=== PATIENT | male | born 1965 | race Caucasian/White ===

== ENCOUNTER 2017-08-25 20:40 | Inpatient (IN) ==
[2017-08-25] MEDS ORDERED: ONDANSETRON ODT 4 MG TABLET SL ONE (20:54)
--- NOTE | 2017-08-25 21:21 | Emergency Department Note ---
Nausea/Vomiting/Diarrhea HPI - General Chief complaint: Nausea/Vomiting/Diarrhea Stated complaint: n/v for approx 16 hrs Time Seen by Provider: 08/25/17 21:18 Source: patient Mode of arrival: ambulatory Limitations: no limitations - History of Present Illness HPI Narrative: This 52-year-old gentleman comes to the emergency room accompanied by Macarena with nausea and vomiting over the last 15 hours. He has dialysis scheduled in the morning for which she treats his chronic renal failure due to his diabetes type 1. He sees Dr. Hernandez. He admits to taking 4 of his hydromorphone 4 mg yesterday, one at a time, for his chronic pains. He sometimes takes none and his average intake is about 4 per week in the past. He did take some nausea medicine with the last dose being last evening at 10 PM under the tongue sublingual type. His normal dialysis is Mondays and Fridays at 10 AM. He has had some sweats but mostly with the vomiting he believes. Some chills because of this. No fevers. REVIEW OF SYSTEMS: Denies chest pain, palpitations. Some low-grade chronic cough. No shortness of breath or wheeziness. No abdominal pain, diarrhea, constipation, hematochezia. No dysuria, no foul-smelling urine. He produces small amounts of urine. Chronic back pain. He has metal holding his vertebra part with 2 plates and 4 bolts he says. He also has severe neck pain for which he is getting a workup including an MRI and ultrasound done yesterday. No rashes No headaches. He is felt weak today. He has felt a little dizzy today. Denies anxiety and worry. Denies sadness and depression. Has felt fatigued and sleepy all day. - Related Data Home Medications Medication Instructions Recorded Confirmed ascorbic acid (vitamin C) 1,000 mg 1,000 mg PO BID tab 08/23/14 08/26/17 tablet brimonidine-timolol 0.2 %-0.5 % 1 drp RIGHT EYE Q6H ml 08/23/14 08/26/17 eye drops cholecalciferol (vitamin D3) 1,000 See Dose Instructions PO QDAY cap 09/25/14 08/26/17 unit capsule Dorzolamide HCl [Trusopt] 1 drp OU TID 10/10/14 08/26/17 Latanoprost Ophth Drops [Xalatan 1 gtt OD HS 10/10/14 08/26/17 Ophth Drops] aspirin 81 mg tablet,delayed 81 mg PO QDAY 10/13/16 08/26/17 release Previous Rx's Medication Instructions Recorded esomeprazole magnesium 40 mg 40 mg PO .qd 90 Days #90 cap 10/31/14 capsule,delayed release sevelamer carbonate 800 mg tablet 1,600 mg PO TIDCC #540 tab 07/30/15 sumatriptan 50 mg tablet 50 mg PO Q2H PRN #10 tab MDD 100mg 03/18/16 hydroxyzine HCl 50 mg tablet 50 mg PO .nightly #30 tab 04/19/16 albuterol sulfate HFA 90 1 puff INHALATION Q6H PRN #18 g 06/14/16 mcg/actuation aerosol inhaler zolpidem 10 mg tablet 10 mg PO HS PRN #30 tab 06/15/16 metolazone 5 mg tablet 5 mg PO QDAY #5 tab 06/22/16 bupropion HCl XL 150 mg 24 hr 150 mg PO QAM #84 tab 10/05/16 tablet, extended release calcium acetate 667 mg tablet 1,334 mg PO TID #120 tab 02/28/17 ondansetron 4 mg disintegrating 4 mg PO Q6H PRN #90 tab 02/28/17 tablet omeprazole 40 mg capsule,delayed 40 mg PO QDAY 90 Days #90 cap 03/28/17 release furosemide 40 mg tablet 40 mg PO BID #180 tab 05/09/17 metoprolol tartrate 50 mg tablet 50 mg PO BID 90 Days #180 tab 06/13/17 hydralazine 25 mg tablet 50 mg PO BID #120 tab 06/20/17 insulin glargine (U-100) 100 30 unit SUB-Q QDAY #15 ml 06/30/17 unit/mL (3 mL) subcutaneous pen amlodipine 10 mg tablet 10 mg PO DAILY #90 tab 07/04/17 atorvastatin 40 mg tablet 40 mg PO QDAY #90 tab 07/12/17 insulin aspart U-100 100 unit/mL See Label Instructions SUB-Q QAM 07/14/17 subcutaneous pen #45 ml pen needle, diabetic 32 gauge x See Dose Instructions .ROUTE 07/14/17" .MEDSUPPLY #200 each vitamin B complex-vitamin C-folic 1 tab-cap PO QDAY #90 tab 07/18/17 acid 0.8 mg tablet hydromorphone 4 mg tablet 4 mg PO Q6H PRN #112 tab 08/10/17 Allergies Allergy/AdvReac Type Severity Reaction Status Date / Time levofloxacin Allergy Intermediate Rash Verified 08/10/17 08:47 hydrocodone [HYDROCODONE] AdvReac Mild VOMIT Verified 08/26/17 06:36 codine AdvReac Mild Vomiting Uncoded 08/26/17 06:36 Past Medical History - Past Medical History Medical history: Reports: CHF, DM (Type I since age 15, insulin using.), GERD, hyperlipidemia, hypertension, renal disease (On dialysis), other (DENIES: DKA.) . Denies: cancer, COPD, coronary artery disease, CVA, myocardial infarction, TIA Psychiatric history: Denies: anxiety, depression Surgical history ED: Reports: appendectomy, orthopedic, other (Carpal tunnel bilateral. Right shoulder repair. Left ankle repair.), other (Fistula left arm. Right eye surgery for diabetic retinopathy.) - Social History smoking status: Current every day smoker (3 force pack per day) Alcohol use: Reports: Rarely (Maybe twice per year.) Drug use: Reports: none. Denies: marijuana Physical Exam Limitations: no limitations General appearance: alert (But mostly with eyes closed but interactive), malaise (Moderate.) Head: atraumatic, normocephalic ENT: mucous membranes dry Neck: Present: trachea midline. Absent: lymphadenopathy, thyromegaly Respiratory: Present: normal lung sounds bilaterally. Absent: respiratory distress, wheezes, stridor, accessory muscle use, prolonged expiratory phase Cardiovascular: Present: regular rate, normal rhythm. Absent: systolic murmur, diastolic murmur Abdominal: Present: soft. Absent: distention, tenderness, guarding, rebound, rigidity, organomegaly, mass Extremities: Absent: pedal edema, pretibial edema, calf tenderness Back: Absent: CVA tenderness (R), CVA tenderness (L), vertebral tenderness Neurological: Present: alert, oriented X3 Psychiatric: Present: normal affect, normal mood Skin: Present: warm, dry Course Course Narrative: 9:03 PM Significant nausea and vomiting in a dialysis patient with type 1 diabetes. Will give nausea medicine and do labs. 9:25 PM Potassium at 6.0 with creatinine at 15. Will compare with other previous labs. I added a lipase, CRP and beta hydroxybutyrate. Vital Signs Temperature 97.0 F 08/25/17 20:40 Pulse Rate 85 08/25/17 20:40 Respiratory Rate 16 08/25/17 20:40 Blood Pressure 116/61 08/25/17 20:40 Pulse Oximetry (%) 99 08/25/17 20:40 Temperature 99.5 F H 08/26/17 05:03 Pulse Rate 86 08/26/17 05:11 Respiratory Rate 15 08/26/17 06:01 Blood Pressure 154/68 08/26/17 06:01 Pulse Oximetry (%) 95 08/26/17 06:01 Nausea/Vomiting/Diarrhea - MDM Narrative Medical decision making narrative: Patient continued to have some nausea and vomiting. His beta hydroxybutyrate came back elevated. His glucose remains some elevated. He was given calcium chloride 5 mg and this was repeated a couple hours later, insulin and glucose, for his potassium. Case was discussed with Dr. Hernandez and then with Dr. Acosta. His creatinine was 15.5. His troponin was 0.18. Repeat EKG was similar to even improved from the previous one. Case was also discussed with Dr. Acosta who kindly accepted patient's care and patient was transferred to ICU because of his DKA and electrolyte imbalances. - Lab Data Lab results reviewed: Yes I reviewed the patient's lab results. Result diagrams: 08/26/17 04:00 08/26/17 08:17 Lab Results 08/25/17 08/25/17 08/25/17 Range/Units 21:05 21:05 21:05 WBC 17.1 H (4.5-11.0) K/mcL RBC 4.51 (4.50-5.90) M/mcL Hgb 14.6 (13.5-16.5) g/dL Hct 43.2 (41.0-55.0) % POC Hct 45.0 (41.0-55.0) % MCV 95.9 (80.0-100.0) fL MCH 32.4 (26.0-34.0) pg MCHC 33.8 (31.0-36.0) g/dL RDW 12.6 (11.5-14.5) % Plt Count 322 (140-440) K/mcL MPV 8.4 (7.4-10.4) fL Gran % 86.4 H (38.0-78.0) % Lymph % (Auto) 7.8 L (15.5-49.0) % Hubbard % (Auto) 5.4 (1.0-12.0) % Eos % (Auto) 0.2 (0.0-7.0) % Baso % (Auto) 0.2 (0.0-2.0) % Gran # 14.8 H (1.8-8.0) K/mcL Lymph # (Auto) 1.3 L (1.5-4.8) K/mcL Hubbard # (Auto) 0.9 (0.1-0.9) K/mcL Eos # (Auto) 0 (0.0-0.7) K/mcL Baso # (Auto) 0 (0.0-0.3) K/mcL POC Sodium 127 L (133-145) mmol/L Sodium 130 L (133-145) mmol/L POC Potassium 6.0 H* (3.3-5.1) mmol/L Potassium 6.2 H* (3.3-5.1) mmol/L POC Chloride 91 L (96-108) mmol/L Chloride 80 L (96-108) mmol/L Carbon Dioxide 19 L (22-30) mmol/L POC Total CO2 22 (22-30) mmol/L Anion Gap 31.0 H (8-16) POC BUN 87 H (6-20) mg/dl BUN 85 H (6-20) mg/dl Creatinine 12.3 H* (0.7-1.2) mg/dl POC Creatinine 15.4 H* (0.7-1.2) mg/dl GFR Calculation 4 Glucose 380 H (70-105) mg/dL POC Glucose 380 H (70-105) mg/dL Calcium 9.9 (8.6-10.4) mg/dl POC WB Ioniz Calcium 1.05 L (1.16-1.32) mmol/L Total Bilirubin 0.5 (0.0-1.0) mg/dL AST 20 (0-37) U/l ALT 17 (0-40) U/l Alkaline Phosphatase 79 (39-117) U/L Troponin T (0-0.03) ng/ml C-Reactive Protein 2.1 H (0.0-0.8) mg/dl Total Protein 8.2 (5.9-8.4) gm/dL Albumin 4.5 (3.2-5.2) gm/dL Globulin 3.7 (2.2-3.7) gm/dL Albumin/Globulin Ratio 1.2 (1.0-2.3) Lipase 26 (7-60) U/L Beta-Hydroxybutyrate 3.50 H (< 0.27) mmol/L 08/25/17 08/25/17 Range/Units 21:05 23:05 WBC (4.5-11.0) K/mcL RBC (4.50-5.90) M/mcL Hgb (13.5-16.5) g/dL Hct (41.0-55.0) % POC Hct 40.0 L (41.0-55.0) % MCV (80.0-100.0) fL MCH (26.0-34.0) pg MCHC (31.0-36.0) g/dL RDW (11.5-14.5) % Plt Count (140-440) K/mcL MPV (7.4-10.4) fL Gran % (38.0-78.0) % Lymph % (Auto) (15.5-49.0) % Hubbard % (Auto) (1.0-12.0) % Eos % (Auto) (0.0-7.0) % Baso % (Auto) (0.0-2.0) % Gran # (1.8-8.0) K/mcL Lymph # (Auto) (1.5-4.8) K/mcL Hubbard # (Auto) (0.1-0.9) K/mcL Eos # (Auto) (0.0-0.7) K/mcL Baso # (Auto) (0.0-0.3) K/mcL POC Sodium 127 L (133-145) mmol/L Sodium (133-145) mmol/L POC Potassium 5.9 H* (3.3-5.1) mmol/L Potassium (3.3-5.1) mmol/L POC Chloride 91 L (96-108) mmol/L Chloride (96-108) mmol/L Carbon Dioxide (22-30) mmol/L POC Total CO2 20 L (22-30) mmol/L Anion Gap (8-16) POC BUN 95 H (6-20) mg/dl BUN (6-20) mg/dl Creatinine (0.7-1.2) mg/dl POC Creatinine 15.5 H* (0.7-1.2) mg/dl GFR Calculation Glucose (70-105) mg/dL POC Glucose 443 H (70-105) mg/dL Calcium (8.6-10.4) mg/dl POC WB Ioniz Calcium 1.12 L (1.16-1.32) mmol/L Total Bilirubin (0.0-1.0) mg/dL AST (0-37) U/l ALT (0-40) U/l Alkaline Phosphatase (39-117) U/L Troponin T 0.18 H* (0-0.03) ng/ml C-Reactive Protein (0.0-0.8) mg/dl Total Protein (5.9-8.4) gm/dL Albumin (3.2-5.2) gm/dL Globulin (2.2-3.7) gm/dL Albumin/Globulin Ratio (1.0-2.3) Lipase (7-60) U/L Beta-Hydroxybutyrate (< 0.27) mmol/L - EKG Data EKG results narrative: elevated ST segment in V2 initially. Similar otherwise to old ECG. Will be read by concessionist. Disposition Pt seen by [employer] SCRE[employer] HELPER/PA only: No Clinical Impression: Diabetes mellitus type 1 with complications, Hyperkalemia, diminished renal excretion Nausea & vomiting Qualifiers: Vomiting type: unspecified Vomiting Intractability: intractable Qualified Code( s): R11.2 - Nausea with vomiting, unspecified CRF (chronic renal failure) Qualifiers: Chronic kidney disease stage: stage 5 Qualified Code(s): N18.5 - Chronic kidney disease, stage 5 DKA (diabetic ketoacidosis) Qualifiers: Diabetes mellitus type: type 1 Diabetes mellitus complication detail: without coma Qualified Code(s): E10.10 - Type 1 diabetes mellitus with ketoacidosis without coma Disposition: Xfer As Inpt ([facility])
[2017-08-25 21:52] LABS: Basophils # (Auto) 0 K/mcL (0.0-0.3); Basophils % (Auto) 0.2 % (0.0-2.0); Eosinophils # (Auto) 0 K/mcL (0.0-0.7); Eosinophils % (Auto) 0.2 % (0.0-7.0); Granulocytes % (Auto) 86.4 % (38.0-78.0); Lymphocytes # (Auto) 1.3 K/mcL (1.5-4.8); Lymphocytes % (Auto) 7.8 % (15.5-49.0); Mean Cell Volume 95.9 fL (80.0-100.0); Mean Corpuscular HGB Conc 33.8 g/dL (31.0-36.0); Mean Corpuscular Hemoglobin 32.4 pg (26.0-34.0); Monocytes # (Auto) 0.9 K/mcL (0.1-0.9); Monocytes % (Auto) 5.4 % (1.0-12.0); Platelet Count 322 K/mcL (140-440); RBC 4.51 M/mcL (4.50-5.90); Red Cell Distribution Width 12.6 % (11.5-14.5)
[2017-08-25] MEDS ORDERED: DEXTROSE 50% 50 ML SYRINGE IV ONE (21:53)
[2017-08-25] MEDS ORDERED: CALCIUM CHLORIDE 1,000 MG/10 ML SYRINGE IV ONE ×2 (21:53→23:31)
[2017-08-25] MEDS ORDERED: INSULIN REGULAR, HUMAN 1 UNIT/0.01 ML UNIT IV ONE ×2 (21:53→23:31)
[2017-08-25] MEDS ORDERED: PROMETHAZINE 25 MG/ML VIAL IV ONE (21:53)
[2017-08-25 22:14] LABS: C-Reactive Protein 2.1 mg/dl (0.0-0.8)
[2017-08-25 22:15] LABS: ALT/SGPT 17 U/l (0-40); Albumin 4.5 gm/dL (3.2-5.2); Albumin/Globulin Ratio 1.2 (1.0-2.3); Alkaline Phosphatase 79 U/L (39-117); Blood Urea Nitrogen 85 mg/dl (6-20)
[2017-08-25] MEDS ORDERED: 0.9 % SODIUM CHLORIDE 1,000 ML IV ONE (22:38)
[2017-08-25 23:26] LABS: Beta Hydroxybutyrate 3.5 mmol/L (< 0.27)
--- NOTE | 2017-08-26 00:24 | Internal Med History&Physical ---
Medical - H&P: HPI Patient information: Note initiated : 08/26/17 at 12:19 am Service Date, if different from initiated Date: [] Patient: Daljit Ash 52 y/o M admitted on for n/v for approx 16 hrs. Chief Complaint: [] History of present illness: Mr. Ash is a 52 year old Male with h/o type 1 DM, presents to the ER for not feeling well for over last 2 days, patient did not sleep well last night and was a bit sleepy He notes he has been having neck pain for a while, had recent exacerbation for same and was prescribed some hydromorphone medications. He took the meds, Since yesterday he has not been feeling well, he has has significant nausea and vomiting and has not been able to keep any food down. The patient has missed his insulin dose. Given that his nausea and vomiting was not improving, he decided to come to the ER for further evaluation. The patient has a history of intolerance to narcotic pain meds The patient denies any fever, cough no headache no chills no urinary complaints. He has no abdominal pain. He does admit some abdominal discomfort and chest pain because of extensive vomiting. However no chest pressure or chest tightness reported. He denies any shortness of breath palpitations dizziness. He denies any joint pains skin rashes. Has neck pain that has been bothering him for a while. He has chronic back pain as has the surgery done for same. He was accompanied by a neighbor. In the emergency room, patient was hemodynamically stable, he had elevated white blood cell count at 17,000, hemoglobin 14,000, platelets 322. Sodium 130 , potassium 6.2, bicarbonate 19, anion gap 31, creatinine 12.3, BUN 85 glucose 380, CRP 2.1 ESR 33 lipase 26 troponin 0 0.1 8 repeat troponin 0 0.18, hydroxybutyrate at 3.5. Patient was admitted to the ICU for management of diabetic ketoacidosis. The patient recently had an MRI done by his PCP, the MRI showed chronic discitis osteomyelitis. He also has degenerative disease in the spine. Patient's EKG showed peaked T waves, this was medically managed overnight, dialysis was not urgently initiated as it was anticipated that potassium should improve with treatment of acute DKA. Patient is having dialysis today. Nephrology evaluate the patient. I reviewed the case with Dr. Long, line was for getting a bone biopsy before we administer antibiotics to identify the pathogen if possible. Radiology was uncomfortable to do cervical spine biopsy. Anesthesia will be performing the procedure later today. Plan to initiate broad-spectrum antibiotics once the biopsies done. Blood cultures have been sent, echo has been ordered. All systems: reviewed and no additional remarkable complaints except as stated ( as per hpi rest neg) Medical - H&P: PMH Medical history: Medical History (Last Reviewed 08/10/17 @ 10:19 by Andrey Strickland DO) Back pain at L4-L5 level (Chronic) Secondary hyperparathyroidism of renal origin (Chronic) Proteinuria (Chronic 12/06/12) Pes planus (Chronic) group home current use of insulin (Chronic) group home 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 (Chronic) Hypertensive renal disease (Chronic) Hyperlipidemia (Chronic) Gastroesophageal reflux (Chronic 07/01/14) Essential hypertension (Chronic 12/06/12) End stage renal disease (Chronic) Diabetes mellitus type 1, uncontrolled (Chronic) Chronic kidney disease, stage V (Chronic 04/29/13) Anemia in chronic kidney disease (Chronic) Acidosis, metabolic (Chronic 12/06/12) Acute appendicitis (Inactive) Appendicitis (Inactive) Foot pain (Inactive 07/01/14) History of tobacco abuse (Inactive) Nosocomial pneumonia (Inactive) Pneumonia (Inactive) Rash (Inactive) Surgical history: Past Surgical History (Last Reviewed 08/10/17 @ 10:19 by Andrey Strickland DO) Arteriovenous fistula for hemodialysis in place, primary (Chronic) History of angioplasty (Chronic 11/03/16) History of colonoscopy (Chronic 06/18/15) History of bone marrow biopsy (Inactive) History of laser photocoagulation of retina (Inactive) History of shoulder surgery (Inactive) Pertinent family history: Family History (Last Reviewed 08/10/17 @ 10:19 by Andrey Strickland DO) Father Coronary artery disease Diabetes mellitus Essential hypertension Mother Diabetes mellitus Medical - H&P: Meds Home Medications Medication Instructions Recorded Confirmed Type ascorbic acid (vitamin C) 1,000 mg 1,000 mg PO BID tab 08/23/14 08/26/17 History tablet brimonidine-timolol 0.2 %-0.5 % 1 drp RIGHT EYE Q6H ml 08/23/14 08/26/17 History eye drops cholecalciferol (vitamin D3) 1,000 See Dose Instructions PO QDAY cap 09/25/14 08/26/17 History unit capsule Dorzolamide HCl [Trusopt] 1 drp OU TID 10/10/14 08/26/17 History Latanoprost Ophth Drops [Xalatan 1 gtt OD HS 10/10/14 08/26/17 History Ophth Drops] esomeprazole magnesium 40 mg 40 mg PO .qd 90 Days #90 cap 10/31/14 08/26/17 Rx capsule,delayed release sevelamer carbonate 800 mg tablet 1,600 mg PO TIDCC #540 tab 07/30/15 08/26/17 Rx sumatriptan 50 mg tablet 50 mg PO Q2H PRN #10 tab MDD 100mg 03/18/16 08/26/17 Rx hydroxyzine HCl 50 mg tablet 50 mg PO .nightly #30 tab 04/19/16 08/26/17 Rx albuterol sulfate HFA 90 1 puff INHALATION Q6H PRN #18 g 06/14/16 08/26/17 Rx mcg/actuation aerosol inhaler zolpidem 10 mg tablet 10 mg PO HS PRN #30 tab 06/15/16 08/26/17 Rx metolazone 5 mg tablet 5 mg PO QDAY #5 tab 06/22/16 08/26/17 Rx bupropion HCl XL 150 mg 24 hr 150 mg PO QAM #84 tab 10/05/16 08/26/17 Rx tablet, extended release aspirin 81 mg tablet,delayed 81 mg PO QDAY 10/13/16 08/26/17 History release calcium acetate 667 mg tablet 1,334 mg PO TID #120 tab 02/28/17 08/26/17 Rx ondansetron 4 mg disintegrating 4 mg PO Q6H PRN #90 tab 02/28/17 08/26/17 Rx tablet omeprazole 40 mg capsule,delayed 40 mg PO QDAY 90 Days #90 cap 03/28/17 Rx release furosemide 40 mg tablet 40 mg PO BID #180 tab 05/09/17 08/26/17 Rx metoprolol tartrate 50 mg tablet 50 mg PO BID 90 Days #180 tab 06/13/17 Rx hydralazine 25 mg tablet 50 mg PO BID #120 tab 06/20/17 08/26/17 Rx insulin glargine (U-100) 100 30 unit SUB-Q QDAY #15 ml 06/30/17 08/26/17 Rx unit/mL (3 mL) subcutaneous pen amlodipine 10 mg tablet 10 mg PO DAILY #90 tab 07/04/17 08/26/17 Rx atorvastatin 40 mg tablet 40 mg PO QDAY #90 tab 07/12/17 08/26/17 Rx insulin aspart U-100 100 unit/mL See Label Instructions SUB-Q QAM 07/14/17 Rx subcutaneous pen #45 ml pen needle, diabetic 32 gauge x See Dose Instructions .ROUTE 07/14/17 08/10/17 Rx /32" .MEDSUPPLY #200 each vitamin B complex-vitamin C-folic 1 tab-cap PO QDAY #90 tab 07/18/17 08/26/17 Rx acid 0.8 mg tablet hydromorphone 4 mg tablet 4 mg PO Q6H PRN #112 tab 08/10/17 08/26/17 Rx Allergies Allergy/AdvReac Type Severity Reaction Status Date / Time levofloxacin Allergy Intermediate Rash Verified 08/10/17 08:47 hydrocodone [HYDROCODONE] AdvReac Mild VOMIT Verified 08/26/17 06:36 codine AdvReac Mild Vomiting Uncoded 08/26/17 06:36 Medical - H&P: Exam - Constitutional Vitals: Temp Pulse Resp BP Pulse Ox 97.0 F 94 H 15 145/65 95 08/25/17 20:40 08/25/17 23:46 08/25/17 23:46 08/25/17 23:46 08/25/17 23:46 Exam: GENERAL: The patient is a well-developed, well-nourished in no apparent distress. Is alert this am, drowsy yesterday night, and oriented x3. VITAL SIGNS: Reviewed and as noted elsewhere. HEENT: Head is normocephalic and atraumatic. Extraocular muscles are intact. Pupils are equal, round, and reactive to light. Nares appeared normal. Mouth appears any without lesions. Mucous membranes are moist. NECK: Normal to inspection, Supple, No lymphadenopathy or thyromegaly. LUNGS: Air entry equal on both sides, no wheezing, crackles or rhonchi noted. No accessory muscles of respiration HEART: Regular rate and rhythm normal, S1 and S2 heard, no Gallop, S3 or Rub Noted, systolic murmur present ABDOMEN: Soft, nontender, and nondistended. Positive bowel sounds. No hepatosplenomegaly was noted. EXTREMITIES: No cyanosis, clubbing, rash, lesions or edema. NEUROLOGIC: Cranial nerves II through XII are grossly intact. Motor and Sensory System Grossly Intact PSYCHIATRIC: Normal affect, Normal Mood. Appropriate Behavior. SKIN: No ulceration or wounds noted, No jaundice, No rash noted. Medical - H&P: Reslt - Labs CBC & Chem 7: 08/26/17 04:00 08/26/17 08:17 Labs: Short CBC 08/25/17 Range/Units 21:05 WBC 17.1 H (4.5-11.0) K/mcL Hgb 14.6 (13.5-16.5) g/dL Hct 43.2 (41.0-55.0) % Plt Count 322 (140-440) K/mcL BMP 08/25/17 21:05 Sodium 130 L Potassium 6.2 H* Chloride 80 L Carbon Dioxide 19 L BUN 85 H Creatinine 12.3 H* Glucose 380 H Calcium 9.9 Cardiac Enzymes 08/25/17 Range/Units 21:05 Troponin T 0.18 H* (0-0.03) ng/ml Liver Function 08/25/17 Range/Units 21:05 Total Bilirubin 0.5 (0.0-1.0) mg/dL AST 20 (0-37) U/l ALT 17 (0-40) U/l Alkaline Phosphatase 79 (39-117) U/L Albumin 4.5 (3.2-5.2) gm/dL Medical - H&P: A/P - Narrative A/P Narrative: A/P DKA- Treat per protocol, the need for HD is complicating his glucose/ DKA management, his anion gap is closing, hydroxybutyrate is 0.35, this AM. Pt is npo, his glucose levels dropped precipitously after HD initiation, on d10, at present, if the patient keeps dropping his glucose, will hold off on insulin, and monitor his glucose status. plan to repeat labs after HD to make a final determination. Etiology of dka? no pna, noted, CT Abdomen is neg, he is intolerant to narcotics , may have trigged the nausea and vomiting, alternatively the infection in the spine is the trigger. nausea and vomiting- due to dka, improved, on reglan, phenargan prn. zofran prn , iv ppi Cervical Osteomyelitis: Dr Long consulted, plan for biopsy today, will start on vancomycin and cefepime after biopsy, will awat micro and tailor the abx per microbiology, will need 4-6 weeks depending on response, no neurological deficit at present to warrant urgent surgical intervention. DM- type 1- resume sq insulin once DKA is resolved ESRD on HD secondary to dm, HD today, usually has tuesday shemar, follows with Dr nolen, HD per them, will resume chr meds once tolerating po HTN/HLD- all meds on hold for now, resume once dka resolves, off HD. Hyperkalemia with Ecg changes- noted on admission to ER, treated medically Elevated troponin- secondary to demand ischemia and other metabolic issues, no chest pain, no ekg changes at this time. DVT hep sq, on hold today in light of cervical procedure, Full code spent > 70 mins rendering critical care, DKA, insulin drip management, brayden review, care coordination. Social History - Tobacco smoking status: Current every day smoker (3 force pack per day) - Quit Details quit date: 09/11/14 pack-years: 33 - Alcohol alcohol intake frequency: does not drink - Substance use substance use type: does not use
--- NOTE | 2017-08-26 00:33 | Event Note ---
pt admitted to the hospital for DKA, IV fluids, IV insulin, per protocol Has elevated K , with peaked t waves on initial ekg, treated medically in the ER with resolution of same in the subsequent EKG, K dropped from peak of 6.2 to 5.9 Initially HD was planned tonight, but given that the patient is in DKA, and will be receiving fluids/ insulin drip, which should help resolve his acid and help manage his K, we will hold off on the emergent HD tonight, in anticipation of further improvement of K with insulin drip. Patient is being closely monitored in the ICU. see h/p for details.
[2017-08-26] MEDS ORDERED: NALOXONE HCL 0.4 MG/ML VIAL IV PRN (01:49)
[2017-08-26] MEDS ORDERED: 0.9 % SODIUM CHLORIDE 1,000 ML IV SCH (01:49)
[2017-08-26] MEDS ORDERED: PANTOPRAZOLE 40 MG VIAL IV ONE ×2 (01:49→02:18)
[2017-08-26] MEDS ORDERED: PROMETHAZINE 25 MG/ML VIAL IV PRN ×2 (01:49→16:57)
[2017-08-26] MEDS ORDERED: 0.9 % SODIUM CHLORIDE 1,000 ML IV ONE ×3 (01:49)
[2017-08-26] MEDS: DEXTROSE 10 % IN WATER 1,000 ML IV SCH ×2 (01:50→11:20)
[2017-08-26] MEDS ORDERED: INSULIN REGULAR, HUMAN 1 UNIT/0.01 ML UNIT ONE ×2 (01:56→02:12)
[2017-08-26] MEDS ORDERED: METOCLOPRAMIDE 10 MG/2 ML VIAL ONE (02:18)
[2017-08-26] MEDS: METOCLOPRAMIDE 10 MG/2 ML VIAL IV SCH ×4 (02:18→17:44)
[2017-08-26] MEDS: 0.9 % SODIUM CHLORIDE 250 ML IV SCH ×2 (03:00→19:52)
[2017-08-26] MEDS ORDERED: DEXTROSE 5%-1/2NS 1,000 ML IV SCH ×2 (04:30→07:16)
[2017-08-26 05:26] LABS: Basophils # (Auto) 0 K/mcL (0.0-0.3); Basophils % (Auto) 0 % (0.0-2.0); Eosinophils # (Auto) 0 K/mcL (0.0-0.7); Eosinophils % (Auto) 0 % (0.0-7.0); Granulocytes % (Auto) 89.2 % (38.0-78.0); Lymphocytes # (Auto) 1.3 K/mcL (1.5-4.8); Lymphocytes % (Auto) 6.5 % (15.5-49.0); Mean Cell Volume 95.8 fL (80.0-100.0); Mean Corpuscular HGB Conc 33.2 g/dL (31.0-36.0); Mean Corpuscular Hemoglobin 31.8 pg (26.0-34.0); Monocytes # (Auto) 0.9 K/mcL (0.1-0.9); Monocytes % (Auto) 4.3 % (1.0-12.0); Platelet Count 299 K/mcL (140-440); RBC 3.74 M/mcL (4.50-5.90); Red Cell Distribution Width 12.5 % (11.5-14.5)
[2017-08-26 06:11] LABS: ALT/SGPT 13 U/l (0-40); Albumin 3.7 gm/dL (3.2-5.2); Albumin/Globulin Ratio 1.3 (1.0-2.3); Alkaline Phosphatase 65 U/L (39-117); Bilirubin,Direct < 0.2 mg/dL (0.0-0.3); Blood Urea Nitrogen 88 mg/dl (6-20); Gamma Glutamyl Transpeptidase 12 U/L (8-61); Uric Acid 10.6 mg/dL (2.5-8.0)
--- NOTE | 2017-08-26 06:26 | Nephrology Consult Note ---
History of Present Illness - Reason for Consult Patient information: Note initiated : 08/26/17 at 6:21 am Service Date, if different from initiated Date: [] Patient: Daljit Ash 52 y/o M admitted on 08/26/17 for n/v for approx 16 hrs. Chief Complaint: [] Consult date: 08/26/17 end stage renal disease, hyperkalemia Requesting physician: Ren Tucker - Chief Complaint nausea, vomiting - History of Present Illness Patient is a 52 y/o pleasant white male with PMH of ESRD on HD for which he follows with me who presented to the ER last night with c/o refractory nausea, vomiting that started at 4 am yesterday. He denies any fever, chills he has no h/o abdominal pain no diarrhea/constipation no sick contacts he does have issues with cervical neck pain for which he had MRI done which shows chronic discitis and he has been taking dilaudid for this he denies chest pain, SOB no other issues patient in the ER was found to have s.creat of 15, mild agap acidosis, elevated blood glucose and hyperkalemia he was treated for hyperkalemia medically and his K came down to from 6.2-5.9 but still with elevated blood glucose he was treated with insulin gtt and IVF for keto acidosis and his K level has improved this am to 5.1 Review of Systems All systems PM: reviewed and no additional remarkable complaints except as stated (as in HPI) Past History Past medical history: ESRD on HD HTN 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 anemia of CKD SECONDARY HYPERPARAthyroidism dyslipidemia chronic OA and low back pain h/o pericardial effusion Past surgical history: s/p multiple AVF surgery h/o spine surgery Past family history: mother had CVA no renal issues in family Past social history: lives in [place] currently on disability, used to work at [employer] chews nicotine gum Medications and Allergies Home Medications Medication Instructions Recorded Confirmed Type ascorbic acid (vitamin C) 1,000 mg 1,000 mg PO BID tab 08/23/14 08/26/17 History tablet brimonidine-timolol 0.2 %-0.5 % 1 drp RIGHT EYE Q6H ml 08/23/14 08/26/17 History eye drops cholecalciferol (vitamin D3) 1,000 See Dose Instructions PO QDAY cap 09/25/14 08/26/17 History unit capsule Dorzolamide HCl [Trusopt] 1 drp OU TID 10/10/14 08/26/17 History Latanoprost Ophth Drops [Xalatan 1 gtt OD HS 10/10/14 08/26/17 History Ophth Drops] esomeprazole magnesium 40 mg 40 mg PO .qd 90 Days #90 cap 10/31/14 08/26/17 Rx capsule,delayed release sevelamer carbonate 800 mg tablet 1,600 mg PO TIDCC #540 tab 07/30/15 08/26/17 Rx sumatriptan 50 mg tablet 50 mg PO Q2H PRN #10 tab MDD 100mg 03/18/16 08/26/17 Rx hydroxyzine HCl 50 mg tablet 50 mg PO .nightly #30 tab 04/19/16 08/26/17 Rx albuterol sulfate HFA 90 1 puff INHALATION Q6H PRN #18 g 06/14/16 08/26/17 Rx mcg/actuation aerosol inhaler zolpidem 10 mg tablet 10 mg PO HS PRN #30 tab 06/15/16 08/26/17 Rx metolazone 5 mg tablet 5 mg PO QDAY #5 tab 06/22/16 08/26/17 Rx bupropion HCl XL 150 mg 24 hr 150 mg PO QAM #84 tab 10/05/16 08/26/17 Rx tablet, extended release aspirin 81 mg tablet,delayed 81 mg PO QDAY 10/13/16 08/26/17 History release calcium acetate 667 mg tablet 1,334 mg PO TID #120 tab 02/28/17 08/26/17 Rx ondansetron 4 mg disintegrating 4 mg PO Q6H PRN #90 tab 02/28/17 08/26/17 Rx tablet omeprazole 40 mg capsule,delayed 40 mg PO QDAY 90 Days #90 cap 03/28/17 Rx release furosemide 40 mg tablet 40 mg PO BID #180 tab 05/09/17 08/26/17 Rx metoprolol tartrate 50 mg tablet 50 mg PO BID 90 Days #180 tab 06/13/17 Rx hydralazine 25 mg tablet 50 mg PO BID #120 tab 06/20/17 08/26/17 Rx insulin glargine (U-100) 100 30 unit SUB-Q QDAY #15 ml 06/30/17 08/26/17 Rx unit/mL (3 mL) subcutaneous pen amlodipine 10 mg tablet 10 mg PO DAILY #90 tab 07/04/17 08/26/17 Rx atorvastatin 40 mg tablet 40 mg PO QDAY #90 tab 07/12/17 08/26/17 Rx insulin aspart U-100 100 unit/mL See Label Instructions SUB-Q QAM 07/14/17 Rx subcutaneous pen #45 ml pen needle, diabetic 32 gauge x See Dose Instructions .ROUTE 07/14/17 08/10/17 Rx 32" .MEDSUPPLY #200 each vitamin B complex-vitamin C-folic 1 tab-cap PO QDAY #90 tab 07/18/17 08/26/17 Rx acid 0.8 mg tablet hydromorphone 4 mg tablet 4 mg PO Q6H PRN #112 tab 08/10/17 08/26/17 Rx Allergies Allergy/AdvReac Type Severity Reaction Status Date / Time levofloxacin Allergy Intermediate Rash Verified 08/10/17 08:47 hydrocodone [HYDROCODONE] AdvReac Unknown VOMIT Verified 08/10/17 08:47 codine AdvReac Severe Vomiting Uncoded 08/10/17 08:47 Exam - Vital Signs Vital signs: Temp Pulse Resp BP Pulse Ox 99.5 F H 86 15 154/68 95 08/26/17 05:03 08/26/17 05:11 08/26/17 06:01 08/26/17 06:01 08/26/17 06:01 - General Appearance General appearance: appears started age EENT: mucous membranes dry Neck: no JVD Respiratory: clear Cardiology: no rub, no edema, normal S1, normal S2 Gastrointestinal: no tenderness, no guarding Integumentary: no rash Neurologic: no focal deficit, alert and oriented x3 Musculoskeletal: no erythema, no cyanosis Psychiatric: mood/affect appropriate Results - Lab Results 08/26/17 04:00 08/26/17 04:00 Most recent lab results Calcium 9.3 mg/dl (8.6-10.4) 08/26/17 04:00 Phosphorus 3.9 mg/dL (2.7-4.5) 08/26/17 04:00 Magnesium 3.0 mg/dL (1.6-2.5) H 08/26/17 04:00 Assessment and Plan (1) End stage renal disease hyperkalemia resolved patient gets dialysis tuesday and tuesday will go ahead and dialyse the patient today for 4 hrs using scarlett clear dialyser , 2K/2.5CA dialysate, sodium 135, UF to a little above DW diabetic ketoacidosis: unclear precipitating event on insulin gtt and IVF managed per hospitalist nausea, vomiting: much improved cervical discitis: Dr Long will be consulted anemia of CKD: Hb above goal for tish secondary hyperparathyroidism: ct phos binders once diet is resumed Will request Dr Williamson to follow the patient Appreciate hospitalist help in managing this patient Status: Chronic
[2017-08-26] MEDS: 0.9 % SODIUM CHLORIDE 10 ML SYRINGE IV SCH ×4 (06:58→23:00)
[2017-08-26] MEDS: INSULIN REGULAR, HUMAN 50 UNIT in 0.9 % SODIUM CHLORIDE 100 ML IV SCH ×2 (07:19→19:52)
[2017-08-26] MEDS ORDERED: DEXTROSE 50% 50 ML VIAL IV ONE ×3 (08:09→13:26)
--- NOTE | 2017-08-26 08:21 | XRay Report ---
HISTORY: Reason for Exam:leucocytosis FINDINGS: Prominent increased interstitial lung markings are present bilaterally. This is most apparent around the right hilum and involves both upper and lower lobes. There is a band of discoid atelectasis laterally at the left lung base. Adjacent to this there is a very small left-sided pleural effusion. Heart is borderline enlarged but magnified by portable technique. The mediastinum and gianna are normal. IMPRESSION: Increased interstitial lung markings bilaterally. This could be due to congestive heart failure, fluid overload, pneumonia or noninfectious inflammatory reaction. Interpreted and Authenticated by: Nathan Fong 08/26/17
[2017-08-26] MEDS: PANTOPRAZOLE 40 MG VIAL IV SCH ×2 (08:37→17:48)
[2017-08-26] MEDS ORDERED: IOPAMIDOL 100 ML BOTTLE IV ONE (09:09)
[2017-08-26 09:15] LABS: Blood Urea Nitrogen 88 mg/dl (6-20)
[2017-08-26 09:19] LABS: Beta Hydroxybutyrate 0.35 mmol/L (< 0.27)
--- NOTE | 2017-08-26 09:24 | Cat Scan Report ---
CLINICAL INFORMATION: Reason for Exam:abdominal pain, nausea, vomiting COMPARISON: None. TECHNIQUE: Following oral contrast and the injection of intravenous contrast the patient was scanned during the portal venous phase from the diaphragm through the symphysis pubis. Sagittal and coronal reformats were created.. Radiation exposure was limited using dose reduction technology. Patient has chronic renal failure and is on hemodialysis. Patient is scheduled for hemodialysis later today. FINDINGS: Bands of discoid atelectasis are present in both lung bases. There is no pleural effusion. The liver and spleen are normal in size and homogeneous. The gallbladder and bile ducts are normal. There is no mass or inflammation the pancreas. The adrenals are normal and symmetric. The kidneys are heterogeneous there are multiple ill-defined low-attenuation structure scattered throughout both kidneys. These are probably small cysts with partial volume averaging. No solid mass is identified. There is no kidney stone or hydronephrosis. There is a densely calcified plaque in a hilar branch of the left renal artery. There is mild plaque formation at the origins of both renal arteries. The oral contrast passed through stomach and small intestine to the distal transverse colon without obstruction. A moderate amount stool is present throughout the colon. There is no evidence of bowel obstruction or inflammation. No diverticula are seen. The appendix is surgically absent. The urinary bladder is normally distended but unopacified. Moderate amount of plaque is seen along the wall normal caliber abdominal aorta and iliac arteries. There may be stenoses at the origins of the celiac artery and right common iliac artery. The superior mesenteric artery is normal in caliber. There is no evidence of mass, adenopathy, ascites or abscess within the abdomen or pelvis. Patient does have nodular subcutaneous densities with coarse macrocalcifications in the mid abdomen bilaterally. This may be granulation tissue following prior injury or repetitive subcutaneous injections. There are postoperative changes following prior spinal fusion at L5-S1. IMPRESSION: Fecal impaction but without evidence of bowel obstruction Possible hemodynamically significant stenosis at the origin of the celiac artery. Discoid atelectasis in both lower lobes Interpreted and Authenticated by: Nathan Fong 08/26/17
[2017-08-26 09:30] LABS: Appearance,Urine CLEAR; Bacteria,Urine 0 /hpf (0); Bilirubin,Urine NEG (NEG); Color,Urine YELLOW; Glucose,Urine (UA) >=500 mg/dL (NEG); Leukocyte Esterase,Urine NEG /uL (NEG); Mucus,Urine FEW /hpf (0); Protein,Urine 100 mg/dL (NEG); Specific Gravity,Urine 1.009 (1.000-1.035); Urine Blood NEG mg/dL (<0.03); Urine RBC 1 /hpf (0-1); Urine Squamous Epithelial Cell < 1 /hpf (0-4); Urine WBC 1 /hpf (0-4); Urobilinogen,Urine NEG (NEG)
[2017-08-26] MEDS: HEPARIN 5,000 UNIT/ML VIAL SQ SCH ×2 (10:31→20:52)
[2017-08-26] MEDS ORDERED: KETAMINE 100 MG/ML ML IV ONE (16:00)
[2017-08-26] MEDS ORDERED: fentaNYL 100 MCG/2 ML VIAL IV ONE (16:00)
[2017-08-26] MEDS ORDERED: MIDAZOLAM 2 MG/2 ML VIAL IV ONE (16:00)
[2017-08-26] MEDS ORDERED: GLYCOPYRROLATE 0.2 MG/ML VIAL IV ONE (16:00)
[2017-08-26] MEDS ORDERED: LIDOCAINE HCL/PF 100 MG/5 ML SYRINGE IV ONE (16:00)
[2017-08-26] MEDS ORDERED: PROPOFOL 200 MG/20 ML VIAL IV ONE (16:00)
[2017-08-26] MEDS ORDERED: PHENYLEPHRINE 10 MG/ML VIAL IV ONE (16:00)
[2017-08-26] MEDS ORDERED: VANCOMYCIN PER PHARMACY IV SCH (16:36)
--- NOTE | 2017-08-26 16:43 | Brief Operative Note ---
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 Complications: none Surgeon: Yolette Crum Estimated blood loss (cc): 0 Specimens Removed/Pathology: other (C5-6 aspirate) Condition: stable Disposition: ICU
[2017-08-26] MEDS ORDERED: fentaNYL 100 MCG/2 ML VIAL IV PRN (16:57)
[2017-08-26] MEDS ORDERED: IPRATROPIUM/ALBUTEROL 3 ML AMPUL.NEB NEB PRN (16:57)
[2017-08-26] MEDS ORDERED: CEFEPIME 1 GM VIAL IV SCH (17:00)
[2017-08-26] MEDS ORDERED: LACTATED RINGERS 1,000 ML IV SCH (17:00)
[2017-08-26] MEDS ORDERED: LIDOCAINE W/EPI 1% 20 ML VIAL IJ ONE (17:26)
--- NOTE | 2017-08-26 18:48 | Ultrasound Report ---
History: Infection at a dialysis fistula in left arm FINDINGS: There is an arteriovenous fistula in the proximal forearm, connecting the radial artery with the cephalic vein. The fistula is patent and there is no thrombosis or dissection. Above the level of the fistula, the artery has a flow velocity of 46 cm/s. At the anastomosis it is 505 cm/s. Below the anastomosis there is retrograde flow with a velocity of 144 cm/s. There is no evidence of an abscess or cellulitis around the fistula. IMPRESSION: Normal arterial venous fistula in the left upper forearm. There is no evidence of infection, thrombosis or stenosis Interpreted and Authenticated by: Nathan Fong 08/26/17
[2017-08-26 18:59] LABS: Blood Urea Nitrogen 28 mg/dl (6-20)
[2017-08-26] MEDS ORDERED: VANCOMYCIN 1,500 MG in 0.9 % SODIUM CHLORIDE 500 ML IV ONE (19:00)
[2017-08-26] MEDS ORDERED: DEXTROSE 31 GM ORAL.SUSP PO PRN (19:03)
[2017-08-26] MEDS ORDERED: DEXTROSE 50% 50 ML VIAL IV PRN (19:03)
[2017-08-26] MEDS ORDERED: INSULIN GLARGINE, HUMAN 1 UNIT/0.01 ML SQ SCH (19:15)
[2017-08-26] MEDS ORDERED: INSULIN GLARGINE, HUMAN 1 UNIT/0.01 ML SQ ONE (19:48)
[2017-08-26] MEDS: INSULIN LISPRO 1 UNIT/0.01 ML UNIT SQ SCH (20:52)
[2017-08-27] MEDS: METOCLOPRAMIDE 10 MG/2 ML VIAL IV SCH ×2 (01:04→05:36)
[2017-08-27] MEDS: INSULIN REGULAR, HUMAN 50 UNIT in 0.9 % SODIUM CHLORIDE 100 ML IV SCH (02:23)
[2017-08-27] MEDS ORDERED: hydrALAZINE 20 MG/ML VIAL IV ONE (03:25)
[2017-08-27] MEDS ORDERED: ACETAMINOPHEN 325 MG TABLET PO PRN ×2 (03:26→12:17)
[2017-08-27] MEDS ORDERED: hydrALAZINE 20 MG/ML VIAL ONE (03:31)
[2017-08-27] MEDS ORDERED: ACETAMINOPHEN 325 MG TABLET PO ONE (03:31)
[2017-08-27 05:15] LABS: Basophils # (Auto) 0.1 K/mcL (0.0-0.3); Basophils % (Auto) 0.5 % (0.0-2.0); Eosinophils # (Auto) 0.3 K/mcL (0.0-0.7); Eosinophils % (Auto) 1.9 % (0.0-7.0); Lymphocytes # (Auto) 2.3 K/mcL (1.5-4.8); Mean Cell Volume 95.8 fL (80.0-100.0); Mean Corpuscular HGB Conc 33.5 g/dL (31.0-36.0); Mean Corpuscular Hemoglobin 32.1 pg (26.0-34.0); Monocytes # (Auto) 1.2 K/mcL (0.1-0.9); Monocytes % (Auto) 7.6 % (1.0-12.0); Platelet Count 260 K/mcL (140-440); Red Cell Distribution Width 12.9 % (11.5-14.5)
[2017-08-27] MEDS: 0.9 % SODIUM CHLORIDE 10 ML SYRINGE IV SCH ×4 (05:36→20:54)
--- NOTE | 2017-08-27 06:25 | Nephrology Progress Note ---
Subjective Patient information: Note initiated : 08/27/17 at 6:22 am Daljit Ash is a 52-year-old male with end stage renal disease due to diabetic nephropathy on chronic hemodialysis (through left arm AV fistula, at [facility], on MWF, followed by Dr. Hernandez), chronic anemia due to kidney disease and iron deficiency, secondary hyperparathyroidism, diabetes mellitus type 1 admitted on 08/26/17 for DKA. Chief Complaint: Nausea and vomiting. Principal diagnosis: End stage renal disease on chronic hemodialysis Interval history: Hemodialysis and cervical bone biopsy on 08/26/17 Pertinent ROS: Weakness Objective - Vital Signs Vital signs: Vital Signs Temp Pulse Pulse Pulse Resp BP BP 08/27/17 05:58 81 13 08/27/17 05:01 82 14 140/70 08/27/17 04:09 79 11 L 08/27/17 04:01 98.4 F 83 13 134/71 08/27/17 03:47 84 14 08/27/17 03:25 83 14 187/94 08/27/17 03:23 86 16 197/95 08/27/17 03:01 81 14 190/81 08/27/17 02:29 81 11 L 08/27/17 02:04 83 14 188/99 08/27/17 02:01 87 14 206/93 08/27/17 01:51 84 15 08/27/17 01:08 77 13 162/93 08/27/17 01:07 80 14 160/85 08/27/17 00:01 98.3 F 79 14 145/74 08/27/17 00:00 78 08/26/17 23:35 79 24 H 08/26/17 23:01 77 13 150/72 08/26/17 22:20 79 13 161/72 08/26/17 22:19 81 14 159/71 08/26/17 21:03 80 13 167/82 08/26/17 20:59 98.7 F 25 H 167/82 08/26/17 20:19 84 15 130/81 08/26/17 20:18 87 17 127/77 08/26/17 20:17 83 15 134/84 08/26/17 20:09 86 15 185/81 08/26/17 19:43 98.7 F 12 147/90 08/26/17 19:38 08/26/17 19:01 81 16 147/90 18 18:46 85 15 162/85 18 18:31 82 12 133/91 18 18:16 81 12 145/91 18 18:08 81 15 152/96 18 18:00 85 18 17:46 98.4 F 77 12 143/110 18 17:43 79 13 153/97 08/26/17 17:40 97.3 F 82 16 167/83 18 17:10 97.9 F 81 14 181/71 18 16:55 97.9 F 80 12 170/92 18 16:50 97.9 F 76 13 150/65 18 16:45 97.9 F 78 13 122/67 18 16:40 97.9 F 73 11 L 114/69 08/26/17 15:01 77 13 151/87 08/26/17 15:00 98.0 F 78 151/87 08/26/17 14:45 73 161/93 08/26/17 14:30 74 163/80 08/26/17 14:15 74 182/94 08/26/17 14:01 73 14 152/86 08/26/17 14:00 74 152/86 08/26/17 13:45 74 148/95 08/26/17 13:31 78 15 149/88 08/26/17 13:30 77 149/88 08/26/17 13:15 78 131/94 08/26/17 13:01 76 13 167/85 08/26/17 13:00 75 167/85 08/26/17 12:45 76 147/99 08/26/17 12:31 76 12 169/80 18 12:30 77 169/80 08/26/17 12:15 81 158/94 08/26/17 12:00 98.6 F 81 13 173/89 18 11:45 79 177/94 08/26/17 11:30 81 180/103 18 11:15 85 179/100 08/26/17 11:00 98.6 F 80 171/80 18 10:01 83 14 170/77 08/26/17 09:17 83 12 166/80 08/26/17 09:14 84 12 170/90 08/26/17 08:04 83 15 170/90 08/26/17 07:01 100.1 F H 87 13 160/74 08/26/17 07:00 Pulse Ox 08/27/17 05:58 98 08/27/17 05:01 99 08/27/17 04:09 97 08/27/17 04:01 95 08/27/17 03:47 95 08/27/17 03:25 94 08/27/17 03:23 91 08/27/17 03:01 91 08/27/17 02:29 97 08/27/17 02:04 98 08/27/17 02:01 98 08/27/17 01:51 95 08/27/17 01:08 97 08/27/17 01:07 97 08/27/17 00:01 98 08/27/17 00:00 97 08/26/17 23:35 94 08/26/17 23:01 100 08/26/17 22:20 96 08/26/17 22:19 97 08/26/17 21:03 95 08/26/17 20:59 94 08/26/17 20:19 93 08/26/17 20:18 93 08/26/17 20:17 93 08/26/17 20:09 95 08/26/17 19:43 96 08/26/17 19:38 97 08/26/17 19:01 97 08/26/17 18:46 99 08/26/17 18:31 94 08/26/17 18:16 99 08/26/17 18:08 98 08/26/17 18:00 97 08/26/17 17:46 97 08/26/17 17:43 98 08/26/17 17:40 96 08/26/17 17:10 95 08/26/17 16:55 99 08/26/17 16:50 99 08/26/17 16:45 99 08/26/17 16:40 97 08/26/17 15:01 99 08/26/17 15:00 08/26/17 14:45 08/26/17 14:30 08/26/17 14:15 08/26/17 14:01 98 08/26/17 14:00 08/26/17 13:45 08/26/17 13:31 97 08/26/17 13:30 08/26/17 13:15 08/26/17 13:01 100 08/26/17 13:00 08/26/17 12:45 08/26/17 12:31 100 08/26/17 12:30 08/26/17 12:15 08/26/17 12:00 100 08/26/17 11:45 08/26/17 11:30 98 08/26/17 11:15 08/26/17 11:00 08/26/17 10:01 96 08/26/17 09:17 96 08/26/17 09:14 95 08/26/17 08:04 94 08/26/17 07:01 96 08/26/17 07:00 96 Intake and Output 08/26/17 08/27/17 08/27/17 21:59 05:59 13:59 Intake Total 2555 / 2555 Output Total 7400 / 7400 Balance -4845 / -4845 Intake: IV 2155 / 2155 Sodium Chloride 0.9% 250 ml @ 750 / 750 20 mls/hr IV .[id number] [facility] Rx#: [id number] Dextrose 10%-Water IV Solution 900 / 900 1,000 ml @ 100 mls/hr IV .Q10H [facility] Rx#:[id number] HumuLIN R 50 UNIT In Sodium 5 / 5 Chloride 0.9% 100 ml @ 3 UNIT/ HR 6.03 mls/hr IV Q8H [facility] Rx#: [id number] Oral 0 / 0 IV - Manual Only 400 / 400 Output: Void Amount 0 / 0 Hemodialysis UF 7400 / 7400 Other: Stool Size Smear Stool Color Black Stool Consistency Loose # Bowel Movements 1 # of times incontinent of 1 Bowels Weight 150 lb 1.6 oz Intake & Output: Intake & Output 08/26/17 08/27/17 08/27/17 21:59 05:59 13:59 Intake Total 2555 / 2555 Output Total 7400 / 7400 Balance -4845 / -4845 Weight 150 lb 1.6 oz Intake: IV 2155 / 2155 Sodium Chloride 0.9% 250 ml @ 750 / 750 20 mls/hr IV .[id number] [facility] Rx#: [id number] Dextrose 10%-Water IV Solution 900 / 900 1,000 ml @ 100 mls/hr IV .Q10H [facility] Rx#:[id number] HumuLIN R 50 UNIT In Sodium 5 / 5 Chloride 0.9% 100 ml @ 3 UNIT/ HR 6.03 mls/hr IV Q8H [facility] Rx#: [id number] Oral 0 / 0 IV - Manual Only 400 / 400 Output: Void Amount 0 / 0 Hemodialysis UF 7400 / 7400 Other: Stool Size Smear Stool Color Black Stool Consistency Loose # Bowel Movements 1 # of times incontinent of 1 Bowels - General Appearance General appearance: appears started age, frail EENT: mucous membranes moist Neck: no JVD Respiratory: clear Cardiology: edema, regular rate Gastrointestinal: no tenderness Integumentary: warm and dry Neurologic: no focal deficit, alert and oriented x3 Musculoskeletal: no deformities Psychiatric: mood/affect appropriate, cooperative - Lab 08/27/17 04:00 08/26/17 18:00 Most recent lab results Calcium 8.7 mg/dl (8.6-10.4) 08/26/17 18:00 Phosphorus 3.9 mg/dL (2.7-4.5) 08/26/17 04:00 Magnesium 3.0 mg/dL (1.6-2.5) H 08/26/17 04:00 Assessment and Plan (1) End stage renal disease End stage renal disease due to diabetic nephropathy on chronic hemodialysis ( through left arm AV fistula, at [facility], on MWF, followed by Dr. Hernandez). Last hemodialysis on 08/26/17 as inpatient. US of left arm AVF on 08/26/17: Normal arterial venous fistula in the left upper forearm. There is no evidence of infection, thrombosis or stenosis. Plan: Next hemodialysis on Tuesday. Status: Chronic Priority: Medium
[2017-08-27] MEDS: PANTOPRAZOLE 40 MG VIAL IV SCH (07:57)
[2017-08-27] MEDS: INSULIN LISPRO 1 UNIT/0.01 ML UNIT SQ SCH ×4 (08:01→20:54)
[2017-08-27 08:13] LABS: ALT/SGPT 14 U/l (0-40); Albumin 3.8 gm/dL (3.2-5.2); Albumin/Globulin Ratio 1.2 (1.0-2.3); Alkaline Phosphatase 60 U/L (39-117); Bilirubin,Direct < 0.2 mg/dL (0.0-0.3); Blood Urea Nitrogen 32 mg/dl (6-20); Gamma Glutamyl Transpeptidase 18 U/L (8-61); Uric Acid 4.1 mg/dL (2.5-8.0)
[2017-08-27] MEDS ORDERED: amLODIPine 10 MG TABLET PO SCH (09:00)
[2017-08-27] MEDS: HEPARIN 5,000 UNIT/ML VIAL SQ SCH ×2 (10:16→20:47)
[2017-08-27] MEDS ORDERED: hydrALAZINE 25 MG TABLET PO SCH (10:24)
[2017-08-27] MEDS ORDERED: INSULIN GLARGINE, HUMAN 1 UNIT/0.01 ML SQ SCH ×4 (10:26→21:00)
--- NOTE | 2017-08-27 10:30 | Internal Med Progress Note ---
Medical - PN: Subj Patient information: Note initiated : 08/27/17 at 10:27 am Service Date, if different from initiated Date: [] Patient: Daljit Ash a 52 y/o M admitted on 08/26/17 for Bone Biopsy of C5-6. Chief Complaint: [] Interval history: Mr. Ash is a 52 year old Male with h/o type 1 DM, presents to the ER for not feeling well for over last 2 days, patient did not sleep well last night and was a bit sleepy He notes he has been having neck pain for a while, had recent exacerbation for same and was prescribed some hydromorphone medications. He took the meds, Since yesterday he has not been feeling well, he has has significant nausea and vomiting and has not been able to keep any food down. The patient has missed his insulin dose. Given that his nausea and vomiting was not improving, he decided to come to the ER for further evaluation. The patient has a history of intolerance to narcotic pain meds The patient denies any fever, cough no headache no chills no urinary complaints. He has no abdominal pain. He does admit some abdominal discomfort and chest pain because of extensive vomiting. However no chest pressure or chest tightness reported. He denies any shortness of breath palpitations dizziness. He denies any joint pains skin rashes. Has neck pain that has been bothering him for a while. He has chronic back pain as has the surgery done for same. He was accompanied by a neighbor. In the emergency room, patient was hemodynamically stable, he had elevated white blood cell count at 17,000, hemoglobin 14,000, platelets 322. Sodium 130 , potassium 6.2, bicarbonate 19, anion gap 31, creatinine 12.3, BUN 85 glucose 380, CRP 2.1 ESR 33 lipase 26 troponin 0 0.1 8 repeat troponin 0 0.18, hydroxybutyrate at 3.5. Patient was admitted to the ICU for management of diabetic ketoacidosis. The patient recently had an MRI done by his PCP, the MRI showed chronic discitis osteomyelitis. He also has degenerative disease in the spine. Patient's EKG showed peaked T waves, this was medically managed overnight, dialysis was not urgently initiated as it was anticipated that potassium should improve with treatment of acute DKA. Patient is having dialysis today. Nephrology evaluate the patient. I reviewed the case with Dr. Long, line was for getting a bone biopsy before we administer antibiotics to identify the pathogen if possible. Radiology was uncomfortable to do cervical spine biopsy. Anesthesia will be performing the procedure later today. Plan to initiate broad-spectrum antibiotics once the biopsies done. Blood cultures have been sent, echo has been ordered. 08/27 Pt seen examined, doing well this AM DKA has resolved on sq insulin and oral diet xfer to med surg status biposy done by Dr baxter yesterday, no worseming pain reported, no new focal deficits reported on vanco and cefepime echo results pending, microbiology neg, pt access is clear, no e/o infection. Pertinent ROS: Denies headache, dizziness Denies chest pain, palpitations Denies cough or shortness of breath Denies abdominal pain, nausea or vomiting. - Constitutional Vitals: Vital Signs Temp Pulse Resp BP Pulse Ox 98.6 F 84 12 169/80 95 08/27/17 08:01 08/27/17 08:01 08/27/17 08:01 08/27/17 08:01 08/27/17 08:01 Period Temp Pulse Resp BP Sys/Cerda Pulse Ox Last 24 Hr 97.3 F-98.7 F 73-87 11-25 114-206/65-110 91-100 Intake and Output 08/26/17 08/27/17 08/27/17 21:59 05:59 13:59 Intake Total 2555 / 2555 170 / 170 180 / 180 Output Total 7400 / 7400 225 / 225 100 / 100 Balance -4845 / -4845 -55 / -55 80 / 80 Weight 150 lb 1.6 oz Intake & Output: Intake & Output 08/26/17 08/27/17 08/27/17 21:59 05:59 13:59 Intake Total 2555 / 2555 170 / 170 180 / 180 Output Total 7400 / 7400 225 / 225 100 / 100 Balance -4845 / -4845 -55 / -55 80 / 80 Weight 150 lb 1.6 oz Intake: IV 2155 / 2155 Sodium Chloride 0.9% 250 ml @ 750 / 750 20 mls/hr IV .[id number] [facility] Rx#: [id number] Dextrose 10%-Water IV Solution 900 / 900 1,000 ml @ 100 mls/hr IV .Q10H [facility] Rx#:[id number] HumuLIN R 50 UNIT In Sodium 5 / 5 Chloride 0.9% 100 ml @ 3 UNIT/ HR 6.03 mls/hr IV Q8H [facility] Rx#: [id number] Oral 0 / 0 170 / 170 180 / 180 IV - Manual Only 400 / 400 Output: Void Amount 0 / 0 225 / 225 100 / 100 Hemodialysis UF 7400 / 7400 Other: Meal snack Breakfast Percent of Meal Consumed 25% 75% Feeding Ability Assist with Tray Set Up Independent Stool Size Smear Moderate Stool Color Black Black Stool Consistency Loose Soft # Bowel Movements 1 1 # of times incontinent of 1 Bowels Exam: Constitutional; Afebrile, cooperative, alert, not in distress. Eyes- No icterus, , No periorbital swelling Ears- Ext ear normal, hearing normal to conversation. Neck- Midline trachea, supple Respiratory system: Air Entry equal on both sides, No crackles or wheezing, no rhonchi. CVS- Rate rhythm regular, S1,S2 heard, no gallop, no rub. 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 Medical - PN: Obj Da - Labs CBC & Chem 7: 08/27/17 04:00 08/27/17 04:00 Labs: Abnormal Lab Results 08/27/17 08/27/17 08/26/17 04:00 04:00 18:00 WBC 16.2 H RBC 4.00 L Hgb 12.9 L Hct 38.4 L POC Hct Gran % Lymph % (Auto) 14.0 L Gran # 12.3 H Lymph # (Auto) Addison # (Auto) 1.2 H ESR PT INR POC Sodium Sodium 131 L 131 L POC Potassium Potassium POC Chloride Chloride 90 L 87 L Carbon Dioxide POC Total CO2 Anion Gap POC BUN BUN 32 H 28 H Creatinine 7.1 H* 6.2 H* POC Creatinine Glucose 110 H POC Glucose Uric Acid POC WB Ioniz Calcium Phosphorus 4.6 H Magnesium Troponin T C-Reactive Protein Beta-Hydroxybutyrate Urine Protein Urine Glucose (UA) Urine Ketones 08/26/17 08/26/17 08/26/17 08:17 08:17 07:35 WBC RBC Hgb Hct POC Hct Gran % Lymph % (Auto) Gran # Lymph # (Auto) Addison # (Auto) ESR PT INR POC Sodium Sodium POC Potassium Potassium 5.2 H POC Chloride Chloride 92 L Carbon Dioxide POC Total CO2 Anion Gap 17.0 H POC BUN BUN 88 H Creatinine 13.2 H* POC Creatinine Glucose 109 H POC Glucose Uric Acid POC WB Ioniz Calcium Phosphorus Magnesium Troponin T C-Reactive Protein Beta-Hydroxybutyrate 0.35 H Urine Protein 100 A Urine Glucose (UA) >=500 A Urine Ketones 5/tr A 08/26/17 08/26/17 08/26/17 04:00 04:00 04:00 WBC 20.8 H RBC 3.74 L Hgb 11.9 L Hct 35.9 L POC Hct Gran % 89.2 H Lymph % (Auto) 6.5 L Gran # 18.6 H Lymph # (Auto) 1.3 L Addison # (Auto) ESR PT INR POC Sodium Sodium 131 L POC Potassium Potassium POC Chloride Chloride 90 L Carbon Dioxide POC Total CO2 Anion Gap 19.0 H POC BUN BUN 88 H Creatinine 13.6 H* POC Creatinine Glucose 196 H POC Glucose Uric Acid 10.6 H POC WB Ioniz Calcium Phosphorus Magnesium 3.0 H Troponin T 0.18 H* C-Reactive Protein Beta-Hydroxybutyrate Urine Protein Urine Glucose (UA) Urine Ketones 08/26/17 08/26/17 08/25/17 04:00 04:00 23:05 WBC RBC Hgb Hct POC Hct 40.0 L Gran % Lymph % (Auto) Gran # Lymph # (Auto) Addison # (Auto) ESR 31 H PT 15.4 H INR 1.2 H POC Sodium 127 L Sodium POC Potassium 5.9 H* Potassium POC Chloride 91 L Chloride Carbon Dioxide POC Total CO2 20 L Anion Gap POC BUN 95 H BUN Creatinine POC Creatinine 15.5 H* Glucose POC Glucose 443 H Uric Acid POC WB Ioniz Calcium 1.12 L Phosphorus Magnesium Troponin T C-Reactive Protein Beta-Hydroxybutyrate Urine Protein Urine Glucose (UA) Urine Ketones 08/25/17 08/25/17 08/25/17 21:05 21:05 21:05 WBC RBC Hgb Hct POC Hct Gran % Lymph % (Auto) Gran # Lymph # (Auto) Addison # (Auto) ESR PT INR POC Sodium 127 L Sodium 130 L POC Potassium 6.0 H* Potassium 6.2 H* POC Chloride 91 L Chloride 80 L Carbon Dioxide 19 L POC Total CO2 Anion Gap 31.0 H POC BUN 87 H BUN 85 H Creatinine 12.3 H* POC Creatinine 15.4 H* Glucose 380 H POC Glucose 380 H Uric Acid POC WB Ioniz Calcium 1.05 L Phosphorus Magnesium Troponin T 0.18 H* C-Reactive Protein 2.1 H Beta-Hydroxybutyrate 3.50 H Urine Protein Urine Glucose (UA) Urine Ketones 08/25/17 21:05 WBC 17.1 H RBC Hgb Hct POC Hct Gran % 86.4 H Lymph % (Auto) 7.8 L Gran # 14.8 H Lymph # (Auto) 1.3 L [place]ison # (Auto) ESR PT INR POC Sodium Sodium POC Potassium Potassium POC Chloride Chloride Carbon Dioxide POC Total CO2 Anion Gap POC BUN BUN Creatinine POC Creatinine Glucose POC Glucose Uric Acid POC WB Ioniz Calcium Phosphorus Magnesium Troponin T C-Reactive Protein Beta-Hydroxybutyrate Urine Protein Urine Glucose (UA) Urine Ketones Meds: Medications Acetaminophen (Tylenol) 650 mg PO Q4-6HP PRN PRN Reason: PAIN/FEVER > 101 Amlodipine Besylate (Norvasc) 10 mg PO DAILY [facility] Atorvastatin Calcium (Lipitor) 40 mg PO QDAY [facility] Bupropion HCl (Wellbutrin Xl) 150 mg PO QAM [facility] Cefepime HCl (Maxipime) 1 gm IV Q24H [facility] Last Admin: 08/26/17 17:49 Dose: 1 gm Dextrose (Dextrose 50%) 0 ml IV UD PRN PRN Reason: Hypoglycemia Diagnostic Test (Pha) (Accu-Chek) 1 each FS ACHS [facility] Last Admin: 08/27/17 07:58 Dose: 1 each Dorzolamide HCl (Trusopt 2% Ophth Drops) gtt OU TID [facility] Furosemide (Lasix) 40 mg PO BID [facility] Glucose (Insta-Glucose) 15 gm PO PRN PRN PRN Reason: Hypoglycemia Heparin Sodium (Porcine) (Heparin) 5,000 unit SQ Q12 [facility] Last Admin: 08/27/17 10:16 Dose: 5,000 unit Hydralazine HCl (Apresoline) 50 mg PO BID [facility] Insulin Glargine (Lantus) 20 unit SQ DAILY [facility] Insulin Human Lispro (Humalog) 0 unit SQ ACHS [facility] PRN Reason: Protocol Last Admin: 08/27/17 08:01 Dose: 3 unit Latanoprost (Xalatan Ophth Drops) 1 gtt OD HS [facility] Metoprolol Tartrate (Lopressor) 50 mg PO BID [facility] Naloxone HCl (Narcan) 0.1 mg IV Q2MIN PRN PRN Reason: Opiate Reversal Non-Formulary Medication (Aspirin [Lo-Dose Aspirin Ec]) 81 mg PO QDAY [facility] Non-Formulary Medication (Brimonidine Tartrate/Timolol [Combigan 0.2%-0.5% Eye Drops]) 1 drp RIGHT EYE Q6H [facility] Non-Formulary Medication (Calcium Acetate [Calphron]) 1,334 mg PO TID [facility] Non-Formulary Medication (Metolazone) 5 mg PO QDAY [facility] Non-Formulary Medication (Omeprazole) 40 mg PO QDAY [facility] Promethazine HCl (Phenergan) 12.5 mg IV Q4-6HP PRN PRN Reason: Nausea And Vomiting Sevelamer Carbonate (Renvela) 1,600 mg PO TIDCC [facility] Sodium Chloride (Saline Flush) 10 ml IV Q8 [facility] Last Admin: 08/27/17 07:58 Dose: 10 ml Vancomycin HCl (Vancomycin Per Pharmacy) 1 order IV UD [facility] Medical - PN: A/P - Time Spent With Patient Total time spent is greater than 50% in coordination of care (as documented) at patient's floor/unit and/or counseling patient: - Narrative A/P Narrative: A/P DKA- resolved, back on sq insulin, titrate back up to home dose. nausea and vomiting- resolved, prn anti nausesa meds, stop reglan and IV PPI Cervical Osteomyelitis: Dr Long consulted, bx done, await microbiology, wbc trending down, IV vanco and cefepime for now, plan for 4-6 weeks of abx PICC to be placed tomorrow if blood cx is neg DM- type 1-ssi insulin, ESRD on HD secondary to dm, HD today, usually has tuesday [facility], follows with Dr nolen, HD per them, home meds resumed. HTN/HLD- resume home meds, bp high, anticipate improvement with resumption of oral meds. Hyperkalemia -resolved. Elevated troponin- secondary to demand ischemia and other metabolic issues, no chest pain, no ekg changes at this time. DVT hep sq, Full code Medical - PN: Qual - VTE Deep Vein Thrombosis/Pulmonary Embolism Present on Admission: No
[2017-08-27] MEDS ORDERED: Brimonidine Tartrate/Timolol [Combigan 0.2%-0.5%] Eye Drops RIGHT EYE SCH (12:00)
[2017-08-27] MEDS ORDERED: SEVELAMER 800 MG TABLET PO SCH (12:00)
[2017-08-27] MEDS ORDERED: CALCIUM ACETATE 667 MG CAPSULE PO SCH (12:00)
[2017-08-27] MEDS ORDERED: VANCOMYCIN PER PHARMACY IV SCH (12:17)
[2017-08-27] MEDS ORDERED: NALOXONE HCL 0.4 MG/ML VIAL IV PRN (12:17)
[2017-08-27] MEDS ORDERED: DEXTROSE 50% 50 ML VIAL IV PRN (12:17)
[2017-08-27] MEDS ORDERED: PANTOPRAZOLE 40 MG VIAL IV ONE (12:17)
[2017-08-27] MEDS ORDERED: DEXTROSE 31 GM ORAL.SUSP PO PRN (12:17)
[2017-08-27] MEDS ORDERED: PROMETHAZINE 25 MG/ML VIAL IV PRN (12:17)
[2017-08-27] MEDS: CEFEPIME 1 GM VIAL IV SCH (14:50)
[2017-08-27] MEDS ORDERED: DORZOLAMIDE 2% OPHTH DROPS 10ML BOTTLE OU SCH (15:00)
[2017-08-27] MEDS ORDERED: FUROSEMIDE 40 MG TABLET PO SCH (16:00)
[2017-08-27] MEDS: FUROSEMIDE 40 MG TABLET PO SCH (16:24)
[2017-08-27] MEDS: DORZOLAMIDE 2% OPHTH DROPS 10ML BOTTLE OU SCH ×2 (16:26→20:48)
[2017-08-27] MEDS: CALCIUM ACETATE 667 MG CAPSULE PO SCH (17:09)
[2017-08-27] MEDS: SEVELAMER 800 MG TABLET PO SCH (17:09)
[2017-08-27] MEDS: Brimonidine Tartrate/Timolol [Combigan 0.2%-0.5%] Eye Drops RIGHT EYE SCH ×2 (17:56→23:42)
[2017-08-27] MEDS: METOPROLOL TARTRATE 50 MG TABLET PO SCH (20:48)
[2017-08-27] MEDS: hydrALAZINE 25 MG TABLET PO SCH (20:48)
[2017-08-27] MEDS ORDERED: LATANOPROST OPHTH DROPS 2.5ML BOTTLE OD SCH ×2 (21:00)
[2017-08-27] MEDS ORDERED: METOPROLOL TARTRATE 50 MG TABLET PO SCH (21:00)
[2017-08-28] MEDS: 0.9 % SODIUM CHLORIDE 10 ML SYRINGE IV SCH (04:30)
[2017-08-28] MEDS: Brimonidine Tartrate/Timolol [Combigan 0.2%-0.5%] Eye Drops RIGHT EYE SCH (04:52)
[2017-08-28 05:19] LABS: Basophils # (Auto) 0.1 K/mcL (0.0-0.3); Basophils % (Auto) 0.5 % (0.0-2.0); Eosinophils # (Auto) 0.5 K/mcL (0.0-0.7); Eosinophils % (Auto) 4.5 % (0.0-7.0); Granulocytes % (Auto) 66.2 % (38.0-78.0); Lymphocytes # (Auto) 1.8 K/mcL (1.5-4.8); Lymphocytes % (Auto) 17.4 % (15.5-49.0); Mean Cell Volume 96.1 fL (80.0-100.0); Mean Corpuscular HGB Conc 33.7 g/dL (31.0-36.0); Mean Corpuscular Hemoglobin 32.4 pg (26.0-34.0); Monocytes # (Auto) 1.2 K/mcL (0.1-0.9); Monocytes % (Auto) 11.4 % (1.0-12.0); Platelet Count 245 K/mcL (140-440); RBC 3.81 M/mcL (4.50-5.90); Red Cell Distribution Width 12.5 % (11.5-14.5)
--- NOTE | 2017-08-28 06:26 | Nephrology Progress Note ---
Subjective Patient information: Note initiated : 08/28/17 at 6:25 am Daljit Ash is a 52-year-old male with end stage renal disease due to diabetic nephropathy on chronic hemodialysis (through left arm AV fistula, at [facility], on MWF, followed by Dr. Hernandez), chronic anemia due to kidney disease and iron deficiency, secondary hyperparathyroidism, diabetes mellitus type 1 admitted on 08/26/17 for DKA. Chief Complaint: Nausea and vomiting Principal diagnosis: End stage renal disease on chronic hemodialysis Interval history: Hemodialysis and cervical bone biopsy on 08/26/17 Pertinent ROS: Walking in the hallway, feels better Objective - Vital Signs Vital signs: Vital Signs Temp Pulse Pulse Resp BP BP Pulse Ox 08/28/17 04:00 98.2 F 73 18 146/64 93 08/27/17 23:42 98.5 F 88 16 165/81 92 08/27/17 20:05 98 F 89 17 165/80 98 08/27/17 15:32 98.2 F 20 136/66 100 08/27/17 12:00 98.7 F 22 158/82 93 08/27/17 11:54 24 H 203/92 08/27/17 08:01 98.6 F 84 12 169/80 95 08/27/17 07:45 97 08/27/17 07:01 83 16 169/78 98 08/27/17 06:43 87 18 97 Intake and Output 08/27/17 08/28/17 08/28/17 21:59 05:59 13:59 Output Total 350 / 350 0 / 0 Balance -350 / -350 0 / 0 Output: Void Amount 350 / 350 0 / 0 Other: Meal vanilla ice cream Percent of Meal Consumed 100% Stool Size Moderate Stool Color Black Stool Consistency Formed # Voids 1 # Bowel Movements 1 Weight 151 lb Intake & Output: Intake & Output 08/27/17 08/28/17 08/28/17 21:59 05:59 13:59 Output Total 350 / 350 0 / 0 Balance -350 / -350 0 / 0 Weight 151 lb Output: Void Amount 350 / 350 0 / 0 Other: Meal vanilla ice cream Percent of Meal Consumed 100% Stool Size Moderate Stool Color Black Stool Consistency Formed # Voids 1 # Bowel Movements 1 - General Appearance General appearance: appears started age EENT: mucous membranes moist Neck: no JVD, supple Respiratory: clear Cardiology: no murmurs, no edema Gastrointestinal: no tenderness Integumentary: warm and dry Neurologic: no focal deficit, alert and oriented x3 - Lab 08/28/17 04:00 08/27/17 04:00 Most recent lab results Calcium 8.7 mg/dl (8.6-10.4) 08/27/17 04:00 Phosphorus 4.6 mg/dL (2.7-4.5) H 08/27/17 04:00 Magnesium 2.2 mg/dL (1.6-2.5) 08/27/17 04:00 Assessment and Plan (1) End stage renal disease End stage renal disease due to diabetic nephropathy on chronic hemodialysis ( through left arm AV fistula, at [facility], on MWF, followed by Dr. Hernandez). Last hemodialysis on 08/26/17 as inpatient. US of left arm AVF on 08/26/17: Normal arterial venous fistula in the left upper forearm. There is no evidence of infection, thrombosis or stenosis. Progress: Mild hyponatremia. Plan: Next hemodialysis on Tuesday as inpatient or outpatient. Status: Chronic Priority: Medium
[2017-08-28] MEDS ORDERED: METOLAZONE 2.5 MG TABLET PO SCH ×2 (07:30)
[2017-08-28] MEDS ORDERED: OMEPRAZOLE 20 MG CAPSULE PO SCH ×2 (07:30)
[2017-08-28] MEDS ORDERED: 0.9 % SODIUM CHLORIDE 10 ML SYRINGE IV PRN (08:03)
[2017-08-28] MEDS: CEFEPIME 1 GM VIAL IV SCH (08:21)
[2017-08-28] MEDS: HEPARIN 5,000 UNIT/ML VIAL SQ SCH (08:21)
[2017-08-28] MEDS: METOPROLOL TARTRATE 50 MG TABLET PO SCH (08:28)
[2017-08-28] MEDS: hydrALAZINE 25 MG TABLET PO SCH (08:29)
[2017-08-28] MEDS: CALCIUM ACETATE 667 MG CAPSULE PO SCH (08:30)
[2017-08-28] MEDS: FUROSEMIDE 40 MG TABLET PO SCH (08:30)
[2017-08-28] MEDS: SEVELAMER 800 MG TABLET PO SCH (08:30)
[2017-08-28] MEDS: INSULIN LISPRO 1 UNIT/0.01 ML UNIT SQ SCH (08:31)
[2017-08-28] MEDS ORDERED: amLODIPine 10 MG TABLET PO SCH (09:00)
[2017-08-28] MEDS ORDERED: ASPIRIN 81 MG TAB.CHEW PO SCH ×3 (09:00→21:00)
[2017-08-28] MEDS ORDERED: 0.9 % SODIUM CHLORIDE 10 ML SYRINGE IV SCH (09:00)
[2017-08-28] MEDS ORDERED: INSULIN GLARGINE, HUMAN 1 UNIT/0.01 ML SQ SCH (09:00)
[2017-08-28] MEDS ORDERED: ATORVASTATIN 20 MG TABLET PO SCH ×3 (09:00→21:00)
[2017-08-28] MEDS ORDERED: buPROPion 150 MG TAB.XL.24H PO SCH ×2 (09:00)
[2017-08-28] MEDS ORDERED: INSULIN NPH, HUMAN 1 UNIT/0.01 ML UNIT SQ ONE (10:21)
[2017-08-28] MEDS: DORZOLAMIDE 2% OPHTH DROPS 10ML BOTTLE OU SCH (11:26)
--- NOTE | 2017-08-28 13:08 | Discharge Summary ---
Medical - DS: Prov Patient information: Note initiated : 08/28/17 at 1:04 pm Service Date, if different from initiated Date: [] Patient: Daljit Ash 52 y/o M admitted on 08/26/17 for Bone Biopsy of C5-6. Chief Complaint: [] Date of admission: 08/26/17 01:25 Discharge date: 08/28/17 Primary care physician: Andrey Strickland Discharging clinician: Soham Acosta Medical - DS: Meds - Discharge Medications Prescriptions: Cefepime [Maxipime] 1 gm IV Q24H #42 vial Vancomycin Per Pharmacy 1 order IV ONCE #42 miscell Active and Home Medications: Home Medications ascorbic acid (vitamin C) 1,000 mg tablet 1,000 mg PO BID tab 08/23/14 [ History Confirmed 08/26/17 Last Taken Unknown] brimonidine-timolol 0.2 %-0.5 % eye drops 1 drp RIGHT EYE Q6H ml 08/23/14 [ History Confirmed 08/26/17 Last Taken Unknown] cholecalciferol (vitamin D3) 1,000 unit capsule See Dose Instructions PO QDAY cap 09/25/14 [History Confirmed 08/26/17 Last Taken Unknown] Dorzolamide HCl [Trusopt] 1 drp OU TID 10/10/14 [History Confirmed 08/26/17 Last Taken Unknown] Latanoprost Ophth Drops [Xalatan Ophth Drops] 1 gtt OD HS 10/10/14 [History Confirmed 08/26/17 Last Taken Unknown] esomeprazole magnesium 40 mg capsule,delayed release 40 mg PO .qd 90 Days #90 cap 10/31/14 [Rx Confirmed 08/26/17 Last Taken Unknown] sevelamer carbonate 800 mg tablet 1,600 mg PO TIDCC #540 tab 07/30/15 [Rx Confirmed 08/26/17 Last Taken Unknown] sumatriptan 50 mg tablet 50 mg PO Q2H PRN #10 tab MDD 100mg 03/18/16 [Rx Confirmed 08/26/17 Last Taken Unknown] hydroxyzine HCl 50 mg tablet 50 mg PO .nightly #30 tab 04/19/16 [Rx Confirmed Last Taken Unknown] albuterol sulfate HFA 90 mcg/actuation aerosol inhaler 1 puff INHALATION Q6H PRN #18 g 06/14/16 [Rx Confirmed 08/26/17 Last Taken Unknown] zolpidem 10 mg tablet 10 mg PO HS PRN #30 tab 06/15/16 [Rx Confirmed 08/26/17 Last Taken Unknown] metolazone 5 mg tablet 5 mg PO QDAY #5 tab 06/22/16 [Rx Confirmed 08/26/17 Last Taken Unknown] bupropion HCl XL 150 mg 24 hr tablet, extended release 150 mg PO QAM #84 tab [Rx Confirmed 08/26/17 Last Taken Unknown] aspirin 81 mg tablet,delayed release 81 mg PO QDAY 10/13/16 [History Confirmed 08/26/17 Last Taken Unknown] calcium acetate 667 mg tablet 1,334 mg PO TID #120 tab 02/28/17 [Rx Confirmed Last Taken Unknown] ondansetron 4 mg disintegrating tablet 4 mg PO Q6H PRN #90 tab 02/28/17 [Rx Confirmed 08/26/17 Last Taken Unknown] omeprazole 40 mg capsule,delayed release 40 mg PO QDAY 90 Days #90 cap 03/28/17 [Rx Confirmed 08/26/17 Last Taken Unknown] furosemide 40 mg tablet 40 mg PO BID #180 tab 05/09/17 [Rx Confirmed 08/26/17 Last Taken Unknown] metoprolol tartrate 50 mg tablet 50 mg PO BID 90 Days #180 tab 06/13/17 [Rx Confirmed 08/26/17 Last Taken Unknown] hydralazine 25 mg tablet 50 mg PO BID #120 tab 06/20/17 [Rx Confirmed 08/26/17 Last Taken Unknown] insulin glargine (U-100) 100 unit/mL (3 mL) subcutaneous pen 30 unit SUB-Q QDAY #15 ml 06/30/17 [Rx Confirmed 08/26/17 Last Taken Unknown] amlodipine 10 mg tablet 10 mg PO DAILY #90 tab 07/04/17 [Rx Confirmed 08/26/17 Last Taken Unknown] atorvastatin 40 mg tablet 40 mg PO QDAY #90 tab 07/12/17 [Rx Confirmed 08/26/17 Last Taken Unknown] insulin aspart U-100 100 unit/mL subcutaneous pen See Label Instructions SUB-Q QAM #45 ml 07/14/17 [Rx Confirmed 08/26/17 Last Taken Unknown] pen needle, diabetic 32 gauge x 5/32" See Dose Instructions .ROUTE .MEDSUPPLY # 200 each 07/14/17 [Rx Confirmed 08/10/17 Last Taken Unknown] vitamin B complex-vitamin C-folic acid 0.8 mg tablet 1 tab-cap PO QDAY #90 tab 07/18/17 [Rx Confirmed 08/26/17 Last Taken Unknown] hydromorphone 4 mg tablet 4 mg PO Q6H PRN #112 tab 08/10/17 [Rx Confirmed Last Taken Unknown] Medical - DS: Hosp Hospital course: Mr. Ash is a 52 year old Male with h/o type 1 DM, presents to the ER for not feeling well for over last 2 days, patient did not sleep well last night and was a bit sleepy. He notes he has been having neck pain for a while, had recent exacerbation for same and was prescribed some hydromorphone medications. He took the meds, Since yesterday he has not been feeling well, he has has significant nausea and vomiting and has not been able to keep any food down. The patient has missed his insulin dose. Given that his nausea and vomiting was not improving, he decided to come to the ER for further evaluation. The patient has a history of intolerance to narcotic pain meds The patient denies any fever, cough no headache no chills no urinary complaints. He has no abdominal pain. He does admit some abdominal discomfort and chest pain because of extensive vomiting. However no chest pressure or chest tightness reported. He denies any shortness of breath palpitations dizziness. He denies any joint pains skin rashes. Has neck pain that has been bothering him for a while. He has chronic back pain as has the surgery done for same. In the emergency room, patient was hemodynamically stable, he had elevated white blood cell count at 17,000, hemoglobin 14,000, platelets 322. Sodium 130 , potassium 6.2, bicarbonate 19, anion gap 31, creatinine 12.3, BUN 85 glucose 380, CRP 2.1 ESR 33 lipase 26 troponin 0 0.1 8 repeat troponin 0 0.18, hydroxybutyrate at 3.5. Patient was admitted to the ICU for management of diabetic ketoacidosis DKA- managed with fluids and iv insulin drip, pt responded to treatment well, back to sq insulin, pt gap closed. will be back on his previous regime. DKA precipitated due to pain med related nausea vomiting? missing insulin dose as well as ? infection of C spine. Osteomyelitis of C spine- Case reviewed with Dr Long, Spine biopsy done by Dr Crum, cultures neg growth at 2 days, blood cx neg, wbc count which was elevated during admission is back to normal. Patient has a picc in place, will need IV antibiotics for total of 4-6 weeks. I am prescribing 6 weeks at this time, it can be cut back to 4 weeks depending upon clinical response. Patient to be followed by Dr. Long as outpatient. Echo neg for vegetations, Blood cx neg, vascular access site is clean, duplex did not show any e/o infection. CT abdomen and pelvis neg for infection ESRD on HD, Hyperkalemia on presentation-patient had elevated K on presentation , treated medically responded to treatment, had EKG changes was resolved. To be followed by Dr. Hernandez as an outpatient. Does hemodialysis on Mondays and Fridays. Rest of the stay in the hospital was unremarkable, I have made no changes in the chronic home medication list, I have added to antibiotics for total of 6 weeks Discharge diagnosis: DKA< Hyperkalemia, Cervical ostemyelitis - Time Spent with Patient Total time spent providing and/or coordinating discharge services: Greater than 30 minutes Medical - DS: Exam - Constitutional Vitals: Vital Signs Temp Pulse Resp BP BP Pulse Ox 08/28/17 08:00 98.9 F 77 16 160/81 95 08/28/17 04:00 98.2 F 73 18 146/64 93 08/27/17 23:42 98.5 F 88 16 165/81 92 08/27/17 20:05 98 F 89 17 165/80 98 08/27/17 15:32 98.2 F 20 136/66 100 Intake and Output 08/27/17 08/28/17 08/28/17 21:59 05:59 13:59 Output Total 350 / 350 0 / 0 Balance -350 / -350 0 / 0 Output: Void Amount 350 / 350 0 / 0 Other: Meal vanilla ice cream Percent of Meal Consumed 100% Stool Size Moderate Stool Color Black Stool Consistency Formed # Voids 1 # Bowel Movements 1 Weight 151 lb Additional comments: Constitutional; Afebrile, cooperative, alert, not in distress. Eyes- No icterus, , No periorbital swelling Ears- Ext ear normal, hearing normal to conversation. Neck- Midline trachea, supple Respiratory system: Air Entry equal on both sides, No crackles or wheezing, no rhonchi. CVS- Rate rhythm regular, S1,S2 heard, no gallop, no rub. 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 Medical - DS: Data Labs on day of discharge: Labs from last 24 hours 08/28/17 04:00 WBC 10.6 RBC 3.81 L Hgb 12.3 L Hct 36.6 L MCV 96.1 MCH 32.4 MCHC 33.7 RDW 12.5 Plt Count 245 MPV 8.0 Gran % 66.2 Lymph % (Auto) 17.4 [place] % (Auto) 11.4 Eos % (Auto) 4.5 Baso % (Auto) 0.5 Gran # 7.0 Lymph # (Auto) 1.8 [place] # (Auto) 1.2 H Eos # (Auto) 0.5 Baso # (Auto) 0.1 Preliminary micro results at discharge 08/26/17 17:17 Anaerobic Culture - Preliminary Bone 08/26/17 08:25 Blood Culture - Preliminary Blood 08/26/17 08:17 Blood Culture - Preliminary Blood Medical - DS: A/P - Patient/Caregiver Discharge Instructions Activity: increase activity as tolerated Diet: Renal/Consistent Carbs Additional Instructions: IV vancomycin per pharmacy for 6 weeks, Pharmacy to dose IV cefepime 1gm once daily for 6 weeks PICC line care per protocol D/C picc after last dose of antibiotics. I recommend PCP to check CBC, CMP, ESR and CRP checked weekly, as he is on medical support assistant antibiotics. No local ID physician to follow. Go to the ER if worsening condition, chest pain, shortness of breath or any other acute concerns. - Follow up Plan Follow up with: Jared Long MD [Physician] - (Call on Tuesday to set up an appointment for neck infection) Andrey Strickland DO [Primary Care Provider] - (Call on Tuesday for an appointment in 1 week with PCP) Disposition: Home, Self-Care Prognosis: Fair Rehab Potential: Fair I certify that the patient requires SNF services: No Overall status at discharge: patient is progressing back to baseline Medical - DS: Qual - VTE Deep Vein Thrombosis/Pulmonary Embolism Present on Admission: No
--- NOTE | 2017-08-28 15:06 | XRay Report ---
HISTORY: Reason for Exam:PICC PLACEMENT FINDINGS: A PICC line has been inserted through the right arm. The tip is in the superior vena cava. There is no pneumothorax or widening of the mediastinum. The lungs are clear. There is smooth pleural thickening laterally in left lower thorax. This may represent some of the consolidated lung parenchyma seen on the abdomen CT two days ago. The heart size and pulmonary vasculature are normal. There is improved aeration in both lower lobes since the prior abdomen CT IMPRESSION: Well-positioned PICC line and improving aeration in both lower lobes Interpreted and Authenticated by: Nathan Fong 08/28/17
--- NOTE | 2017-08-29 08:20 | Operative Note ---
DATE OF OPERATION: 08/26/2017 PREOPERATIVE DIAGNOSIS: C5-C6 diskitis and osteomyelitis. POSTOPERATIVE DIAGNOSIS: C5-C6 diskitis and osteomyelitis. PROCEDURE: Needle aspiration biopsy C5-C6 intervertebral space. SURGEON: Yolette Crum MD ANESTHESIA: General with LMA. HISTORY: The patient is a 52-year-old man with neck pain who was found to have findings consistent with C5-C6 diskitis. He is in the ICU and recently underwent dialysis treatment for DKA and after hearing the risks of biopsy including increased neck pain, bleeding, spinal cord injury, paralysis, and , he elected to proceed with a biopsy. SPECIMEN SENT: Needle aspirate for a stat Gram stain, aerobic and anaerobic cultures. DESCRIPTION OF PROCEDURE: After consent was obtained, the patient was placed supine, and general anesthesia was induced and LMA was placed. DuraPrep prep was done and complete sterile field was developed. The patient's neck was extended over a pillow. C-arm fluoroscopy was used in the AP and lateral planes to identify the C5-C6 intervertebral joint which was very degenerated in those planes. A 20 gauge aspiration Jamshidi needle was used and placed into the right neck. The carotid artery was retracted laterally and the needle was placed down onto the anterolateral aspect of the C5-C6 disk using biplanar fluoroscopy. The needle was forced into the intervertebral space and there was effective bony resistance. This was done using AP and lateral fluoroscopy. Aspiration was initially negative. A 0.25 mL of preservative-free normal saline was injected into the joint space and then aspirated which produced bloody fluid as well as a small piece white material that appeard to be possibly of bone. The needle was removed. The patient tolerated well. DISPOSITION: He was sent to the recovery room and back to the ICU. Specimens will be cultured. LES:amanda Job ID: [id number] Doc ID: [id number] Yolette Crum MD [facility]
== END 2017-08-28 14:05 | disposition home or self-care (01) | DRG 637 ==
LOC: ED 20:40 → ICU 08-26 01:25 → MEDSUR 08-27 17:37
PROVIDERS: ADMIT Internal Medicine; ATTEND Internal Medicine

== ENCOUNTER 2017-09-09 07:36 | Inpatient (IN) ==
--- NOTE | 2017-09-09 08:13 | Emergency Department Note ---
General Adult HPI - General Chief complaint: Weakness Stated complaint: weakness Time Seen by Provider: 09/09/17 08:10 Source: patient Mode of arrival: ambulatory Limitations: no limitations - History of Present Illness HPI Narrative: This pleasant 52-year-old male comes in with muscle twitching and trouble speaking when he woke up this morning. Patient is scheduled for dialysis at 10 AM this morning. He was seen last evening for generalized nausea and weakness, etc. and found to have a creatinine of 12.6. I had spoken with Dr. ayo buckner and we felt that it was safe for patient to wait until his scheduled dialysis this morning. The muscle twitching and some troubles forming his words is new for him according to his and to himself. The muscle twitching was so severe it kept him from checking his blood sugar. She was able to help him and his blood sugar was 263 at home. He took 4 units of NovoLog. He is not in any pain. Last evening's visit most pressing concern for the patient was his cough had become sudden and severe in 1 day. Workup was negative. Patient is on Vanco and cefepime for cervical discitis. He was given 500 cc of normal saline last evening and he seemed to sleep well and cough was much better controlled. This morning he also had some accompanying nausea and unsteadiness on his feet and felt like he could easily fall. He has had no recent falls or head injuries. REVIEW OF SYSTEMS: Last evening this temperature was 99 where his normal is 96.8. He denies chills and sweats, chest pain, palpitations, change in his shortness of breath, no new cough and improved from last evening, no diarrhea. - Related Data Home Medications Medication Instructions Recorded Confirmed ascorbic acid (vitamin C) 1,000 mg 1,000 mg PO BID tab 08/23/14 09/09/17 tablet brimonidine-timolol 0.2 %-0.5 % 1 drp RIGHT EYE Q6H ml 08/23/14 09/09/17 eye drops cholecalciferol (vitamin D3) 1,000 See Dose Instructions PO QDAY cap 09/25/14 09/09/17 unit capsule Dorzolamide HCl [Trusopt] 1 drp OU TID 10/10/14 09/09/17 Latanoprost Ophth Drops [Xalatan 1 gtt OD HS 10/10/14 09/09/17 Ophth Drops] Previous Rx's Medication Instructions Recorded esomeprazole magnesium 40 mg 40 mg PO .qd 90 Days #90 cap 10/31/14 capsule,delayed release sevelamer carbonate 800 mg tablet 1,600 mg PO TIDCC #540 tab 07/30/15 sumatriptan 50 mg tablet 50 mg PO Q2H PRN #10 tab MDD 100mg 03/18/16 hydroxyzine HCl 50 mg tablet 50 mg PO .nightly #30 tab 04/19/16 albuterol sulfate HFA 90 1 puff INHALATION Q6H PRN #18 g 06/14/16 mcg/actuation aerosol inhaler metolazone 5 mg tablet 5 mg PO QDAY #5 tab 06/22/16 calcium acetate 667 mg tablet 1,334 mg PO TID #120 tab 02/28/17 ondansetron 4 mg disintegrating 4 mg PO Q6H PRN #90 tab 02/28/17 tablet omeprazole 40 mg capsule,delayed 40 mg PO QDAY 90 Days #90 cap 03/28/17 release metoprolol tartrate 50 mg tablet 50 mg PO BID 90 Days #180 tab 06/13/17 hydralazine 25 mg tablet 50 mg PO BID #120 tab 06/20/17 insulin glargine (U-100) 100 30 unit SUB-Q QDAY #15 ml 06/30/17 unit/mL (3 mL) subcutaneous pen amlodipine 10 mg tablet 10 mg PO DAILY #90 tab 07/04/17 atorvastatin 40 mg tablet 40 mg PO QDAY #90 tab 07/12/17 insulin aspart U-100 100 unit/mL See Label Instructions SUB-Q QAM 07/14/17 subcutaneous pen #45 ml pen needle, diabetic 32 gauge x See Dose Instructions .ROUTE 07/14/1732" .MEDSUPPLY #200 each vitamin B complex-vitamin C-folic 1 tab-cap PO QDAY #90 tab 07/18/17 acid 0.8 mg tablet Cefepime [Maxipime] 1 gm IV Q24H #42 vial 08/28/17 Vancomycin Per Pharmacy 1 order IV ONCE #42 miscell 08/28/17 furosemide 40 mg tablet 40 mg PO BID #180 tab 08/31/17 Ondansetron HCl [Zofran ODT] 4 mg SL Q4-6HP PRN #20 tab 09/01/17 hydromorphone 4 mg tablet 4 mg PO Q6H PRN #112 tab 09/07/17 zolpidem 10 mg tablet 10 mg PO HS PRN #30 tab 09/07/17 Allergies Allergy/AdvReac Type Severity Reaction Status Date / Time levofloxacin Allergy Intermediate Rash Verified 09/09/17 07:39 hydrocodone [HYDROCODONE] AdvReac Mild VOMIT Verified 09/09/17 07:39 codine AdvReac Mild Vomiting Uncoded 09/07/17 11:29 Past Medical History - Past Medical History Medical history: Reports: CHF, DM (Type I since age 15, insulin using.), GERD, hyperlipidemia, hypertension, renal disease (On dialysis), other (DENIES: DKA.) . Denies: cancer, COPD, coronary artery disease, CVA, myocardial infarction, TIA Surgical history ED: Reports: appendectomy, orthopedic, other (Carpal tunnel bilateral. Right shoulder repair. Left ankle repair.), other (Fistula left arm. Right eye surgery for diabetic retinopathy.) - Social History smoking status: Current every day smoker Alcohol use: Reports: Rarely (Maybe twice per year.) Drug use: Reports: none. Denies: marijuana Physical Exam Limitations: no limitations General appearance: alert, in no apparent distress Head: atraumatic, normocephalic Eye: Present: EOMI ENT: mucous membranes dry Neck: Present: trachea midline. Absent: lymphadenopathy, thyromegaly Respiratory: Present: normal lung sounds bilaterally. Absent: respiratory distress, wheezes, stridor, accessory muscle use, prolonged expiratory phase Cardiovascular: Present: regular rate, normal rhythm. Absent: systolic murmur, diastolic murmur Abdominal: Present: soft. Absent: distention, tenderness, guarding, rebound, rigidity, organomegaly, mass Extremities: Absent: pedal edema, pretibial edema, calf tenderness Neurological: Present: alert, oriented X3 Patient oriented to: Present: person, place, time Cranial nerves: EOM function (II, III, IV, ): Normal, facial sensation (V): Normal Cerebellar function: finger to nose: Normal, heel to hoffman: Normal Motor strength - LUE: 4/5 Motor strength - RUE: 4/5 Motor strength - LLE: 4/5 Motor strength - RLE: 4/5 Sensory exam upper extremity: Normal: light touch Sensory exam lower extremity: Normal: light touch Coma Scale Eye Opening: Spontaneous Coma Scale Motor Response: Obeys Commands Coma Scale Verbal Response: Oriented Coma Scale Total: 15 Psychiatric: Present: flat affect Skin: Present: warm, dry Course Course Narrative: 7:58 AM Muscle twitching and some difficulties forming words. His creatinine was called back and was 15.0. 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 Dialysis will most likely be the needed intervention. Other general labs pending. He has no focal findings. His mild difficulties in word finding and expression can be explained by the metabolic toxicity. Vital Signs Temperature 98.2 F 09/09/17 07:36 Pulse Rate 87 09/09/17 07:36 Respiratory Rate 20 09/09/17 07:36 Blood Pressure 155/87 09/09/17 07:36 Pulse Oximetry (%) 93 09/09/17 07:36 Temperature 98.2 F 09/09/17 07:36 Pulse Rate 77 09/09/17 08:58 Respiratory Rate 22 09/09/17 08:58 Blood Pressure 177/80 09/09/17 08:46 Pulse Oximetry (%) 89 L 09/09/17 08:58 Medical Decision Making - [facility] Narrative Medical decision making narrative: Renny's clinical scenario was discussed with Dr. Hernandez, with likely consideration being neurotoxicity from cefepime, and probable need for observation in hospital until he improves. Will get dialysis this morning. Dr. Acosta aware and willing to accept care of this patient who will go to Observation after dialysis. - Lab Data Lab results reviewed: Yes I reviewed the patient's lab results. Result diagrams: 09/09/17 07:39 09/09/17 07:39 Lab Results 09/09/17 09/09/17 09/09/17 Range/Units 07:39 07:39 07:39 WBC 12.9 H (4.5-11.0) K/mcL RBC 4.04 L (4.50-5.90) M/mcL Hgb 12.9 L (13.5-16.5) g/dL Hct 38.8 L (41.0-55.0) % POC Hct 40.0 L (41.0-55.0) % MCV 96.1 (80.0-100.0) fL MCH 32.1 (26.0-34.0) pg MCHC 33.4 (31.0-36.0) g/dL RDW 13.3 (11.5-14.5) % Plt Count 308 (140-440) K/mcL MPV 8.2 (7.4-10.4) fL Gran % 74.2 (38.0-78.0) % Lymph % (Auto) 11.5 L (15.5-49.0) % Bent % (Auto) 12.1 H (1.0-12.0) % Eos % (Auto) 1.3 (0.0-7.0) % Baso % (Auto) 0.9 (0.0-2.0) % Gran # 9.6 H (1.8-8.0) K/mcL Lymph # (Auto) 1.5 (1.5-4.8) K/mcL Bent # (Auto) 1.6 H (0.1-0.9) K/mcL Eos # (Auto) 0.2 (0.0-0.7) K/mcL Baso # (Auto) 0.1 (0.0-0.3) K/mcL POC Sodium 135 (133-145) mmol/L Sodium 137 (133-145) mmol/L POC Potassium 4.6 (3.3-5.1) mmol/L Potassium 4.7 (3.3-5.1) mmol/L POC Chloride 100 (96-108) mmol/L Chloride 90 L (96-108) mmol/L Carbon Dioxide 14 L (22-30) mmol/L POC Total CO2 16 L (22-30) mmol/L Anion Gap 33.0 H (8-16) POC BUN 67 H (6-20) mg/dl BUN 68 H (6-20) mg/dl Creatinine 13.9 H* (0.7-1.2) mg/dl POC Creatinine 15.0 H* (0.7-1.2) mg/dl GFR Calculation 4 Glucose 249 H (70-105) mg/dL POC Glucose 246 H (70-105) mg/dL Calcium 9.1 (8.6-10.4) mg/dl POC WB Ioniz Calcium 1.00 L (1.16-1.32) mmol/L Total Bilirubin 0.3 (0.0-1.0) mg/dL AST 22 (0-37) U/l ALT 18 (0-40) U/l Alkaline Phosphatase 75 (39-117) U/L Total Protein 7.7 (5.9-8.4) gm/dL Albumin 4.1 (3.2-5.2) gm/dL Globulin 3.6 (2.2-3.7) gm/dL Albumin/Globulin Ratio 1.1 (1.0-2.3) Beta-Hydroxybutyrate 5.10 H (< 0.27) mmol/L Disposition 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
[2017-09-09 08:28] LABS: Basophils # (Auto) 0.1 K/mcL (0.0-0.3); Basophils % (Auto) 0.9 % (0.0-2.0); Eosinophils # (Auto) 0.2 K/mcL (0.0-0.7); Eosinophils % (Auto) 1.3 % (0.0-7.0); Granulocytes % (Auto) 74.2 % (38.0-78.0); Lymphocytes # (Auto) 1.5 K/mcL (1.5-4.8); Lymphocytes % (Auto) 11.5 % (15.5-49.0); Mean Cell Volume 96.1 fL (80.0-100.0); Mean Corpuscular HGB Conc 33.4 g/dL (31.0-36.0); Mean Corpuscular Hemoglobin 32.1 pg (26.0-34.0); Monocytes # (Auto) 1.6 K/mcL (0.1-0.9); Monocytes % (Auto) 12.1 % (1.0-12.0); Platelet Count 308 K/mcL (140-440); RBC 4.04 M/mcL (4.50-5.90); Red Cell Distribution Width 13.3 % (11.5-14.5)
[2017-09-09 08:56] LABS: ALT/SGPT 18 U/l (0-40); Albumin 4.1 gm/dL (3.2-5.2); Albumin/Globulin Ratio 1.1 (1.0-2.3); Alkaline Phosphatase 75 U/L (39-117); Blood Urea Nitrogen 68 mg/dl (6-20)
[2017-09-09] MEDS ORDERED: ONDANSETRON ODT 4 MG TABLET SL PRN ×2 (09:39→19:05)
[2017-09-09] MEDS ORDERED: ACETAMINOPHEN 325 MG TABLET PO PRN ×2 (09:39→19:05)
[2017-09-09] MEDS ORDERED: DEXTROSE 31 GM ORAL.SUSP PO PRN ×2 (09:39→19:05)
[2017-09-09] MEDS ORDERED: ONDANSETRON 4 MG/2 ML VIAL IV PRN ×2 (09:39→19:05)
[2017-09-09] MEDS ORDERED: INSULIN GLARGINE, HUMAN 1 UNIT/0.01 ML SQ ONE (09:39)
[2017-09-09] MEDS ORDERED: DEXTROSE 50% 50 ML VIAL IV PRN ×2 (09:39→19:05)
[2017-09-09] MEDS ORDERED: HYDROmorphone 2 MG TABLET PO PRN ×2 (09:48→19:05)
[2017-09-09] MEDS ORDERED: ZOLPIDEM 5 MG TABLET PO PRN (09:48)
[2017-09-09] MEDS ORDERED: VANCOMYCIN PER PHARMACY IV SCH ×2 (10:00→19:05)
--- NOTE | 2017-09-09 10:02 | XRay Report ---
CLINICAL INFORMATION: Hypoxia COMPARISON: 09/08/2017 FINDINGS: The heart is borderline enlarged and unchanged. PICC line in stable satisfactory position. Mediastinum and pulmonary vessels are normal. Lungs are clear. No effusions. IMPRESSION: Borderline cardiomegaly - stable. With history of hypoxia and a chest x-ray negative for acute disease, please consider possibility of pulmonary embolus Interpreted and Authenticated by: Andrey Truong 09/09/17
[2017-09-09] MEDS ORDERED: 0.9 % SODIUM CHLORIDE 10 ML SYRINGE IV SCH ×2 (14:00→22:00)
--- NOTE | 2017-09-09 14:15 | Nephrology Consult Note ---
History of Present Illness - Reason for Consult Patient information: Note initiated : 09/09/17 at 2:11 pm Service Date, if different from initiated Date: [] Patient: Daljit Ash 52 y/o M admitted on 09/09/17 for Weakness. Chief Complaint: [] Consult date: 09/09/17 end stage renal disease Requesting physician: Ren Tucker - Chief Complaint confusion - History of Present Illness Patient is a 52 y/o pleasant white male with PMH of esrd on HD, he has h/o recent hospitalisation for cervical spine osteomyelitis and he is on iov cefepime and vacn for this He came to the ER last night with weakness and poor appetite, he was discharged as no other issues determined. He was brought back this am given concerns of some confusion, difficulty finding words and myoclonic tremors He denies headaches, focal weakness he has not been eating well He also c/o dry cough for 3 days and some SOB today no edema NO other issues he has been compliant with his meds he has ID follow up on 09/19 he should be on dialysis three times a week and he has refused this Review of Systems All systems PM: reviewed and no additional remarkable complaints except as stated (as in HPI) Past History Past medical history: htn DM type 1 ESRD on HD secondary hyperparathyroidism anemia of CKD plasmacytoma h/o pericardial effusion chronic low back pain Past surgical history: s/p multiple AVF surgery h/o surgery for low back pain Past family history: not pertinent Past social history: retired, on disability chews nicotine gums, occ pot, no other addictions Medications and Allergies Home Medications Medication Instructions Recorded Confirmed Type ascorbic acid (vitamin C) 1,000 mg 1,000 mg PO BID tab 08/23/14 09/09/17 History tablet brimonidine-timolol 0.2 %-0.5 % 1 drp RIGHT EYE Q6H ml 08/23/14 09/09/17 History eye drops cholecalciferol (vitamin D3) 1,000 See Dose Instructions PO QDAY cap 09/25/14 09/09/17 History unit capsule Dorzolamide HCl [Trusopt] 1 drp OU TID 10/10/14 09/09/17 History Latanoprost Ophth Drops [Xalatan 1 gtt OD HS 10/10/14 09/09/17 History Ophth Drops] esomeprazole magnesium 40 mg 40 mg PO .qd 90 Days #90 cap 10/31/14 09/09/17 Rx capsule,delayed release sevelamer carbonate 800 mg tablet 1,600 mg PO TIDCC #540 tab 07/30/15 09/09/17 Rx sumatriptan 50 mg tablet 50 mg PO Q2H PRN #10 tab MDD 100mg 03/18/16 09/09/17 Rx hydroxyzine HCl 50 mg tablet 50 mg PO .nightly #30 tab 04/19/16 09/09/17 Rx albuterol sulfate HFA 90 1 puff INHALATION Q6H PRN #18 g 06/14/16 09/09/17 Rx mcg/actuation aerosol inhaler metolazone 5 mg tablet 5 mg PO QDAY #5 tab 06/22/16 09/09/17 Rx calcium acetate 667 mg tablet 1,334 mg PO TID #120 tab 02/28/17 09/09/17 Rx ondansetron 4 mg disintegrating 4 mg PO Q6H PRN #90 tab 02/28/17 09/09/17 Rx tablet omeprazole 40 mg capsule,delayed 40 mg PO QDAY 90 Days #90 cap 03/28/17 Rx release metoprolol tartrate 50 mg tablet 50 mg PO BID 90 Days #180 tab 06/13/17 Rx hydralazine 25 mg tablet 50 mg PO BID #120 tab 06/20/17 09/09/17 Rx insulin glargine (U-100) 100 30 unit SUB-Q QDAY #15 ml 06/30/17 09/09/17 Rx unit/mL (3 mL) subcutaneous pen amlodipine 10 mg tablet 10 mg PO DAILY #90 tab 07/04/17 09/09/17 Rx atorvastatin 40 mg tablet 40 mg PO QDAY #90 tab 07/12/17 09/09/17 Rx insulin aspart U-100 100 unit/mL See Label Instructions SUB-Q QAM 07/14/17 Rx subcutaneous pen #45 ml pen needle, diabetic 32 gauge x See Dose Instructions .ROUTE 07/14/17 09/07/17 Rx 5/32" .MEDSUPPLY #200 each vitamin B complex-vitamin C-folic 1 tab-cap PO QDAY #90 tab 07/18/17 09/09/17 Rx acid 0.8 mg tablet Cefepime [Maxipime] 1 gm IV Q24H #42 vial 08/28/17 09/09/17 Rx Vancomycin Per Pharmacy 1 order IV ONCE #42 miscell 08/28/17 09/09/17 Rx furosemide 40 mg tablet 40 mg PO BID #180 tab 08/31/17 09/09/17 Rx Ondansetron HCl [Zofran ODT] 4 mg SL Q4-6HP PRN #20 tab 09/01/17 09/09/17 Rx hydromorphone 4 mg tablet 4 mg PO Q6H PRN #112 tab 09/07/17 09/09/17 Rx zolpidem 10 mg tablet 10 mg PO HS PRN #30 tab 09/07/17 09/09/17 Rx Allergies Allergy/AdvReac Type Severity Reaction Status Date / Time levofloxacin Allergy Mild Rash Verified 09/09/17 09:47 codeine AdvReac Mild Vomiting Verified 09/09/17 09:47 hydrocodone [HYDROCODONE] AdvReac Mild Vomiting Verified 09/09/17 09:47 Exam - Vital Signs Vital signs: Temp Pulse Resp BP Pulse Ox 98.2 F 77 22 177/80 90 09/09/17 09:47 09/09/17 09:47 09/09/17 09:47 09/09/17 09:47 09/09/17 09:47 - General Appearance General appearance: appears started age EENT: mucous membranes dry Neck: no JVD Respiratory: clear Cardiology: regular rate, regular rhythm Gastrointestinal: no tenderness, no guarding Integumentary: warm and dry Neurologic: alert and oriented x3 (but has difficulty finding words) Musculoskeletal: no cyanosis, no clubbing Psychiatric: mood/affect appropriate Results - Lab Results 09/09/17 07:39 09/09/17 07:39 Most recent lab results Calcium 9.1 mg/dl (8.6-10.4) 09/09/17 07:39 Assessment and Plan (1) ESRD (end stage renal disease) patient will be dialysed today with his usual dialysis prescription and no fluid removal he is again requested to run three times a week, I think he has lost his residual renal function and this may be causing some uremic symptoms will re evaluate for dialysis need tomorrow confusion: ? cefepime toxicity consider changing antibiotic hold for now re evaluate if no improvement in mental status will need further eval ACIDOSIS with elevated beta hydroxybutyrate ? starvation will get dialysis, IVF will recheck labs post HD appreciate hospitalist help in managing this patient Status: Acute (2) Confusion Status: Acute (3) Acidosis, metabolic Status: Chronic Comment: of CKD
[2017-09-09] MEDS: INSULIN LISPRO 1 UNIT/0.01 ML UNIT SQ SCH ×2 (14:19→16:39)
[2017-09-09] MEDS: EYE RIGHT EYE SCH ×2 (14:20→16:40)
[2017-09-09] MEDS: BRIMONIDINE TARTRATE RIGHT EYE SCH ×3 (14:20→21:43)
[2017-09-09] MEDS: CALCIUM ACETATE 667 MG CAPSULE PO SCH ×2 (14:20→16:40)
[2017-09-09] MEDS: TIMOLOL RIGHT EYE SCH ×3 (14:20→21:43)
[2017-09-09] MEDS: SEVELAMER 800 MG TABLET PO SCH ×2 (14:20→16:40)
[2017-09-09] MEDS ORDERED: MEROPENEM 0.5 GM in 0.9 % SODIUM CHLORIDE 50 ML IV SCH (15:00)
[2017-09-09] MEDS ORDERED: DORZOLAMIDE 2% OPHTH DROPS 10ML BOTTLE OU SCH (15:00)
[2017-09-09] MEDS: 0.9 % SODIUM CHLORIDE 1,000 ML IV SCH ×2 (15:00→17:08)
[2017-09-09] MEDS ORDERED: FAMOTIDINE/PF 20 MG/2 ML VIAL IV ONE (15:01)
[2017-09-09] MEDS ORDERED: 0.9 % SODIUM CHLORIDE 500 ML IV ONE (15:38)
--- NOTE | 2017-09-09 15:56 | Internal Med History&Physical ---
Medical - H&P: HPI Patient information: Note initiated : 09/09/17 at 3:48 pm Service Date, if different from initiated Date: [] Patient: Daljit Ash a 52 y/o M admitted on 09/09/17 for Weakness. Chief Complaint: [] History of present illness: Mr. Ash is a 52 year old Male with h/o esrd, type 1 dm, on dialysis, recent diagnosis of osteomyelitis , chr of cervical spine, on IV vanco and cefepime. he was discharged just over 2 weeks ago from [facility] facility for DKA and osteomyelitis, his c spine culture have been negative. Outpatient he was seen by Dr Long and his pcp, he had some insomnia issues and worsening neck pain, repeat MRI was unchanged, but he was prescribed some ambien by his pcp, he also takes hydrozyzine for his sleep The patient presented to the ER with his sister, who also provided input in pts history. The patient notes for the last few days he has not been feeling well, decreased appetitie, fatigue and genralized weakness and some nausea, he had had some cough. The patient had cxr done yesterday, and lab work, he was sent home with IVF and advised to have HD again today The patient presented this AM as his weakness progressed, and he was having difficulty in finding workds, unable to speak clearly, he was also having twiching, and weakness in his legs, he presented again in the ER, with worsening renal function. He was seen by the Swing Tender and advised admission The patient admits to have missed a couple of dose of insulin and has not eaten much, he did have high gap on presentation, with eleated hydroxybutyrate, but his glucose level was not very high. It was thought that his findings represent starvation ketosis more than DKA, Also there is concern that given his twice weekly schedule of dialysis he was having neurotoxicity secondary to cefepime use, I am not sure of hydrozyxine / ambien also are playing a role He was initially admitted as obs, he underwent HD, and did not report significant improvement in his symptoms, he had Head CT done which is negative His lab showed persistence of gap acidosis and elevated hydroxybutyrate with normal glucose. AT this time given that patient is still not feeling better, and has gap acidosis, he was moved to the ICU for management of possible dka. Some patients have been reported in litrature with euglycemic DKA, aylin in pt who have poor oral intake. Patient and family updated on plan of care - Constitutional Constitutional: Present: fatigue, lethargy, malaise. Absent: chills, fever(s) - EENT Eyes: Absent: blurry vision, change in vision, seeing flashes Nose, mouth and throat: Present: dizziness - Cardiovascular Cardiovascular: Absent: chest pain, chest pain at rest, palpatations, paroxysmal nocturnal dyspnea, pedal edema - Respiratory Respiratory: Present: cough. Absent: dyspnea on exertion, chest congestion - Gastrointestinal Gastrointestinal: Absent: heartburn, hematemesis, hematochezia - Genitourinary Genitourinary: Absent: hematuria, urinary frequency, urinary urgency - Musculoskeletal Musculoskeletal: Present: back pain, muscle weakness, neck pain. Absent: joint swelling - Integumentary Integumentary: Absent: bleeding lesions, wounds, jaundice - Neurological Neurological: Present: abnormal speech, confusion, weakness. 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) [facility] 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 (Chronic) Hypertensive renal disease (Chronic) Hyperlipidemia (Chronic) Gastroesophageal reflux (Chronic 07/01/14) Essential hypertension (Chronic 12/06/12) End stage renal disease (Chronic) Diabetes mellitus type 1, uncontrolled (Chronic) Chronic kidney disease, stage V (Chronic 04/29/13) Anemia in chronic kidney disease (Chronic) Acidosis, metabolic (Chronic 12/06/12) Acute appendicitis (Inactive) Appendicitis (Inactive) Foot pain (Inactive 07/01/14) History of tobacco abuse (Inactive) Nosocomial pneumonia (Inactive) Pneumonia (Inactive) Rash (Inactive) Surgical history: Past Surgical History (Last Reviewed 09/07/17 @ 16:56 by Andrey Strickland DO) Arteriovenous fistula for hemodialysis in place, primary (Chronic) History of angioplasty (Chronic 11/03/16) History of colonoscopy (Chronic 06/18/15) History of bone marrow biopsy (Inactive) History of laser photocoagulation of retina (Inactive) History of shoulder surgery (Inactive) Pertinent family history: Family History (Last Reviewed 09/07/17 @ 16:56 by Andrey Strickland DO) Father Coronary artery disease Diabetes mellitus Essential hypertension Mother Diabetes mellitus Medical - H&P: Meds Home Medications Medication Instructions Recorded Confirmed Type ascorbic acid (vitamin C) 1,000 mg 1,000 mg PO BID tab 08/23/14 09/09/17 History tablet brimonidine-timolol 0.2 %-0.5 % 1 drp RIGHT EYE Q6H ml 08/23/14 09/09/17 History eye drops cholecalciferol (vitamin D3) 1,000 See Dose Instructions PO QDAY cap 09/25/14 09/09/17 History unit capsule Dorzolamide HCl [Trusopt] 1 drp OU TID 10/10/14 09/09/17 History Latanoprost Ophth Drops [Xalatan 1 gtt OD HS 10/10/14 09/09/17 History Ophth Drops] esomeprazole magnesium 40 mg 40 mg PO .qd 90 Days #90 cap 10/31/14 09/09/17 Rx capsule,delayed release sevelamer carbonate 800 mg tablet 1,600 mg PO TIDCC #540 tab 07/30/15 09/09/17 Rx sumatriptan 50 mg tablet 50 mg PO Q2H PRN #10 tab MDD 100mg 03/18/16 09/09/17 Rx hydroxyzine HCl 50 mg tablet 50 mg PO .nightly #30 tab 04/19/16 09/09/17 Rx albuterol sulfate HFA 90 1 puff INHALATION Q6H PRN #18 g 06/14/16 09/09/17 Rx mcg/actuation aerosol inhaler metolazone 5 mg tablet 5 mg PO QDAY #5 tab 06/22/16 09/09/17 Rx calcium acetate 667 mg tablet 1,334 mg PO TID #120 tab 02/28/17 09/09/17 Rx ondansetron 4 mg disintegrating 4 mg PO Q6H PRN #90 tab 02/28/17 09/09/17 Rx tablet omeprazole 40 mg capsule,delayed 40 mg PO QDAY 90 Days #90 cap 03/28/17 Rx release metoprolol tartrate 50 mg tablet 50 mg PO BID 90 Days #180 tab 06/13/17 Rx hydralazine 25 mg tablet 50 mg PO BID #120 tab 06/20/17 09/09/17 Rx insulin glargine (U-100) 100 30 unit SUB-Q QDAY #15 ml 06/30/17 09/09/17 Rx unit/mL (3 mL) subcutaneous pen amlodipine 10 mg tablet 10 mg PO DAILY #90 tab 07/04/17 09/09/17 Rx atorvastatin 40 mg tablet 40 mg PO QDAY #90 tab 07/12/17 09/09/17 Rx insulin aspart U-100 100 unit/mL See Label Instructions SUB-Q QAM 07/14/17 Rx subcutaneous pen #45 ml pen needle, diabetic 32 gauge x See Dose Instructions .ROUTE 07/14/17 09/07/17 Rx 5/32" .MEDSUPPLY #200 each vitamin B complex-vitamin C-folic 1 tab-cap PO QDAY #90 tab 07/18/17 09/09/17 Rx acid 0.8 mg tablet Cefepime [Maxipime] 1 gm IV Q24H #42 vial 08/28/17 09/09/17 Rx Vancomycin Per Pharmacy 1 order IV ONCE #42 miscell 08/28/17 09/09/17 Rx furosemide 40 mg tablet 40 mg PO BID #180 tab 08/31/17 09/09/17 Rx Ondansetron HCl [Zofran ODT] 4 mg SL Q4-6HP PRN #20 tab 09/01/17 09/09/17 Rx hydromorphone 4 mg tablet 4 mg PO Q6H PRN #112 tab 09/07/17 09/09/17 Rx zolpidem 10 mg tablet 10 mg PO HS PRN #30 tab 09/07/17 09/09/17 Rx Allergies Allergy/AdvReac Type Severity Reaction Status Date / Time levofloxacin Allergy Mild Rash Verified 09/09/17 09:47 codeine AdvReac Mild Vomiting Verified 09/09/17 09:47 hydrocodone [HYDROCODONE] AdvReac Mild Vomiting Verified 09/09/17 09:47 Medical - H&P: Exam - Constitutional Vitals: Temp Pulse Resp BP Pulse Ox 98.8 F 77 18 183/78 93 09/09/17 15:03 09/09/17 09:47 09/09/17 15:03 09/09/17 15:03 09/09/17 15:03 Exam: GENERAL: The patient is a well-developed, well-nourished in no apparent distress. Is drowsy but oriented x3. VITAL SIGNS: Reviewed and as noted elsewhere. HEENT: Head is normocephalic and atraumatic. Extraocular muscles are intact. Pupils are equal, round, and reactive to light. Nares appeared normal. Mouth appears any without lesions. Mucous membranes are dry. NECK: Normal to inspection, Supple, No lymphadenopathy or thyromegaly. LUNGS: Air entry equal on both sides, no wheezing, crackles or rhonchi noted. No accessory muscles of respiration HEART: Regular rate and rhythm normal, S1 and S2 heard, no Gallop, S3 or Rub Noted, No Gross murmur heard. ABDOMEN: Soft, nontender, and nondistended. Positive bowel sounds. No hepatosplenomegaly was noted. EXTREMITIES: No cyanosis, clubbing, rash, lesions or edema. picc in rue, left arm fistula, NEUROLOGIC: Cranial nerves II through XII are grossly intact. Motor and Sensory System Grossly Intact PSYCHIATRIC: Normal affect, Normal Mood. Appropriate Behavior. SKIN: No ulceration or wounds noted, No jaundice, No rash noted. Medical - H&P: Reslt - Labs CBC & Chem 7: 09/09/17 07:39 09/09/17 15:10 Labs: Short CBC 09/09/17 Range/Units 07:39 WBC 12.9 H (4.5-11.0) K/mcL Hgb 12.9 L (13.5-16.5) g/dL Hct 38.8 L (41.0-55.0) % Plt Count 308 (140-440) K/mcL BMP 09/09/17 07:39 Sodium 137 Potassium 4.7 Chloride 90 L Carbon Dioxide 14 L BUN 68 H Creatinine 13.9 H* Glucose 249 H Calcium 9.1 Liver Function 09/09/17 Range/Units 07:39 Total Bilirubin 0.3 (0.0-1.0) mg/dL AST 22 (0-37) U/l ALT 18 (0-40) U/l Alkaline Phosphatase 75 (39-117) U/L Albumin 4.1 (3.2-5.2) gm/dL Medical - H&P: A/P - Narrative A/P Narrative: A/P High gap acidosis, elevated hydroxybutyrate- likely starvation ketosis, but cannot r/o DKA, glucose is not very high, but given pt is not feeling so good and appears dry, will start on glucose and insulin drip to see if we can correct the gap. confusion/ Spsams/ Mycolic jerks- Etilogy likely cefepime induced neurotoxicity , pt has HD sessions 2 times a week, which may have lead to increased accumulation of the drug, plan to hold off on cefepime, HD done today, switch to meropenum. CT head is neg. symptoms did not resolve after HD, hydroxyzine and ambien may also have a role C spine ostemyelitis- STable as per recent MRI, no acute worsening of neck pain , on IV vancomycin and IV meropenum (started this visit) meropenum to be dosed 500mg daily, on days of HD to be given after HD session. Patient has been seen by Dr Long in the clinic and advised a referral to Infectious disease specialist in [place] which he has early september. ESRD- On HD on 2 times a week schedule, I advised the patient to consider 3 times a week schedule, the patients sister and pt did not seem to want to consider this. 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 Hypokalemia- replace HTN/HLD- resume home meds as tolerated DVT hep sq Diet NPO Full code. Medical - H&P: Qual - VTE Deep Vein Thrombosis/Pulmonary Embolism Present on Admission: No Social History - Tobacco smoking status: Current every day smoker - Quit Details quit date: 09/11/14 pack-years: 33 - Alcohol alcohol intake frequency: does not drink - Substance use substance use type: does not use
[2017-09-09 16:09] LABS: Vancomycin,Random 5.4 ug/mL
[2017-09-09 16:13] LABS: Beta Hydroxybutyrate 3.57 mmol/L (< 0.27); Blood Urea Nitrogen 16 mg/dl (6-20)
[2017-09-09] MEDS ORDERED: VANCOMYCIN 1,500 MG in 0.9 % SODIUM CHLORIDE 500 ML IV ONE (17:00)
--- NOTE | 2017-09-09 17:03 | Cat Scan Report ---
CLINICAL INFORMATION: Altered mental status COMPARISON: None. TECHNIQUE: 2.5 mm helical slices were obtained in the skull base to vertex. Following reconstruction, axial reformatted images were reviewed at bone and parenchymal windows. The exam was performed using radiation dose optimization techniques including, but not limited to, automated exposure control, adjustment of the mA and/or kV according to patient size and use of iterative reconstruction technique. FINDINGS: The ventricles, sulci, fissures, and cisterns are normal in size and configuration. No extra-axial fluid collections are identified. The cerebrum, brainstem and cerebellum are unremarkable. There is no evidence of hemorrhage, mass effect, or edema. Bone windows show no osseous abnormality. IMPRESSION: Normal head CT without contrast. Interpreted and Authenticated by: Andrey Truong 09/09/17
[2017-09-09] MEDS ORDERED: DEXTROSE 5%-1/2NS 1,000 ML IV SCH (19:05)
[2017-09-09] MEDS ORDERED: INSULIN REGULAR, HUMAN 1 UNIT/0.01 ML UNIT ONE (19:26)
[2017-09-09] MEDS: INSULIN REGULAR, HUMAN 50 UNIT in 0.9 % SODIUM CHLORIDE 100 ML IV SCH ×3 (19:30→23:21)
[2017-09-09] MEDS ORDERED: POTASSIUM CHLORIDE 40 MEQ in DEXTROSE 5% IN WATER 500 ML IV ONE (19:56)
[2017-09-09] MEDS ORDERED: DEXTROSE 50% 50 ML VIAL IV ONE (20:23)
[2017-09-09] MEDS ORDERED: METOPROLOL TARTRATE 50 MG TABLET PO SCH (21:00)
[2017-09-09] MEDS ORDERED: ATORVASTATIN 20 MG TABLET PO SCH (21:00)
[2017-09-09] MEDS ORDERED: FUROSEMIDE 40 MG TABLET PO SCH (21:00)
[2017-09-09] MEDS ORDERED: hydrOXYzine 25 MG TABLET PO SCH (21:00)
[2017-09-09] MEDS ORDERED: HEPARIN 5,000 UNIT/ML VIAL SQ SCH (21:00)
[2017-09-09] MEDS ORDERED: INSULIN LISPRO 1 UNIT/0.01 ML UNIT SQ SCH (21:00)
[2017-09-09] MEDS ORDERED: LATANOPROST OPHTH DROPS 2.5ML BOTTLE OD SCH (21:00)
[2017-09-09] MEDS ORDERED: hydrALAZINE 25 MG TABLET PO SCH (21:00)
[2017-09-09] MEDS: DEXTROSE 10 % IN WATER 1,000 ML IV SCH (21:18)
[2017-09-09] MEDS: METOPROLOL TARTRATE 50 MG TABLET PO SCH (21:41)
[2017-09-09] MEDS: HEPARIN 5,000 UNIT/ML VIAL SQ SCH (21:41)
[2017-09-09] MEDS: ATORVASTATIN 20 MG TABLET PO SCH (21:42)
[2017-09-09] MEDS: hydrALAZINE 25 MG TABLET PO SCH (21:42)
[2017-09-09] MEDS: LATANOPROST OPHTH DROPS 2.5ML BOTTLE OD SCH (21:44)
[2017-09-09] MEDS: DORZOLAMIDE 2% OPHTH DROPS 10ML BOTTLE OU SCH (21:44)
[2017-09-09] MEDS ORDERED: IPRATROPIUM/ALBUTEROL 3 ML AMPUL.NEB NEB ONE (23:52)
[2017-09-10] MEDS: INSULIN REGULAR, HUMAN 50 UNIT in 0.9 % SODIUM CHLORIDE 100 ML IV SCH ×2 (00:22→01:27)
[2017-09-10] MEDS ORDERED: 0.9 % SODIUM CHLORIDE 10 ML SYRINGE IV PRN ×2 (03:28→20:26)
[2017-09-10 04:37] LABS: Basophils # (Auto) 0.1 K/mcL (0.0-0.3); Basophils % (Auto) 0.9 % (0.0-2.0); Eosinophils # (Auto) 0.2 K/mcL (0.0-0.7); Eosinophils % (Auto) 2.5 % (0.0-7.0); Granulocytes % (Auto) 64.1 % (38.0-78.0); Lymphocytes # (Auto) 1.4 K/mcL (1.5-4.8); Mean Corpuscular HGB Conc 33.7 g/dL (31.0-36.0); Mean Corpuscular Hemoglobin 32.1 pg (26.0-34.0); Monocytes # (Auto) 1.5 K/mcL (0.1-0.9); Monocytes % (Auto) 16.5 % (1.0-12.0); Platelet Count 249 K/mcL (140-440); RBC 3.62 M/mcL (4.50-5.90)
[2017-09-10 05:10] LABS: ALT/SGPT 16 U/l (0-40); Albumin 3.5 gm/dL (3.2-5.2); Albumin/Globulin Ratio 1.2 (1.0-2.3); Alkaline Phosphatase 59 U/L (39-117); Bilirubin,Direct < 0.2 mg/dL (0.0-0.3); Blood Urea Nitrogen 19 mg/dl (6-20); Gamma Glutamyl Transpeptidase 14 U/L (8-61); Uric Acid 3.1 mg/dL (2.5-8.0)
[2017-09-10] MEDS ORDERED: AZITHROMYCIN 250 MG TABLET PO ONE (06:09)
[2017-09-10] MEDS: DEXTROSE 10 % IN WATER 1,000 ML IV SCH (07:14)
[2017-09-10] MEDS ORDERED: OMEPRAZOLE 20 MG CAPSULE PO SCH ×2 (07:30)
[2017-09-10] MEDS ORDERED: IPRATROPIUM/ALBUTEROL 3 ML AMPUL.NEB NEB ONE (07:43)
[2017-09-10] MEDS: CALCIUM ACETATE 667 MG CAPSULE PO SCH ×3 (08:26→18:10)
[2017-09-10] MEDS: SEVELAMER 800 MG TABLET PO SCH ×3 (08:26→18:10)
[2017-09-10] MEDS ORDERED: METOLAZONE 2.5 MG TABLET PO SCH (08:30)
[2017-09-10] MEDS ORDERED: MEROPENEM 0.5 GM in 0.9 % SODIUM CHLORIDE 50 ML IV SCH (09:00)
[2017-09-10] MEDS ORDERED: FOLIC ACID/VITAMIN B COMP W-C 1 TAB TABLET PO SCH ×2 (09:00)
[2017-09-10] MEDS ORDERED: amLODIPine 10 MG TABLET PO SCH ×2 (09:00)
[2017-09-10] MEDS ORDERED: NON FORMULARY MEDICATION 1 DOSE MISCELL IV SCH (09:00)
[2017-09-10] MEDS ORDERED: BUDESONIDE 0.5 MG/2 ML AMPUL.NEB NEB SCH (09:00)
[2017-09-10] MEDS ORDERED: INSULIN GLARGINE, HUMAN 1 UNIT/0.01 ML SQ ONE (09:25)
[2017-09-10] MEDS ORDERED: DEXTROSE 31 GM ORAL.SUSP PO PRN ×3 (09:26→20:26)
[2017-09-10] MEDS ORDERED: DEXTROSE 50% 50 ML VIAL IV PRN ×3 (09:26→20:26)
[2017-09-10] MEDS: hydrALAZINE 25 MG TABLET PO SCH ×3 (09:31→20:32)
[2017-09-10] MEDS: METOPROLOL TARTRATE 50 MG TABLET PO SCH ×3 (09:31→20:34)
[2017-09-10] MEDS: HEPARIN 5,000 UNIT/ML VIAL SQ SCH ×3 (09:32→20:32)
[2017-09-10] MEDS: BRIMONIDINE TARTRATE RIGHT EYE SCH ×5 (09:32→20:34)
[2017-09-10] MEDS: TIMOLOL RIGHT EYE SCH ×5 (09:32→20:34)
[2017-09-10] MEDS: 0.9 % SODIUM CHLORIDE 10 ML SYRINGE IV SCH ×3 (09:33→20:34)
[2017-09-10] MEDS: DORZOLAMIDE 2% OPHTH DROPS 10ML BOTTLE OU SCH ×4 (09:33→20:35)
[2017-09-10] MEDS: INSULIN LISPRO 1 UNIT/0.01 ML UNIT SQ SCH ×4 (11:26→20:33)
--- NOTE | 2017-09-10 11:56 | Nephrology Progress Note ---
Subjective Patient information: Note initiated : 09/10/17 at 11:54 am Service Date, if different from initiated Date: [] Patient: Daljit Ash 52 y/o M admitted on 09/09/17 for Weakness. Chief Complaint: [] Principal diagnosis: confusion, DKA Interval history: Patient is feeling much better today he is more alert, no speech problems or abnormal movements he is SOB and mildly hypoxic and has pul congestion no edema denies GI issues, tolerating po food no pain no CP he will need dialysis for fluid removal today Pertinent ROS: ABOVE Objective - Vital Signs Vital signs: Vital Signs Temp Pulse Pulse Resp BP BP Pulse Ox 09/10/17 11:01 70 149/73 96 09/10/17 10:01 178/82 09/10/17 09:01 165/86 09/10/17 08:01 76 23 H 161/64 100 09/10/17 07:43 71 16 09/10/17 07:14 75 19 97 09/10/17 07:01 71 20 161/73 98 09/10/17 06:28 69 17 96 09/10/17 06:01 70 20 152/74 97 09/10/17 05:11 70 21 98 09/10/17 05:01 71 21 162/77 97 09/10/17 04:01 98.5 F 70 19 169/77 97 09/10/17 03:01 68 20 176/77 98 09/10/17 02:59 176/77 09/10/17 02:21 71 21 98 09/10/17 02:01 77 18 172/83 96 09/10/17 01:50 78 15 96 09/10/17 01:01 77 19 165/72 97 09/10/17 00:51 79 96 09/10/17 00:01 99.0 F H 79 16 166/84 96 09/10/17 00:00 99.0 F H 76 14 166/84 95 09/09/17 23:45 76 17 09/09/17 23:24 76 23 H 96 09/09/17 23:01 78 16 161/69 96 09/09/17 22:51 79 20 95 09/09/17 22:01 80 24 H 179/77 94 09/09/17 22:00 18 179/77 95 09/09/17 21:05 80 21 186/85 186/85 97 06/29/18 21:02 82 17 181/75 98 09/09/17 20:05 99.1 F H 21 171/76 95 09/09/17 20:01 86 21 103/87 97 09/09/17 19:54 99.1 F H 21 171/76 95 09/09/17 19:50 85 19 171/76 95 09/09/17 19:49 85 25 H 179/75 97 09/09/17 19:38 87 26 H 168/79 94 09/09/17 19:31 85 97 09/09/17 19:20 88 L 09/09/17 19:05 98.9 F 22 159/72 94 09/09/17 15:03 98.8 F 18 183/78 93 Intake and Output 09/09/17 09/10/17 09/10/17 21:59 05:59 13:59 Intake Total 2258 / 2258 1127 / 1127 Output Total 275 / 275 250 / 250 Balance 1982 / 1982 -230 / -230 1127 / 1127 Intake: IV 2017 1007 / 1007 Sodium Chloride 0.9% 500 ml @ 500 / 500 Wide Open IV BOLUS ONE Rx#: [id number] Dextrose 10%-Water IV Solution 993 / 993 1,000 ml @ 100 mls/hr IV .Q10H [facility] Rx#:[id number] Dextrose 5%-1/2Ns IV Solution 1 280 / 280 ,000 ml @ 150 mls/hr IV .Q6H40M [facility] Rx#:[id number] HumuLIN R 50 UNIT In Sodium 3 / 3 14 / 14 Chloride 0.9% 100 ml @ 0.1 UNIT /KG/HR 13.12 mls/hr IV DUR [facility]ICE Rx#:[id number] Merrem 0.5 gm In Sodium 50 / 50 Chloride 0.9% 50 ml @ 100 mls/ hr IV DAILY [facility]ICE Rx#:[id number] Oral 240 / 240 120 / 120 Output: Void Amount 275 / 275 250 / 250 # of times incontinent of urine 0 / 0 Other: Meal Lunch Percent of Meal Consumed 50% Feeding Ability Assist with Tray Set Up # Voids 1 # Bowel Movements 1 Weight 146 lb 9.6 oz 146 lb 9.6 oz Patient Weight 09/11/17 05:59 Weight 146 lb 9.6 oz Intake & Output: Intake & Output 09/09/17 09/10/17 09/10/17 21:59 05:59 13:59 Intake Total 2258 / 2258 1127 / 1127 Output Total 275 / 275 250 / 250 Balance 1982 -230 / -230 1127 / 1127 Weight 146 lb 9.6 oz 146 lb 9.6 oz Intake: IV 2017 1007 / 1007 Sodium Chloride 0.9% 500 ml @ 500 / 500 Wide Open IV BOLUS ONE Rx#: [id number] Dextrose 10%-Water IV Solution 993 / 993 1,000 ml @ 100 mls/hr IV .Q10H [facility] Rx#:[id number] Dextrose 5%-1/2Ns IV Solution 1 280 / 280 ,000 ml @ 150 mls/hr IV .Q6H40M [facility] Rx#:[id number] HumuLIN R 50 UNIT In Sodium 3 / 3 14 / 14 Chloride 0.9% 100 ml @ 0.1 UNIT /KG/HR 13.12 mls/hr IV DUR [facility] Rx#:[id number] Merrem 0.5 gm In Sodium 50 / 50 Chloride 0.9% 50 ml @ 100 mls/ hr IV DAILY [facility] Rx#:[id number] Oral 240 / 240 120 / 120 Output: Void Amount 275 / 275 250 / 250 # of times incontinent of urine 0 / 0 Other: Meal Lunch Percent of Meal Consumed 50% Feeding Ability Assist with Tray Set Up # Voids 1 # Bowel Movements 1 - General Appearance General appearance: appears started age EENT: mucous membranes moist Neck: no JVD Respiratory: rales Cardiology: no rub, no edema, normal S1, normal S2 Gastrointestinal: no tenderness, no guarding Integumentary: no rash, warm and dry Neurologic: alert and oriented x3 Musculoskeletal: no erythema, no cyanosis Psychiatric: mood/affect appropriate - Lab 09/10/17 03:30 09/10/17 03:30 Most recent lab results Calcium 8.5 mg/dl (8.6-10.4) L 09/10/17 03:30 Phosphorus 3.2 mg/dL (2.7-4.5) 09/10/17 03:30 Magnesium 1.9 mg/dL (1.6-2.5) 09/10/17 03:30 Assessment and Plan (1) ESRD (end stage renal disease) Patient will be dialysed for 4 hrs using revalcear dialyser, 3K/2.5Ca dialysate and UF goal of 2-3L Next HD tuesday confusion resolved likely from cefepime DKA resolved fluid excess: UF removal today, if remains hypoxic will need further work up Will follow along Status: Acute (2) Confusion Status: Acute (3) Acidosis, metabolic Status: Chronic Comment: of CKD
--- NOTE | 2017-09-10 14:38 | Internal Med Progress Note ---
Medical - PN: Subj Patient information: Note initiated : 09/10/17 at 2:36 pm Service Date, if different from initiated Date: [] Patient: Daljit Ash a 52 y/o M admitted on 09/09/17 for Weakness. Chief Complaint: [] Interval history: Mr. Ash is a 52 year old Male with h/o esrd, type 1 dm, on dialysis, recent diagnosis of osteomyelitis , chr of cervical spine, on IV vanco and cefepime. he was discharged just over 2 weeks ago from [facility] for DKA and osteomyelitis, his c spine culture have been negative. Outpatient he was seen by Dr Long and his pcp, he had some insomnia issues and worsening neck pain, repeat MRI was unchanged, but he was prescribed some ambien by his pcp, he also takes hydrozyzine for his sleep The patient presented to the ER with his sister, who also provided input in pts history. The patient notes for the last few days he has not been feeling well, decreased appetitie, fatigue and genralized weakness and some nausea, he had had some cough. The patient had cxr done yesterday, and lab work, he was sent home with IVF and advised to have HD again today The patient presented this AM as his weakness progressed, and he was having difficulty in finding workds, unable to speak clearly, he was also having twiching, and weakness in his legs, he presented again in the ER, with worsening renal function. He was seen by the Fermenter Champagne and advised admission The patient admits to have missed a couple of dose of insulin and has not eaten much, he did have high gap on presentation, with eleated hydroxybutyrate, but his glucose level was not very high. It was thought that his findings represent starvation ketosis more than DKA, Also there is concern that given his twice weekly schedule of dialysis he was having neurotoxicity secondary to cefepime use, I am not sure of hydrozyxine / ambien also are playing a role He was initially admitted as obs, he underwent HD, and did not report significant improvement in his symptoms, he had Head CT done which is negative His lab showed persistence of gap acidosis and elevated hydroxybutyrate with normal glucose. AT this time given that patient is still not feeling better, and has gap acidosis, he was moved to the ICU for management of possible dka. Some patients have been reported in literature with euglycemic DKA, aylin in pt who have poor oral intake. Patient and family updated on plan of care 09/10 Pt seen examined overnight insulin ggt and d10 w given this am feeling much better most of his symptoms rosolved, gap respoved hydroxybutyrate neg d/c ggt and start oral diet and sq insulin he has crackes on both lung bases, scheduled for HD today. hypoxia noted d dimer mildly elevated low suspicion for pe at this time, I would avoid getting a CTA aylin given that he had some wheeze, has h/o smoking and has cough, and has gotten fluid. Should pt persist to be hypoxic can consider a VQ scan vs CTA Pertinent ROS: Denies headache, dizziness Denies chest pain, palpitations present cough no shortness of breath Denies abdominal pain, nausea or vomiting. - Constitutional Vitals: Vital Signs Temp Pulse Resp BP Pulse Ox 98.6 F 81 20 165/70 99 09/10/17 14:00 09/10/17 14:35 09/10/17 13:00 09/10/17 14:31 09/10/17 14:35 Period Temp Pulse Resp BP Sys/Cerda Pulse Ox Last 24 Hr 98.4 F-99.1 F 68-87 14-26 103-186/64-87 88-100 Intake and Output 09/10/17 09/10/17 09/10/17 05:59 13:59 21:59 Intake Total 1127 / 1127 Output Total 250 / 250 Balance -230 / -230 1127 / 1127 Weight 146 lb 9.6 oz 146 lb 9.6 oz Patient Weight 09/11/17 05:59 Weight 146 lb 9.6 oz Intake & Output: Intake & Output 09/10/17 09/10/17 09/10/17 05:59 13:59 21:59 Intake Total 1127 / 1127 Output Total 250 / 250 Balance -230 / -230 1127 / 1127 Weight 146 lb 9.6 oz 146 lb 9.6 oz Intake: IV 20 / 20 1007 / 1007 Dextrose 10%-Water IV Solution 993 / 993 1,000 ml @ 100 mls/hr IV .Q10H [facility] Rx#:[id number] HumuLIN R 50 UNIT In Sodium 20 / 20 14 / 14 Chloride 0.9% 100 ml @ 0.1 UNIT /KG/HR 13.12 mls/hr IV DUR [facility] Rx#:[id number] Oral 120 / 120 Output: Void Amount 250 / 250 Other: Meal Lunch Percent of Meal Consumed 50% Feeding Ability Assist with Tray Set Up # Bowel Movements 1 Exam: Constitutional; Afebrile, cooperative, alert, not in distress. Eyes- No icterus, , No periorbital swelling Ears- Ext ear normal, hearing normal to conversation. Neck- Midline trachea, supple Respiratory system: Air Entry equal on both sides, prolonged exp phase, walter basilar crackles CVS- Rate rhythm regular, S1,S2 heard, no gallop, no rub. Abdomen- Soft nontender abdomen, no organomegaly, no tenderness, no guarding or rigidity, SAP PPM CONSULTANT- AOOx3, moving all extremities, no gross focal deficit noted. Medical - PN: Obj Da - Labs CBC & Chem 7: 09/10/17 03:30 09/10/17 03:30 Labs: Abnormal Lab Results 09/10/17 09/10/17 09/09/17 03:30 03:30 20:13 WBC RBC 3.62 L Hgb 11.6 L Hct 34.4 L POC Hct Lymph % (Auto) [place] % (Auto) 16.5 H Gran # Lymph # (Auto) 1.4 L [place] # (Auto) 1.5 H D-Dimer 0.72 H Sodium 129 L Potassium Chloride 91 L Carbon Dioxide POC Total CO2 Anion Gap POC BUN BUN Creatinine 6.5 H* POC Creatinine Glucose 213 H POC Glucose Calcium 8.5 L POC WB Ioniz Calcium Beta-Hydroxybutyrate 09/09/17 09/09/17 09/09/17 15:10 07:39 07:39 WBC RBC Hgb Hct POC Hct 40.0 L Lymph % (Auto) [place] % (Auto) Gran # Lymph # (Auto) [place] # (Auto) D-Dimer Sodium 132 L Potassium 3.2 L Chloride 86 L 90 L Carbon Dioxide 14 L POC Total CO2 16 L Anion Gap 20.0 H 33.0 H POC BUN 67 H BUN 68 H Creatinine 5.1 H* 13.9 H* POC Creatinine 15.0 H* Glucose 249 H POC Glucose 246 H Calcium POC WB Ioniz Calcium 1.00 L Beta-Hydroxybutyrate 3.57 H 5.10 H 09/09/17 07:39 WBC 12.9 H RBC 4.04 L Hgb 12.9 L Hct 38.8 L POC Hct Lymph % (Auto) 11.5 L [place] % (Auto) 12.1 H Gran # 9.6 H Lymph # (Auto) [place] # (Auto) 1.6 H D-Dimer Sodium Potassium Chloride Carbon Dioxide POC Total CO2 Anion Gap POC BUN BUN Creatinine POC Creatinine Glucose POC Glucose Calcium POC WB Ioniz Calcium Beta-Hydroxybutyrate Meds: Medications Acetaminophen (Tylenol) 650 mg PO Q6HP PRN PRN Reason: PAIN/FEVER > 101 Albuterol/Ipratropium (Duoneb) 3 ml NEB Q4HRT [facility] Last Admin: 09/10/17 07:40 Dose: 3 ml Amlodipine Besylate (Norvasc) 10 mg PO DAILY [facility] Last Admin: 09/10/17 09:31 Dose: 10 mg Atorvastatin Calcium (Lipitor) 40 mg PO HS [facility] Last Admin: 09/09/17 21:42 Dose: 40 mg Azithromycin (Zithromax) 250 mg PO DAILY [facility] Stop: 09/14/17 09:01 Budesonide (Pulmicort) 0.5 mg NEB Q12 [facility] Last Admin: 09/10/17 07:40 Dose: 0.5 mg Calcium Acetate (Phoslo) 1,334 mg PO TIDCC [facility] Last Admin: 09/10/17 11:25 Dose: 1,334 mg Dextrose (Dextrose 50%) 0 ml IV UD PRN PRN Reason: Hypoglycemia Dextrose (Dextrose 50%) 0 ml IV UD PRN PRN Reason: Hypoglycemia Diagnostic Test (Pha) (Accu-Chek) 1 each FS ACHS [facility] Last Admin: 09/10/17 11:22 Dose: 1 each Dorzolamide HCl (Trusopt 2% Ophth Drops) 1 gtt OU TID [facility] Last Admin: 09/10/17 09:33 Dose: Not Given Glucose (Insta-Glucose) 15 gm PO PRN PRN PRN Reason: Hypoglycemia Glucose (Insta-Glucose) 15 gm PO PRN PRN PRN Reason: Hypoglycemia Heparin Sodium (Porcine) (Heparin) 5,000 unit SQ Q12 [facility] Last Admin: 09/10/17 09:32 Dose: 5,000 unit Heparin Sodium (Porcine) (Heparin Flush) 2 ml IV Q12 [facility] Last Admin: 09/10/17 09:32 Dose: 2 ml Hydralazine HCl (Apresoline) 50 mg PO BID [facility] Last Admin: 09/10/17 09:31 Dose: 50 mg Hydromorphone HCl (Dilaudid) 4 mg PO Q6HP PRN PRN Reason: Pain Meropenem 0.5 gm/ Sodium (Chloride) 50 mls @ 100 mls/hr IV DAILY [facility] Last Admin: 09/10/17 09:26 Dose: 100 mls/hr Insulin Human Lispro (Humalog) 0 unit SQ ACHS [facility] PRN Reason: Protocol Last Admin: 09/10/17 11:26 Dose: 1 unit Latanoprost (Xalatan Ophth Drops) 1 gtt OD HS [facility] Last Admin: 09/09/17 21:44 Dose: Not Given Metoprolol Tartrate (Lopressor) 50 mg PO BID [facility] Last Admin: 09/10/17 09:31 Dose: 50 mg Multivit/Ca Carb/B Cmplx/FA/Prenat (Diatx) 1 tab PO DAILY [facility] Last Admin: 09/10/17 09:31 Dose: 1 tab Omeprazole (Prilosec) 40 mg PO ACB [facility] Last Admin: 09/10/17 07:59 Dose: 40 mg Ondansetron HCl (Zofran) 4 mg IV Q6HP PRN PRN Reason: Nausea And Vomiting Ondansetron HCl (Zofran Odt) 4 mg SL Q4-6HP PRN PRN Reason: Nausea Brimonidine Tartrate (/Timolol (Combigan)) 1 dose RIGHT EYE QID [facility] Last Admin: 09/10/17 13:07 Dose: Not Given Sevelamer Carbonate (Renvela) 1,600 mg PO TIDCC [facility] Last Admin: 09/10/17 11:26 Dose: 1,600 mg Sodium Chloride (Saline Flush) 10 ml IV Q12 [facility] Last Admin: 09/10/17 09:33 Dose: 10 ml Sodium Chloride (Saline Flush) 10 ml IV UD PRN PRN Reason: FLUSH Vancomycin HCl (Vancomycin Per Pharmacy) 1 order IV UD [facility] Medical - PN: A/P - Time Spent With Patient Total time spent is greater than 50% in coordination of care (as documented) at patient's floor/unit and/or counseling patient: - Narrative A/P Narrative: A/P High gap acidosis, elevated hydroxybutyrate- starvatino ketosis vs DKA resolved now, pt tolerating po diet, gap closed, sq insulin started monitor for now. DM- iddm, sq insulin and ssi, monitor for now. 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 C spine ostemyelitis- STable as per recent MRI, no acute worsening of neck pain , continue IV meropenum and IV vancomycin for now, outpatient ID follow up ESRD- On HD on 2 times a week schedule, repeat hD session today planned. HTN/HLD- resume home meds as tolerated DVT hep sq Diet renal carb consistent diet. Full code. xfer to med surg after HD Medical - PN: Qual - VTE Deep Vein Thrombosis/Pulmonary Embolism Present on Admission: No
[2017-09-10] MEDS: ATORVASTATIN 20 MG TABLET PO SCH (19:13)
[2017-09-10] MEDS: LATANOPROST OPHTH DROPS 2.5ML BOTTLE OD SCH (19:28)
[2017-09-10] MEDS ORDERED: VANCOMYCIN PER PHARMACY IV SCH (20:26)
[2017-09-10] MEDS ORDERED: ONDANSETRON ODT 4 MG TABLET SL PRN (20:26)
[2017-09-10] MEDS ORDERED: ONDANSETRON 4 MG/2 ML VIAL IV PRN (20:26)
[2017-09-10] MEDS ORDERED: HYDROmorphone 2 MG TABLET PO PRN (20:26)
[2017-09-10] MEDS ORDERED: ACETAMINOPHEN 325 MG TABLET PO PRN (20:26)
[2017-09-10] MEDS: IPRATROPIUM/ALBUTEROL 3 ML AMPUL.NEB NEB SCH (20:58)
[2017-09-10] MEDS: BUDESONIDE 0.5 MG/2 ML AMPUL.NEB NEB SCH (20:58)
[2017-09-10] MEDS ORDERED: ATORVASTATIN 20 MG TABLET PO SCH (21:00)
[2017-09-10] MEDS ORDERED: LATANOPROST OPHTH DROPS 2.5ML BOTTLE OD SCH (21:00)
[2017-09-10] MEDS ORDERED: IPRATROPIUM/ALBUTEROL 3 ML AMPUL.NEB NEB SCH (23:39)
[2017-09-11] MEDS: IPRATROPIUM/ALBUTEROL 3 ML AMPUL.NEB NEB SCH ×2 (03:24→07:34)
[2017-09-11 05:20] LABS: Basophils # (Auto) 0.1 K/mcL (0.0-0.3); Eosinophils # (Auto) 0.1 K/mcL (0.0-0.7); Eosinophils % (Auto) 1.1 % (0.0-7.0); Granulocytes % (Auto) 71.2 % (38.0-78.0); Lymphocytes # (Auto) 1.3 K/mcL (1.5-4.8); Lymphocytes % (Auto) 13.9 % (15.5-49.0); Mean Cell Volume 95.9 fL (80.0-100.0); Mean Corpuscular HGB Conc 33.6 g/dL (31.0-36.0); Mean Corpuscular Hemoglobin 32.2 pg (26.0-34.0); Monocytes # (Auto) 1.2 K/mcL (0.1-0.9); Monocytes % (Auto) 12.8 % (1.0-12.0); Platelet Count 247 K/mcL (140-440); RBC 3.83 M/mcL (4.50-5.90); Red Cell Distribution Width 12.8 % (11.5-14.5)
[2017-09-11 06:08] LABS: ALT/SGPT 16 U/l (0-40); Albumin 3.8 gm/dL (3.2-5.2); Albumin/Globulin Ratio 1.2 (1.0-2.3); Alkaline Phosphatase 68 U/L (39-117); Bilirubin,Direct < 0.2 mg/dL (0.0-0.3); Blood Urea Nitrogen 10 mg/dl (6-20); Gamma Glutamyl Transpeptidase 14 U/L (8-61); Uric Acid 2.1 mg/dL (2.5-8.0)
[2017-09-11] MEDS ORDERED: OMEPRAZOLE 20 MG CAPSULE PO SCH (07:30)
[2017-09-11] MEDS: BUDESONIDE 0.5 MG/2 ML AMPUL.NEB NEB SCH (07:34)
[2017-09-11] MEDS ORDERED: SEVELAMER 800 MG TABLET PO SCH (08:00)
[2017-09-11] MEDS ORDERED: CALCIUM ACETATE 667 MG CAPSULE PO SCH (08:00)
[2017-09-11] MEDS: INSULIN LISPRO 1 UNIT/0.01 ML UNIT SQ SCH (08:52)
[2017-09-11] MEDS: HEPARIN 5,000 UNIT/ML VIAL SQ SCH (08:53)
[2017-09-11] MEDS: METOPROLOL TARTRATE 50 MG TABLET PO SCH (08:53)
[2017-09-11] MEDS: 0.9 % SODIUM CHLORIDE 10 ML SYRINGE IV SCH (08:54)
[2017-09-11] MEDS ORDERED: MEROPENEM 0.5 GM in 0.9 % SODIUM CHLORIDE 50 ML IV SCH (09:00)
[2017-09-11] MEDS ORDERED: AZITHROMYCIN 250 MG TABLET PO SCH ×2 (09:00)
[2017-09-11] MEDS ORDERED: FOLIC ACID/VITAMIN B COMP W-C 1 TAB TABLET PO SCH (09:00)
[2017-09-11] MEDS ORDERED: amLODIPine 10 MG TABLET PO SCH (09:00)
[2017-09-11] MEDS: hydrALAZINE 25 MG TABLET PO SCH (09:01)
[2017-09-11] MEDS: DORZOLAMIDE 2% OPHTH DROPS 10ML BOTTLE OU SCH (11:24)
[2017-09-11] MEDS: TIMOLOL RIGHT EYE SCH (11:24)
[2017-09-11] MEDS: BRIMONIDINE TARTRATE RIGHT EYE SCH (11:24)
--- NOTE | 2017-09-11 11:45 | Discharge Summary ---
Medical - DS: Prov Patient information: Note initiated : 09/11/17 at 11:39 am Service Date, if different from initiated Date: [] Patient: Daljit Ash 52 y/o M admitted on 09/10/17 for Weakness. Chief Complaint: [] Date of admission: 09/10/17 17:27 Discharge date: 09/11/17 Primary care physician: Andrey Strickland Admitting clinician: Soham Acosta Consults: 09/09/17 09:01 Consult to Physician [CONS] Stat Comment: Consulting Provider: Subha Hernandez Reason For Exam: Physician to Consult Consult to Physician [CONS] Stat Comment: Consulting Provider: Soham Acosta Reason For Exam: Physician to Consult Discharging clinician: Soham Acosta Medical - DS: Meds - Discharge Medications Prescriptions: Albuterol Sulfate [Proventil Hfa] 6.7 gm IH Q4HP PRN #1 hfa.[id number].[id number] PRN Reason: Shortness Of Breath Azithromycin [Zithromax] 250 mg PO DAILY #4 tab Meropenem [Merrem] 500 mg IV DAILY #28 vial Active and Home Medications: Home Medications ascorbic acid (vitamin C) 1,000 mg tablet 1,000 mg PO BID tab 08/23/14 [ History Confirmed 09/09/17 Last Taken Unknown] cholecalciferol (vitamin D3) 1,000 unit capsule See Dose Instructions PO QDAY cap 09/25/14 [History Confirmed 09/09/17 Last Taken Unknown] Dorzolamide HCl [Trusopt] 1 drp OU TID 10/10/14 [History Confirmed 09/09/17 Last Taken Unknown] esomeprazole magnesium 40 mg capsule,delayed release 40 mg PO .qd 90 Days #90 cap 10/31/14 [Rx Confirmed 09/09/17 Last Taken Unknown] sevelamer carbonate 800 mg tablet 1,600 mg PO TIDCC #540 tab 07/30/15 [Rx Confirmed 09/09/17 Last Taken Unknown] sumatriptan 50 mg tablet 50 mg PO Q2H PRN #10 tab MDD 100mg 03/18/16 [Rx Confirmed 09/09/17 Last Taken Unknown] hydroxyzine HCl 50 mg tablet 50 mg PO .nightly #30 tab 04/19/16 [Rx Confirmed Last Taken Unknown] albuterol sulfate HFA 90 mcg/actuation aerosol inhaler 1 puff INHALATION Q6H PRN #18 g 06/14/16 [Rx Confirmed 09/09/17 Last Taken Unknown] metolazone 5 mg tablet 5 mg PO QDAY #5 tab 06/22/16 [Rx Confirmed 09/09/17 Last Taken Unknown] calcium acetate 667 mg tablet 1,334 mg PO TID #120 tab 02/28/17 [Rx Confirmed Last Taken Unknown] ondansetron 4 mg disintegrating tablet 4 mg PO Q6H PRN #90 tab 02/28/17 [Rx Confirmed 09/09/17 Last Taken Unknown] omeprazole 40 mg capsule,delayed release 40 mg PO QDAY 90 Days #90 cap 03/28/17 [Rx Confirmed 09/09/17 Last Taken Unknown] metoprolol tartrate 50 mg tablet 50 mg PO BID 90 Days #180 tab 06/13/17 [Rx Confirmed 09/09/17 Last Taken Unknown] hydralazine 25 mg tablet 50 mg PO BID #120 tab 06/20/17 [Rx Confirmed 09/09/17 Last Taken Unknown] insulin glargine (U-100) 100 unit/mL (3 mL) subcutaneous pen 30 unit SUB-Q QDAY #15 ml 06/30/17 [Rx Confirmed 09/09/17 Last Taken Unknown] amlodipine 10 mg tablet 10 mg PO DAILY #90 tab 07/04/17 [Rx Confirmed 09/09/17 Last Taken Unknown] atorvastatin 40 mg tablet 40 mg PO QDAY #90 tab 07/12/17 [Rx Confirmed 09/09/17 Last Taken Unknown] insulin aspart U-100 100 unit/mL subcutaneous pen See Label Instructions SUB-Q QAM #45 ml 07/14/17 [Rx Confirmed 09/09/17 Last Taken Unknown] pen needle, diabetic 32 gauge x 5/32" See Dose Instructions .ROUTE .MEDSUPPLY # 200 each 07/14/17 [Rx Confirmed 09/07/17 Last Taken Unknown] vitamin B complex-vitamin C-folic acid 0.8 mg tablet 1 tab-cap PO QDAY #90 tab 07/18/17 [Rx Confirmed 09/09/17 Last Taken Unknown] Cefepime [Maxipime] 1 gm IV Q24H #42 vial 08/28/17 [Rx Confirmed 09/09/17 Last Taken Unknown] Vancomycin Per Pharmacy 1 order IV ONCE #42 [facility] 08/28/17 [Rx Confirmed 09/09 Last Taken Unknown] furosemide 40 mg tablet 40 mg PO BID #180 tab 08/31/17 [Rx Confirmed 09/09/17 Last Taken Unknown] Ondansetron HCl [Zofran ODT] 4 mg SL Q4-6HP PRN #20 tab 09/01/17 [Rx Confirmed 09/09/17 Last Taken Unknown] hydromorphone 4 mg tablet 4 mg PO Q6H PRN #112 tab 09/07/17 [Rx Confirmed Last Taken Unknown] zolpidem 10 mg tablet 10 mg PO HS PRN #30 tab 09/07/17 [Rx Confirmed 09/09/17 Last Taken Unknown] Medical - DS: Hosp Hospital course: Mr. Ash is a 52 year old Male with h/o esrd, type 1 dm, on dialysis, recent diagnosis of osteomyelitis , chr of cervical spine, on IV vanco and cefepime. he was discharged just over 2 weeks ago from this facility for DKA and osteomyelitis, his c spine culture have been negative. Outpatient he was seen by Dr Long and his pcp, he had some insomnia issues and worsening neck pain, repeat MRI was unchanged, but he was prescribed some ambien by his pcp, he also takes hydroxyzine for his sleep The patient presented to the ER with his sister, who also provided input in pts history. The patient notes for the last few days he has not been feeling well, decreased appetitie, fatigue and genralized weakness and some nausea, he had had some cough. The patient had cxr done yesterday, and lab work, he was sent home with IVF and advised to have HD again today The patient presented this AM as his weakness progressed, and he was having difficulty in finding workds, unable to speak clearly, he was also having twiching, and weakness in his legs, he presented again in the ER, with worsening renal function. He was seen by the [facility] [employer] and advised admission The patient admits to have missed a couple of dose of insulin and has not eaten much, he did have high gap on presentation, with eleated hydroxybutyrate, but his glucose level was not very high. It was thought that his findings represent starvation ketosis more than DKA, Also there is concern that given his twice weekly schedule of dialysis he was having neurotoxicity secondary to cefepime use, I am not sure of hydrozyxine / ambien also are playing a role He was initially admitted as obs, he underwent HD, and did not report significant improvement in his symptoms, he had Head CT done which is negative His lab showed persistence of gap acidosis and elevated hydroxybutyrate with normal glucose. AT this time given that patient is still not feeling better, and has gap acidosis, he was moved to the ICU for management of possible dka. Some patients have been reported in literature with euglycemic DKA, aylin in pt who have poor oral intake. Cefepime toxicity- Patients neurological symptoms could be explained by cefepime toxicity, this medication is discontinued, his symptoms have resolved, will change cefepime to meropenu. C spine osteomyelitis- Patient seen by Spine surgeon, advised ID eval at [place] , set for later this month. Patient will be on IV vancomycin and IV meropenum, I believe 4 more weeks are pending, but final date of antibiotics to be determined by the ID physician. Acidosis/ DKA vs STarvation ketosis- Resolved with IVF and insulin, its difficult to say if cefepime toxicity triggeredp oor appeitite/ decreased oral intake and thereby lack of compliance with insulin. I have educated pt to keep self well hydrated. He must avoid using narcotic pain meds as much as possible. Hypoxia Cough- Patient had intermittent wheezing cxr x 2 neg, d ddimer not impressive to warrant CTA, pt responded to duonebs, budesondie and azithromycin , likely bronchitis, at the time of discharge his oxygen saturation is back above 90 witout any oxygen, will continue oral azithromycin for another 4 days, albuterol inhaler prn for shortness of breath. Patient will benefit from outpatient PFT Discharge diagnosis: Ketosis/ starvation vs diabetic, Cefepime toxicity. Bronchitis - Time Spent with Patient Total time spent providing and/or coordinating discharge services: Greater than 30 minutes Medical - DS: Exam - Constitutional Vitals: Vital Signs Temp Pulse Pulse Pulse Resp BP BP 09/11/17 07:43 98.6 F 80 80 14 170/71 09/11/17 07:36 84 18 09/11/17 04:00 98.9 F 16 179/68 09/11/17 00:00 98.9 F 16 168/69 09/10/17 20:59 86 16 09/10/17 19:59 99.2 F H 16 100/70 100/70 09/10/17 19:00 20 136/81 09/10/17 18:36 94 H 09/10/17 18:16 83 163/61 18 18:09 84 09/10/17 18:01 81 165/72 09/10/17 18:00 99.0 F H 82 165/72 09/10/17 17:46 79 167/72 09/10/17 17:45 80 167/72 09/10/17 17:31 80 160/72 09/10/17 17:30 79 160/72 09/10/17 17:16 90 148/76 09/10/17 17:15 92 H 148/76 09/10/17 17:01 79 167/83 09/10/17 17:00 79 167/83 09/10/17 16:46 74 165/88 09/10/17 16:45 75 165/88 09/10/17 16:31 75 169/83 09/10/17 16:30 75 169/83 09/10/17 16:16 77 176/74 09/10/17 16:15 78 176/74 09/10/17 16:03 78 09/10/17 16:01 84 147/66 09/10/17 16:00 98.2 F 84 20 147/66 09/10/17 15:46 73 171/70 09/10/17 15:45 75 171/70 09/10/17 15:31 81 154/75 09/10/17 15:30 84 154/75 09/10/17 15:16 75 161/74 09/10/17 15:15 74 161/74 09/10/17 15:01 85 142/86 09/10/17 15:00 76 142/86 09/10/17 14:46 85 162/66 09/10/17 14:45 79 162/66 09/10/17 14:35 81 09/10/17 14:31 81 165/70 09/10/17 14:30 80 165/70 09/10/17 14:16 157/68 09/10/17 14:15 78 157/68 09/10/17 14:01 80 145/66 09/10/17 14:00 98.6 F 80 145/66 09/10/17 13:01 75 163/80 09/10/17 13:00 20 163/80 09/10/17 12:01 77 152/71 09/10/17 12:00 98.4 F 16 152/71 152/71 Pulse Ox 09/11/17 07:43 94 09/11/17 07:36 99 09/11/17 04:00 98 09/11/17 00:00 96 09/10/17 20:59 92 09/10/17 19:59 95 09/10/17 19:00 96 09/10/17 18:36 94 09/10/17 18:16 96 09/10/17 18:09 96 09/10/17 18:01 98 09/10/17 18:00 09/10/17 17:46 98 09/10/17 17:45 09/10/17 17:31 99 09/10/17 17:30 09/10/17 17:16 100 09/10/17 17:15 09/10/17 17:01 100 09/10/17 17:00 09/10/17 16:46 100 09/10/17 16:45 09/10/17 16:31 99 09/10/17 16:30 09/10/17 16:16 99 09/10/17 16:15 09/10/17 16:03 100 09/10/17 16:01 99 09/10/17 16:00 100 09/10/17 15:46 100 09/10/17 15:45 09/10/17 15:31 98 09/10/17 15:30 09/10/17 15:16 100 09/10/17 15:15 09/10/17 15:01 98 09/10/17 15:00 09/10/17 14:46 98 09/10/17 14:45 09/10/17 14:35 99 09/10/17 14:31 99 09/10/17 14:30 09/10/17 14:16 09/10/17 14:15 09/10/17 14:01 95 09/10/17 14:00 09/10/17 13:01 97 09/10/17 13:00 94 09/10/17 12:01 100 09/10/17 12:00 98 Intake and Output 09/10/17 09/11/17 09/11/17 21:59 05:59 13:59 Intake Total 300 / 300 47 / 47 Output Total 2700 / 2700 Balance -2700 / -2700 300 / 300 47 / 47 Intake: IV 47 / 47 Merrem 0.5 gm In Sodium 47 / 47 Chloride 0.9% 50 ml @ 100 mls/ hr IV DAILY [facility] Rx#:[id number] Oral 300 / 300 Output: Hemodialysis UF 2700 / 2700 Other: Meal Dinner Percent of Meal Consumed 100% Feeding Ability Independent # Voids 1 1 Weight 147 lb 4.8 oz Additional comments: Constitutional; Afebrile, cooperative, alert, not in distress. Eyes- No icterus, , No periorbital swelling Ears- Ext ear normal, hearing normal to conversation. Neck- Midline trachea, supple Respiratory system: Air Entry equal on both sides, No crackles or wheezing, no rhonchi. CVS- Rate rhythm regular, S1,S2 heard, no gallop, no rub. Abdomen- Soft nontender abdomen, no organomegaly, no tenderness, no guarding or rigidity, REUSE TECHNICIAN- AOOx3, moving all extremities, no gross focal deficit noted. Medical - DS: Data Labs on day of discharge: Labs from last 24 hours 09/11/17 09/11/17 09/10/17 04:00 04:00 11:56 WBC 9.2 RBC 3.83 L Hgb 12.3 L Hct 36.7 L MCV 95.9 MCH 32.2 MCHC 33.6 RDW 12.8 Plt Count 247 MPV 8.3 Gran % 71.2 Lymph % (Auto) 13.9 L [place] % (Auto) 12.8 H Eos % (Auto) 1.1 Baso % (Auto) 1.0 Gran # 6.5 Lymph # (Auto) 1.3 L [place] # (Auto) 1.2 H Eos # (Auto) 0.1 Baso # (Auto) 0.1 Sodium 132 L Potassium 4.1 Chloride 89 L Carbon Dioxide 30 Anion Gap 13.0 BUN 10 Creatinine 5.1 H* GFR Calculation 12 Glucose 302 H Uric Acid 2.1 L Calcium 9.2 Phosphorus 3.7 Magnesium 2.0 Total Bilirubin 0.3 Direct Bilirubin < 0.2 GGT 14 AST 22 ALT 16 Alkaline Phosphatase 68 Lactate Dehydrogenase 191 Total Protein 7.0 Albumin 3.8 Globulin 3.2 Albumin/Globulin Ratio 1.2 Triglycerides 150 Random Vancomycin 26.0 Vancomycin Dose Not Reportable Vanco Last Dose Time Not Reportable Medical - DS: A/P - Patient/Caregiver Discharge Instructions Activity: increase activity as tolerated Diet: Renal/Consistent Carbs Additional Instructions: IV vancomycin per pharmacy for additional 4 weeks, IV meropenum 500mg daily, for 4 weeks, On Days of dialysis, dose to be given after dailysis, Cefepime is being discontinued IV meds to be given via picc line. PICC line care per facility protocol Infectious disease physician to decide on antibiotic management after you are seen by him, please make sure you keep your appointment. Please avoid the use of hydromorphine as much as possible and use it only if the pain is too severe. This medication is likely causing some stomach symptoms. Keep your self well hydrated, do not miss insulin doses. Go to the ER if worsening symptom, chest pain, fever or any other acute symptoms. I have also prescribed azithromycin and albuterol for your cough. Please pick the medication from the pharmacy. - Follow up Plan Follow up with: Andrey Strickland DO [Primary Care Provider] - Disposition: Home, Self-Care Prognosis: Fair Rehab Potential: Fair I certify that the patient requires SNF services: No Overall status at discharge: patient is progressing back to baseline Medical - DS: Qual - VTE Deep Vein Thrombosis/Pulmonary Embolism Present on Admission: No
== END 2017-09-11 12:20 | disposition home or self-care (01) | DRG 642 ==
LOC: ED 07:36 → MEDSUR 07:36 → ICU 19:00
PROVIDERS: ADMIT Internal Medicine; ATTEND Internal Medicine

== ENCOUNTER 2019-07-29 12:33 | Inpatient (IN) ==
[2019-07-29] MEDS ORDERED: IOPAMIDOL 100 ML BOTTLE IV ONE (12:34)
--- NOTE | 2019-07-29 13:03 | Emergency Department Note ---
SOB HPI - General Chief Complaint: Shortness of Breath/Dyspnea Stated Complaint: shortness of breath Time Seen by Provider: 07/29/19 12:39 Mode of arrival: ambulatory - History of Present Illness Patient is a 54-year-old male who comes into the emergency Department today with complaint of shortness of breath that began last night. Patient denies any cough, fever, chills, or chest pain. He does have a history of renal failure and is currently on hemodialysis. His last hemodialysis was 2 days ago. He is scheduled for dialysis tomorrow. - Related Data Home Medications Medication Instructions Recorded Confirmed ascorbic acid (vitamin C) 1,000 mg 1,000 mg PO BID tab 08/23/14 03/27/19 tablet metoprolol tartrate 50 mg tablet 25 mg PO BID tab 08/28/18 03/27/19 Previous Rx's Medication Instructions Recorded pen needle, diabetic 32 gauge x See Dose Instructions .ROUTE 07/14/17 532" .MEDSUPPLY #200 each Albuterol Sulfate [Proventil Hfa] 6.7 gm IH Q4HP PRN #1 hfa.aer.ad 09/11/17 zolpidem 10 mg tablet 10 mg PO HS PRN #30 tab 12/29/17 insulin aspart U-100 100 unit/mL See Rx Instructions SUB-Q QAM #45 06/23/18 (3 mL) subcutaneous pen ml insulin glargine 100 unit/mL (3 30 unit SUB-Q QDAY #15 ml 06/23/18 mL) subcutaneous pen calcium acetate(phosphat bind) 667 667 mg PO TID #180 tab 07/19/18 mg tablet atorvastatin 40 mg tablet 40 mg PO QDAY #90 tab 07/26/18 B complex-vitamin C-folic acid 0.8 1 tab PO QDAY #90 tab 08/02/18 mg tablet clopidogrel 75 mg tablet 75 mg PO QDAY #90 tab 08/21/18 aspirin 81 mg tablet,delayed 81 mg PO QDAY #90 tab 08/28/18 release furosemide 40 mg tablet 40 mg PO BID #180 tab 11/16/18 omeprazole 40 mg capsule,delayed 40 mg PO QDAY #90 cap 12/07/18 release doxycycline hyclate 100 mg capsule 100 mg PO BID #14 cap 01/12/19 hydralazine 25 mg tablet 25 mg PO BID #60 tab 02/01/19 amlodipine 10 mg tablet 10 mg PO QDAY #90 tab 02/05/19 sevelamer carbonate 800 mg tablet 1,600 mg PO TID #180 tab 03/30/19 blood-glucose meter See Rx Instructions .ROUTE 06/22/19 .MEDSUPPLY #1 each hydromorphone 4 mg tablet 4 mg PO Q6H PRN #112 tab 07/19/19 ondansetron 4 mg disintegrating 4 mg TRANSLINGU Q4-6HP PRN #20 tab 07/24/19 tablet Allergies Allergy/AdvReac Type Severity Reaction Status Date / Time codeine AdvReac Mild Vomiting Verified 03/27/19 08:01 hydrocodone [HYDROCODONE] AdvReac Mild Vomiting Verified 03/27/19 08:01 Review of Systems Constitutional: Denies: fever, chills Eyes: Denies: vision change ENT ED: Denies: ear pain, throat pain Cardiovascular: Denies: chest pain, palpitations, edema, syncope Respiratory: Reports: shortness of breath. Denies: cough, wheezes, phlegm, hemoptysis Gastrointestinal: Denies: abdominal pain, nausea, vomiting Genitourinary: Denies: dysuria, frequency Musculoskeletal: Denies: back pain, joint swelling Integumentary: Denies: rash, lesions Neurological: Denies: headache, weakness, numbness, confusion, dizziness Psychiatric: Denies: anxiety, depression Endocrine: Denies: fatigue, heat or cold intolerance Hematological/Lymphatic: Denies: easy bleeding, easy bruising Past Medical History - Past Medical History Medical history: Reports: CHF, DM (Type I since age 15, insulin using.), GERD, hyperlipidemia, hypertension, renal disease (On dialysis), other (Heart murmur. Diabetic retinopathy/visual impairment. DENIES: DKA.). Denies: asthma, cancer, COPD, CAD (coronary artery disease), CVA, myocardial infarction, thyroid disease, TIA Psychiatric history: Denies: anxiety, depression Surgical history ED: Reports: appendectomy, orthopedic, other (Carpal tunnel bilateral. Right shoulder repair. Left ankle repair. Low back fusion with hardware. Fistula placement left arm. Carpal tunnel release bilateral.), other (Fistula left arm. Right eye surgery for diabetic retinopathy.) - Social History smoking status: Current every day smoker Alcohol use: Reports: Rarely (Maybe twice per year.) Drug use: Reports: none. Denies: marijuana Physical Exam Limitations: no limitations General appearance: alert, in no apparent distress Head: atraumatic, normocephalic Eye: Present: normal appearance, PERRL, EOMI. Absent: scleral icterus, conjunctival injection ENT: Present: normal oropharynx, mucous membranes moist Neck: Present: trachea midline. Absent: lymphadenopathy, thyromegaly Chest: Present: normal inspection, symmetric chest wall rise. Absent: tenderness Respiratory: Present: rales/crackles (right left lower lobes). Absent: respiratory distress, wheezes, stridor, accessory muscle use, prolonged expiratory phase Cardiovascular: Present: regular rate, normal rhythm, +S1, +S2. Absent: systolic murmur, diastolic murmur Abdominal: Present: soft. Absent: distention, tenderness, guarding, rebound, rigidity, organomegaly, mass Extremities: Present: normal inspection, full ROM, normal capillary refill. Absent: pedal edema, pretibial edema, calf tenderness Back: Absent: CVA tenderness (R), CVA tenderness (L), spinous process tenderness Neurological: Present: alert, oriented X3 Psychiatric: Present: normal affect, normal mood Skin: Present: warm, dry, intact, normal color Course Course Narrative: 1255 - Spoke with the patient's outside dealer sales representative, Dr. Gordon who will look at the chest x-ray. Dr. Gordon did say that she would be OK to proceed with the CTA to assess for possible pulmonary embolism, and the patient will be dialyzed tomorrow, unless he needs this done today. 2519 - woke with Dr. Cheney who will admit patient to the hospital. Patient has also been seen by a outside dealer sales representative, Dr. Damon today who will plan on dialysis here in the hospital. CT scan shows bilateral pleural effusion and will have the patient start on Levaquin. First dose given in the emergency department. Vital Signs Temperature 98.6 F 07/29/19 12:34 Pulse Rate 69 07/29/19 12:34 Respiratory Rate 16 07/29/19 12:34 Blood Pressure 134/69 07/29/19 12:34 Pulse Oximetry (%) 93 07/29/19 12:34 Temperature 98.6 F 07/29/19 12:34 Pulse Rate 81 07/29/19 17:09 Respiratory Rate 19 07/29/19 17:09 Blood Pressure 145/72 07/29/19 17:09 Pulse Oximetry (%) 90 07/29/19 17:09 Shortness of Breath/Dyspnea - [facility] Narrative Medical decision making narrative: Patient is hypoxic and requiring O2 at 2 L. He does have bilateral pleural effusions and spoke with Dr. Cheney who will admit the patient to the hospital today. Patient will be given a dose of Levaquin. Dr. Damon will see the patient and plan on dialysis in the hospital. Patient's CT scan did not show any evidence of a PE. Troponin levels were elevated but not trending upward. Patient has had elevated troponin levels since August 25, 2017 where level was 0.18, and on August 26, 2017 troponin level was 0.18. Today troponin 0.14 and repeat troponin is 0.14. Patient does have some arthrosclerosis seen on the CT scan which patient would benefit from a cardiology consult. Patient currently being admitted to [facility]. He did receive a dose of Levaquin here in the emergency department. - Lab Data Result diagrams: 07/29/19 13:14 07/29/19 13:14 Lab Results 07/29/19 07/29/19 07/29/19 Range/Units 13:14 13:14 13:14 WBC 10.8 (4.50-11.00) K/mcL RBC 3.08 L (4.63-6.08) M/mcL Hgb 9.9 L (13.7-17.5) g/dL Hct 28.4 L (40.1-51.0) % MCV 92.2 (80.0-100.0) fL MCH 32.1 (26.0-34.0) pg MCHC 34.9 (31.0-36.0) g/dL RDW 13.0 (11.5-14.5) % Plt Count 313 (140-440) K/mcL MPV 9.4 (7.4-10.4) fL Gran % 68.6 (38.0-78.0) % Lymph % (Auto) 16.5 (15.5-49.0) % [place] % (Auto) 9.2 (1.0-12.0) % Eos % (Auto) 5.0 (0.0-7.0) % Baso % (Auto) 0.7 (0.0-2.0) % Gran # 7.38 (1.80-8.00) K/mcL Lymph # (Auto) 1.78 (1.50-4.80) K/mcL [place] # (Auto) 0.99 H (0.10-0.90) K/mcL Eos # (Auto) 0.54 (0.00-0.70) K/mcL Baso # (Auto) 0.07 (0.00-0.30) K/mcL D-Dimer 1.65 H (0.00-0.40) ug/ml Sodium 133 (133-145) mmol/L Potassium 3.6 (3.3-5.1) mmol/L Chloride 90 L (96-108) mmol/L Carbon Dioxide 25 (22-30) mmol/L Anion Gap 18.0 H (8-16) BUN 30 H (6-20) mg/dl Creatinine 7.6 H* (0.7-1.2) mg/dl GFR Calculation 7 Glucose 92 (70-105) mg/dL Calcium 7.9 L (8.6-10.4) mg/dl Total Bilirubin 0.4 (0.0-1.0) mg/dL AST 23 (0-37) U/l ALT 16 (0-40) U/l Alkaline Phosphatase 64 (39-117) U/L Troponin T (0-0.03) ng/ml NT-Pro-B Natriuret Pep 3741.0 H (0-125) pg/ml Total Protein 7.3 (5.9-8.4) gm/dL Albumin 3.8 (3.2-5.2) gm/dL Globulin 3.5 (2.2-3.7) gm/dL Albumin/Globulin Ratio 1.1 (1.0-2.3) 07/29/19 07/29/19 Range/Units 13:14 15:57 WBC (4.50-11.00) K/mcL RBC (4.63-6.08) M/mcL Hgb (13.7-17.5) g/dL Hct (40.1-51.0) % MCV (80.0-100.0) fL MCH (26.0-34.0) pg MCHC (31.0-36.0) g/dL RDW (11.5-14.5) % Plt Count (140-440) K/mcL MPV (7.4-10.4) fL Gran % (38.0-78.0) % Lymph % (Auto) (15.5-49.0) % [place] % (Auto) (1.0-12.0) % Eos % (Auto) (0.0-7.0) % Baso % (Auto) (0.0-2.0) % Gran # (1.80-8.00) K/mcL Lymph # (Auto) (1.50-4.80) K/mcL [place] # (Auto) (0.10-0.90) K/mcL Eos # (Auto) (0.00-0.70) K/mcL Baso # (Auto) (0.00-0.30) K/mcL D-Dimer (0.00-0.40) ug/ml Sodium (133-145) mmol/L Potassium (3.3-5.1) mmol/L Chloride (96-108) mmol/L Carbon Dioxide (22-30) mmol/L Anion Gap (8-16) BUN (6-20) mg/dl Creatinine (0.7-1.2) mg/dl GFR Calculation Glucose (70-105) mg/dL Calcium (8.6-10.4) mg/dl Total Bilirubin (0.0-1.0) mg/dL AST (0-37) U/l ALT (0-40) U/l Alkaline Phosphatase (39-117) U/L Troponin T 0.14 H* 0.14 H* (0-0.03) ng/ml NT-Pro-B Natriuret Pep (0-125) pg/ml Total Protein (5.9-8.4) gm/dL Albumin (3.2-5.2) gm/dL Globulin (2.2-3.7) gm/dL Albumin/Globulin Ratio (1.0-2.3) - Radiology Data Ordering Physician: Duane Rao Date of Service: 07/29/19 Procedure(s): CT angio chest Accession Number(s): [id number] CLINICAL INFORMATION: Shortness of breath COMPARISON: None. TECHNIQUE: 80ml of Isovue-370 were injected intravenously. Using SmartPrep to maximize pulmonary artery opacification, .625mm helical slices were obtained from the lung apices through the lung bases. Following reconstruction, 2.5 mm sagittal, coronal, and axial reformations were processed. The exam was reviewed at mediastinal, lung, and bone windows. The exam was performed using radiation dose optimization techniques including, but not limited to, automated exposure control, adjustment of the mA and/or kV according to patient size and use of iterative reconstruction technique. FINDINGS: Mediastinal windows show the pulmonary arteries are well-opacified without evidence of embolus. Pulmonary arteries are congested and there is moderate edema in the alveolar and interstitial spaces particularly the interlobular septa. Small/moderate bilateral pleural effusions result in mild subsegmental compressive atelectasis of both posterior lower lobes. There are no nodules or mae infiltrates. Mosaic perfusion pattern is noted. The heart is mildly enlarged with extraordinarily heavy premature atherosclerotic calcification throughout all the coronary arteries - particularly the left main LAD and proximal circumflex. There is also calcification within the mitral annulus. The thoracic aorta is normal in diameter scattered sclerotic plaque. There is no adenopathy in the mediastinal hilar or axillary regions. The esophagus is unremarkable. Thyroid is normal. Bones and soft tissues the chest wall show no abnormality. Images through the superior abdomen are unremarkable. IMPRESSION: 1. Moderate congestive heart failure - no evidence of pulmonary embolus. 2. Extremely heavy premature calcific atherosclerotic plaque throughout all the coronary arteries. Patient will likely require catheterization. Mitral annular calcification also noted 3. Small/moderate bilateral pleural effusions result in compressive subsegmental atelectasis both posterior lower lobes Interpreted and Authenticated by: Andrey Truong 07/29/19 - EKG Data EKG attestation: Yes There are no EKG findings of acute coronary syndrome, Yes This EKG will be read by [employer] printer EKG shows normal: Reports: sinus rhythm Rate: Reports: normal Disposition Pt seen by STONE ENGRAVER/PA only: Yes Clinical Impression: Community acquired pneumonia, Chronic kidney disease, stage V, Hypoxia Disposition: Xfer As Inpt ([facility]) Condition: Fair Referrals: Andrey Strickland DO [Primary Care Provider] -
[2019-07-29 14:08] LABS: Basophils # (Auto) 0.07 K/mcL (0.00-0.30); Basophils % (Auto) 0.7 % (0.0-2.0); Eosinophils # (Auto) 0.54 K/mcL (0.00-0.70); Granulocytes % (Auto) 68.6 % (38.0-78.0); Hematocrit 28.4 % (40.1-51.0); Hemoglobin 9.9 g/dL (13.7-17.5); Lymphocytes # (Auto) 1.78 K/mcL (1.50-4.80); Lymphocytes % (Auto) 16.5 % (15.5-49.0); Mean Cell Volume 92.2 fL (80.0-100.0); Mean Corpuscular HGB Conc 34.9 g/dL (31.0-36.0); Mean Platelet Volume 9.4 fL (7.4-10.4); Monocytes # (Auto) 0.99 K/mcL (0.10-0.90); Monocytes % (Auto) 9.2 % (1.0-12.0); Platelet Count 313 K/mcL (140-440); RBC 3.08 M/mcL (4.63-6.08); WBC 10.8 K/mcL (4.50-11.00)
[2019-07-29 14:30] LABS: ALT/SGPT 16 U/l (0-40); AST/SGOT 23 U/l (0-37); Albumin 3.8 gm/dL (3.2-5.2); Albumin/Globulin Ratio 1.1 (1.0-2.3); Alkaline Phosphatase 64 U/L (39-117); Bilirubin,Total 0.4 mg/dL (0.0-1.0); Blood Urea Nitrogen 30 mg/dl (6-20); Calcium 7.9 mg/dl (8.6-10.4); Carbon Dioxide 25 mmol/L (22-30); Globulin 3.5 gm/dL (2.2-3.7); Glucose 92 mg/dL (70-105)
[2019-07-29 14:39] LABS: Chloride 90 mmol/L (96-108); Glomerular Filtration Rate 7
--- NOTE | 2019-07-29 15:28 | XRay Report ---
CLINICAL INFORMATION: SOB COMPARISON: 09/09/2017 portable chest FINDINGS: The heart is borderline enlarged. Mediastinum is unremarkable. The pulmonary vessels are mildly distended and there is moderate interstitial edema throughout both lungs. Small bilateral pleural effusions have developed. IMPRESSION: Moderate CHF or volume overload Interpreted and Authenticated by: Andrey Truong 07/29/19
--- NOTE | 2019-07-29 16:02 | Internal Med History&Physical ---
Medical - H&P: HPI Patient information: Note initiated : 07/29/19 at 3:57 pm Service Date, if different from initiated Date: [] Patient: Daljit Ash 54 y/o M admitted on for shortness of breath. Chief Complaint: [] Chief complaint: SOB History of present illness: Mr. Ash is a 54 year old Male with a complex past medical history including ESRD on HD, history of C-spine osteomyelitis , HTN/HLD/insulin-dependent. He follows up outpatient with nephrology Dr. Rachna Strickland. He now presents to the ER with 5-day onset of worsening exertional dyspnea and effort intolerance. He denies associated fever, shaking chills, productive phlegm, diarrhea weight loss. He denies sick contacts recent travel outside [place]. Her symptoms are more profound on exertion. He denies any alleviating factors including dialysis if fails to improve his symptoms. He gets dialyzed Tuesday. Incidentally checked his oxygen saturation using a pulse ox at home that showed numbers in 70s. He thereafter presented to the ER for evaluation. Initial work-up was consistent with basilar infiltrates/CHF on chest imaging. CT angiogram was performed and results are pending. Hospital service was consulted for admission in light of hypoxic respiratory failure At the time evaluation patient is alert and oriented. He was able to answer most of the questions and provide history as above. He lives with his cousins and denies any recent medication changes or missed dialysis. He denies recent hospitalization or healthcare exposure. Review of systems A 10 point review system was performed and is negative except for discussed above Medical - H&P: PMH Medical history: Back pain at L4-L5 level (Chronic) Secondary hyperparathyroidism of renal origin (Chronic) Proteinuria (Chronic 12/06/12) Pes planus (Chronic) long term current use of insulin (Chronic) long term 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 (Chronic) Hypertensive renal disease (Chronic) Hyperlipidemia (Chronic) on fenofibrate and atorvastatin, tg and ldl at goal Gastroesophageal reflux (Chronic 07/01/14) Pantoprazole not covered by insurance, switch to nexium based on the formulary of the EMR Essential hypertension (Chronic 12/06/12) End stage renal disease (Chronic) Diabetes mellitus type 1, uncontrolled (Chronic) unable to afford brand insulin Chronic kidney disease, stage V (Chronic 04/29/13) Anemia in chronic kidney disease (Chronic) Acidosis, metabolic (Chronic 12/06/12) of CKD Acute appendicitis (Inactive) Appendicitis (Inactive) Foot pain (Inactive 07/01/14) History of tobacco abuse (Inactive) Nosocomial pneumonia (Inactive) 1.nosocomial versus aspiration pneumonia-managed on Zosyn/Levaquin. Remarkable improvement in 24 hours. Continue Levaquin/Augmentin for additional 6 days to cover for nosocomial organism including Pseudomonas nd aspiration coverage 2. other prior medical issues were managed on home meds including ESRD on HD CAD on aspirin Hypertension on amlodipine/Metoprolol glaucoma on latanoprost/timolol Hyperlipidemia on statin DM type II on home dose insulin NPH Pneumonia (Inactive) Rash (Inactive) due to levofloxacin, trial of 3 days prednisone. Surgical History Arteriovenous fistula for hemodialysis in place, primary (Chronic) 10/29/2013 Creation of a right radiocephalic AV fistula History of angioplasty (Chronic 11/03/16) and fistulogram 01/16/19 History of colonoscopy (Chronic 06/18/15) History of bone marrow biopsy (Inactive) 03/30/2013 History of laser photocoagulation of retina (Inactive) History of shoulder surgery (Inactive) 2013 bicep reattachment-right shoulder-Dr. 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[employer] other: smoked 32 years smoking status: Current every day smoker tobacco type: cigarettes per day: 1 pack-years: 25 smoking status stop date: 09/11/14 alcohol intake frequency: does not drink substance use type: does not use Medical - H&P: Meds Home Medications Medication Instructions Recorded Confirmed Type ascorbic acid (vitamin C) 1,000 mg 1,000 mg PO BID tab 08/23/14 07/29/19 History tablet pen needle, diabetic 32 gauge x See Dose Instructions .ROUTE 07/14/17 03/27/19 Rx " .MEDSUPPLY #200 each Albuterol Sulfate [Proventil Hfa] 6.7 gm IH Q4HP PRN #1 hfa.aer.ad 09/11/17 07/29/19 Rx zolpidem 10 mg tablet 10 mg PO HS PRN #30 tab 12/29/17 03/27/19 Rx insulin aspart U-100 100 unit/mL See Rx Instructions SUB-Q QAM #45 06/23/18 07/29/19 Rx (3 mL) subcutaneous pen ml calcium acetate(phosphat bind) 667 667 mg PO TID #180 tab 07/19/18 07/29/19 Rx mg tablet atorvastatin 40 mg tablet 40 mg PO QDAY #90 tab 07/26/18 07/29/19 Rx B complex-vitamin C-folic acid 0.8 1 tab PO QDAY #90 tab 08/02/18 07/29/19 Rx mg tablet clopidogrel 75 mg tablet 75 mg PO QDAY #90 tab 08/21/18 07/29/19 Rx aspirin 81 mg tablet,delayed 81 mg PO QDAY #90 tab 08/28/18 07/29/19 Rx release metoprolol tartrate 50 mg tablet 25 mg PO BID tab 08/28/18 07/29/19 History furosemide 40 mg tablet 40 mg PO BID #180 tab 11/16/18 07/29/19 Rx hydralazine 25 mg tablet 25 mg PO BID #60 tab 02/01/19 07/29/19 Rx amlodipine 10 mg tablet 10 mg PO QDAY #90 tab 02/05/19 07/29/19 Rx sevelamer carbonate 800 mg tablet 1,600 mg PO TID #180 tab 03/30/19 07/29/19 Rx blood-glucose meter See Rx Instructions .ROUTE 06/22/19 07/29/19 Rx .MEDSUPPLY #1 each hydromorphone 4 mg tablet 4 mg PO Q6H PRN #112 tab 07/19/19 07/29/19 Rx ondansetron 4 mg disintegrating 4 mg TRANSLINGU Q4-6HP PRN #20 tab 07/24/19 07/29/19 Rx tablet Insulin Glargine,Hum.rec.anlog 25 unit SUBCUT QDAY 07/29/19 History [Basaglar KwikPen U-100 Insulin] Allergies Allergy/AdvReac Type Severity Reaction Status Date / Time codeine AdvReac Mild Vomiting Verified 03/27/19 08:01 hydrocodone [HYDROCODONE] AdvReac Mild Vomiting Verified 03/27/19 08:01 Medical - H&P: Exam - Constitutional Vitals: Temp Pulse Resp BP Pulse Ox 98.6 F 75 21 131/63 91 07/29/19 12:34 07/29/19 15:54 07/29/19 15:54 07/29/19 15:54 07/29/19 15:54 General appearance: no acute distress Exam: Alert oriented Head normocephalic Oral cavity dry No ear nose discharge Neck no lymphadenopathy S1-S2 occasionally irregular Diminished breath sounds bases late inspiratory crackles Soft nontender Lower extremity no cyanosis clubbing Skin no suspicious lesion Psych alert but anxious Neuro nonfocal Medical - H&P: Reslt - Labs CBC & Chem 7: 07/30/19 05:30 07/30/19 05:30 Labs: Short CBC 07/29/19 Range/Units 13:14 WBC 10.8 (4.50-11.00) K/mcL Hgb 9.9 L (13.7-17.5) g/dL Hct 28.4 L (40.1-51.0) % Plt Count 313 (140-440) K/mcL BMP 07/29/19 13:14 Sodium 133 Potassium 3.6 Chloride 90 L Carbon Dioxide 25 BUN 30 H Creatinine 7.6 H* Glucose 92 Calcium 7.9 L Cardiac Enzymes 07/29/19 Range/Units 13:14 Troponin T 0.14 H* (0-0.03) ng/ml Liver Function 07/29/19 Range/Units 13:14 Total Bilirubin 0.4 (0.0-1.0) mg/dL AST 23 (0-37) U/l ALT 16 (0-40) U/l Alkaline Phosphatase 64 (39-117) U/L Albumin 3.8 (3.2-5.2) gm/dL Medical - H&P: A/P (1) Acute respiratory failure with hypoxia Problem details: No need for acute HD tonight Suspect he will improve with agressive U/F and switch from CCB to RASSI (captopril has the advantage of short T1/2 so it can be held before dialysis to maximize fluid removal while minimizing dialysis related hypotension. Current visit: Yes Status: Acute * Acute respiratory failure with hypoxia-likely etiology CHF versus in combination of bibasilar infiltrates. Await CT angiogram chest. Continue supplemental oxygen. Check COVID 19 * Basilar infiltrates-start empiric treatment for community-acquired pneumonia. Check COVID-19. Start bronchodilators * CHF/Volume overload- HD per nephrology * ESRD on hemodialysis. Managed by nephrology * History of HTN/HLD continue home medication including statin/beta-kelly * History of CAD continue aspirin statin * DM type II continue basal prandial insulin * DVT prophylaxis start subcu heparin * Full code Plan * obs admission * Broad antibiotic coverage * Pre-existing medical mission management home meds * Await CT angiogram chest * ESRD management per nephrology * PT OT nutrition support * COVID-19 precautions
--- NOTE | 2019-07-29 16:07 | Cat Scan Report ---
CLINICAL INFORMATION: Shortness of breath COMPARISON: None. TECHNIQUE: 80ml of Isovue-370 were injected intravenously. Using SmartPrep to maximize pulmonary artery opacification, .625mm helical slices were obtained from the lung apices through the lung bases. Following reconstruction, 2.5 mm sagittal, coronal, and axial reformations were processed. The exam was reviewed at mediastinal, lung, and bone windows. The exam was performed using radiation dose optimization techniques including, but not limited to, automated exposure control, adjustment of the mA and/or kV according to patient size and use of iterative reconstruction technique. FINDINGS: Mediastinal windows show the pulmonary arteries are well-opacified without evidence of embolus. Pulmonary arteries are congested and there is moderate edema in the alveolar and interstitial spaces particularly the interlobular septa. Small/moderate bilateral pleural effusions result in mild subsegmental compressive atelectasis of both posterior lower lobes. There are no nodules or mae infiltrates. Mosaic perfusion pattern is noted. The heart is mildly enlarged with extraordinarily heavy premature atherosclerotic calcification throughout all the coronary arteries - particularly the left main LAD and proximal circumflex. There is also calcification within the mitral annulus. The thoracic aorta is normal in diameter scattered sclerotic plaque. There is no adenopathy in the mediastinal hilar or axillary regions. The esophagus is unremarkable. Thyroid is normal. Bones and soft tissues the chest wall show no abnormality. Images through the superior abdomen are unremarkable. IMPRESSION: 1. Moderate congestive heart failure - no evidence of pulmonary embolus. 2. Extremely heavy premature calcific atherosclerotic plaque throughout all the coronary arteries. Patient will likely require catheterization. Mitral annular calcification also noted 3. Small/moderate bilateral pleural effusions result in compressive subsegmental atelectasis both posterior lower lobes Interpreted and Authenticated by: Andrey Truong 07/29/19
--- NOTE | 2019-07-29 16:36 | Nephrology Consult Note ---
History of Present Illness - Reason for Consult Patient information: Note initiated : 07/29/19 at 4:32 pm Service Date, if different from initiated Date: [] Patient: Daljit Ash 54 y/o M admitted on for shortness of breath. Chief Complaint: [] end stage renal disease Requesting physician: Massimo Horvath - Chief Complaint SOB - History of Present Illness 54 yr old ESRD patient who diaslyzes MWF at [facility] HD with Dr Gordon. Presents to ED with SOB, noted to be O2 requiring to maintain O2 sat > 90%. Otherwise, hemodynamically stable. Last HD Tx 07/27/19 and review of chart shows BP 150/110/70 anbd net U/S 1.9-2.5 kg as of late. Selected Entries 07/29/19 16:16 Heart rate 80 Respiratory Rate 21 Blood Pressure 153/69 Pulse Oximetry (%) 91 Laboratory Tests 06/14/16 07/29/19 07/29/19 10:10 13:14 13:14 WBC 10.8 Hgb 9.9 L Hct 28.4 L Plt Count 313 Eos % (Auto) 5.0 Sodium 133 Potassium 3.6 Chloride 90 L Carbon Dioxide 25 Anion Gap 18.0 H BUN 30 H Creatinine 7.6 H* Glucose 92 Calcium 7.9 L Total Bilirubin 0.4 AST 23 ALT 16 Alkaline Phosphatase 64 Troponin T 0.14 NT-Pro-B Natriuret Pep 2885.0 H 3741.0 H Total Protein 7.3 Albumin 3.8 Globulin 3.5 Albumin/Globulin Ratio 1.1 Being admitted for hypoxemia and volume overload. No need for acute dialysis Will increase U/F goal to 4 kg, Prior Echo with vpLVEF so B-blockers and RASSI therapy. Stop CCB in favor of more RASSI and more fluid off. I dose of Furosemide 100 mg IV and topical nitrates O/N No PE and Tropins the same as previoulsy determined. proBNP elevated in past a nd more so now. Rieviewed plan with ED MD and patient. 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) care home 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 (Chronic) Hypertensive renal disease (Chronic) Hyperlipidemia (Chronic) on fenofibrate and atorvastatin, tg and ldl at goal Gastroesophageal reflux (Chronic 07/01/14) Pantoprazole not covered by insurance, switch to nexium based on the formulary of the EMR Essential hypertension (Chronic 12/06/12) End stage renal disease (Chronic) Diabetes mellitus type 1, uncontrolled (Chronic) unable to afford brand insulin Chronic kidney disease, stage V (Chronic 04/29/13) Anemia in chronic kidney disease (Chronic) Acidosis, metabolic (Chronic 12/06/12) of CKD Acute appendicitis (Inactive) Appendicitis (Inactive) Foot pain (Inactive 07/01/14) History of tobacco abuse (Inactive) Pneumonia (Inactive) Rash (Inactive) due to levofloxacin, trial of 3 days prednisone. Surgical History Arteriovenous fistula for hemodialysis in place, primary (Chronic) 10/29/2013 Creation of a right radiocephalic AV fistula History of angioplasty (Chronic 11/03/16) and fistulogram 01/16/19 History of colonoscopy (Chronic 06/18/15) History of bone marrow biopsy (Inactive) 03/30/2013 History of laser photocoagulation of retina (Inactive) History of shoulder surgery (Inactive) 2013 bicep reattachment-right shoulder-Dr. 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[employer] other: smoked 32 years smoking status: Current every day smoker tobacco type: cigarettes per day: 1 pack-years: 25 smoking status stop date: 09/11/14 alcohol intake frequency: does not drink substance use type: does not use Medications and Allergies Home Medications Medication Instructions Recorded Confirmed Type ascorbic acid (vitamin C) 1,000 mg 1,000 mg PO BID tab 08/23/14 07/29/19 History tablet pen needle, diabetic 32 gauge x See Dose Instructions .ROUTE 07/14/17 03/27/19 Rx " .MEDSUPPLY #200 each Albuterol Sulfate [Proventil Hfa] 6.7 gm IH Q4HP PRN #1 hfa.aer.ad 09/11/17 07/29/19 Rx zolpidem 10 mg tablet 10 mg PO HS PRN #30 tab 12/29/17 03/27/19 Rx insulin aspart U-100 100 unit/mL See Rx Instructions SUB-Q QAM #45 06/23/18 Rx (3 mL) subcutaneous pen ml calcium acetate(phosphat bind) 667 667 mg PO TID #180 tab 07/19/18 07/29/19 Rx mg tablet atorvastatin 40 mg tablet 40 mg PO QDAY #90 tab 07/26/18 07/29/19 Rx B complex-vitamin C-folic acid 0.8 1 tab PO QDAY #90 tab 08/02/18 07/29/19 Rx mg tablet clopidogrel 75 mg tablet 75 mg PO QDAY #90 tab 08/21/18 07/29/19 Rx aspirin 81 mg tablet,delayed 81 mg PO QDAY #90 tab 08/28/18 07/29/19 Rx release metoprolol tartrate 50 mg tablet 25 mg PO BID tab 08/28/18 07/29/19 History furosemide 40 mg tablet 40 mg PO BID #180 tab 11/16/18 07/29/19 Rx hydralazine 25 mg tablet 25 mg PO BID #60 tab 02/01/19 07/29/19 Rx amlodipine 10 mg tablet 10 mg PO QDAY #90 tab 02/05/19 07/29/19 Rx sevelamer carbonate 800 mg tablet 1,600 mg PO TID #180 tab 03/30/19 07/29/19 Rx blood-glucose meter See Rx Instructions .ROUTE 06/22/19 07/29/19 Rx .MEDSUPPLY #1 each hydromorphone 4 mg tablet 4 mg PO Q6H PRN #112 tab 07/19/19 07/29/19 Rx ondansetron 4 mg disintegrating 4 mg TRANSLINGU Q4-6HP PRN #20 tab 07/24/19 07/29/19 Rx tablet Insulin Glargine,Hum.rec.anlog 25 unit SUBCUT QDAY 07/29/19 History [Basaglar KwikPen U-100 Insulin] Allergies Allergy/AdvReac Type Severity Reaction Status Date / Time codeine AdvReac Mild Vomiting Verified 03/27/19 08:01 hydrocodone [HYDROCODONE] AdvReac Mild Vomiting Verified 03/27/19 08:01 Exam - Vital Signs Vital signs: Temp Pulse Resp BP Pulse Ox 37.0 C 80 21 153/69 91 07/29/19 12:34 07/29/19 16:16 07/29/19 16:16 07/29/19 16:16 07/29/19 16:16 - General Appearance General appearance: well-nourished, appears started age, moderate distress (mild respiratory distress relieved by supplemental o2) EENT: ATNC, PERRL, mucous membranes dry Neck: no JVD, no thyromegaly, no carotid bruit, supple Respiratory: no kyphosis, no scoliosis Cardiology: no murmurs, no edema, split S1, normal S2 Gastrointestinal: normoactive bowel sounds, no tenderness, no masses Integumentary: no rash Neurologic: no focal deficit, no asterixis, strength 5/5, CN 3-12 intact Musculoskeletal: no deformities, no cyanosis, no clubbing (lEFT UPPER ARM avf) Psychiatric: mood/affect appropriate Additional exam: nO NEED FOR ACUTE hd Results - Lab Results 07/29/19 13:14 07/29/19 13:14 Most recent lab results Calcium 7.9 mg/dl (8.6-10.4) L 07/29/19 13:14 - Image Kidney/bladder ultrasound: other (ckd AND cta CHEST REVIEWED) Assessment and Plan (1) Acute on chronic diastolic CHF (congestive heart failure), NYHA class 2 Status: Acute Priority: High Comment: Prior Echo c/w HTN and CHF with pLVEF. No valvulopathy pro BNP elevated (2) Acute respiratory failure with hypoxia Status: Acute Priority: High Comment: No need for acute HD tonight Suspect he will improve with agressive U/F and switch from CCB to RASSI (captopril has the advantage of short T1/2 so it can be held before dialysis to maximize fluid removal while minimizing dialysis related hypotension. (3) ESRD on hemodialysis Status: Acute Comment: Needs dry weight lowered to adequately treat CHF with pLVEF Cool dialysate and short acting RAASi along with holding B-kelly dose in AM before HD and cool dialysate to maximize fluid remval and minimize hypotension (4) Anemia due to stage 5 chronic kidney disease treated with darbepoetin Status: Acute Priority: Medium Comment: Give aranesp qMWF while on HD to counteract acute blood loss in hospital due to frequent blood loss to lab. - Narrative A/P Narrative: To my eye, he needs his dry weight decreased to treat CHF with pLVEF 1. $ Kg U/F goal 2. Stop amlodipine 3. Start Captopril 25 mg po TID and hold AM dose before HD on MWF 4. Hold AM metoprolol dose on MWF to allow increased fluid removal w/o hypotension on HD 5. Cool dialysis 6. 1 dose of IV lasix 100 mg tonight 7. Aranesp 100 ug tomorrow to blunt acute blood loss of hospitalization. 8. Dr Briscoe to assume care tomorrow
[2019-07-29] MEDS ORDERED: LEVOFLOXACIN 500 MG/100 ML BAG IV ONE (17:21)
[2019-07-29] MEDS ORDERED: ONDANSETRON 4 MG/2 ML VIAL IV PRN (19:14)
[2019-07-29] MEDS ORDERED: ONDANSETRON 4 MG ODT TABLET SL PRN (19:14)
[2019-07-29] MEDS ORDERED: MELATONIN 3 MG TABLET PO PRN (19:14)
[2019-07-29] MEDS ORDERED: ACETAMINOPHEN 650 MG/65 ML BOTTLE IV PRN (19:14)
[2019-07-29] MEDS ORDERED: POLYETHYLENE GLYCOL 3350 17 GM PACKET PO PRN (19:14)
[2019-07-29] MEDS ORDERED: LEVOFLOXACIN 750 MG/150 ML BAG IV SCH (19:14)
[2019-07-29] MEDS ORDERED: BISACODYL 10 MG SUPP.RECT PR PRN (19:14)
[2019-07-29] MEDS ORDERED: cefTRIAXone 1 GM VIAL ONE (21:07)
[2019-07-29] MEDS ORDERED: LEVOFLOXACIN 750 MG/150 ML BAG IV ONE (21:07)
[2019-07-29] MEDS ORDERED: ALBUTEROL SULFATE 200 PUFF INHALER INH PRN (21:21)
[2019-07-29] MEDS ORDERED: HYDROmorphone 2 MG TABLET PO PRN (21:21)
[2019-07-29] MEDS ORDERED: INSULIN GLARGINE, HUMAN 1 UNIT/0.01 ML SQ ONE (21:28)
[2019-07-29] MEDS ORDERED: INSULIN LISPRO 1 UNIT/0.01 ML UNIT SQ ONE (21:58)
[2019-07-29] MEDS ORDERED: LEVOFLOXACIN 250 MG/50 ML BAG IV ONE (22:00)
[2019-07-29] MEDS: HEPARIN 5,000 UNIT/ML VIAL SQ SCH (22:02)
[2019-07-29] MEDS: DOCUSATE SODIUM 100 MG CAPSULE PO SCH (22:02)
[2019-07-29] MEDS: SENNOSIDES/DOCUSATE SODIUM 1 TAB TABLET PO SCH (22:02)
[2019-07-29] MEDS: 0.9 % SODIUM CHLORIDE 10 ML SYRINGE IV SCH (22:03)
[2019-07-30 06:34] LABS: Hematocrit 30.8 % (40.1-51.0); Hemoglobin 10.5 g/dL (13.7-17.5); Mean Cell Volume 92.5 fL (80.0-100.0); Mean Corpuscular HGB Conc 34.1 g/dL (31.0-36.0); Mean Platelet Volume 9.5 fL (7.4-10.4); Platelet Count 316 K/mcL (140-440); RBC 3.33 M/mcL (4.63-6.08); Red Cell Distribution Width 12.9 % (11.5-14.5); WBC 9.2 K/mcL (4.50-11.00)
[2019-07-30] MEDS: 0.9 % SODIUM CHLORIDE 10 ML SYRINGE IV SCH ×3 (07:00→20:46)
[2019-07-30 07:02] LABS: ALT/SGPT 14 U/l (0-40); AST/SGOT 17 U/l (0-37); Albumin 3.5 gm/dL (3.2-5.2); Alkaline Phosphatase 66 U/L (39-117); Bilirubin,Direct < 0.2 mg/dL (0.0-0.3); Bilirubin,Total 0.3 mg/dL (0.0-1.0); Calcium 7.7 mg/dl (8.6-10.4); Carbon Dioxide 24 mmol/L (22-30); Globulin 3.5 gm/dL (2.2-3.7); Glucose 164 mg/dL (70-105); Lactate Dehydrogenase 200 U/L (94-250); Triglycerides 64 mg/dl (<150); Uric Acid 5.6 mg/dL (2.5-8.0)
[2019-07-30 07:25] LABS: Blood Urea Nitrogen 39 mg/dl (6-20); Chloride 86 mmol/L (96-108); Glomerular Filtration Rate 7
[2019-07-30 07:37] LABS: Eosinophils % (Manual) 2 % (0-7); Lymphocytes % 12 % (15-49); Monocytes % (Manual) 7 % (1-12); Platelet Estimate NORMAL (NORMAL); RBC Morphology NORMAL (NORMAL); Segmented Neutrophils % 79 % (38-78)
[2019-07-30] MEDS: INSULIN LISPRO 1 UNIT/0.01 ML UNIT SQ SCH ×4 (08:02→20:45)
[2019-07-30] MEDS: CALCIUM ACETATE 667 MG CAPSULE PO SCH ×3 (08:03→17:17)
[2019-07-30] MEDS: SEVELAMER 800 MG TABLET PO SCH ×3 (08:03→17:17)
[2019-07-30] MEDS: ASPIRIN 81 MG TAB.CHEW PO SCH (08:04)
[2019-07-30] MEDS: CAPTOPRIL 12.5 MG TABLET PO SCH ×3 (08:05→20:44)
[2019-07-30] MEDS: FUROSEMIDE 100 MG/10 ML VIAL IV SCH (08:06)
[2019-07-30] MEDS: HEPARIN 5,000 UNIT/ML VIAL SQ SCH ×2 (08:06→20:45)
[2019-07-30] MEDS: ATORVASTATIN 40 MG TABLET PO SCH (08:07)
[2019-07-30] MEDS: CLOPIDOGREL 75 MG TABLET PO SCH (08:07)
[2019-07-30] MEDS: MULTIVIT,THER IRON,CA,FA & MIN 1 TABLET PO SCH (08:07)
[2019-07-30] MEDS: ASCORBIC ACID 500 MG TABLET PO SCH ×2 (08:07→20:43)
[2019-07-30] MEDS: VITAMIN B COMPLEX 1 CAPSULE PO SCH (08:09)
[2019-07-30] MEDS: ACETAMINOPHEN 325 MG TABLET PO PRN ×2 (08:09→12:05)
[2019-07-30] MEDS ORDERED: FUROSEMIDE 40 MG TABLET PO SCH (09:00)
[2019-07-30] MEDS ORDERED: DARBEPOETIN ALFA 100 MCG/ML VIAL SQ ONE (09:00)
[2019-07-30] MEDS ORDERED: amLODIPine 10 MG TABLET PO SCH (09:00)
[2019-07-30] MEDS ORDERED: hydrALAZINE 25 MG TABLET PO SCH (09:00)
[2019-07-30] MEDS ORDERED: METOPROLOL TARTRATE 50 MG TABLET PO SCH (09:00)
--- NOTE | 2019-07-30 09:21 | Internal Med Progress Note ---
Medical - PN: Subj Patient information: Note initiated : 07/30/19 at 9:14 am Service Date, if different from initiated Date: [] Patient: Daljit Ash 54 y/o M admitted on 07/29/19 for shortness of breath. Chief Complaint: [] Interval history: Mr. Ash is a 54 year old Male with a complex past medical history including ESRD on HD, history of C-spine osteomyelitis , HTN/HLD/insulin-dependent. He follows up outpatient with nephrology Dr. Rachna Strickland. He now presents to the ER with 5-day onset of worsening exertional dyspnea and effort intolerance. He denies associated fever, shaking chills, productive phlegm, diarrhea weight loss. He denies sick contacts recent travel outside [place]. Her symptoms are more profound on exertion. He denies any alleviating factors including dialysis if fails to improve his symptoms. He gets dialyzed Tuesday. Incidentally checked his oxygen saturation using a pulse ox at home that showed numbers in 70s. He thereafter presented to the ER for evaluation. Initial work-up was consistent with basilar infiltrates/CHF on chest imaging. CT angiogram was performed and results are pending. Hospital service was consulted for admission in light of hypoxic respiratory failure At the time evaluation patient is alert and oriented. He was able to answer most of the questions and provide history as above. He lives with his cousins and denies any recent medication changes or missed dialysis. He denies recent hospitalization or healthcare exposure. 07/29-patient doing well. Ongoing hemodialysis. Requiring 6 L oxygen. White count 9.2. On antibiotic coverage. COVID-19 test pending. No overnight fever chills. No additional concerns per nursing staff. Will review postdialysis if no improvement (CHF symptoms most likely secondary to volume overload unless superimposed on pneumonia). Complains of chronic back and neck pain - Constitutional Vitals: Vital Signs Temp Pulse Resp BP Pulse Ox 97.2 F 80 20 145/81 96 07/30/19 08:35 07/30/19 09:00 07/30/19 07:40 07/30/19 09:00 07/30/19 07:40 Period Temp Pulse Resp BP Sys/Cerda Pulse Ox Last 24 Hr 97.1 F-98.6 F 66-81 14-24 123-172/58-99 88-96 Intake and Output 07/29/19 07/30/19 07/30/19 21:59 05:59 13:59 Intake Total 100 50 Output Total 250 Balance -150 50 Weight 166 lb 12.8 oz Intake & Output: Intake & Output 07/29/19 07/30/19 07/30/19 21:59 05:59 13:59 Intake Total 100 50 Output Total 250 Balance -150 50 Weight 166 lb 12.8 oz Intake: IV 100 Oral 50 Output: Void Amount 250 Other: Urine Appearance Clear Urine Color Dark Yellow General appearance: no acute distress Exam: Alert oriented On 6 L oxygen Able to talk in near full sentences No anxiety Ongoing hemodialysis left arm hemodialysis fistula Medical - PN: Obj Da - Labs CBC & Chem 7: 07/30/19 05:30 07/30/19 05:30 Labs: Abnormal Lab Results 07/30/19 07/30/19 07/29/19 05:30 05:30 15:57 RBC 3.33 L Hgb 10.5 L Hct 30.8 L Butts # (Auto) Seg Neutrophils % 79 H Lymphocytes % 12 L D-Dimer Sodium 129 L Chloride 86 L Anion Gap 19.0 H BUN 39 H Creatinine 8.3 H* Glucose 164 H Calcium 7.7 L Troponin T 0.14 H* NT-Pro-B Natriuret Pep 07/29/19 07/29/19 07/29/19 13:14 13:14 13:14 RBC Hgb Hct Butts # (Auto) Seg Neutrophils % Lymphocytes % D-Dimer 1.65 H Sodium Chloride 90 L Anion Gap 18.0 H BUN 30 H Creatinine 7.6 H* Glucose Calcium 7.9 L Troponin T 0.14 H* NT-Pro-B Natriuret Pep 3741.0 H 07/29/19 13:14 RBC 3.08 L Hgb 9.9 L Hct 28.4 L Butts # (Auto) 0.99 H Seg Neutrophils % Lymphocytes % D-Dimer Sodium Chloride Anion Gap BUN Creatinine Glucose Calcium Troponin T NT-Pro-B Natriuret Pep Meds: Medications Acetaminophen (Tylenol) 650 mg PO Q4-6HP PRN; Protocol PRN Reason: Per Pain Protocol/Fever > 101 Last Admin: 07/30/19 08:09 Dose: 650 mg Documented by: Albuterol Sulfate (Ventolin) 1 puff INH Q4HP PRN PRN Reason: Shortness Of Breath Ascorbic Acid (Vitamin C) 1,000 mg PO BID [facility] Last Admin: 07/30/19 08:07 Dose: 1,000 mg Documented by: Aspirin (Aspirin) 81 mg PO DAILY [facility] Last Admin: 07/30/19 08:04 Dose: 81 mg Documented by: Atorvastatin Calcium (Lipitor) 40 mg PO QDAY [facility] Last Admin: 07/30/19 08:07 Dose: 40 mg Documented by: Bisacodyl (Dulcolax) 10 mg ND Q2-3DAYS PRN PRN Reason: Constipation Calcium Acetate (Phoslo) 667 mg PO TIDCC [facility] Last Admin: 07/30/19 08:03 Dose: 667 mg Documented by: Captopril (Capoten) 25 mg PO TID [facility] Last Admin: 07/30/19 08:05 Dose: Not Given Documented by: Clopidogrel Bisulfate (Plavix) 75 mg PO QDAY [facility] Last Admin: 07/30/19 08:07 Dose: 75 mg Documented by: Diagnostic Test (Pha) (Accu-Chek) 1 each FS ACHS [facility] Last Admin: 07/30/19 08:01 Dose: 1 each Documented by: Docusate Sodium (Colace) 100 mg PO BID [facility] Last Admin: 07/29/19 22:02 Dose: 100 mg Documented by: Furosemide (Lasix) 100 mg IV DAILY [facility] Last Admin: 07/30/19 08:06 Dose: 100 mg Documented by: Heparin Sodium (Porcine) (Heparin) 5,000 unit SQ Q12 [facility] Last Admin: 07/30/19 08:06 Dose: 5,000 unit Documented by: Hydromorphone HCl (Dilaudid) 4 mg PO Q6HP PRN PRN Reason: pain Ceftriaxone Sodium 2 gm/ (Dextrose) 50 mls @ 100 mls/hr IV DAILY [facility]; Protocol Acetaminophen (Ofirmev) 650 mg in 65 mls @ 130 mls/hr IV Q6HP PRN; Protocol PRN Reason: Per Pain Protocol/Fever > 101 Levofloxacin (Levaquin) 500 mg in 100 mls @ 100 mls/hr IV Q48H [facility] Insulin Human Lispro (Humalog) 0 unit SQ ACHS [facility]; Protocol Last Admin: 07/30/19 08:02 Dose: 2 unit Documented by: Iron Carb/Multivit/Rossie/Folic Acid (Multivitamin W/Minerals) 1 tab PO DAILY [facility] Last Admin: 07/30/19 08:07 Dose: 1 tab Documented by: Melatonin (Melatonin 3mg Tablet) 3 mg PO HSP PRN PRN Reason: Insomnia Metoprolol Tartrate (Lopressor) 25 mg PO BID [facility] Ondansetron HCl (Zofran Odt) 4 mg SL Q4-6HP PRN; Protocol PRN Reason: Nausea And Vomiting Ondansetron HCl (Zofran) 4 mg IV Q4-6HP PRN; Protocol PRN Reason: Nausea And Vomiting Polyethylene Glycol (Miralax) 17 gm PO DAILYP PRN PRN Reason: Constipation Senna/Docusate Sodium (Senna Plus Tablet) 1 tab PO HS [facility] Last Admin: 07/29/19 22:02 Dose: 1 tab Documented by: Sevelamer Carbonate (Renvela) 1,600 mg PO TIDCC [facility] Last Admin: 07/30/19 08:03 Dose: 1,600 mg Documented by: Sodium Chloride (Saline Flush) 10 ml IV Q8 [facility] Last Admin: 07/30/19 07:00 Dose: 10 ml Documented by: Vitamin B Complex (Vitamin B Complex) 1 cap PO DAILY [facility] Last Admin: 07/30/19 08:09 Dose: 1 cap Documented by: Medical - PN: A/P - Time Spent With Patient Total time spent is greater than 50% in coordination of care (as documented) at patient's floor/unit and/or counseling patient: 25 - 35 minutes (1) Acute respiratory failure with hypoxia Problem details: No need for acute HD tonight Suspect he will improve with agressive U/F and switch from CCB to RASSI (captopril has the advantage of short T1/2 so it can be held before dialysis to maximize fluid removal while minimizing dialysis related hypotension. Status: Acute Assessment and plan: * Acute respiratory failure with hypoxia-currently on 6 L oxygen. Likely etiology CHF/volume overload , will review post dialysis. CT angiogram no evidence of PE. COVID-19 test pending. * Basilar infiltrates-on empiric treatment for community-acquired pneumonia. Will DC if dramatic improvement noted post dialysis. Check COVID-19. On bronchodilators * ESRD on hemodialysis. Managed by nephrology * History of HTN/HLD continue home medication including statin/beta-kelly * History of CAD continue aspirin statin * DM type II continue basal prandial insulin * DVT prophylaxis start subcu heparin * Full code Plan * If patient fails to improve following dialysis will transition to inpatient status * De-escalate antibiotic coverage if patient shows dramatic improvement postdialysis * Pre-existing medical mission management home meds * ESRD management per nephrology * PT OT nutrition support * COVID-19 precautions * Discharge planning based on clinical improvement Current Visit: Yes Medical - PN: Qual - Stroke Symptom Onset Unknown: No - VTE Deep Vein Thrombosis/Pulmonary Embolism Present on Admission: No
[2019-07-30] MEDS: DOCUSATE SODIUM 100 MG CAPSULE PO SCH ×2 (12:05→20:44)
[2019-07-30] MEDS: cefTRIAXone 2 GM in DEXTROSE 5% IN WATER 50 ML IV SCH (13:17)
--- NOTE | 2019-07-30 15:06 | XRay Report ---
CLINICAL INFORMATION: F/U chf post HD COMPARISON: 07/29/2019 FINDINGS: Mild cardiomegaly is unchanged. Mediastinum is unremarkable. The pulmonary vessels have returned to normal caliber and interstitial edema in the perihilar regions has nearly cleared. Moderate left and small right pleural effusions have decreased slightly. There is mild bibasilar atelectasis. IMPRESSION: Moderate improvement in congestive heart value or volume overload pattern. Interpreted and Authenticated by: Andrey Truong 07/30/19
--- NOTE | 2019-07-30 15:31 | Nephrology Progress Note ---
Subjective Patient information: Note initiated : 07/30/19 at 3:17 pm Service Date, if different from initiated Date: [] Patient: Daljit Ash 54 y/o M admitted on 07/29/19 for shortness of breath. Chief Complaint: [] Principal diagnosis: ESRD Interval history: Patient seen and examined on hemodialysis 07/30/2019 Says he feels better Physical exam Vital signs reviewed HEENT head is normocephalic and atraumatic. Eyes nonicteric sclera. Respiratory nonlabored respirations, decreased breath sounds bilateral bases otherwise no adventitious sounds Cardiovascular regular rate and rhythm, no edema Abdomen soft, nontender Neuro alert, clear speech Pertinent ROS: Shortness of breath improved, has nasal congestion that started a few hours ago Objective - Vital Signs Vital signs: Vital Signs Temp Pulse Pulse Resp BP BP Pulse Ox 07/30/19 14:10 92 07/30/19 14:00 90 07/30/19 12:35 36.2 C 75 159/89 07/30/19 12:15 76 162/83 07/30/19 12:00 36.8 C 81 77 18 154/87 146/81 98 07/30/19 11:45 80 172/85 07/30/19 11:30 74 161/88 07/30/19 11:15 78 158/102 07/30/19 11:00 83 175/93 07/30/19 10:45 79 171/97 07/30/19 10:30 80 160/92 07/30/19 10:15 80 166/98 07/30/19 10:00 80 162/88 92 07/30/19 09:45 80 166/91 07/30/19 09:30 80 172/95 07/30/19 09:15 80 155/82 07/30/19 09:00 80 145/81 07/30/19 08:45 80 146/82 07/30/19 08:35 36.2 C 80 152/78 07/30/19 07:40 36.2 C 78 20 132/64 95 07/30/19 03:20 36.2 C 76 20 132/64 93 07/29/19 23:40 36.4 C 78 24 H 136/66 95 07/29/19 22:00 79 90 07/29/19 21:10 76 90 07/29/19 20:08 91 07/29/19 19:10 36.6 C 76 16 138/68 91 07/29/19 19:02 37.0 C 75 16 172/89 93 07/29/19 19:01 75 16 172/89 93 07/29/19 18:31 75 17 163/99 91 07/29/19 18:01 79 18 145/73 93 07/29/19 17:46 78 18 143/70 92 07/29/19 17:31 79 17 152/69 94 07/29/19 17:16 77 17 151/69 92 07/29/19 17:09 81 19 145/72 90 07/29/19 17:01 79 17 152/78 92 07/29/19 16:47 80 22 148/67 91 07/29/19 16:33 80 23 H 148/71 90 07/29/19 16:16 80 21 153/69 91 07/29/19 16:01 74 16 136/63 91 07/29/19 15:54 75 21 131/63 91 07/29/19 15:45 76 19 128/64 91 07/29/19 15:33 76 134/58 Intake and Output 07/30/19 07/30/19 07/30/19 05:59 13:59 21:59 Intake Total 50 300 Output Total 4600 Balance 50 -4300 Intake: Oral 50 300 Output: Hemodialysis UF 4600 Other: Meal Breakfast Percent of Meal Consumed 100% Feeding Ability Independent # Voids 1 Intake & Output: Intake & Output 07/30/19 07/30/19 07/30/19 05:59 13:59 21:59 Intake Total 50 300 Output Total 4600 Balance 50 -4300 Intake: Oral 50 300 Output: Hemodialysis UF 4600 Other: Meal Breakfast Percent of Meal Consumed 100% Feeding Ability Independent # Voids 1 - Lab 07/30/19 05:30 07/30/19 05:30 Most recent lab results Calcium 7.7 mg/dl (8.6-10.4) L 07/30/19 05:30 Phosphorus 4.0 mg/dL (2.7-4.5) 07/30/19 05:30 Magnesium 2.3 mg/dL (1.6-2.5) 07/30/19 05:30 Assessment and Plan (1) ESRD on hemodialysis Status: Acute Priority: Medium Comment: Needs dry weight lowered to adequately treat CHF with pLVEF Cool dialysate and short acting RAASi along with holding B-kelly dose in AM before HD and cool dialysate to maximize fluid remval and minimize hypotension - Narrative A/P Narrative: ESRD on HD MWF. EDW as of 07/27/2019 was 73.5 kg. Patient seen and examined on dialysis 07/30/2019. tolerating the procedure well. No hypotension at the time of my visit, no cramps. Isolated ultrafiltration tomorrow 07/31/2019 Hemodynamics and volume He presented with shortness of breath, 07/29/2019 chest x-ray read as moderate CHF or volume overload 07/29/2019 CTA moderate congestive heart failure, no PE. Small to moderate bilateral pleural effusions resulting compressive subsegmental atelectasis both posterior lower lobes Blood pressure higher than his baseline. On metoprolol succinate 25 mg p.o. twice daily at home. 01/24/2018 echocardiogram LV normal in size, mild to moderate cLVH, LVEF 65%, unable to accurately assess RV systolic function HD with UF as tolerated, maximum 13 mils per KG per hour I will continue to challenge his dry weight and if needed adjust his blood pressure medications. We are limited by hypotension over the last few weeks. Captopril 25 mg p.o. 3 times daily ordered. Agree. Hematologic Hemoglobin 10.5. 06/2019 ferritin 765, T sat 41%, iron replete. Check H&H weekly Bone mineral metabolism Mild hypocalcemia, 7.7. Phosphorus at goal. PTH at goal in July,. On calcium acetate 667 mg p.o. 3 times daily, sevelamer 1600 mg p.o. 3 times daily. Will adjust based on phosphorus level.
[2019-07-30] MEDS: METOPROLOL TARTRATE 50 MG TABLET PO SCH (20:44)
[2019-07-30] MEDS: SENNOSIDES/DOCUSATE SODIUM 1 TAB TABLET PO SCH (20:44)
[2019-07-30] MEDS ORDERED: INSULIN GLARGINE, HUMAN 1 UNIT/0.01 ML SQ SCH (21:00)
[2019-07-31] MEDS: 0.9 % SODIUM CHLORIDE 10 ML SYRINGE IV SCH (05:51)
[2019-07-31 06:28] LABS: Hematocrit 32.7 % (40.1-51.0); Hemoglobin 11.2 g/dL (13.7-17.5); Mean Cell Volume 93.2 fL (80.0-100.0); Mean Corpuscular HGB Conc 34.3 g/dL (31.0-36.0); Mean Platelet Volume 9.2 fL (7.4-10.4); Platelet Count 351 K/mcL (140-440); RBC 3.51 M/mcL (4.63-6.08); Red Cell Distribution Width 12.9 % (11.5-14.5); WBC 10.6 K/mcL (4.50-11.00)
[2019-07-31 07:07] LABS: ALT/SGPT 13 U/l (0-40); AST/SGOT 17 U/l (0-37); Albumin/Globulin Ratio 1.1 (1.0-2.3); Alkaline Phosphatase 67 U/L (39-117); Bilirubin,Direct < 0.2 mg/dL (0.0-0.3); Bilirubin,Total 0.2 mg/dL (0.0-1.0); Calcium 8.4 mg/dl (8.6-10.4); Globulin 3.5 gm/dL (2.2-3.7); Glucose 70 mg/dL (70-105); Lactate Dehydrogenase 197 U/L (94-250); Phosphorous 3.1 mg/dL (2.7-4.5); Triglycerides 79 mg/dl (<150); Uric Acid 3.4 mg/dL (2.5-8.0)
[2019-07-31 07:08] LABS: Eosinophils % (Manual) 4 % (0-7); Lymphocytes % 29 % (15-49); Monocytes % (Manual) 6 % (1-12); Platelet Estimate NORMAL (NORMAL); RBC Morphology NORMAL (NORMAL); Segmented Neutrophils % 61 % (38-78)
[2019-07-31 07:12] LABS: Blood Urea Nitrogen 24 mg/dl (6-20); Carbon Dioxide 31 mmol/L (22-30); Chloride 90 mmol/L (96-108); Glomerular Filtration Rate 11
[2019-07-31] MEDS: INSULIN LISPRO 1 UNIT/0.01 ML UNIT SQ SCH ×2 (07:52→12:13)
[2019-07-31] MEDS: CALCIUM ACETATE 667 MG CAPSULE PO SCH ×2 (07:53→12:13)
[2019-07-31] MEDS: SEVELAMER 800 MG TABLET PO SCH ×2 (07:53→12:13)
[2019-07-31] MEDS: ASCORBIC ACID 500 MG TABLET PO SCH (07:57)
[2019-07-31] MEDS: FUROSEMIDE 100 MG/10 ML VIAL IV SCH (07:57)
[2019-07-31] MEDS: HEPARIN 5,000 UNIT/ML VIAL SQ SCH (07:57)
[2019-07-31] MEDS: DOCUSATE SODIUM 100 MG CAPSULE PO SCH (07:58)
[2019-07-31] MEDS: ATORVASTATIN 40 MG TABLET PO SCH (07:58)
[2019-07-31] MEDS: VITAMIN B COMPLEX 1 CAPSULE PO SCH (07:58)
[2019-07-31] MEDS: MULTIVIT,THER IRON,CA,FA & MIN 1 TABLET PO SCH (07:58)
[2019-07-31] MEDS: ASPIRIN 81 MG TAB.CHEW PO SCH (07:58)
[2019-07-31] MEDS: CLOPIDOGREL 75 MG TABLET PO SCH (07:58)
[2019-07-31] MEDS: CAPTOPRIL 12.5 MG TABLET PO SCH (08:54)
[2019-07-31] MEDS: METOPROLOL TARTRATE 50 MG TABLET PO SCH (08:54)
[2019-07-31] MEDS ORDERED: LEVOFLOXACIN 500 MG/100 ML BAG IV SCH (09:00)
[2019-07-31] MEDS: cefTRIAXone 2 GM in DEXTROSE 5% IN WATER 50 ML IV SCH (09:57)
[2019-07-31] MEDS: ACETAMINOPHEN 325 MG TABLET PO PRN (09:58)
--- NOTE | 2019-07-31 11:40 | Discharge Summary ---
Medical - DS: Prov Patient information: Note initiated : 07/31/19 at 11:38 am Service Date, if different from initiated Date: [] Patient: Daljit Ash 54 y/o M admitted on 07/30/19 for shortness of breath. Chief Complaint: [] Date of admission: 07/30/19 16:36 Discharge date: 07/31/19 Primary care physician: Andrey Strickland Consults: 07/29/19 Consult to Physician [CONS] Stat Comment: Consulting Provider: Mariela Briscoe Reason For Exam: Physician to Consult 07/30/19 09:13 Consult to Physician [CONS] Routine Comment: Consulting Provider: Massimo Horvath Reason For Exam: Physician to Consult Medical - DS: Meds - Discharge Medications Prescriptions: Captopril [Capoten] 25 mg PO TID #20 tab Transmission Status: Pending to [facility] Active and Home Medications: Home Medications ascorbic acid (vitamin C) 1,000 mg tablet 1,000 mg PO BID tab 08/23/14 [History Confirmed 07/29/19 Last Taken 07/29/19 10:00] pen needle, diabetic 32 gauge x /32" See Dose Instructions .ROUTE .MEDSUPPLY #200 each 07/14/17 [Rx Confirmed 03/27/19 Last Taken 07/29/19 10:00] Albuterol Sulfate [Proventil Hfa] 6.7 gm IH Q4HP PRN #1 hfa.aer.ad 09/11/17 [Rx Confirmed 07/29/19 Last Taken 05/29/19 12:00] insulin aspart U-100 100 unit/mL (3 mL) subcutaneous pen See Rx Instructions SUB-Q QAM #45 ml 06/23/18 [Rx Confirmed 07/29/19 Last Taken 07/28/19 22:00] calcium acetate(phosphat bind) 667 mg tablet 667 mg PO TID #180 tab 07/19/18 [Rx Confirmed 07/29/19 Last Taken 07/28/19 19:00] atorvastatin 40 mg tablet 40 mg PO QDAY #90 tab 07/26/18 [Rx Confirmed 07/29/19 Last Taken 07/28/19 21:00] B complex-vitamin C-folic acid 0.8 mg tablet 1 tab PO QDAY #90 tab 08/02/18 [Rx Confirmed 07/29/19 Last Taken 07/29/19 10:00] clopidogrel 75 mg tablet 75 mg PO QDAY #90 tab 08/21/18 [Rx Confirmed 07/29/19 Last Taken 07/29/19 10:00] aspirin 81 mg tablet,delayed release 81 mg PO QDAY #90 tab 08/28/18 [Rx Confirmed 07/29/19 Last Taken 07/28/19 21:00] metoprolol tartrate 50 mg tablet 25 mg PO BID tab 08/28/18 [History Confirmed 07/29/19 Last Taken 07/29/19 10:00] furosemide 40 mg tablet 40 mg PO BID #180 tab 11/16/18 [Rx Confirmed 07/29/19 Last Taken 07/29/19 10:00] hydralazine 25 mg tablet 25 mg PO BID #60 tab 02/01/19 [Rx Confirmed 07/29/19 Last Taken 07/29/19 10:00] amlodipine 10 mg tablet 10 mg PO QDAY #90 tab 02/05/19 [Rx Confirmed 07/29/19 Last Taken 07/28/19 21:00] sevelamer carbonate 800 mg tablet 1,600 mg PO TID #180 tab 03/30/19 [Rx Confirmed 07/29/19 Last Taken 07/28/19 19:00] blood-glucose meter See Rx Instructions .ROUTE .MEDSUPPLY #1 each 06/22/19 [Rx Confirmed 07/29/19 Last Taken 07/29/19 10:00] hydromorphone 4 mg tablet 4 mg PO Q6H PRN #112 tab 07/19/19 [Rx Confirmed 07/29/19 Last Taken 07/08/19 14:00] ondansetron 4 mg disintegrating tablet 4 mg TRANSLINGU Q4-6HP PRN #20 tab 07/24/19 [Rx Confirmed 07/29/19 Last Taken 07/08/19 14:00] Insulin Glargine,Hum.rec.anlog [Jensen Quick U-100] 25 unit SUBCUT QDAY 07/29/19 [History Last Taken 07/28/19 22:00] Captopril [Capoten] 25 mg PO TID #20 tab 07/31/19 [Rx Last Taken Unknown] Medical - DS: Hosp Hospital Course: Discharge diagnosis * Acute respiratory failure with hypoxia-dramatic improvement now on room air following dialysis and fluid removal. CT angiogram no evidence of PE. COVID- 19 test pending. Maintain COVID precautions until test resulted. * Basilar infiltrates-likely secondary to CHF on empiric treatment for community-acquired pneumonia. Dramatic improvement in symptoms. DC antibiotics. * ESRD on hemodialysis. * History of HTN/HLD continue home medication including statin/beta-kelly. Captopril initiated by nephrology * History of CAD managed on home dose aspirin statin, started captopril * DM type II stable on basal prandial insulin Brief hospital course Mr. Ash is a 54 year old Male with a complex past medical history including ESRD on HD, history of C-spine osteomyelitis , HTN/HLD/insulin-dependent. He follows up outpatient with nephrology Dr. Rachna Strickland. He now presents to the ER with 5-day onset of worsening exertional dyspnea and effort intolerance. He denies associated fever, shaking chills, productive phlegm, diarrhea weight loss. He denies sick contacts recent travel outside [facility]. Her symptoms are more profound on exertion. He denies any alleviating factors including dialysis if fails to improve his symptoms. He gets dialyzed Tuesday. Incidentally checked his oxygen saturation using a pulse ox at home that showed numbers in 70s. He thereafter presented to the ER for evaluation. Initial work-up was consistent with basilar infiltrates/CHF on chest imaging. CT angiogram was performed and results are pending. Hospital service was consulted for admission in light of hypoxic respiratory failure At the time evaluation patient is alert and oriented. He was able to answer most of the questions and provide history as above. He lives with his cousins and denies any recent medication changes or missed dialysis. He denies recent hospitalization or healthcare exposure. 07/29-patient doing well. Ongoing hemodialysis. Requiring 6 L oxygen. White count 9.2. On antibiotic coverage. COVID-19 test pending. No overnight fever chills. No additional concerns per nursing staff. Will review postdialysis if no improvement (CHF symptoms most likely secondary to volume overload unless superimposed on pneumonia). Complains of chronic back and neck pain 07/30-patient status post dialysis. Now on room air. Feeling a lot better. Symptoms back to baseline. Requesting discharge. Captopril as advised by nephrology 25 3 times daily while continuing outpatient hemodialysis. Detailed discharge directions below. Discharge diagnosis: . - Time Spent with Patient Total time spent providing and/or coordinating discharge services: Greater than 30 minutes Medical - DS: Exam - Constitutional Vitals: Vital Signs Temp Pulse Pulse Resp BP BP Pulse Ox 07/31/19 10:45 96.8 F L 76 150/84 07/31/19 10:30 76 156/89 07/31/19 10:15 75 158/89 07/31/19 10:00 80 138/82 07/31/19 09:45 72 151/78 07/31/19 09:30 77 136/71 07/31/19 09:15 77 158/90 07/31/19 09:00 75 165/92 07/31/19 08:45 76 154/80 07/31/19 08:30 76 166/91 07/31/19 08:15 80 144/96 07/31/19 08:00 80 163/87 07/31/19 07:45 96.2 F L 80 149/79 07/31/19 07:17 18 93 07/31/19 07:03 97.2 F 78 18 148/62 93 07/31/19 04:00 80 20 150/62 93 07/30/19 23:22 98.4 F 70 18 132/64 95 07/30/19 20:00 98.4 F 76 20 140/60 96 07/30/19 15:44 98.2 F 82 18 156/62 96 07/30/19 14:10 92 07/30/19 14:00 90 07/30/19 12:35 97.2 F 75 159/89 07/30/19 12:15 76 162/83 07/30/19 12:00 98.2 F 81 77 18 154/87 146/81 98 07/30/19 11:45 80 172/85 Intake and Output 07/30/19 07/31/19 07/31/19 21:59 05:59 13:59 Intake Total 980 200 300 Output Total 200 2700 Balance 780 200 -2400 Intake: IV 150 Rocephin 2 gm In Dextrose 5% in 50 Water 50 ml @ 100 mls/hr IV DAILY ALICE Rx#:[id number] Oral 980 200 150 Output: Void Amount 200 Hemodialysis UF 2700 Other: Meal Dinner Breakfast Percent of Meal Consumed 100% 100% Feeding Ability Independent Independent Urine Appearance Clear Urine Color Pale Urine Odor Normal Weight 159 lb 11.2 oz Medical - DS: Data Labs on day of discharge: Labs from last 24 hours 07/31/19 07/31/19 05:44 05:44 WBC 10.6 RBC 3.51 L Hgb 11.2 L Hct 32.7 L MCV 93.2 MCH 31.9 MCHC 34.3 RDW 12.9 Plt Count 351 MPV 9.2 Total Counted 100 Seg Neutrophils % 61 Band Neutrophils % Not Reportable Lymphocytes % 29 Monocytes % (Manual) 6 Eosinophils % (Manual) 4 Platelet Estimate Normal RBC Morphology Normal Sodium 135 Potassium 4.0 Chloride 90 L Carbon Dioxide 31 H Anion Gap 14.0 BUN 24 H Creatinine 5.4 H* GFR Calculation 11 Glucose 70 Uric Acid 3.4 Calcium 8.4 L Phosphorus 3.1 Magnesium 2.3 Total Bilirubin 0.2 Direct Bilirubin < 0.2 GGT 19 AST 17 ALT 13 Alkaline Phosphatase 67 Lactate Dehydrogenase 197 Total Protein 7.5 Albumin 4.0 Globulin 3.5 Albumin/Globulin Ratio 1.1 Triglycerides 79 Medical - DS: A/P - Patient/Caregiver Discharge Instructions Activity: increase activity as tolerated Diet: Renal/Consistent Carbs Additional Instructions: Follow-up PCP in 5 days Follow-up nephrology for scheduled dialysis Continue captopril as advised by nephrology 25 3 times daily I recommend primary care physician to check CBC BMP UA as a posthospital follow- up in 1 week. Continue aggressive bowel regimen to prevent constipation Continue fall precautions All meals on chair sitting upright at 90 degrees to prevent aspiration Return to ER if worsening fever chills shortness of breath, diarrhea, bleeding Continue diet and activity as advised Discussed importance of medication adherence Please review medication list with patient prior to discharge Please schedule follow-up with PCP/Providers prior to discharge and provide printouts Prescriptions: Captopril [Capoten] 25 mg PO TID #20 tab Transmission Status: Pending to [facility] - Problem Maintenance (1) Acute respiratory failure with hypoxia Status: Acute Comment: No need for acute HD tonight Suspect he will improve with agressive U/F and switch from CCB to RASSI (captopril has the advantage of short T1/2 so it can be held before dialysis to maximize fluid removal while minimizing dialysis related hypotension. - Follow up Plan Follow up with: Andrey Strickland DO [Primary Care Provider] - Disposition: Home, Self-Care Prognosis: Fair Rehab Potential: Fair I certify that the patient requires SNF services: No Overall status at discharge: patient is progressing back to baseline Medical - DS: Qual - VTE Deep Vein Thrombosis/Pulmonary Embolism Present on Admission: No
--- NOTE | 2019-07-31 20:33 | Internal Med Progress Note ---
Medical - PN: Subj Patient information: Note initiated : 07/31/19 at 8:26 pm Service Date, if different from initiated Date: [] Patient: Daljit Ash 54 y/o M admitted on 07/30/19 for shortness of breath. Chief Complaint: [] Interval history: This is a late entry for the visit on dialysis 07/31/2019. The patient was seen and examined on dialysis. He underwent isolated ultrafiltration. At the time of my visit the patient was on room air, maintaining adequate saturation, said that his symptoms have improved significantly. Denied congestion, edema. Physical exam Vital signs reviewed Head normocephalic atraumatic, nonicteric sclera Nonlabored respirations, on room air, decreased breath sounds bilateral bases, otherwise no adventitious sounds Extremities no edema clubbing or cyanosis Regular rate and rhythm, no peripheral edema - Constitutional Vitals: Vital Signs Temp Pulse Resp BP Pulse Ox 36.2 C 84 18 148/62 95 07/31/19 14:10 07/31/19 14:10 07/31/19 14:10 07/31/19 14:10 07/31/19 14:10 Period Temp Pulse Resp BP Sys/Cerda Pulse Ox Last 24 Hr 35.7 C-36.9 C 70-84 18-20 132-166/62-96 93-95 Intake and Output 07/31/19 07/31/19 07/31/19 05:59 13:59 21:59 Intake Total 200 660 Output Total 2700 Balance 200 -2040 Weight 72.439 kg Patient Weight 08/01/19 05:59 Weight 72.439 kg Intake & Output: Intake & Output 07/31/19 07/31/19 07/31/19 05:59 13:59 21:59 Intake Total 200 660 Output Total 2700 Balance 200 -2040 Weight 72.439 kg Intake: IV 150 Rocephin 2 gm In Dextrose 5% in 50 Water 50 ml @ 100 mls/hr IV DAILY ALICE Rx#:[id number] Oral 200 510 Output: Hemodialysis UF 2700 Other: Meal Lunch Percent of Meal Consumed 100% Feeding Ability Independent Medical - PN: Obj Da - Labs CBC & Chem 7: 07/31/19 05:44 07/31/19 05:44 Labs: Abnormal Lab Results 07/31/19 07/31/19 07/30/19 05:44 05:44 05:30 RBC 3.51 L Hgb 11.2 L Hct 32.7 L [place] # (Auto) Seg Neutrophils % Lymphocytes % D-Dimer Sodium 129 L Chloride 90 L 86 L Carbon Dioxide 31 H Anion Gap 19.0 H BUN 24 H 39 H Creatinine 5.4 H* 8.3 H* Glucose 164 H Calcium 8.4 L 7.7 L Troponin T NT-Pro-B Natriuret Pep 07/30/19 07/29/19 07/29/19 05:30 15:57 13:14 RBC 3.33 L Hgb 10.5 L Hct 30.8 L [place] # (Auto) Seg Neutrophils % 79 H Lymphocytes % 12 L D-Dimer Sodium Chloride Carbon Dioxide Anion Gap BUN Creatinine Glucose Calcium Troponin T 0.14 H* 0.14 H* NT-Pro-B Natriuret Pep 07/29/19 07/29/19 07/29/19 13:14 13:14 13:14 RBC 3.08 L Hgb 9.9 L Hct 28.4 L [place] # (Auto) 0.99 H Seg Neutrophils % Lymphocytes % D-Dimer 1.65 H Sodium Chloride 90 L Carbon Dioxide Anion Gap 18.0 H BUN 30 H Creatinine 7.6 H* Glucose Calcium 7.9 L Troponin T NT-Pro-B Natriuret Pep 3741.0 H Medical - PN: A/P - Time Spent With Patient Total time spent is greater than 50% in coordination of care (as documented) at patient's floor/unit and/or counseling patient: (1) ESRD on hemodialysis Problem details: Needs dry weight lowered to adequately treat CHF with pLVEF Cool dialysate and short acting RAASi along with holding B-kelly dose in AM before HD and cool dialysate to maximize fluid remval and minimize hypotension Status: Acute - Narrative A/P Narrative: ESRD on HD MWF. EDW as of 07/27/2019 was 73.5 kg. Last dialysis 07/30/2019, he tolerated procedure well. Patient seen and examined today while on the dialysis machine. This was an iso lated ultrafiltration treatment. He was tolerating the procedure well, no hypotension, no cramps. BUN/K 24/4. The patient requested to be discharged and said that he consider leaving AMA. As long as he remains hemodynamically stable and on room air, okay to discharge from renal standpoint. Continue hemodialysis per home schedule. Hemodynamics and volume He presented with shortness of breath, 07/29/2019 chest x-ray read as moderate CHF or volume overload 07/29/2019 CTA moderate congestive heart failure, no PE. Small to moderate bilateral pleural effusions resulting compressive subsegmental atelectasis both posterior lower lobes Blood pressure higher than his baseline. On metoprolol succinate 25 mg p.o. twice daily at home. 01/24/2018 echocardiogram LV normal in size, mild to moderate cLVH, LVEF 65%, unable to accurately assess RV systolic function Captopril 25 mg p.o. 3 times daily ordered. Agree. Metoprolol will be continued per prior home dose. New dry weight will be established Hematologic Hemoglobin 11.2 06/2019 ferritin 765, T sat 41%, iron replete. Check H&H weekly Bone mineral metabolism Serum calcium 8.4. Phosphorus at goal. PTH at goal in July,. On calcium acetate 667 mg p.o. 3 times daily, sevelamer 1600 mg p.o. 3 times daily. Will adjust based on phosphorus level. Medical - PN: Qual - Stroke Symptom Onset Unknown: No - VTE Deep Vein Thrombosis/Pulmonary Embolism Present on Admission: No
[2019-07-31] MEDS ORDERED: INSULIN GLARGINE, HUMAN 1 UNIT/0.01 ML SQ SCH (21:00)
== END 2019-07-31 14:05 | disposition home or self-care (01) | DRG 189 ==
LOC: ED 12:33 → MEDSUR 12:33
PROVIDERS: ADMIT Internal Medicine; ATTEND Internal Medicine

== ENCOUNTER 2019-09-17 16:46 | Inpatient (IN) ==
[2019-09-17] MEDS ORDERED: IOPAMIDOL 100 ML BOTTLE IV ONE (16:47)
--- NOTE | 2019-09-17 18:05 | XRay Report ---
INDICATION: SOB TECHNIQUE: AP portable chest x-ray COMPARISON: Previous chest x-rays dated 07/30/2019, 07/29/2019. Previous chest CT scan dated 07/29/2019 FINDINGS: Lungs:No pulmonary parenchymal consolidation. No parenchymal mass. There is probable interstitial pulmonary edema. Edema pattern is worst at the right lung base. Heart, vascular:Heart size is within normal limits and unchanged. Pulmonary vascularity is abnormal. There is upper lobe redistribution. There is interlobular septal thickening and peribronchial wall thickening. Appearance is consistent with interstitial pulmonary edema. Findings are worse since 07/30/2019 Mediastinum, gianna:No mediastinal widening. No hilar mass Pleura:Probable small pleural effusions. Skeletal:Negative. IMPRESSION: 1. Findings consistent with pulmonary edema. There is right basilar predominance. No focal parenchymal consolidation. 2. Findings are worse since 07/30/2019 Interpreted and Authenticated by: Andrey Griffin 09/17/19
[2019-09-17 18:14] LABS: Basophils # (Auto) 0.08 K/mcL (0.00-0.30); Granulocytes % (Auto) 64.3 % (38.0-78.0); Hematocrit 31.8 % (40.1-51.0); Hemoglobin 11.1 g/dL (13.7-17.5); Lymphocytes # (Auto) 1.42 K/mcL (1.50-4.80); Lymphocytes % (Auto) 17.1 % (15.5-49.0); Mean Cell Volume 89.3 fL (80.0-100.0); Mean Corpuscular HGB Conc 34.9 g/dL (31.0-36.0); Mean Platelet Volume 9.9 fL (7.4-10.4); Monocytes # (Auto) 0.96 K/mcL (0.10-0.90); Monocytes % (Auto) 11.6 % (1.0-12.0); Platelet Count 319 K/mcL (140-440); RBC 3.56 M/mcL (4.63-6.08); Red Cell Distribution Width 13.7 % (11.5-14.5); WBC 8.3 K/mcL (4.50-11.00)
[2019-09-17 18:40] LABS: ALT/SGPT 21 U/l (0-40); AST/SGOT 40 U/l (0-37); Albumin 4.3 gm/dL (3.2-5.2); Albumin/Globulin Ratio 1.2 (1.0-2.3); Alkaline Phosphatase 68 U/L (39-117); Bilirubin,Total 0.4 mg/dL (0.0-1.0); Blood Urea Nitrogen 11 mg/dl (6-20); Calcium 8.7 mg/dl (8.6-10.4); Carbon Dioxide 28 mmol/L (22-30); Globulin 3.6 gm/dL (2.2-3.7); Glomerular Filtration Rate 14; Glucose 225 mg/dL (70-105)
[2019-09-17 18:42] LABS: Chloride 87 mmol/L (96-108)
--- NOTE | 2019-09-17 20:20 | Emergency Department Note ---
SOB HPI General Chief Complaint: Shortness of Breath/Dyspnea Time Seen by Provider: 09/17/19 18:33 Source: patient Mode of arrival: ambulatory Limitations: no limitations History of Present Illness HPI Narrative: Narrative: Acute shortness of breath 30 minutes prior to coming. He reports a saturation of 60% at home. Onset of his symptoms were while he was sitting or laying down, not being active. No associated nausea or sweatiness specifically. He did apply some oxygen, his father's, which seemed to bring his saturations up to 72% which prompted him being brought here by private car. He came driven by his brother. He had dialysis earlier this morning. 1 month ago similar episode that was improved with further dialysis. He has a fistula in the left arm. He arrives with 15 L nonrebreather being placed immediately upon him. He denies chest pain. He has a little tickle in the back of his throat. He does produce urine. 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 He is on clopidogrel only. He produces a little bit of urine but he does also take furosemide. He recently was started on a new blood pressure medication. He has not missed any doses of his medications that he knows of. He denies chest pain. Related Data Home Medications Medication Instructions Recorded Confirmed ascorbic acid (vitamin C) 1,000 mg 1,000 mg PO BID tab 08/23/14 09/17/19 tablet metoprolol tartrate 50 mg tablet 25 mg PO BID tab 08/28/18 09/17/19 Previous Rx's Medication Instructions Recorded pen needle, diabetic 32 gauge x #200 each 07/14/17" insulin aspart U-100 100 unit/mL See Rx Instructions SUB-Q QAM #45 06/23/18 (3 mL) subcutaneous pen ml calcium acetate(phosphat bind) 667 667 mg PO TID #180 tab 07/19/18 mg tablet clopidogrel 75 mg tablet 75 mg PO QDAY #90 tab 08/21/18 aspirin 81 mg tablet,delayed 81 mg PO QDAY #90 tab 08/28/18 release furosemide 40 mg tablet 40 mg PO BID #180 tab 11/16/18 hydralazine 25 mg tablet 25 mg PO BID #60 tab 02/01/19 amlodipine 10 mg tablet 10 mg PO QDAY #90 tab 02/05/19 blood-glucose meter #1 each 06/22/19 ondansetron 4 mg disintegrating 4 mg TRANSLINGU Q4-6HP PRN #20 tab 07/24/19 tablet captopril 12.5 mg tablet 25 mg PO TID #90 tab 08/09/19 atorvastatin 40 mg tablet 40 mg PO QDAY #90 tab 08/16/19 hydromorphone 4 mg tablet 4 mg PO Q6H PRN #112 tab 08/22/19 sevelamer carbonate 800 mg tablet 1,600 mg PO TID #180 tab 08/24/19 insulin glargine 100 unit/mL (3 25 unit SUBCUT QDAY #15 ml 08/27/19 mL) subcutaneous pen albuterol sulfate 90 mcg/actuation 2 puff INHALATION Q8H PRN #8.5 g 08/29/19 aerosol inhaler B complex-vitamin C-folic acid 0.8 1 tab PO QDAY #90 tab 09/17/19 mg tablet Allergies Allergy/AdvReac Type Severity Reaction Status Date / Time codeine AdvReac Mild Vomiting Verified 08/03/19 11:15 hydrocodone [HYDROCODONE] AdvReac Mild Vomiting Verified 08/03/19 11:15 Review of Systems ROS ROS Narrative: Narrative: Patient denies chest pain, fever chills sweats, nausea vomiting, abdominal pain, diarrhea, dysuria. No lightheadedness or dizziness except with this evening. He takes atorvastatin for high cholesterol. [facility] Narrative Patient History Narrative: Narrative: Medical/Surgical/Family History All Active Problems (Updated 09/17/19 @ 21:48 by Ren Tucker DO) Flash pulmonary edema (Acute) Hypoxia (Acute) Pulmonary edema (Acute) Acute respiratory failure with hypoxia (Acute) Community acquired pneumonia (Acute) Hypoxia (Acute) ESRD on hemodialysis (Acute) Anemia due to stage 5 chronic kidney disease treated with darbepoetin (Acute) Acute on chronic diastolic CHF (congestive heart failure), NYHA class 2 (Acute) Nausea & vomiting (Acute) CRF (chronic renal failure) (Acute) Diabetes mellitus type 1 with complications (Acute) Hyperkalemia, diminished renal excretion (Acute) DKA (diabetic ketoacidosis) (Acute) Dressing change (Acute) Arm pain, left (Acute) Discitis (Acute) Nausea (Acute) Cough (Acute) Muscle twitching (Acute) Word finding difficulty (Acute) Medication side effect (Acute) ESRD (end stage renal disease) (Acute) Confusion (Acute) Cellulitis of great toe, left (Acute) Cellulitis of finger of left hand (Acute) Knee contusion (Acute) Abscess (Acute) Status post insertion of dialysis catheter (Acute) Shortness of breath (Acute) Cluster headache syndrome, intractable (Acute) Chronic kidney disease, stage V (Chronic) Injury of Foot (Acute) Back pain at L4-L5 level (Chronic) Arteriovenous fistula for hemodialysis in place, primary (Chronic) Secondary hyperparathyroidism of renal origin (Chronic) Proteinuria (Chronic 12/06/12) Pes planus (Chronic) nursing home current use of insulin (Chronic) 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) Hypertensive renal disease (Chronic) Hyperlipidemia (Chronic) Gastroesophageal reflux (Chronic 07/01/14) Essential hypertension (Chronic 12/06/12) End stage renal disease (Chronic) Diabetes mellitus type 1, uncontrolled (Chronic) Chronic kidney disease, stage V (Chronic 04/29/13) Anemia in chronic kidney disease (Chronic) Acidosis, metabolic (Chronic 12/06/12) Medical History (Updated 09/17/19 @ 21:48 by Ren Tucker DO) Acidosis, metabolic (Chronic 12/06/12) of CKD Acute appendicitis (Inactive) Anemia in chronic kidney disease (Chronic) Appendicitis (Inactive) Back pain at L4-L5 level (Chronic) Chronic kidney disease, stage V (Chronic 04/29/13) Diabetes mellitus type 1, uncontrolled (Chronic) unable to afford brand insulin End stage renal disease (Chronic) Essential hypertension (Chronic 12/06/12) Foot pain (Inactive 07/01/14) Gastroesophageal reflux (Chronic 07/01/14) Pantoprazole not covered by insurance, switch to nexium based on the formulary of the EMR History of tobacco abuse (Inactive) Hyperlipidemia (Chronic) on fenofibrate and atorvastatin, tg and ldl at goal Hypertensive renal disease (Chronic) 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 Remarkable improvement in 24 hours. Continue Levaquin/Augmentin for additional 6 days to cover for nosocomial organism including Pseudomonas nd aspiration coverage 2. other prior medical issues were managed on home meds including ESRD on HD CAD on aspirin Hypertension on amlodipine/Metoprolol glaucoma on latanoprost/timolol Hyperlipidemia on statin DM type II on home dose insulin NPH Pes planus (Chronic) Pneumonia (Inactive) Proteinuria (Chronic 12/06/12) Rash (Inactive) due to levofloxacin, trial of 3 days prednisone. Secondary hyperparathyroidism of renal origin (Chronic) Surgical History Arteriovenous fistula for hemodialysis in place, primary (Chronic) 10/29/2013 Creation of a right radiocephalic AV fistula History of angioplasty (Chronic 11/03/16) and fistulogram 01/16/19 History of bone marrow biopsy (Inactive) 03/30/2013 History of colonoscopy (Chronic 06/18/15) History of laser photocoagulation of retina (Inactive) History of shoulder surgery (Inactive) 2013 bicep reattachment-right shoulder-Dr. Garcia Family History Father Coronary artery disease Diabetes mellitus NOS Essential hypertension Mother Diabetes mellitus NOS Social History Smoking Status: Current every day smoker Alcohol Intake Frequency: does not drink Substance Use: does not use Exam Narrative Narrative: Narrative: General Limitations: no limitations General appearance: alert, in distress (Some mild struggling to breathe.), nontoxic and other (Initially requiring 15 L/min nonrebreather.) Head Head: atraumatic and normocephalic Eye Eye: Present normal appearance and EOMI; Absent PERRL (Right eye slightly deviated upward and outward.) Neck Neck: Present trachea midline; Absent lymphadenopathy and thyromegaly Chest Chest: Present symmetric chest wall rise Respiratory Respiratory: Present rales/crackles (Bilateral bases and up almost 1/2.); Absent respiratory distress, wheezes, stridor, accessory muscle use and prolonged expiratory phase Cardiovascular Cardiovascular: Present regular rate and normal rhythm; Absent systolic murmur and diastolic murmur Adbominal Abdominal: Present soft; Absent distention, tenderness, guarding, rebound, rigidity, organomegaly and mass Extremities Extremities: Present normal capillary refill; Absent pedal edema, pretibial edema, calf tenderness and cyanosis Back Back: Absent CVA tenderness (R), CVA tenderness (L) and spinous process tenderness Neurological Neurological: Present alert and oriented X3 Psychiatric Psychiatric: Present normal affect, serious, polite and pleasant; Absent depressed, agitated, anxious and poor eye contact Skin Skin: Present warm and dry; Absent cyanosis and pallor Course Vital Signs Vital signs: Vital Signs Temperature 99.1 F H 09/17/19 16:50 Pulse Rate 87 09/17/19 16:50 Respiratory Rate 32 H 09/17/19 16:50 Blood Pressure 157/73 09/17/19 16:50 Pulse Oximetry (%) 60 L 09/17/19 16:50 Temperature 99.1 F H 09/17/19 16:50 Pulse Rate 73 09/17/19 21:46 Respiratory Rate 16 09/17/19 21:46 Blood Pressure 136/69 09/17/19 21:46 Pulse Oximetry (%) 92 09/17/19 21:46 MDM MDM Narrative Medical decision making narrative: Narrative: 4:53 PM - acute onset shortness of breath. Rule out ACS, PE, likely similar to past flash pulmonary edema. Patient is a dialysis patient. White count normal. Similar anemia. Mild electrolyte imbalance with 132 sodium and potassium 3.1. Creatinine 4.4. Saturations hovering around 90% but patient gradually improves and requires less oxygen. His troponin is 0.2. 7:57 PM - spoke with Dr. Briscoe who reviewed his labs and chest x-ray. She asks about his vitals. She believes he can be dialyzed tonight. She okays going ahead with a CTA given his d-dimer of 2.5. 8:17 PM I spoke with radiology regarding he does have pulmonary edema as an explanation for his shortness of breath and a similar presentation but with the elevated d-dimer we are choosing to go ahead with the CT Rosa of the chest. CT angio of the chest is negative. 9:28 PM - oxygen has been weaned down to 7 L via oxygen mask. His end-tidal CO2 is running in the low to mid 30s. He is saturating around 90 to 93% and much more comfortable. 9:35 PM - spoke with Dr. Cheney, who is willing to accept this patient. He recommends going ahead with putting him on BiPAP and he will write admitting orders. Admitting diagnosis flash pulmonary edema, hypoxia, respiratory failure. Lab Data Result diagrams: 09/17/19 17:06 09/17/19 17:06 Labs: Lab Results 09/17/19 09/17/19 09/17/19 Range/Units 17:06 17:06 17:06 WBC 8.3 (4.50-11.00) K/mcL RBC 3.56 L (4.63-6.08) M/mcL Hgb 11.1 L (13.7-17.5) g/dL Hct 31.8 L (40.1-51.0) % MCV 89.3 (80.0-100.0) fL MCH 31.2 (26.0-34.0) pg MCHC 34.9 (31.0-36.0) g/dL RDW 13.7 (11.5-14.5) % Plt Count 319 (140-440) K/mcL MPV 9.9 (7.4-10.4) fL Gran % 64.3 (38.0-78.0) % Lymph % (Auto) 17.1 (15.5-49.0) % [place] % (Auto) 11.6 (1.0-12.0) % Eos % (Auto) 6.0 (0.0-7.0) % Baso % (Auto) 1.0 (0.0-2.0) % Gran # 5.33 (1.80-8.00) K/mcL Lymph # (Auto) 1.42 L (1.50-4.80) K/mcL [place] # (Auto) 0.96 H (0.10-0.90) K/mcL Eos # (Auto) 0.50 (0.00-0.70) K/mcL Baso # (Auto) 0.08 (0.00-0.30) K/mcL D-Dimer 2.50 H (0.00-0.40) ug/ml Sodium 132 L (133-145) mmol/L Potassium 3.1 L (3.3-5.1) mmol/L Chloride 87 L (96-108) mmol/L Carbon Dioxide 28 (22-30) mmol/L Anion Gap 17.0 H (8-16) BUN 11 (6-20) mg/dl Creatinine 4.4 H (0.7-1.2) mg/dl GFR Calculation 14 Glucose 225 H (70-105) mg/dL Calcium 8.7 (8.6-10.4) mg/dl Total Bilirubin 0.4 (0.0-1.0) mg/dL AST 40 H (0-37) U/l ALT 21 (0-40) U/l Alkaline Phosphatase 68 (39-117) U/L Troponin T (0-0.03) ng/ml NT-Pro-B Natriuret Pep 3391.0 H (0-125) pg/ml Total Protein 7.9 (5.9-8.4) gm/dL Albumin 4.3 (3.2-5.2) gm/dL Globulin 3.6 (2.2-3.7) gm/dL Albumin/Globulin Ratio 1.2 (1.0-2.3) 09/17/19 Range/Units 17:06 WBC (4.50-11.00) K/mcL RBC (4.63-6.08) M/mcL Hgb (13.7-17.5) g/dL Hct (40.1-51.0) % MCV (80.0-100.0) fL MCH (26.0-34.0) pg MCHC (31.0-36.0) g/dL RDW (11.5-14.5) % Plt Count (140-440) K/mcL MPV (7.4-10.4) fL Gran % (38.0-78.0) % Lymph % (Auto) (15.5-49.0) % [place] % (Auto) (1.0-12.0) % Eos % (Auto) (0.0-7.0) % Baso % (Auto) (0.0-2.0) % Gran # (1.80-8.00) K/mcL Lymph # (Auto) (1.50-4.80) K/mcL [place] # (Auto) (0.10-0.90) K/mcL Eos # (Auto) (0.00-0.70) K/mcL Baso # (Auto) (0.00-0.30) K/mcL D-Dimer (0.00-0.40) ug/ml Sodium (133-145) mmol/L Potassium (3.3-5.1) mmol/L Chloride (96-108) mmol/L Carbon Dioxide (22-30) mmol/L Anion Gap (8-16) BUN (6-20) mg/dl Creatinine (0.7-1.2) mg/dl GFR Calculation Glucose (70-105) mg/dL Calcium (8.6-10.4) mg/dl Total Bilirubin (0.0-1.0) mg/dL AST (0-37) U/l ALT (0-40) U/l Alkaline Phosphatase (39-117) U/L Troponin T 0.20 H* (0-0.03) ng/ml NT-Pro-B Natriuret Pep (0-125) pg/ml Total Protein (5.9-8.4) gm/dL Albumin (3.2-5.2) gm/dL Globulin (2.2-3.7) gm/dL Albumin/Globulin Ratio (1.0-2.3) Discharge Plan Patient/Caregiver Discharge Instructions Pt seen by END TRIMMER/PA only: No Clinical Impression: Flash pulmonary edema, Hypoxia, Chronic kidney disease, stage V Patient Disposition: Xfer As Inpt ([facility]) Follow up with: Andrey Strickland DO [Primary Care Provider] - Prescriptions: No Action Novolog Flexpen U-100 Insulin 100 unit/mL insulin pen See Rx Instructions SUB-Q QAM Qty: 45 RF: 5 Hold Instructions: Order Change calcium acetate(phosphat bind) 667 mg tablet 667 mg PO TID Qty: 180 RF: 6 clopidogrel 75 mg tablet 75 mg PO QDAY Qty: 90 RF: 3 furosemide 40 mg tablet 40 mg PO BID Qty: 180 RF: 3 amlodipine 10 mg tablet 10 mg PO QDAY Qty: 90 RF: 3 insulin lispro [Humalog KwikPen Insulin] 100 unit/mL insulin pen 1 unit subcut DAILY RF: 0 (DME) blood-glucose meter Misc See Rx Instructions .ROUTE .MEDSUPPLY Qty: 1 RF: 0 ondansetron 4 mg tablet,disintegrating 4 mg TRANSLINGU Q4-6HP PRN (Reason: Nausea) Qty: 20 RF: 0 captopril 12.5 mg tablet 25 mg PO TID Qty: 90 RF: 1 atorvastatin 40 mg tablet 40 mg PO QDAY Qty: 90 RF: 1 hydromorphone 4 mg tablet 4 mg PO Q6H PRN (Reason: pain) Qty: 112 RF: 0 sevelamer carbonate [Renvela] 800 mg tablet 1,600 mg PO TID Qty: 180 RF: 6 insulin glargine 100 unit/mL (3 mL) insulin pen 25 unit subcut QDAY Qty: 15 RF: 3 albuterol sulfate 90 mcg/actuation HFA aerosol inhaler 2 puff INHALATION Q8H PRN (Reason: shortness of breath or wheezing) Qty: 8.5 RF: 0 Nephro-Adeel 0.8 mg tablet 1 tab PO QDAY Qty: 90 RF: 3 aspirin [Adult Aspirin Regimen] 81 mg tablet,delayed release (DR/EC) 81 mg PO QDAY Qty: 90 RF: 0 metoprolol tartrate 50 mg tablet 25 mg PO BID RF: 0 hydralazine 25 mg tablet 25 mg PO BID Qty: 60 RF: 3 (DME) pen needle, diabetic [BD Ultra-Fine Marcy Pen Needle] 32 gauge x 5/32" needle See Dose Instructions .ROUTE .MEDSUPPLY Qty: 200 RF: 4 ascorbic acid (vitamin C) 1,000 mg tablet 1,000 mg PO BID RF: 0
--- NOTE | 2019-09-17 20:54 | Cat Scan Report ---
INDICATION: shortness of breathe . History of renal failure and congestive heart failure COMPARISON: Previous pulmonary CTA dated 07/29/2019. Previous chest x-rays dated 09/17/2019 and 07/30/2019 TECHNIQUE: Axial images obtained through the chest. 80ml Isovue 370 injected intravenously, and scanning was performed during pulmonary arterial phase. Sagittally and coronally reformatted images were obtained. MIP reformatted images. FINDINGS: Lungs:Chest x-ray demonstrates abnormal lungs consistent with interstitial pulmonary edema. CT scan demonstrates interlobular septal thickening. There is peribronchial cuffing. There is bilateral lower lobe parenchymal infiltrate which is most consistent with dependent atelectasis. Overall appearance is essentially unchanged since 07/29/2019. There is no discrete pulmonary parenchymal mass Mediastinum, vascular:Main pulmonary artery, right pulmonary artery, left pulmonary artery are negative. No intraluminal filling defects. No lobar, segmental, or subsegmental emboli. There is no reflux of contrast material into the inferior vena cava. No evidence for right heart strain. Main pulmonary artery measures 3.4 cm in diameter. This is enlarged but unchanged Thoracic aorta is negative. No aneurysmal dilatation No pathologic mediastinal or hilar adenopathy Heart:There is mild cardiomegaly, unchanged. There is mild pericardial effusion. This measures approximately 10 mm maximally. This is slightly larger than on previous examination. There is extensive coronary artery calcification, unchanged Pleura:Bilateral pleural effusions. Small to moderate pleural effusion on the right. Small left pleural effusion. Findings are unchanged since 07/29/2019 Axilla, supraclavicular regions, chest wall:No pathologic axillary or supraclavicular adenopathy. Musculoskeletal:Negative thoracic spine. No compression fracture. No lytic lesion. No rib or sternal lesions Upper Abdomen:No acute abnormality. No significant interval change. There is no significant ascites. There are multiple small low density abnormalities in the left kidney. Findings are probably small cysts and appear unchanged. Right kidney is not well visualized IMPRESSION: 1. Negative pulmonary CTA. No pulmonary embolism. Main pulmonary artery is dilated, unchanged 2. Findings consistent with bilateral pulmonary edema, unchanged 3. Bilateral lower lobe pulmonary parenchymal density consistent with compressive atelectasis 4. Bilateral pleural effusions, right greater than left. Appearance is unchanged 5. Small pericardial effusion, slightly increased 6. Severe coronary artery calcification The exam was performed using radiation dose optimization techniques including, but not limited to, automated exposure control, adjustment of the mA and/or kV according to patient size and use of iterative reconstruction technique. Interpreted and Authenticated by: Andrey Griffin 09/17/19
[2019-09-17] MEDS ORDERED: POLYETHYLENE GLYCOL 3350 17 GM PACKET PO PRN (21:47)
[2019-09-17] MEDS ORDERED: BISACODYL 10 MG SUPP.RECT PR PRN (21:47)
[2019-09-17] MEDS ORDERED: ONDANSETRON 4 MG/2 ML VIAL IV PRN (21:47)
[2019-09-17] MEDS ORDERED: ONDANSETRON 4 MG ODT TABLET SL PRN (21:47)
[2019-09-17] MEDS ORDERED: ACETAMINOPHEN 325 MG TABLET PO PRN (21:47)
[2019-09-17] MEDS ORDERED: guaiFENesin/CODEINE 10 ML UDC PO PRN (21:47)
[2019-09-17] MEDS ORDERED: MELATONIN 3 MG TABLET PO PRN (21:47)
[2019-09-17] MEDS ORDERED: HYDROMORPHONE 4 MG PO PRN (21:58)
[2019-09-17] MEDS ORDERED: ONDANSETRON (PP) 4 MG TABLET PO PRN (21:58)
[2019-09-17] MEDS ORDERED: ALBUTEROL SULFATE 200 PUFF INHALER INH PRN (21:58)
--- NOTE | 2019-09-17 22:01 | Internal Med History&Physical ---
HPI History of Present Illness Patient information: Note initiated : 09/17/19 at 10:00 pm Service Date, if different from initiated Date: [] Patient: Daljit Ash a 54 y/o M admitted on for Shortness of breath. Chief Complaint: [] History of present illness: Mr. Ash is a 54 year old M with a history of ESRD on HD/C-spine osteomyelitis/HTN/HLD/insulin-dependent diabetes following with Dr. Strickland and Dr. Fontana as outpatient. He presents following hemodialysis today with acute onset worsening shortness of breath/profound hypoxia with sats down to 60%. Initial work-up was consistent with severe hypoxic respiratory failure with blood gases on 15 L oxygen mask non-breather PaO2 70. Patient was started on BiPAP/nephrology was consulted as imaging was suggestive of flash pulmonary edema. Subsequently hospitalist service was consulted At the time evaluation patient is very short of breath unable to talk in full sentences. He was started on BiPAP. He denies excessive salt intake/NSAID intake or consuming excess fluids. He denies chest pain, diaphoresis, palpitation He further denies fever/chills/sick contacts Review of systems A 10 point review system was performed and is negative except for ones discussed above [facility] Medical History (Updated 09/17/19 @ 21:48 by Ren Tucker DO) Acidosis, metabolic (Chronic 12/06/12) of CKD Acute appendicitis (Inactive) Anemia in chronic kidney disease (Chronic) Appendicitis (Inactive) Back pain at L4-L5 level (Chronic) Chronic kidney disease, stage V (Chronic 04/29/13) Diabetes mellitus type 1, uncontrolled (Chronic) unable to afford brand insulin End stage renal disease (Chronic) Essential hypertension (Chronic 12/06/12) Foot pain (Inactive 07/01/14) Gastroesophageal reflux (Chronic 07/01/14) Pantoprazole not covered by insurance, switch to nexium based on the formulary of the EMR History of tobacco abuse (Inactive) Hyperlipidemia (Chronic) on fenofibrate and atorvastatin, tg and ldl at goal Hypertensive renal disease (Chronic) 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 Remarkable improvement in 24 hours. Continue Levaquin/Augmentin for additional 6 days to cover for nosocomial organism including Pseudomonas nd aspiration coverage 2. other prior medical issues were managed on home meds including ESRD on HD CAD on aspirin Hypertension on amlodipine/Metoprolol glaucoma on latanoprost/timolol Hyperlipidemia on statin DM type II on home dose insulin NPH Pes planus (Chronic) Pneumonia (Inactive) Proteinuria (Chronic 12/06/12) Rash (Inactive) due to levofloxacin, trial of 3 days prednisone. Secondary hyperparathyroidism of renal origin (Chronic) Surgical History Arteriovenous fistula for hemodialysis in place, primary (Chronic) 10/29/2013 Creation of a right radiocephalic AV fistula History of angioplasty (Chronic 11/03/16) and fistulogram 01/16/19 History of bone marrow biopsy (Inactive) 03/30/2013 History of colonoscopy (Chronic 06/18/15) History of laser photocoagulation of retina (Inactive) History of shoulder surgery (Inactive) 2013 bicep reattachment-right shoulder-Dr. 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[employer] other: smoked 32 years smoking status: Current every day smoker tobacco type: cigarettes per day: 1 pack-years: 25 smoking status stop date: 09/11/14 alcohol intake frequency: does not drink substance use type: does not use MEDS/ALLERGIES Home Medications and Allergies Home Medications Medication Instructions Recorded Confirmed Type ascorbic acid (vitamin C) 1,000 mg 1,000 mg PO BID tab 08/23/14 09/17/19 Hi story tablet pen needle, diabetic 32 gauge x #200 each 07/14/17 09/17/19 Rx " insulin aspart U-100 100 unit/mL See Rx Instructions SUB-Q QAM #45 06/23/18 09/17/19 Rx (3 mL) subcutaneous pen ml calcium acetate(phosphat bind) 667 667 mg PO TID #180 tab 07/19/18 09/17/19 Rx mg tablet clopidogrel 75 mg tablet 75 mg PO QDAY #90 tab 08/21/18 09/17/19 Rx aspirin 81 mg tablet,delayed 81 mg PO QDAY #90 tab 08/28/18 09/17/19 Rx release metoprolol tartrate 50 mg tablet 25 mg PO BID tab 08/28/18 09/17/19 History furosemide 40 mg tablet 40 mg PO BID #180 tab 11/16/18 09/17/19 Rx hydralazine 25 mg tablet 25 mg PO BID #60 tab 02/01/19 09/17/19 Rx amlodipine 10 mg tablet 10 mg PO QDAY #90 tab 02/05/19 09/17/19 Rx blood-glucose meter #1 each 06/22/19 09/17/19 Rx ondansetron 4 mg disintegrating 4 mg TRANSLINGU Q4-6HP PRN #20 tab 07/24/19 09/17/19 Rx tablet captopril 12.5 mg tablet 25 mg PO TID #90 tab 08/09/19 09/17/19 Rx atorvastatin 40 mg tablet 40 mg PO QDAY #90 tab 08/16/19 09/17/19 Rx hydromorphone 4 mg tablet 4 mg PO Q6H PRN #112 tab 08/22/19 09/17/19 Rx sevelamer carbonate 800 mg tablet 1,600 mg PO TID #180 tab 08/24/19 09/17/19 Rx insulin glargine 100 unit/mL (3 25 unit SUBCUT QDAY #15 ml 08/27/19 09/17/19 Rx mL) subcutaneous pen albuterol sulfate 90 mcg/actuation 2 puff INHALATION Q8H PRN #8.5 g 08/29/19 09/17/19 Rx aerosol inhaler B complex-vitamin C-folic acid 0.8 1 tab PO QDAY #90 tab 09/17/19 09/17/19 Rx mg tablet Allergies Allergy/AdvReac Type Severity Reaction Status Date / Time codeine AdvReac Mild Vomiting Verified 08/03/19 11:15 hydrocodone [HYDROCODONE] AdvReac Mild Vomiting Verified 08/03/19 11:15 EXAM Constitutional Vitals: Temp Pulse Resp BP Pulse Ox 99.1 F H 73 16 136/69 92 09/17/19 16:50 09/17/19 21:46 09/17/19 21:46 09/17/19 21:46 09/17/19 21:46 Alert oriented but very anxious and labored Head normocephalic Oral cavity dry, BiPAP mask in place No ear nose discharge Neck no lymphadenopathy S1-S2 occasionally irregular Diminished breath sounds with crackles Soft nontender Left lower extremity no cyanosis clubbing Skin no suspicious lesion Psych alert but anxious Neuro nonfocal DATA Data Completed and Pending Labs on day of discharge: Labs from last 24 hours 09/17/19 09/17/19 09/17/19 17:06 17:06 17:06 WBC RBC Hgb Hct MCV MCH MCHC RDW Plt Count MPV Gran % Lymph % (Auto) [place] % (Auto) Eos % (Auto) Baso % (Auto) Gran # Lymph # (Auto) [place] # (Auto) Eos # (Auto) Baso # (Auto) D-Dimer 2.50 H Sodium 132 L Potassium 3.1 L Chloride 87 L Carbon Dioxide 28 Anion Gap 17.0 H BUN 11 Creatinine 4.4 H GFR Calculation 14 Glucose 225 H Calcium 8.7 Total Bilirubin 0.4 AST 40 H ALT 21 Alkaline Phosphatase 68 Troponin T 0.20 H* NT-Pro-B Natriuret Pep 3391.0 H Total Protein 7.9 Albumin 4.3 Globulin 3.6 Albumin/Globulin Ratio 1.2 09/17/19 17:06 WBC 8.3 RBC 3.56 L Hgb 11.1 L Hct 31.8 L MCV 89.3 MCH 31.2 MCHC 34.9 RDW 13.7 Plt Count 319 MPV 9.9 Gran % 64.3 Lymph % (Auto) 17.1 [place] % (Auto) 11.6 Eos % (Auto) 6.0 Baso % (Auto) 1.0 Gran # 5.33 Lymph # (Auto) 1.42 L [place] # (Auto) 0.96 H Eos # (Auto) 0.50 Baso # (Auto) 0.08 D-Dimer Sodium Potassium Chloride Carbon Dioxide Anion Gap BUN Creatinine GFR Calculation Glucose Calcium Total Bilirubin AST ALT Alkaline Phosphatase Troponin T NT-Pro-B Natriuret Pep Total Protein Albumin Globulin Albumin/Globulin Ratio A/P Time Spent With Patient Time: * Flash pulmonary edema-emergent nephrology consult for hemodialysis. Initiate BiPAP/admit to ICU * Hypoxic respiratory failure with PO2 60% and large AA gradient on 15 days oxygen. Initiate noninvasive ventilation. Chest imaging consistent with pulmonary edema * CHF/Volume overload- HD per nephrology * History of HTN/HLD continue home medication including statin/beta-kelly * History of CAD continue aspirin statin * DM type II continue basal prandial insulin * DVT prophylaxis start heparin * Full code Plan * Inpatient ICU admission * Noninvasive mechanical ventilation * Pre-existing medical condition management on home meds * ESRD management per nephrology Total time spent is greater than 50% in coordination of care (as documented) at patient's floor/unit and/or counseling patient: Time spent on history and physical 70 minutes Additional 35 minutes critical care time spent on management of hypoxic respiratory failure/flash pulmonary edema and noninvasive ventilation management
[2019-09-17] MEDS: 0.9 % SODIUM CHLORIDE 10 ML SYRINGE IV SCH (23:08)
[2019-09-17] MEDS ORDERED: INSULIN GLARGINE, HUMAN 1 UNIT/0.01 ML SQ ONE (23:09)
[2019-09-18] MEDS: 0.9 % SODIUM CHLORIDE 10 ML SYRINGE IV SCH (05:35)
[2019-09-18 06:15] LABS: Hematocrit 31.1 % (40.1-51.0); Hemoglobin 10.5 g/dL (13.7-17.5); Mean Cell Volume 91.5 fL (80.0-100.0); Mean Corpuscular HGB Conc 33.8 g/dL (31.0-36.0); Mean Platelet Volume 9.9 fL (7.4-10.4); Platelet Count 286 K/mcL (140-440); Red Cell Distribution Width 13.7 % (11.5-14.5); WBC 7.8 K/mcL (4.50-11.00)
[2019-09-18 06:42] LABS: Bilirubin,Direct < 0.2 mg/dL (0.0-0.3)
[2019-09-18 06:51] LABS: ALT/SGPT 18 U/l (0-40); AST/SGOT 29 U/l (0-37); Albumin 3.8 gm/dL (3.2-5.2); Albumin/Globulin Ratio 1.2 (1.0-2.3); Alkaline Phosphatase 64 U/L (39-117); Bilirubin,Total 0.4 mg/dL (0.0-1.0); Blood Urea Nitrogen 17 mg/dl (6-20); Calcium 8.2 mg/dl (8.6-10.4); Carbon Dioxide 29 mmol/L (22-30); Chloride 90 mmol/L (96-108); Globulin 3.3 gm/dL (2.2-3.7); Glomerular Filtration Rate 12; Glucose 138 mg/dL (70-105); Lactate Dehydrogenase 229 U/L (94-250); Triglycerides 68 mg/dl (<150); Uric Acid 3.1 mg/dL (2.5-8.0)
[2019-09-18 06:57] LABS: Basophils % (Manual) 2 % (0-2); Eosinophils % (Manual) 5 % (0-7); Lymphocytes % 22 % (15-49); Monocytes % (Manual) 9 % (1-12); Platelet Estimate NORMAL (NORMAL); RBC Morphology NORMAL (NORMAL); Segmented Neutrophils % 62 % (38-78)
[2019-09-18] MEDS ORDERED: ALBUTEROL SULFATE 200 PUFF INHALER INH PRN (07:30)
[2019-09-18] MEDS ORDERED: HYDROmorphone 2 MG TABLET PO PRN (07:30)
[2019-09-18] MEDS ORDERED: CALCIUM ACETATE 667 MG CAPSULE PO SCH (08:00)
[2019-09-18] MEDS ORDERED: ASCORBIC ACID 500 MG TABLET PO SCH (09:00)
[2019-09-18] MEDS ORDERED: DOCUSATE SODIUM 100 MG CAPSULE PO SCH (09:00)
[2019-09-18] MEDS ORDERED: MULTIVIT,THER IRON,CA,FA & MIN 1 TABLET PO SCH (09:00)
[2019-09-18] MEDS ORDERED: amLODIPine 10 MG TABLET PO SCH (09:00)
[2019-09-18] MEDS ORDERED: SEVELAMER 800 MG TABLET PO SCH (09:00)
[2019-09-18] MEDS ORDERED: hydrALAZINE 25 MG TABLET PO SCH (09:00)
[2019-09-18] MEDS ORDERED: HEPARIN 5,000 UNIT/ML VIAL SQ SCH (09:00)
[2019-09-18] MEDS ORDERED: ASPIRIN 81 MG TAB.CHEW PO SCH (09:00)
[2019-09-18] MEDS ORDERED: FOLIC ACID/VITAMIN B COMP W-C 1 TAB TABLET PO SCH (09:00)
[2019-09-18] MEDS ORDERED: ATORVASTATIN 40 MG TABLET PO SCH (09:00)
[2019-09-18] MEDS ORDERED: FUROSEMIDE 40 MG TABLET PO SCH (09:00)
[2019-09-18] MEDS ORDERED: INSULIN GLARGINE 25 UNIT SUB-Q SCH (09:00)
[2019-09-18] MEDS ORDERED: CLOPIDOGREL 75 MG TABLET PO SCH (09:00)
[2019-09-18] MEDS ORDERED: NON FORMULARY MEDICATION 1 DOSE MISCELL (Insulin Aspart U-100 [Novolog Flexpen U-100 Insul SUB-Q SCH (09:00)
[2019-09-18] MEDS ORDERED: METOPROLOL TARTRATE 50 MG TABLET PO SCH (09:00)
[2019-09-18] MEDS ORDERED: CAPTOPRIL 12.5 MG TABLET PO SCH (09:00)
--- NOTE | 2019-09-18 10:02 | Discharge Summary ---
Discharge Provider Provider Patient information: Note initiated : 09/18/19 at 9:56 am Service Date, if different from initiated Date: [] Patient: Daljit Ash 54 y/o M admitted on 09/17/19 for Shortness of breath. Chief Complaint: Shortness of breath Date of admission: 09/17/19 22:10 Discharge date: 09/18/19 Primary care physician: Andrey Strickland Consults: 09/17/19 Consult to Physician [CONS] Stat Comment: Consulting Provider: Massimo Horvath Reason For Exam: Physician to Consult Consult to Physician [CONS] Stat Comment: Consulting Provider: Mariela Briscoe Reason For Exam: Physician to Consult Discharge Meds Discharge Medications Active and Home Medications: Home Medications ascorbic acid (vitamin C) 1,000 mg tablet 1,000 mg PO BID tab 08/23/14 [History Confirmed 09/17/19 Last Taken 07/29/19 10:00] pen needle, diabetic 32 gauge x 5/32" #200 each 07/14/17 [Rx Confirmed 09/17/19 Last Taken 07/29/19 10:00] insulin aspart U-100 100 unit/mL (3 mL) subcutaneous pen See Rx Instructions SUB-Q QAM #45 ml 06/23/18 [Rx Confirmed 09/17/19 Last Taken 07/28/19 22:00] calcium acetate(phosphat bind) 667 mg tablet 667 mg PO TID #180 tab 07/19/18 [Rx Confirmed 09/17/19 Last Taken 07/28/19 19:00] clopidogrel 75 mg tablet 75 mg PO QDAY #90 tab 08/21/18 [Rx Confirmed 09/17/19 Last Taken 07/29/19 10:00] aspirin 81 mg tablet,delayed release 81 mg PO QDAY #90 tab 08/28/18 [Rx Conf irmed 09/17/19 Last Taken 07/28/19 21:00] metoprolol tartrate 50 mg tablet 25 mg PO BID tab 08/28/18 [History Confirmed 09/17/19 Last Taken 07/29/19 10:00] furosemide 40 mg tablet 40 mg PO BID #180 tab 11/16/18 [Rx Confirmed 09/17/19 Last Taken 07/29/19 10:00] hydralazine 25 mg tablet 25 mg PO BID #60 tab 02/01/19 [Rx Confirmed 09/17/19 Last Taken 07/29/19 10:00] amlodipine 10 mg tablet 10 mg PO QDAY #90 tab 02/05/19 [Rx Confirmed 09/17/19 Last Taken 07/28/19 21:00] blood-glucose meter #1 each 06/22/19 [Rx Confirmed 09/17/19 Last Taken 07/29/19 10:00] ondansetron 4 mg disintegrating tablet 4 mg TRANSLINGU Q4-6HP PRN #20 tab 07/24/19 [Rx Confirmed 09/17/19 Last Taken 07/08/19 14:00] captopril 12.5 mg tablet 25 mg PO TID #90 tab 08/09/19 [Rx Confirmed 09/17/19 Last Taken Unknown] atorvastatin 40 mg tablet 40 mg PO QDAY #90 tab 08/16/19 [Rx Confirmed 09/17/19 Last Taken Unknown] hydromorphone 4 mg tablet 4 mg PO Q6H PRN #112 tab 08/22/19 [Rx Confirmed 09/17/19 Last Taken Unknown] sevelamer carbonate 800 mg tablet 1,600 mg PO TID #180 tab 08/24/19 [Rx Confirmed 09/17/19 Last Taken Unknown] insulin glargine 100 unit/mL (3 mL) subcutaneous pen 25 unit SUBCUT QDAY #15 ml 08/27/19 [Rx Confirmed 09/17/19 Last Taken Unknown] albuterol sulfate 90 mcg/actuation aerosol inhaler 2 puff INHALATION Q8H PRN #8.5 g 08/29/19 [Rx Confirmed 09/17/19 Last Taken Unknown] B complex-vitamin C-folic acid 0.8 mg tablet 1 tab PO QDAY #90 tab 09/17/19 [Rx Confirmed 09/17/19 Last Taken Unknown] COURSE Hospital Course Discharge diagnosis: . Time Spent with Patient Time attestation: Discharge diagnosis * Flash pulmonary edema-responded rapidly to emergent hemodialysis. Patient feels back to baseline * Hypoxic respiratory failure initially with PO2 60% and large AA gradient on 15 liters oxygen. Off noninvasive ventilation. Clinically resolved. Now on room air. * History of HTN/HLD managed on home medication including statin/beta-kelly * History of CAD managed on aspirin statin * DM type II managed on basal prandial insulin Brief hospital course History of present illness: Mr. Ash is a 54 year old M with a history of ESRD on HD/C-spine osteomyelitis/HTN/HLD/insulin-dependent diabetes following w ith Dr. Strickland and Dr. Fontana as outpatient. He presents following hemodialysis today with acute onset worsening shortness of breath/profound hypoxia with sats down to 60%. Initial work-up was consistent with severe hypoxic respiratory failure with blood gases on 15 L oxygen mask non-breather PaO2 70. Patient was started on BiPAP/nephrology was consulted as imaging was suggestive of flash pulmonary edema. Subsequently hospitalist service was consulted At the time evaluation patient is very short of breath unable to talk in full sentences. He was started on BiPAP. He denies excessive salt intake/NSAID intake or consuming excess fluids. He denies chest pain, diaphoresis, palpitation 09/17-patient doing remarkably well following hemodialysis. Feels at baseline. Discharging advised to continue hemodialysis outpatient. Currently on room air. Off noninvasive ventilation. Total time spent providing and/or coordinating discharge services: EXAM Constitutional Vitals: Temp Pulse Resp BP Pulse Ox 97.9 F 84 22 152/67 87 L 09/18/19 08:01 09/18/19 09:01 09/18/19 09:01 09/18/19 09:01 09/18/19 09:01 Discharge Data Data Completed and Pending Labs on day of discharge: Labs from last 24 hours 09/18/19 09/18/19 09/17/19 05:15 05:15 17:06 WBC 7.8 RBC 3.40 L Hgb 10.5 L Hct 31.1 L MCV 91.5 MCH 30.9 MCHC 33.8 RDW 13.7 Plt Count 286 MPV 9.9 Gran % Lymph % (Auto) [place] % (Auto) Eos % (Auto) Baso % (Auto) Gran # Lymph # (Auto) [place] # (Auto) Eos # (Auto) Baso # (Auto) Total Counted 100 Seg Neutrophils % 62 Band Neutrophils % Not Reportable Lymphocytes % 22 Monocytes % (Manual) 9 Eosinophils % (Manual) 5 Basophils % (Manual) 2 Platelet Estimate Normal RBC Morphology Normal D-Dimer Sodium 133 Potassium 3.5 Chloride 90 L Carbon Dioxide 29 Anion Gap 14.0 BUN 17 Creatinine 5.2 H* GFR Calculation 12 Glucose 138 H Uric Acid 3.1 Calcium 8.2 L Phosphorus 3.0 Magnesium 2.2 Total Bilirubin 0.4 Direct Bilirubin < 0.2 GGT 14 AST 29 ALT 18 Alkaline Phosphatase 64 Lactate Dehydrogenase 229 Troponin T 0.20 H* NT-Pro-B Natriuret Pep Total Protein 7.1 Albumin 3.8 Globulin 3.3 Albumin/Globulin Ratio 1.2 Triglycerides 68 09/17/19 09/17/19 09/17/19 17:06 17:06 17:06 WBC 8.3 RBC 3.56 L Hgb 11.1 L Hct 31.8 L MCV 89.3 MCH 31.2 MCHC 34.9 RDW 13.7 Plt Count 319 MPV 9.9 Gran % 64.3 Lymph % (Auto) 17.1 [place] % (Auto) 11.6 Eos % (Auto) 6.0 Baso % (Auto) 1.0 Gran # 5.33 Lymph # (Auto) 1.42 L [place] # (Auto) 0.96 H Eos # (Auto) 0.50 Baso # (Auto) 0.08 Total Counted Seg Neutrophils % Band Neutrophils % Lymphocytes % Monocytes % (Manual) Eosinophils % (Manual) Basophils % (Manual) Platelet Estimate RBC Morphology D-Dimer 2.50 H Sodium 132 L Potassium 3.1 L Chloride 87 L Carbon Dioxide 28 Anion Gap 17.0 H BUN 11 Creatinine 4.4 H GFR Calculation 14 Glucose 225 H Uric Acid Calcium 8.7 Phosphorus Magnesium Total Bilirubin 0.4 Direct Bilirubin GGT AST 40 H ALT 21 Alkaline Phosphatase 68 Lactate Dehydrogenase Troponin T NT-Pro-B Natriuret Pep 3391.0 H Total Protein 7.9 Albumin 4.3 Globulin 3.6 Albumin/Globulin Ratio 1.2 Triglycerides Discharge Plan Patient/Caregiver Discharge Instructions Activity: resume usual activities as tolerated Diet: Renal/Consistent Carbs Instructions: Pulmonary Edema (GEN), How to Stop Smoking (GEN), Cigarette Smoking and Your Health (GEN), Hypoxia (GEN) Activity Restrictions/Additional Instructions: This discharge packet is provided to you to help keep you informed about your ca re. We want to ensure you get everything you need when you go home. You will also be receiving a call from us in a few days to follow up with you and see how you are doing since your discharge. This gives us a chance to listen to any concerns you maybe experiencing since you were discharged or any additional needs you may have, as well as providing us feedback on your care experience. We strive to always provide excellent care and thank you for your feedback and for choosing [facility]. Prescriptions: No Action Novolog Flexpen U-100 Insulin 100 unit/mL insulin pen See Rx Instructions SUB-Q QAM Qty: 45 RF: 5 Hold Instructions: Order Change calcium acetate(phosphat bind) 667 mg tablet 667 mg PO TID Qty: 180 RF: 6 clopidogrel 75 mg tablet 75 mg PO QDAY Qty: 90 RF: 3 furosemide 40 mg tablet 40 mg PO BID Qty: 180 RF: 3 amlodipine 10 mg tablet 10 mg PO QDAY Qty: 90 RF: 3 insulin lispro [Humalog KwikPen Insulin] 100 unit/mL insulin pen 1 unit subcut DAILY RF: 0 (DME) blood-glucose meter Misc See Rx Instructions .ROUTE .MEDSUPPLY Qty: 1 RF: 0 ondansetron 4 mg tablet,disintegrating 4 mg TRANSLINGU Q4-6HP PRN (Reason: Nausea) Qty: 20 RF: 0 captopril 12.5 mg tablet 25 mg PO TID Qty: 90 RF: 1 atorvastatin 40 mg tablet 40 mg PO QDAY Qty: 90 RF: 1 hydromorphone 4 mg tablet 4 mg PO Q6H PRN (Reason: pain) Qty: 112 RF: 0 sevelamer carbonate [Renvela] 800 mg tablet 1,600 mg PO TID Qty: 180 RF: 6 insulin glargine 100 unit/mL (3 mL) insulin pen 25 unit subcut QDAY Qty: 15 RF: 3 albuterol sulfate 90 mcg/actuation HFA aerosol inhaler 2 puff INHALATION Q8H PRN (Reason: shortness of breath or wheezing) Qty: 8.5 RF: 0 Nephro-Adeel 0.8 mg tablet 1 tab PO QDAY Qty: 90 RF: 3 aspirin [Adult Aspirin Regimen] 81 mg tablet,delayed release (DR/EC) 81 mg PO QDAY Qty: 90 RF: 0 metoprolol tartrate 50 mg tablet 25 mg PO BID RF: 0 hydralazine 25 mg tablet 25 mg PO BID Qty: 60 RF: 3 (DME) pen needle, diabetic [BD Ultra-Fine Marcy Pen Needle] 32 gauge x 5/32" needle See Dose Instructions .ROUTE .MEDSUPPLY Qty: 200 RF: 4 ascorbic acid (vitamin C) 1,000 mg tablet 1,000 mg PO BID RF: 0 Follow Up Plan Follow up with: Mariela Briscoe MD [Physician] - (Continue with your current schedule in clinic) Andrey Strickland DO [Primary Care Provider] - (Schedule a follow up appointment as needed) Patient Disposition: Home, Self-Care Care Plan Goals: Follow-up PCP in [5] days Follow-up nephrology as prior Refrain from smoking and alcohol Continue diet and activity as advised Discussed importance of medication adherence Please review medication list with patient prior to discharge Please schedule follow-up with PCP/Providers prior to discharge and provide printouts I certify that the patient requires SNF services: No Overall status at discharge: patient is back to baseline Discharge Orders: Discharge Order (Routine); Ordered 09/18/19 Ordered By: Massimo BRAUN VTE Deep Vein Thrombosis/Pulmonary Embolism Present on Admission: No
--- NOTE | 2019-09-18 17:27 | Nephrology History & Physical ---
HPI History of Present Illness Patient information: Note initiated : 09/18/19 at 5:20 pm Service Date, if different from initiated Date: 09/18/2019 730 am Patient: Daljit Ash 54 y/o M admitted on 09/17/19 for Shortness of breath. Chief Complaint:shortness of breath History of present illness: Mr. Ash is a 54 year old M with T1DM diagnosed at age 16 with complications, retinopathy (right eye blindness), ESRD on he modialysis Tuesday via left upper extremity AV fistula, hypertension, diastolic CHF presented with sudden onset shortness of breath. He tolerated dialysis well on 09/17/2027, went home, had a small meal/fluids, was resting when he became short of breath. He presented to the emergency department and was found to be hypoxic, have flash pulmonary edema. Review of systems 10 point review of system performed and negative except for sudden onset shortness of breath, decreased urine output Past medical history T1DM diagnosed at age 16, left eye blindness, decreased vision in the right eye, carpal tunnel bilateral status post repair, hypertension, diastolic CHF past surgical surgical history Back surgery, ankle surgery, history of carpal tunnel repair, AV fistula creation, shoulder surgery Family history Parents had diabetes Social history Currently everyday smoker, denies alcohol or illicit drug use Review of Systems All systems: reviewed and no additional remarkable complaints except as stated Review of systems: Please see above [facility] Medical History Acidosis, metabolic (Chronic 12/06/12) of CKD Acute appendicitis (Inactive) Anemia in chronic kidney disease (Chronic) Appendicitis (Inactive) Back pain at L4-L5 level (Chronic) Carpal tunnel syndrome of right wrist (Acute) Chronic kidney disease, stage V (Chronic 04/29/13) Diabetes mellitus type 1, uncontrolled (Chronic) unable to afford brand insulin End stage renal disease (Chronic) Essential hypertension (Chronic 12/06/12) Foot pain (Inactive 07/01/14) Gastroesophageal reflux (Chronic 07/01/14) Pantoprazole not covered by insurance, switch to nexium based on the formulary of the EMR History of tobacco abuse (Inactive) Hyperlipidemia (Chronic) on fenofibrate and atorvastatin, tg and ldl at goal Hypertensive renal disease (Chronic) 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 Remarkable improvement in 24 hours. Continue Levaquin/Augmentin for additional 6 days to cover for nosocomial organism including Pseudomonas nd aspiration coverage 2. other prior medical issues were managed on home meds including ESRD on HD CAD on aspirin Hypertension on amlodipine/Metoprolol glaucoma on latanoprost/timolol Hyperlipidemia on statin DM type II on home dose insulin NPH Pes planus (Chronic) Pneumonia (Inactive) Proteinuria (Chronic 12/06/12) Rash (Inactive) due to levofloxacin, trial of 3 days prednisone. Secondary hyperparathyroidism of renal origin (Chronic) Surgical History Arteriovenous fistula for hemodialysis in place, primary (Chronic) 10/29/2013 Creation of a right radiocephalic AV fistula H/O carpal tunnel repair (Acute) History of angioplasty (Chronic 11/03/16) and fistulogram 01/16/19 History of ankle surgery (Acute) History of back surgery (Acute ~2014) History of bone marrow biopsy (Inactive) 03/30/2013 History of colonoscopy (Chronic 06/18/15) History of laser photocoagulation of retina (Inactive) History of shoulder surgery (Inactive) 2013 bicep reattachment-right shoulder-Dr. 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[employer] other: smoked 32 years smoking status: Current every day smoker tobacco type: cigarettes per day: 1 pack-years: 25 smoking status stop date: 09/11/14 alcohol intake frequency: does not drink substance use type: does not use MEDS/ALLERGIES Home Medications and Allergies Home Medications Medication Instructions Recorded Confirmed Type ascorbic acid (vitamin C) 1,000 mg 1,000 mg PO BID tab 08/23/14 09/17/19 History tablet pen needle, diabetic 32 gauge x #200 each 07/14/17 09/17/19 Rx 5/32" insulin aspart U-100 100 unit/mL See Rx Instructions SUB-Q QAM #45 06/23/18 09/17/19 Rx (3 mL) subcutaneous pen ml calcium acetate(phosphat bind) 667 667 mg PO TID #180 tab 07/19/18 09/17/19 Rx mg tablet clopidogrel 75 mg tablet 75 mg PO QDAY #90 tab 08/21/18 09/17/19 Rx aspirin 81 mg tablet,delayed 81 mg PO QDAY #90 tab 08/28/18 09/17/19 Rx release metoprolol tartrate 50 mg tablet 25 mg PO BID tab 08/28/18 09/17/19 History furosemide 40 mg tablet 40 mg PO BID #180 tab 11/16/18 09/17/19 Rx hydralazine 25 mg tablet 25 mg PO BID #60 tab 02/01/19 09/17/19 Rx amlodipine 10 mg tablet 10 mg PO QDAY #90 tab 02/05/19 09/17/19 Rx blood-glucose meter #1 each 06/22/19 09/17/19 Rx ondansetron 4 mg disintegrating 4 mg TRANSLINGU Q4-6HP PRN #20 tab 07/24/19 09/17/19 Rx tablet captopril 12.5 mg tablet 25 mg PO TID #90 tab 08/09/19 09/17/19 Rx atorvastatin 40 mg tablet 40 mg PO QDAY #90 tab 08/16/19 09/17/19 Rx hydromorphone 4 mg tablet 4 mg PO Q6H PRN #112 tab 08/22/19 09/17/19 Rx sevelamer carbonate 800 mg tablet 1,600 mg PO TID #180 tab 08/24/19 09/17/19 Rx insulin glargine 100 unit/mL (3 25 unit SUBCUT QDAY #15 ml 08/27/19 09/17/19 Rx mL) subcutaneous pen albuterol sulfate 90 mcg/actuation 2 puff INHALATION Q8H PRN #8.5 g 08/29/19 09/17/19 Rx aerosol inhaler B complex-vitamin C-folic acid 0.8 1 tab PO QDAY #90 tab 09/17/19 09/17/19 Rx mg tablet Allergies Allergy/AdvReac Type Severity Reaction Status Date / Time codeine AdvReac Mild Vomiting Verified 09/18/19 15:15 hydrocodone [HYDROCODONE] AdvReac Mild Vomiting Verified 09/18/19 15:15 Physical Examination Vital Signs Vital signs: Temp Pulse Resp BP Pulse Ox 37.0 C 73 20 141/69 95 09/18/19 11:40 09/18/19 11:40 09/18/19 11:40 09/18/19 11:40 09/18/19 11:40 General Appearance General appearance: well-developed and well-nourished Exam Narrative: General appears of stated age, no acute distress HEENT head is normocephalic, atraumatic. Eyes nonicteric sclera Chest nonlabored respirations, on room air, bibasilar crackles Cardiovascular regular rate and rhythm, no rub, present peripheral pulses Extremities no cyanosis, edema, clubbing. Left upper extremity AV fistula Abdomen soft, present bowel sounds Neuro alert, oriented, moves all extremities, clear speech Skin warm and dry Results Lab Results Result Diagrams: 09/18/19 05:15 09/18/19 05:15 Lab results: Most recent lab results Calcium 8.2 mg/dl (8.6-10.4) L 09/18/19 05:15 Phosphorus 3.0 mg/dL (2.7-4.5) 09/18/19 05:15 Magnesium 2.2 mg/dL (1.6-2.5) 09/18/19 05:15 A/P Assessment and plan (1) ESRD on hemodialysis: Status: Chronic (2) Flash pulmonary edema: Status: Acute (3) Hypoxia: Status: Acute Narrative A/P Narrative: He underwent emergent isolated ultrafiltration late night 09/17/2019. Approximately 1.8 L fluid removed with improvement of symptoms. Procedure was well-tolerated. The patient requested to be discharged today 09/18/2019. Arrangements were made for him to get an extra treatment in the dialysis unit. Attempt 2L isolated ultrafiltration over 2 hours as tolerated. We will continue to challenge his dry weight. PFTs pending Time spent in coordinating the care included discussion with dialysis team/RN to schedule today's treatment, discussion with freight claim investigator last night/day, discussion with floor RN, updating the patient Time Spent With Patient Time: Total time spent is greater than 50% in coordination of care (as documented) at patient's floor/unit and/or counseling patient: Total time spent with greater than 50% in coordination of care (as documented) at patient's floor/unit and/or counseling patient:: Greater than 35 minutes
[2019-09-18] MEDS ORDERED: SENNOSIDES/DOCUSATE SODIUM 1 TAB TABLET PO SCH (21:00)
[2019-09-18] MEDS ORDERED: INSULIN GLARGINE, HUMAN 1 UNIT/0.01 ML SQ SCH (21:00)
== END 2019-09-18 11:41 | disposition home or self-care (01) | DRG 291 ==
LOC: ED 16:46 → ICU 22:10
PROVIDERS: ADMIT Internal Medicine; ATTEND Internal Medicine

== ENCOUNTER 2019-11-20 22:32 | Inpatient (IN) ==
[2019-11-20] MEDS ORDERED: ONDANSETRON 4 MG/2 ML VIAL IV ONE (22:42)
--- NOTE | 2019-11-20 22:44 | Emergency Department Note ---
Abdominal Pain HPI General Chief Complaint: Flank Pain Stated Complaint: right flank pain Time Seen by Provider: 11/20/19 22:38 Source: patient and RN notes reviewed Mode of arrival: ambulatory Limitations: no limitations History of Present Illness HPI Narrative: Narrative: This patient began having right flank pain about 2 hours ago. It is moderately severe and sharp. He has some nausea initially but this seems to be resolved. He is a dialysis patient had a run yesterday. He does make urine and has not had any symptoms of UTI. He has never had a kidney stone before. He does have his gallbladder but has not had any abdominal pain. MD Complaint: flank pain Consistency: constant Location: R flank Severity: moderate Quality: stabbing Radiation: none Migration to: no migration Improves with: nothing Worsens with: nothing Associated symptoms: Reports denies other symptoms Related Data Home Medications Medication Instructions Recorded Confirmed ascorbic acid (vitamin C) 1,000 mg 500 mg PO BID tab 08/23/14 11/21/19 tablet aspirin [Adult Aspirin Regimen] 81 mg PO HS 11/21/19 11/21/19 atorvastatin 40 mg PO HS 11/21/19 11/21/19 captopril 25 mg PO BID 11/21/19 11/21/19 insulin aspart U-100 [Novolog 1 - 16 unit SUB-Q QD-BID 11/21/19 11/21/19 Flexpen U-100 Insulin] insulin glargine 24 unit SUBCUT HS 11/21/19 11/21/19 sevelamer carbonate [Renvela] 1,600 mg PO QD-BID 11/21/19 11/21/19 Previous Rx's Medication Instructions Recorded pen needle, diabetic 32 gauge x #200 each 07/14/17" amlodipine 10 mg tablet 10 mg PO QDAY #90 tab 02/05/19 blood-glucose meter #1 each 06/22/19 ondansetron 4 mg disintegrating 4 mg TRANSLINGU Q4-6HP PRN #20 tab 07/24/19 tablet albuterol sulfate 90 mcg/actuation 2 puff INHALATION Q8H PRN #8.5 g 08/29/19 aerosol inhaler B complex-vitamin C-folic acid 0.8 1 tab PO QDAY #90 tab 09/17/19 mg tablet hydralazine 25 mg tablet 25 mg PO BID #60 tab 09/24/19 varenicline 0.5 mg (11)-1 mg (42) See Rx Instructions PO PER PKG DIR 10/04/19 tablets in a dose pack #53 tab clopidogrel 75 mg tablet 75 mg PO QDAY #90 tab 10/08/19 hydromorphone 4 mg tablet 4 mg PO Q6H PRN #112 tab 11/06/19 furosemide 40 mg tablet 40 mg PO BID #180 tab 11/16/19 metoprolol tartrate 50 mg tablet 25 mg PO BID #90 tab 11/16/19 Allergies Allergy/AdvReac Type Severity Reaction Status Date / Time codeine AdvReac Mild Vomiting Verified 11/20/19 22:38 hydrocodone [HYDROCODONE] AdvReac Mild Vomiting Verified 11/20/19 22:38 Review of Systems ROS ROS Narrative: Narrative: All systems ED: reviewed and negative except as stated. Constitutional: Denies fever Cardiovascular: Denies chest pain Respiratory: Denies shortness of breath and cough Gastrointestinal: Reports nausea PFSH Narrative Patient History Narrative: Narrative: Medical/Surgical/Family History All Active Problems (Updated 11/21/19 @ 07:31 by Adin Mcarthur MD) Closed hematoma of right kidney (Acute) UTI (urinary tract infection) (Acute) Tobacco abuse (Acute) History of appendectomy (Acute ~2005) CHF (congestive heart failure) (Acute) Flash pulmonary edema (Acute) Hypoxia (Acute) Pulmonary edema (Acute) Acute respiratory failure with hypoxia (Acute) Community acquired pneumonia (Acute) Hypoxia (Acute) ESRD on hemodialysis (Chronic) Anemia due to stage 5 chronic kidney disease treated with darbepoetin (Acute) Acute on chronic diastolic CHF (congestive heart failure), NYHA class 2 (Acute) Nausea & vomiting (Acute) CRF (chronic renal failure) (Acute) Diabetes mellitus type 1 with complications (Acute) Hyperkalemia, diminished renal excretion (Acute) DKA (diabetic ketoacidosis) (Acute) Dressing change (Acute) Arm pain, left (Acute) Discitis (Acute) Nausea (Acute) Cough (Acute) Muscle twitching (Acute) Word finding difficulty (Acute) Medication side effect (Acute) ESRD (end stage renal disease) (Acute) Confusion (Acute) Cellulitis of great toe, left (Acute) Cellulitis of finger of left hand (Acute) Knee contusion (Acute) Abscess (Acute) Status post insertion of dialysis catheter (Acute) Shortness of breath (Acute) Cluster headache syndrome, intractable (Acute) Chronic kidney disease, stage V (Chronic) Injury of Foot (Acute) Back pain at L4-L5 level (Chronic) Arteriovenous fistula for hemodialysis in place, primary (Chronic) Secondary hyperparathyroidism of renal origin (Chronic) Proteinuria (Chronic 12/06/12) Pes planus (Chronic) 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) Hypertensive renal disease (Chronic) Hyperlipidemia (Chronic) Gastroesophageal reflux (Chronic 07/01/14) Essential hypertension (Chronic 12/06/12) End stage renal disease (Chronic) Diabetes mellitus type 1, uncontrolled (Chronic) Chronic kidney disease, stage V (Chronic 04/29/13) Anemia in chronic kidney disease (Chronic) Acidosis, metabolic (Chronic 12/06/12) Medical History (Updated 11/21/19 @ 07:31 by Adin Mcarthur MD) Acidosis, metabolic (Chronic 12/06/12) of CKD Acute appendicitis (Inactive) Anemia in chronic kidney disease (Chronic) Appendicitis (Inactive) Back pain at L4-L5 level (Chronic) Carpal tunnel syndrome of right wrist (Acute) Chronic kidney disease, stage V (Chronic 04/29/13) Diabetes mellitus type 1, uncontrolled (Chronic) unable to afford brand insulin End stage renal disease (Chronic) Essential hypertension (Chronic 12/06/12) Foot pain (Inactive 07/01/14) Gastroesophageal reflux (Chronic 07/01/14) Pantoprazole not covered by insurance, switch to nexium based on the formulary of the EMR History of tobacco abuse (Inactive) Hyperlipidemia (Chronic) on fenofibrate and atorvastatin, tg and ldl at goal Hypertensive renal disease (Chronic) [facility] 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 (Chronic) 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 Remarkable improvement in 24 hours. Continue Levaquin/Augmentin for additional 6 days to cover for nosocomial organism including Pseudomonas nd aspiration coverage 2. other prior medical issues were managed on home meds including ESRD on HD CAD on aspirin Hypertension on amlodipine/Metoprolol glaucoma on latanoprost/timolol Hyperlipidemia on statin DM type II on home dose insulin NPH Pes planus (Chronic) Pneumonia (Inactive) Proteinuria (Chronic 12/06/12) Rash (Inactive) due to levofloxacin, trial of 3 days prednisone. Secondary hyperparathyroidism of renal origin (Chronic) Surgical History Arteriovenous fistula for hemodialysis in place, primary (Chronic) 10/29/2013 Creation of a right radiocephalic AV fistula H/O carpal tunnel repair (Acute) History of angioplasty (Chronic 11/03/16) and fistulogram 01/16/19 History of ankle surgery (Acute) History of back surgery (Acute ~2014) History of bone marrow biopsy (Inactive) 03/30/2013 History of colonoscopy (Chronic 06/18/15) History of laser photocoagulation of retina (Inactive) History of shoulder surgery (Inactive) 2013 bicep reattachment-right shoulder-Dr. Garcia Family History Father Coronary artery disease Diabetes mellitus NOS Essential hypertension Mother Diabetes mellitus NOS Social History Smoking Status: Current every day smoker Alcohol Intake Frequency: does not drink Substance Use: does not use Exam Narrative Narrative: Narrative: General Limitations: no limitations Head Head: atraumatic, normocephalic and normal inspection Eye Eye: Present normal appearance and EOMI; Absent scleral icterus and conjunctival injection Chest Chest: Present normal inspection and symmetric chest wall rise Respiratory Respiratory: Present normal lung sounds bilaterally; Absent respiratory distress, rales/crackles and wheezes Cardiovascular Cardiovascular: Present regular rate, normal rhythm and normal heart sounds Adbominal Abdominal: Present soft; Absent distention and tenderness Back Back: Present CVA tenderness (R) Neurological Neurological: Present alert Psychiatric Psychiatric: Present normal affect Skin Skin: Present warm and dry; Absent diaphoresis Course Vital Signs Vital signs: Vital Signs Temperature 97.2 F 11/20/19 22:33 Pulse Rate 71 11/20/19 22:33 Respiratory Rate 20 11/20/19 22:33 Blood Pressure 116/76 11/20/19 22:33 Pulse Oximetry (%) 100 11/20/19 22:33 Temperature 97.5 F 11/21/19 03:44 Pulse Rate 66 11/21/19 03:44 Respiratory Rate 24 H 11/21/19 03:44 Blood Pressure 102/60 11/21/19 03:44 Pulse Oximetry (%) 96 11/21/19 03:44 MDM MDM Narrative Medical decision making narrative: Narrative: I discussed this case with the mineral ore processing labourer Dr. Briscoe the urologist Dr. Hale and the hospitalist Dr. Houston. The patient will be admitted to the hospitalist service with the mineral ore processing labourer and urologist consulting. We will do serial hemoglobins on the floor. He will need dialysis today. Lab Data Lab results reviewed: Yes I reviewed the patient's lab results. Lab results narrative: Patient did have evidence of UTI on his urinalysis. Result diagrams: 11/20/19 22:56 11/20/19 22:56 Labs: Lab Results 11/20/19 11/20/19 11/21/19 Range/Units 22:56 22:56 00:34 WBC 12.9 H (4.50-11.00) K/mcL RBC 3.03 L (4.63-6.08) M/mcL Hgb 9.2 L (13.7-17.5) g/dL Hct 27.6 L (40.1-51.0) % MCV 91.1 (80.0-100.0) fL MCH 30.4 (26.0-34.0) pg MCHC 33.3 (31.0-36.0) g/dL RDW 14.2 (11.5-14.5) % Plt Count 265 (140-440) K/mcL MPV 9.7 (7.4-10.4) fL Gran % 70.7 (38.0-78.0) % Lymph % (Auto) 14.2 L (15.5-49.0) % Weber % (Auto) 10.3 (1.0-12.0) % Eos % (Auto) 4.2 (0.0-7.0) % Baso % (Auto) 0.6 (0.0-2.0) % Gran # 9.08 H (1.80-8.00) K/mcL Lymph # (Auto) 1.83 (1.50-4.80) K/mcL Weber # (Auto) 1.32 H (0.10-0.90) K/mcL Eos # (Auto) 0.54 (0.00-0.70) K/mcL Baso # (Auto) 0.08 (0.00-0.30) K/mcL Sodium 134 (133-145) mmol/L Potassium 4.7 (3.3-5.1) mmol/L Chloride 89 L (96-108) mmol/L Carbon Dioxide 28 (22-30) mmol/L Anion Gap 17.0 H (8-16) BUN 34 H (6-20) mg/dl Creatinine 7.9 H* (0.7-1.2) mg/dl GFR Calculation 7 Glucose 326 H (70-105) mg/dL Calcium 9.4 (8.6-10.4) mg/dl Total Bilirubin 0.2 (0.0-1.0) mg/dL AST 29 (0-37) U/l ALT 19 (0-40) U/l Alkaline Phosphatase 81 (39-117) U/L Total Protein 7.2 (5.9-8.4) gm/dL Albumin 4.1 (3.2-5.2) gm/dL Globulin 3.1 (2.2-3.7) gm/dL Albumin/Globulin Ratio 1.3 (1.0-2.3) Urine Color Straw Urine Appearance Clear Urine pH 9.0 (5.0-9.0) Ur Specific [place] 1.007 (1.000-1.035) Urine Protein 100 A (NEG) mg/dL Urine Glucose (UA) >=500 A (NEG) mg/dL Urine Ketones Neg (NEG) mg/dL Urine Occult Blood Neg (<0.03) mg/dL Urine Nitrate Neg (NEG) Urine Bilirubin Neg (NEG) mg/dL Urine Urobilinogen Neg (NEG) mg/dL Ur Leukocyte Esterase 25 A (NEG) /uL Urine RBC 10 H (0-1) /hpf Urine WBC 25 H (0-4) /hpf Ur Squamous Epith Cells 0 (0-4) /hpf Urine Bacteria Few A (0) /hpf Ur Culture Indicated? Yes Radiology Data Radiology results reviewed: Yes I reviewed the patient's radiology results. Radiology results narrative: CT scan shows a subcapsular hematoma of the right kidney measuring 7 x 7 x 5 cm. There is also a lot of perinephric stranding around the kidney. Discharge Plan Patient/Caregiver Discharge Instructions Pt seen by IRON CARRIER/PA only: No Clinical Impression: UTI (urinary tract infection), Closed hematoma of right kidney Patient Disposition: Xfer As Inpt ([facility]) Condition: Undetermined Discharge Date/Time: 11/21/19 03:00
[2019-11-20] MEDS: HYDROmorphone 0.5 MG/0.5 ML SYRINGE IV PRN ×2 (23:07→23:43)
[2019-11-20 23:33] LABS: Basophils # (Auto) 0.08 K/mcL (0.00-0.30); Basophils % (Auto) 0.6 % (0.0-2.0); Eosinophils # (Auto) 0.54 K/mcL (0.00-0.70); Eosinophils % (Auto) 4.2 % (0.0-7.0); Granulocytes % (Auto) 70.7 % (38.0-78.0); Hematocrit 27.6 % (40.1-51.0); Hemoglobin 9.2 g/dL (13.7-17.5); Lymphocytes # (Auto) 1.83 K/mcL (1.50-4.80); Lymphocytes % (Auto) 14.2 % (15.5-49.0); Mean Cell Volume 91.1 fL (80.0-100.0); Mean Corpuscular HGB Conc 33.3 g/dL (31.0-36.0); Mean Platelet Volume 9.7 fL (7.4-10.4); Monocytes # (Auto) 1.32 K/mcL (0.10-0.90); Monocytes % (Auto) 10.3 % (1.0-12.0); Platelet Count 265 K/mcL (140-440); RBC 3.03 M/mcL (4.63-6.08); Red Cell Distribution Width 14.2 % (11.5-14.5); WBC 12.9 K/mcL (4.50-11.00)
[2019-11-20 23:53] LABS: ALT/SGPT 19 U/l (0-40); AST/SGOT 29 U/l (0-37); Albumin 4.1 gm/dL (3.2-5.2); Albumin/Globulin Ratio 1.3 (1.0-2.3); Alkaline Phosphatase 81 U/L (39-117); Bilirubin,Total 0.2 mg/dL (0.0-1.0); Blood Urea Nitrogen 34 mg/dl (6-20); Calcium 9.4 mg/dl (8.6-10.4); Carbon Dioxide 28 mmol/L (22-30); Globulin 3.1 gm/dL (2.2-3.7); Glucose 326 mg/dL (70-105)
[2019-11-21 00:06] LABS: Chloride 89 mmol/L (96-108); Glomerular Filtration Rate 7
[2019-11-21] MEDS: HYDROmorphone 0.5 MG/0.5 ML SYRINGE IV PRN ×5 (00:40→07:39)
[2019-11-21 01:39] LABS: Appearance,Urine CLEAR; Bacteria,Urine FEW /hpf (0); Bilirubin,Urine NEG (NEG); Color,Urine STRAW; Culture Indicated,Urine YES; Glucose,Urine (UA) >=500 mg/dL (NEG); Ketones,Urine NEG (NEG); Leukocyte Esterase,Urine 25 /uL (NEG); Nitrate,Urine NEG (NEG); Protein,Urine 100 mg/dL (NEG); Specific Gravity,Urine 1.007 (1.000-1.035); Urine Blood NEG mg/dL (<0.03); Urine RBC 10 /hpf (0-1); Urine Squamous Epithelial Cell 0 /hpf (0-4); Urine WBC 25 /hpf (0-4); Urobilinogen,Urine NEG (NEG)
[2019-11-21] MEDS ORDERED: cefTRIAXone 1 GM VIAL IV ONE (01:56)
[2019-11-21] MEDS ORDERED: LACTATED RINGERS 1,000 ML IV SCH (02:15)
[2019-11-21] MEDS ORDERED: NICOTINE 21 MG PATCH TOPICAL ONE (02:44)
[2019-11-21] MEDS: ONDANSETRON 4 MG/2 ML VIAL IV PRN ×2 (03:21→07:39)
--- NOTE | 2019-11-21 05:34 | Cat Scan Report ---
CLINICAL INFORMATION: Right flank pain COMPARISON: 08/26/[address] TECHNIQUE: 0.625 mm helical slices were obtained from the mid heart through the subtrochanteric regions. Following reconstruction, 2.5 mm sagittal, coronal and axial reformatted images were processed and reviewed at bone and soft tissue windows.The exam was performed using radiation dose optimization techniques including, but not limited to, automated exposure control, adjustment of the mA and/or kV according to patient size and use of iterative reconstruction technique. FINDINGS: Lung bases show no abnormality - no effusion. The visualized heart is normal in size there is calcification in the region of the mitral valve and also scattered calcific plaque the visualized coronary arteries. Abdominal images show the noncontrasted gallbladder and bile ducts, liver, both adrenal glands, spleen, pancreas and aorta to be normal in size configuration and attenuation without focal lesion. There is no free air or adenopathy. The stomach, small large bowel show mild symmetric dilatation compatible with mild reactive ileus. There is a massive hemorrhage throughout the right kidney - particularly in the subcapsular region with extravasation into the posterior perinephric space extension through Gerotas' fascia in the paranephric space and extension inferiorly into the parapsoas and paracolic gutter regions. The subcapsular component has moderately compressed renal parenchyma. The underlying etiology of hemorrhage is not apparent. Scattered small cysts seen within the right and left kidneys are seen - as before. Bone windows show L5-S1 anterior/posterior fusion changes with posterior marginal spurring. IMPRESSION: Large hematoma diffusely throughout the right kidney with a massive subcapsular component compressing the renal parenchyma. There is extension into the posterior perinephric space and through Gerotas' fascia into the paranephric space. Hemorrhage continues inferiorly into the the parapsoas region and paracolic gutter. In the absence of trauma or bleeding diathesis, underlying pathology is suspected such as benign or malignant tumor. Ruptured renal artery aneurysm is possible. Suggest: Abdominal MRI and abdominal aortic MRA which may better detect underlying pathology. Interpreted and Authenticated by: Andrey Truong 11/21/19
--- NOTE | 2019-11-21 07:46 | Internal Med History&Physical ---
HPI History of Present Illness Patient information: Note initiated : 11/21/19 at 7:39 am Service Date, if different from initiated Date: [] Patient: Daljit Ash a 54 y/o M admitted on 11/21/19 for right flank pain. Chief Complaint: [] History of present illness: Mr. Ash is a 54 year old M Who presents to the ED with sudden sharp and severe right abdominal and flank pain. He is end-stage renal disease and last dialysis the previous day. He denies any trauma. He was sitting in his chair when it came on. He tried to go to bed but pain worsened. Denies any dizziness or lightheadedness. Denies chest pain. Has some nausea but no vomiting. Evaluation in the ED he had CT which showed a subcapsular hematoma of the right kidney 7 x 7 x 5 cm. Urology was contacted as well as knuckle bender. Hemoglobin is 9.2 looking at old lab trends it runs 10 and 11's. pt is on aspirin and plavix for his fistula per Dr. Jasso. Review of Systems: Pertinent positive as above. Denies headache/fever/chills/vomiting/chest or abdominal pain/cough/dyspnea/diarrhea. Otherwise see above. PFSH PFSH All Active Problems (Updated 11/21/19 @ 07:31 by Adin Mcarthur MD) Closed hematoma of right kidney (Acute) UTI (urinary tract infection) (Acute) Tobacco abuse (Acute) History of appendectomy (Acute ~2005) CHF (congestive heart failure) (Acute) Flash pulmonary edema (Acute) Hypoxia (Acute) Pulmonary edema (Acute) Acute respiratory failure with hypoxia (Acute) Community acquired pneumonia (Acute) Hypoxia (Acute) ESRD on hemodialysis (Chronic) Anemia due to stage 5 chronic kidney disease treated with darbepoetin (Acute) Acute on chronic diastolic CHF (congestive heart failure), NYHA class 2 (Acute) Nausea & vomiting (Acute) CRF (chronic renal failure) (Acute) Diabetes mellitus type 1 with complications (Acute) Hyperkalemia, diminished renal excretion (Acute) DKA (diabetic ketoacidosis) (Acute) Dressing change (Acute) Arm pain, left (Acute) Discitis (Acute) Nausea (Acute) Cough (Acute) Muscle twitching (Acute) Word finding difficulty (Acute) Medication side effect (Acute) ESRD (end stage renal disease) (Acute) Confusion (Acute) Cellulitis of great toe, left (Acute) Cellulitis of finger of left hand (Acute) Knee contusion (Acute) Abscess (Acute) Status post insertion of dialysis catheter (Acute) Shortness of breath (Acute) Cluster headache syndrome, intractable (Acute) Chronic kidney disease, stage V (Chronic) Injury of Foot (Acute) Back pain at L4-L5 level (Chronic) Arteriovenous fistula for hemodialysis in place, primary (Chronic) Secondary hyperparathyroidism of renal origin (Chronic) Proteinuria (Chronic 12/06/12) Pes planus (Chronic) prison current use of 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 (Chronic) 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) Hypertensive renal disease (Chronic) Hyperlipidemia (Chronic) Gastroesophageal reflux (Chronic 07/01/14) Essential hypertension (Chronic 12/06/12) End stage renal disease (Chronic) Diabetes mellitus type 1, uncontrolled (Chronic) Chronic kidney disease, stage V (Chronic 04/29/13) Anemia in chronic kidney disease (Chronic) Acidosis, metabolic (Chronic 12/06/12) Medical History (Updated 11/21/19 @ 07:31 by Adin Mcarthur MD) Acidosis, metabolic (Chronic 12/06/12) of CKD Acute appendicitis (Inactive) Anemia in chronic kidney disease (Chronic) Appendicitis (Inactive) Back pain at L4-L5 level (Chronic) Carpal tunnel syndrome of right wrist (Acute) Chronic kidney disease, stage V (Chronic 04/29/13) Diabetes mellitus type 1, uncontrolled (Chronic) unable to afford brand insulin End stage renal disease (Chronic) Essential hypertension (Chronic 12/06/12) Foot pain (Inactive 07/01/14) Gastroesophageal reflux (Chronic 07/01/14) Pantoprazole not covered by insurance, switch to nexium based on the formulary of the EMR History of tobacco abuse (Inactive) Hyperlipidemia (Chronic) on fenofibrate and atorvastatin, tg and ldl at goal Hypertensive renal disease (Chronic) prison 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 (Chronic) 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 Remarkable improvement in 24 hours. Continue Levaquin/Augmentin for additional 6 days to cover for nosocomial organism including Pseudomonas nd aspiration coverage 2. other prior medical issues were managed on home meds including ESRD on HD CAD on aspirin Hypertension on amlodipine/Metoprolol glaucoma on latanoprost/timolol Hyperlipidemia on statin DM type II on home dose insulin NPH Pes planus (Chronic) Pneumonia (Inactive) Proteinuria (Chronic 12/06/12) Rash (Inactive) due to levofloxacin, trial of 3 days prednisone. Secondary hyperparathyroidism of renal origin (Chronic) Surgical History Arteriovenous fistula for hemodialysis in place, primary (Chronic) 10/29/2013 Creation of a right radiocephalic AV fistula H/O carpal tunnel repair (Acute) History of angioplasty (Chronic 11/03/16) and fistulogram 01/16/19 History of ankle surgery (Acute) History of back surgery (Acute ~2014) History of bone marrow biopsy (Inactive) 03/30/2013 History of colonoscopy (Chronic 06/18/15) History of laser photocoagulation of retina (Inactive) History of shoulder surgery (Inactive) 2013 bicep reattachment-right shoulder-Dr. 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 32 years smoking status: Current every day smoker tobacco type: cigarettes per day: 1 pack-years: 25 smoking status stop date: 09/11/14 alcohol intake frequency: does not drink substance use type: does not use MEDS/ALLERGIES Home Medications and Allergies Home Medications Medication Instructions Recorded Confirmed Type ascorbic acid (vitamin C) 1,000 mg 500 mg PO BID tab 08/23/14 11/21/19 History tablet pen needle, diabetic 32 gauge x #200 each 07/14/17 11/21/19 Rx 5/32" amlodipine 10 mg tablet 10 mg PO QDAY #90 tab 02/05/19 11/21/19 Rx blood-glucose meter #1 each 06/22/19 11/21/19 Rx ondansetron 4 mg disintegrating 4 mg TRANSLINGU Q4-6HP PRN #20 tab 07/24/19 11/21/19 Rx tablet albuterol sulfate 90 mcg/actuation 2 puff INHALATION Q8H PRN #8.5 g 08/29/19 11/21/19 Rx aerosol inhaler B complex-vitamin C-folic acid 0.8 1 tab PO QDAY #90 tab 09/17/19 11/21/19 Rx mg tablet hydralazine 25 mg tablet 25 mg PO BID #60 tab 09/24/19 11/21/19 Rx varenicline 0.5 mg (11)-1 mg (42) See Rx Instructions PO PER PKG DIR 10/04/19 11/21/19 Rx tablets in a dose pack #53 tab clopidogrel 75 mg tablet 75 mg PO QDAY #90 tab 10/08/19 11/21/19 Rx hydromorphone 4 mg tablet 4 mg PO Q6H PRN #112 tab 11/06/19 11/21/19 Rx furosemide 40 mg tablet 40 mg PO BID #180 tab 11/16/19 11/21/19 Rx metoprolol tartrate 50 mg tablet 25 mg PO BID #90 tab 11/16/19 11/21/19 Rx aspirin [Adult Aspirin Regimen] 81 mg PO HS 11/21/19 11/21/19 History atorvastatin 40 mg PO HS 11/21/19 11/21/19 History captopril 25 mg PO BID 11/21/19 11/21/19 History insulin aspart U-100 [Novolog 1 - 16 unit SUB-Q QD-BID 11/21/19 11/21/19 History Flexpen U-100 Insulin] insulin glargine 24 unit SUBCUT HS 11/21/19 11/21/19 History sevelamer carbonate [Renvela] 1,600 mg PO QD-BID 11/21/19 11/21/19 History Allergies Allergy/AdvReac Type Severity Reaction Status Date / Time codeine AdvReac Mild Vomiting Verified 11/20/19 22:38 hydrocodone [HYDROCODONE] AdvReac Mild Vomiting Verified 11/20/19 22:38 EXAM Constitutional Vitals: Temp Pulse Resp BP Pulse Ox 97.5 F 66 24 H 102/60 96 11/21/19 03:44 11/21/19 03:44 11/21/19 03:44 11/21/19 03:44 11/21/19 03:44 Exam: General: Alert, Awake, No acute Distress Eyes/N/T: EOMI, PERRL, dry MM Head/Neck: neck supple, normocephalic atraumatic CV: RRR, No murmurs, normal s1/s2 Pulm: Clear b/l, no wheezing/rhonchi/rales Abd: soft, nontender, +BS x4, no flank ecchymosis Ext: no clubbing/cyanosis/edema. LUE fistula Neuro: Alert, no focal deficits, moves all extremities, CN 2-12 grossly intact, symmetrical strength b/l upper/lower, sensations intact b/l upper/lower Skin: warm/dry DATA Data Completed and Pending Labs: Labs from last 24 hours 11/21/19 11/21/19 11/20/19 05:19 00:34 22:56 WBC RBC Hgb Hct MCV MCH MCHC RDW Plt Count MPV Gran % Lymph % (Auto) [place] % (Auto) Eos % (Auto) Baso % (Auto) Gran # Lymph # (Auto) [place] # (Auto) Eos # (Auto) Baso # (Auto) Sodium Pending 134 Potassium Pending 4.7 Chloride Pending 89 L Carbon Dioxide Pending 28 Anion Gap Pending 17.0 H BUN Pending 34 H Creatinine Pending 7.9 H* GFR Calculation Pending 7 Glucose Pending 326 H Uric Acid Pending Calcium Pending 9.4 Phosphorus Pending Magnesium Pending Total Bilirubin Pending 0.2 Direct Bilirubin Pending GGT Pending AST Pending 29 ALT Pending 19 Alkaline Phosphatase Pending 81 Lactate Dehydrogenase Pending Total Protein Pending 7.2 Albumin Pending 4.1 Globulin Pending 3.1 Albumin/Globulin Ratio Pending 1.3 Triglycerides Pending Urine Color Straw Urine Appearance Clear Urine pH 9.0 Ur Specific [place] 1.007 Urine Protein 100 A Urine Glucose (UA) >=500 A Urine Ketones Neg Urine Occult Blood Neg Urine Nitrate Neg Urine Bilirubin Neg Urine Urobilinogen Neg Ur Leukocyte Esterase 25 A Urine RBC 10 H Urine WBC 25 H Ur Squamous Epith Cells 0 Urine Bacteria Few A Ur Culture Indicated? Yes 11/20/19 22:56 WBC 12.9 H RBC 3.03 L Hgb 9.2 L Hct 27.6 L MCV 91.1 MCH 30.4 MCHC 33.3 RDW 14.2 Plt Count 265 MPV 9.7 Gran % 70.7 Lymph % (Auto) 14.2 L [place] % (Auto) 10.3 Eos % (Auto) 4.2 Baso % (Auto) 0.6 Gran # 9.08 H Lymph # (Auto) 1.83 [place] # (Auto) 1.32 H Eos # (Auto) 0.54 Baso # (Auto) 0.08 Sodium Potassium Chloride Carbon Dioxide Anion Gap BUN Creatinine GFR Calculation Glucose Uric Acid Calcium Phosphorus Magnesium Total Bilirubin Direct Bilirubin GGT AST ALT Alkaline Phosphatase Lactate Dehydrogenase Total Protein Albumin Globulin Albumin/Globulin Ratio Triglycerides Urine Color Urine Appearance Urine pH Ur Specific [place] Urine Protein Urine Glucose (UA) Urine Ketones Urine Occult Blood Urine Nitrate Urine Bilirubin Urine Urobilinogen Ur Leukocyte Esterase Urine RBC Urine WBC Ur Squamous Epith Cells Urine Bacteria Ur Culture Indicated? A/P Narrative A/P Narrative: A: *Right Renal hemorrhage with large subcapsular component: nontraumatic *Anemia, acute blood loss on chronic: *ESRD: on ASA/Plavix for fistula by Dr. Jasso *DM: *h/o dCHF: *HTN/HLD: *Tobacco abuse: P: -Transfuse 2 PRBC with HD -serial H&H -coags -Urology consulted from ED, await further recs -Nephrology following -ASA/Plavix held -cont other cardiac meds, monitor BP -basal and SSI -Smoking cessation counseling -ppx: SCD (chemical held 2/2 above) full code Time Spent With Patient Time: Total time spent is greater than 50% in coordination of care (as documented) at patient's floor/unit and/or counseling patient: QUALITY VTE Deep Vein Thrombosis/Pulmonary Embolism Present on Admission: No
[2019-11-21 07:54] LABS: ALT/SGPT 18 U/l (0-40); AST/SGOT 28 U/l (0-37); Albumin 3.9 gm/dL (3.2-5.2); Albumin/Globulin Ratio 1.3 (1.0-2.3); Alkaline Phosphatase 59 U/L (39-117); Bilirubin,Direct < 0.2 mg/dL (0.0-0.3); Bilirubin,Total 0.2 mg/dL (0.0-1.0); Blood Urea Nitrogen 40 mg/dl (6-20); Calcium 9.6 mg/dl (8.6-10.4); Carbon Dioxide 28 mmol/L (22-30); Globulin 3.1 gm/dL (2.2-3.7); Glucose 245 mg/dL (70-105); Lactate Dehydrogenase 215 U/L (94-250); Phosphorous 5.6 mg/dL (2.7-4.5); Triglycerides 59 mg/dl (<150); Uric Acid 5.1 mg/dL (2.5-8.0)
[2019-11-21 07:59] LABS: Chloride 90 mmol/L (96-108); Glomerular Filtration Rate 7
[2019-11-21 09:01] LABS: Hematocrit 23.8 % (40.1-51.0); Hemoglobin 7.9 g/dL (13.7-17.5); Mean Corpuscular HGB Conc 33.2 g/dL (31.0-36.0); Mean Platelet Volume 9.9 fL (7.4-10.4); Platelet Count 266 K/mcL (140-440); RBC 2.56 M/mcL (4.63-6.08); Red Cell Distribution Width 14.2 % (11.5-14.5); WBC 14.6 K/mcL (4.50-11.00)
[2019-11-21 09:25] LABS: Basophils % (Manual) 1 % (0-2); Lymphocytes % 8 % (15-49); Monocytes % (Manual) 9 % (1-12); Platelet Estimate NORMAL (NORMAL); RBC Morphology NORMAL (NORMAL); Segmented Neutrophils % 82 % (38-78)
[2019-11-21] MEDS ORDERED: 0.9 % SODIUM CHLORIDE 250 ML IV SCH (09:30)
[2019-11-21] MEDS ORDERED: SENNOSIDES 1 TABLET PO PRN (09:31)
[2019-11-21] MEDS ORDERED: POTASSIUM CHLORIDE 20 MEQ TABLET PO PRN ×2 (09:31)
[2019-11-21] MEDS ORDERED: ACETAMINOPHEN 325 MG TABLET PO PRN (09:31)
[2019-11-21] MEDS ORDERED: ONDANSETRON 4 MG/2 ML VIAL IV PRN (09:31)
[2019-11-21] MEDS ORDERED: POTASSIUM CHLORIDE 40 MEQ in DEXTROSE 5% IN WATER 500 ML IV PRN (09:31)
[2019-11-21] MEDS ORDERED: HYDROcodone/APAP 5/325MG TABLET PO PRN (09:31)
[2019-11-21] MEDS ORDERED: MAGNESIUM SULFATE 2 GM/50 ML BAG IV PRN (09:31)
[2019-11-21] MEDS ORDERED: METOCLOPRAMIDE 10 MG/2 ML VIAL IV PRN (09:31)
[2019-11-21] MEDS ORDERED: POLYETHYLENE GLYCOL 3350 17 GM PACKET PO PRN (09:31)
[2019-11-21] MEDS ORDERED: IPRATROPIUM/ALBUTEROL 3 ML AMPUL.NEB NEB PRN (09:31)
[2019-11-21] MEDS ORDERED: DEXTROSE 50% 50 ML VIAL IV PRN (09:36)
[2019-11-21] MEDS ORDERED: DEXTROSE 31 GM ORAL.SUSP PO PRN (09:36)
[2019-11-21] MEDS ORDERED: SEVELAMER 800 MG TABLET PO SCH (09:45)
[2019-11-21] MEDS: HYDROmorphone 2 MG TABLET PO PRN ×3 (10:12→23:12)
[2019-11-21 10:49] LABS: INR 1.1 (0.9-1.1); Prothrombin Time 14.3 sec (11.9-14.5)
[2019-11-21] MEDS ORDERED: MIDODRINE 5 MG TABLET PO PRN (11:38)
[2019-11-21] MEDS: INSULIN LISPRO 1 UNIT/0.01 ML UNIT SQ SCH ×3 (11:48→21:15)
[2019-11-21] MEDS: 0.9 % SODIUM CHLORIDE 10 ML SYRINGE IV SCH ×2 (16:59→21:23)
--- NOTE | 2019-11-21 17:01 | Nephrology Consult Note ---
HPI Data of Consult Primary Care Provider: Andrey Strickland DO Consult Narrative Patient Information: Note initiated : 11/21/19 at 4:55 pm Service Date, if different from initiated Date: [] Patient: Daljit Ash 54 y/o M admitted on 11/21/19 for right flank pain. Chief Complaint: ESRD w flank pain 54 y.o M with ESRD on maintenance HD MWF, presented with flank pain and was diagnosed with 7.7cm renal hematoma. Denies trauma or strenous activity. Says his pain started 11/20/2019 around 1999 and it got worse. Patient seen and examined on dialysis 11/21/2019 cc:: CC: Eric Javed MD [facility] PFS All Active Problems (Updated 11/22/19 @ 10:30 by Eric Javed MD) Leucocytosis (Acute) Closed hematoma of right kidney (Acute) UTI (urinary tract infection) (Acute) Tobacco abuse (Acute) History of appendectomy (Acute ~2005) CHF (congestive heart failure) (Acute) Flash pulmonary edema (Acute) Hypoxia (Acute) Pulmonary edema (Acute) Acute respiratory failure with hypoxia (Acute) Community acquired pneumonia (Acute) Hypoxia (Acute) ESRD on hemodialysis (Chronic) Anemia due to stage 5 chronic kidney disease treated with darbepoetin (Acute) Acute on chronic diastolic CHF (congestive heart failure), NYHA class 2 (Acute) Nausea & vomiting (Acute) CRF (chronic renal failure) (Acute) Diabetes mellitus type 1 with complications (Acute) Hyperkalemia, diminished renal excretion (Acute) DKA (diabetic ketoacidosis) (Acute) Dressing change (Acute) Arm pain, left (Acute) Discitis (Acute) Nausea (Acute) Cough (Acute) Muscle twitching (Acute) Word finding difficulty (Acute) Medication side effect (Acute) ESRD (end stage renal disease) (Acute) Confusion (Acute) Cellulitis of great toe, left (Acute) Cellulitis of finger of left hand (Acute) Knee contusion (Acute) Abscess (Acute) Status post insertion of dialysis catheter (Acute) Shortness of breath (Acute) Cluster headache syndrome, intractable (Acute) Chronic kidney disease, stage V (Chronic) Injury of Foot (Acute) Back pain at L4-L5 level (Chronic) Arteriovenous fistula for hemodialysis in place, primary (Chronic) Secondary hyperparathyroidism of renal origin (Chronic) Proteinuria (Chronic 12/06/12) Pes planus (Chronic) 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 (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) Hypertensive renal disease (Chronic) Hyperlipidemia (Chronic) Gastroesophageal reflux (Chronic 07/01/14) Essential hypertension (Chronic 12/06/12) End stage renal disease (Chronic) Diabetes mellitus type 1, uncontrolled (Chronic) Chronic kidney disease, stage V (Chronic 04/29/13) Anemia in chronic kidney disease (Chronic) Acidosis, metabolic (Chronic 12/06/12) Medical History Acidosis, metabolic (Chronic 12/06/12) of CKD Acute appendicitis (Inactive) Anemia in chronic kidney disease (Chronic) Appendicitis (Inactive) Back pain at L4-L5 level (Chronic) Carpal tunnel syndrome of right wrist (Acute) Chronic kidney disease, stage V (Chronic 04/29/13) Diabetes mellitus type 1, uncontrolled (Chronic) unable to afford brand insulin End stage renal disease (Chronic) Essential hypertension (Chronic 12/06/12) Foot pain (Inactive 07/01/14) Gastroesophageal reflux (Chronic 07/01/14) Pantoprazole not covered by insurance, switch to nexium based on the formulary of the EMR History of tobacco abuse (Inactive) Hyperlipidemia (Chronic) on fenofibrate and atorvastatin, tg and ldl at goal Hypertensive renal disease (Chronic) 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 R emarkable improvement in 24 hours. Continue Levaquin/Augmentin for additional 6 days to cover for nosocomial organism including Pseudomonas nd aspiration coverage 2. other prior medical issues were managed on home meds including ESRD on HD CAD on aspirin Hypertension on amlodipine/Metoprolol glaucoma on latanoprost/timolol Hyperlipidemia on statin DM type II on home dose insulin NPH Pes planus (Chronic) Pneumonia (Inactive) Proteinuria (Chronic 12/06/12) Rash (Inactive) due to levofloxacin, trial of 3 days prednisone. Secondary hyperparathyroidism of renal origin (Chronic) Surgical History Arteriovenous fistula for hemodialysis in place, primary (Chronic) 10/29/2013 Creation of a right radiocephalic AV fistula H/O carpal tunnel repair (Acute) History of angioplasty (Chronic 11/03/16) and fistulogram 01/16/19 History of ankle surgery (Acute) History of back surgery (Acute ~2014) History of bone marrow biopsy (Inactive) 03/30/2013 History of colonoscopy (Chronic 06/18/15) History of laser photocoagulation of retina (Inactive) History of shoulder surgery (Inactive) 2013 bicep reattachment-right shoulder-Dr. 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 smoking status: Current every day smoker tobacco type: cigarettes per day: 1 pack-years: 25 smoking status stop date: 09/11/14 alcohol intake frequency: does not drink substance use type: does not use MEDS/ALLERGIES Home Medications and Allergies Home Medications Medication Instructions Recorded Confirmed Type ascorbic acid (vitamin C) 1,000 mg 500 mg PO BID tab 08/23/14 11/21/19 History tablet pen needle, diabetic 32 gauge x #200 each 07/14/17 11/21/19 Rx " amlodipine 10 mg tablet 10 mg PO QDAY #90 tab 02/05/19 11/21/19 Rx blood-glucose meter #1 each 06/22/19 11/21/19 Rx ondansetron 4 mg disintegrating 4 mg TRANSLINGU Q4-6HP PRN #20 tab 07/24/19 11/21/19 Rx tablet albuterol sulfate 90 mcg/actuation 2 puff INHALATION Q8H PRN #8.5 g 08/29/19 11/21/19 Rx aerosol inhaler B complex-vitamin C-folic acid 0.8 1 tab PO QDAY #90 tab 09/17/19 11/21/19 Rx mg tablet hydralazine 25 mg tablet 25 mg PO BID #60 tab 09/24/19 11/21/19 Rx varenicline 0.5 mg (11)-1 mg (42) See Rx Instructions PO PER PKG DIR 10/04/19 11/21/19 Rx tablets in a dose pack #53 tab clopidogrel 75 mg tablet 75 mg PO QDAY #90 tab 10/08/19 11/21/19 Rx hydromorphone 4 mg tablet 4 mg PO Q6H PRN #112 tab 11/06/19 11/21/19 Rx furosemide 40 mg tablet 40 mg PO BID #180 tab 11/16/19 11/21/19 Rx metoprolol tartrate 50 mg tablet 25 mg PO BID #90 tab 11/16/19 11/21/19 Rx aspirin [Adult Aspirin Regimen] 81 mg PO HS 11/21/19 11/21/19 History atorvastatin 40 mg PO HS 11/21/19 11/21/19 History captopril 25 mg PO BID 11/21/19 11/21/19 History insulin aspart U-100 [Novolog 1 - 16 unit SUB-Q QD-BID 11/21/19 11/21/19 History Flexpen U-100 Insulin] insulin glargine 24 unit SUBCUT HS 11/21/19 11/21/19 History sevelamer carbonate [Renvela] 1,600 mg PO QD-BID 11/21/19 11/21/19 History acetaminophen 325 mg capsule 650 mg PO Q6H PRN 11/23/19 History alteplase 2 mg intra-catheter 4 mg INTRA-CATHETER ONCE each 11/23/19 History solution calcium acetate 667 mg tablet 1,334 mg PO TID 11/23/19 History cimetidine 200 mg tablet 200 mg PO BID tab 11/23/19 History clonidine HCl 0.1 mg tablet 0.1 mg PO ONCE PRN tab 11/23/19 History etelcalcetide 5 mg/mL intravenous 2.5 mg IV 3XW 11/23/19 History solution heparin (porcine) 1,000 unit/mL IV 11/23/19 History injection solution hydroxyzine HCl 10 mg tablet 10 mg PO TID PRN 11/23/19 History loperamide 2 mg capsule 4 mg PO ONCE PRN cap 11/23/19 History midodrine 5 mg tablet 5 mg PO 3XW tab 11/23/19 History omega-3 fatty acids 100 mg 350 mg PO tab 11/23/19 History chewable tablet sodium ferric gluconat-sucrose 62.5 mg IV ONCE 11/23/19 History 62.5 mg/5 mL intravenous Allergies Allergy/AdvReac Type Severity Reaction Status Date / Time codeine AdvReac Mild Vomiting Verified 11/20/19 22:38 hydrocodone [HYDROCODONE] AdvReac Mild Vomiting Verified 11/20/19 22:38 Physical Examination Vital Signs Vital signs: Temp Pulse Resp BP Pulse Ox 37.2 C 86 14 150/71 90 11/21/19 15:21 11/21/19 15:21 11/21/19 15:21 11/21/19 15:21 11/21/19 15:21 Results Lab Results Result Diagrams: 11/23/19 10:27 11/22/19 04:55 Lab results: Most recent lab results Calcium 9.6 mg/dl (8.6-10.4) 11/21/19 05:19 Phosphorus 5.6 mg/dL (2.7-4.5) H 11/21/19 05:19 Magnesium 2.5 mg/dL (1.6-2.5) 11/21/19 05:19 A/P Assessment and plan (1) ESRD on hemodialysis: Status: Chronic (2) Closed hematoma of right kidney: Status: Acute Comment: -significant retroperitoneal bleed from right kidney with corresponding drop in Hg now s/p two units with Hg improved to > 9 and has remained > 9 this morning -cont serial HG and check this afternoon, if remains stable then urology will sign off. -if his Hg stabilizes and no further acute bleeding: he needs eventual MRI abdomen to evaluate cause and ensure no mass and will do this as outpatient -if his HG is not stable: he needs urgent evaluation and intervention by interventional radiology for possible selective embolization -monitor closely as risk development retroperitoneal abscess exists. his WBC decreased slightly today -does not need to be NPO at this time -will plan for outpatient follow up next week to arrange MRI abdomen Qualifiers: Encounter type: initial encounter Qualified Code(s): S37.011A - Minor contusion of right kidney, initial encounter Narrative A/P Narrative: ESRD on HD MWF via AVF patient seen and examined on HD 11/21/2019. Blood pressure low normal. UF minimized. His intravascular volume is low 2/2 renal hematoma. H&H drop noted, transfusion will be given during the HD treatment although the patient is above his EDW, recommend limiting the UF to 0.5-1L as tolerated 2/2 above. serial Hand H further management per urology next HD 11/23/2019. evaluate for UF tomorrow 11/22/2019, doubt he will need it. Time Spent With Patient Time: Total time spent is greater than 50% in coordination of care (as documented) at patient's floor/unit and/or counseling patient:discussion with ED MD 11/21/2019 around 2am. discussed with RN, HD RN, patient. Total time spent with greater than 50% in coordination of care (as documented) at patient's floor/unit and/or counseling patient:: Greater than 35 minutes
--- NOTE | 2019-11-21 18:12 | Internal Medicine Consult Note ---
HPI Data of Consult Patient: new to practice Primary Care Provider: Andrey Strickland DO Consult Narrative Patient Information: Note initiated : 11/21/19 at 3:48 pm Service Date, if different from initiated Date: [] Patient: Daljit Ash 54 y/o M admitted on 11/21/19 for right flank pain. Found on CT scan to have a right subcapsular hematoma with significant extension into the retroperitoneum. CT report with concern for underlying mass (such as AML or RCC) or ruptured renal artery aneurysm and recommended MRI abdomen and abdominal aortic MRA to better evaluate. These have not yet been done. Patient under went dialysis today and was transfused 2 units pack repeat Hg pending. Recent previous pansensitive enterococcus UTI treated with Cipro by PCP. UA in ER suggestive possible infection, culture pending. Some elevation in his WBC overnight. 11/20/19 -- > 11/21/19 08:00 WBC: 12.9- 14.6 H.2 - 7.9 (baseline 10-11) He was on ASA and plavix when he presented. Patient has never seen a urologist before. He does void, but typically less than 100 cc 2-5 times a day. He felt better after he took his cipro for his UTI and currently does not think he has one vs very mild dysuria. Some residual right flank pain, has improved. No fevers, no chills, not dizzy. no hematuria. Chief complaint: right flank pain Reason for consult: subcapsular renal hematoma cc:: CC: Eric Javed MD Review of Systems All systems: reviewed and no additional remarkable complaints except as stated Constitutional Constitutional: Present fatigue; Absent chills, fever(s) and malaise EENT Eyes: Absent blurry vision, dry eye and itchy eyes Cardiovascular Cardiovascular: Absent chest pain at rest, dyspnea and palpatations Respiratory Respiratory: Absent cough, dyspnea and wheezing Gastrointestinal Gastrointestinal: Present as per HPI and abdominal pain (right flank pain) Genitourinary Genitourinary: as per HPI Musculoskeletal Musculoskeletal: Absent muscle weakness, myalgias and tingling Integumentary Integumentary: Absent pruritus, rash and unusual bruising (no flank eccymosis ) Neurological Neurological: Absent behavioral changes, confusion and dizziness Psychiatric Psychiatric: Absent behavioral changes, confusion and memory loss Endocrine Endocrine: Present fatigue; Absent polydipsia and polyuria Hematologic/Lymphatic Hematologic/Lymphatic: Present easy bleeding; Absent easy bruising and lymphadenopathy Allergic/Immunologic Allergic/Immunologic: Absent itchy eyes, uticaria and wheezing PFSH PFSH All Active Problems (Updated 11/21/19 @ 20:22 by Eric Javed MD) Closed hematoma of right kidney (Acute) UTI (urinary tract infection) (Acute) Tobacco abuse (Acute) History of appendectomy (Acute ~2005) CHF (congestive heart failure) (Acute) Flash pulmonary edema (Acute) Hypoxia (Acute) Pulmonary edema (Acute) Acute respiratory failure with hypoxia (Acute) Community acquired pneumonia (Acute) Hypoxia (Acute) ESRD on hemodialysis (Chronic) Anemia due to stage 5 chronic kidney disease treated with darbepoetin (Acute) Acute on chronic diastolic CHF (congestive heart failure), NYHA class 2 (Acute) Nausea & vomiting (Acute) CRF (chronic renal failure) (Acute) Diabetes mellitus type 1 with complications (Acute) Hyperkalemia, diminished renal excretion (Acute) DKA (diabetic ketoacidosis) (Acute) Dressing change (Acute) Arm pain, left (Acute) Discitis (Acute) Nausea (Acute) Cough (Acute) Muscle twitching (Acute) Word finding difficulty (Acute) Medication side effect (Acute) ESRD (end stage renal disease) (Acute) Confusion (Acute) Cellulitis of great toe, left (Acute) Cellulitis of finger of left hand (Acute) Knee contusion (Acute) Abscess (Acute) Status post insertion of dialysis catheter (Acute) Shortness of breath (Acute) Cluster headache syndrome, intractable (Acute) Chronic kidney disease, stage V (Chronic) Injury of Foot (Acute) Back pain at L4-L5 level (Chronic) Arteriovenous fistula for hemodialysis in place, primary (Chronic) Secondary hyperparathyroidism of renal origin (Chronic) Proteinuria (Chronic 12/06/12) Pes planus (Chronic) half-way current use of insulin (Chronic) 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 manager 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 (Chronic) Hypertensive renal disease (Chronic) Hyperlipidemia (Chronic) Gastroesophageal reflux (Chronic 07/01/14) Essential hypertension (Chronic 12/06/12) End stage renal disease (Chronic) Diabetes mellitus type 1, uncontrolled (Chronic) Chronic kidney disease, stage V (Chronic 04/29/13) Anemia in chronic kidney disease (Chronic) Acidosis, metabolic (Chronic 12/06/12) Medical History Acidosis, metabolic (Chronic 12/06/12) of CKD Acute appendicitis (Inactive) Anemia in chronic kidney disease (Chronic) Appendicitis (Inactive) Back pain at L4-L5 level (Chronic) Carpal tunnel syndrome of right wrist (Acute) Chronic kidney disease, stage V (Chronic 04/29/13) Diabetes mellitus type 1, uncontrolled (Chronic) unable to afford brand insulin End stage renal disease (Chronic) Essential hypertension (Chronic 12/06/12) Foot pain (Inactive 07/01/14) Gastroesophageal reflux (Chronic 07/01/14) Pantoprazole not covered by insurance, switch to nexium based on the formulary of the EMR History of tobacco abuse (Inactive) Hyperlipidemia (Chronic) on fenofibrate and atorvastatin, tg and ldl at goal Hypertensive renal disease (Chronic) half-way 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 (Chronic) 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 manager 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 Remarkable improvement in 24 hours. Continue Levaquin/Augmentin for additional 6 days to cover for nosocomial organism including Pseudomonas nd aspiration coverage 2. other prior medical issues were managed on home meds including ESRD on HD CAD on aspirin Hypertension on amlodipine/Metoprolol glaucoma on latanoprost/timolol Hyperlipidemia on statin DM type II on home dose insulin NPH Pes planus (Chronic) Pneumonia (Inactive) Proteinuria (Chronic 12/06/12) Rash (Inactive) due to levofloxacin, trial of 3 days prednisone. Secondary hyperparathyroidism of renal origin (Chronic) Surgical History Arteriovenous fistula for hemodialysis in place, primary (Chronic) 10/29/2013 Creation of a right radiocephalic AV fistula H/O carpal tunnel repair (Acute) History of angioplasty (Chronic 11/03/16) and fistulogram 01/16/19 History of ankle surgery (Acute) History of back surgery (Acute ~2014) History of bone marrow biopsy (Inactive) 03/30/2013 History of colonoscopy (Chronic 06/18/15) History of laser photocoagulation of retina (Inactive) History of shoulder surgery (Inactive) 2013 bicep reattachment-right shoulder-Dr. 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[employer] other: smoked 32 years smoking status: Current every day smoker tobacco type: cigarettes per day: 1 pack-years: 25 smoking status stop date: 09/11/14 alcohol intake frequency: does not drink substance use type: does not use MEDS/ALLERGIES Home Medications and Allergies Home Medications Medication Instructions Recorded Confirmed Type ascorbic acid (vitamin C) 1,000 mg 500 mg PO BID tab 08/23/14 11/21/19 History tablet pen needle, diabetic 32 gauge x #200 each 07/14/17 11/21/19 Rx " amlodipine 10 mg tablet 10 mg PO QDAY #90 tab 02/05/19 11/21/19 Rx blood-glucose meter #1 each 06/22/19 11/21/19 Rx ondansetron 4 mg disintegrating 4 mg TRANSLINGU Q4-6HP PRN #20 tab 07/24/19 11/21/19 Rx tablet albuterol sulfate 90 mcg/actuation 2 puff INHALATION Q8H PRN #8.5 g 08/29/19 11/21/19 Rx aerosol inhaler B complex-vitamin C-folic acid 0.8 1 tab PO QDAY #90 tab 09/17/19 11/21/19 Rx mg tablet hydralazine 25 mg tablet 25 mg PO BID #60 tab 09/24/19 11/21/19 Rx varenicline 0.5 mg (11)-1 mg (42) See Rx Instructions PO PER PKG DIR 10/04/19 11/21/19 Rx tablets in a dose pack #53 tab clopidogrel 75 mg tablet 75 mg PO QDAY #90 tab 10/08/19 11/21/19 Rx hydromorphone 4 mg tablet 4 mg PO Q6H PRN #112 tab 11/06/19 11/21/19 Rx furosemide 40 mg tablet 40 mg PO BID #180 tab 11/16/19 11/21/19 Rx metoprolol tartrate 50 mg tablet 25 mg PO BID #90 tab 11/16/19 11/21/19 Rx aspirin [Adult Aspirin Regimen] 81 mg PO HS 11/21/19 11/21/19 History atorvastatin 40 mg PO HS 11/21/19 11/21/19 History captopril 25 mg PO BID 11/21/19 11/21/19 History insulin aspart U-100 [Novolog 1 - 16 unit SUB-Q QD-BID 11/21/19 11/21/19 History Flexpen U-100 Insulin] insulin glargine 24 unit SUBCUT HS 11/21/19 11/21/19 History sevelamer carbonate [Renvela] 1,600 mg PO QD-BID 11/21/19 11/21/19 History Allergies Allergy/AdvReac Type Severity Reaction Status Date / Time codeine AdvReac Mild Vomiting Verified 11/20/19 22:38 hydrocodone [HYDROCODONE] AdvReac Mild Vomiting Verified 11/20/19 22:38 EXAM Constitutional Vitals: Temp Pulse Resp BP Pulse Ox 98.0 F 74 18 118/61 95 11/21/19 13:11 11/21/19 13:11 11/21/19 12:00 11/21/19 13:11 11/21/19 12:00 General appearance: cooperative, no acute distress and thin Head Head exam: Present atraumatic, normal inspection and normocephalic Eye Eye exam: Present normal appearance; Absent conjunctival injection and scleral icterus ENT ENT exam: Present mucous membranes moist Neck Neck exam: Present normal inspection Respiratory Respiratory exam: Absent chest wall tenderness, respiratory distress, stridor and wheezes Cardiovascular Cardiovascular exam: Present tachycardia GI/Abdominal GI/Abdominal exam: Present soft and tenderness (right flank tenderness to palpation, no eccymosis, no mass); Absent distended and guarding Neurological Exam Neurological exam: Present alert and oriented X3 Psychiatric Psychiatric exam: Present normal affect and normal mood; Absent agitated and anxious Skin Skin exam: Present normal color; Absent diaphoretic and petechiae DATA Data Completed and Pending Labs: Labs from last 24 hours 11/21/19 11/21/19 11/21/19 09:35 08:01 05:19 WBC 14.6 H RBC 2.56 L Hgb 7.9 L Hct 23.8 L MCV 93.0 MCH 30.9 MCHC 33.2 RDW 14.2 Plt Count 266 MPV 9.9 Gran % Lymph % (Auto) [place] % (Auto) Eos % (Auto) Baso % (Auto) Gran # Lymph # (Auto) [place] # (Auto) Eos # (Auto) Baso # (Auto) Total Counted 100 Seg Neutrophils % 82 H Band Neutrophils % Not Reportable Lymphocytes % 8 L Monocytes % (Manual) 9 Basophils % (Manual) 1 Platelet Estimate Normal RBC Morphology Normal PT 14.3 INR 1.1 APTT 34 Sodium 137 Potassium 5.4 H Chloride 90 L Carbon Dioxide 28 Anion Gap 19.0 H BUN 40 H Creatinine 7.7 H* GFR Calculation 7 Glucose 245 H Uric Acid 5.1 Calcium 9.6 Phosphorus 5.6 H Magnesium 2.5 Total Bilirubin 0.2 Direct Bilirubin < 0.2 GGT 13 AST 28 ALT 18 Alkaline Phosphatase 59 Lactate Dehydrogenase 215 Total Protein 7.0 Albumin 3.9 Globulin 3.1 Albumin/Globulin Ratio 1.3 Triglycerides 59 Urine Color Urine Appearance Urine pH Ur Specific [place] Urine Protein Urine Glucose (UA) Urine Ketones Urine Occult Blood Urine Nitrate Urine Bilirubin Urine Urobilinogen Ur Leukocyte Esterase Urine RBC Urine WBC Ur Squamous Epith Cells Urine Bacteria Ur Culture Indicated? 11/21/19 11/20/19 11/20/19 00:34 22:56 22:56 WBC 12.9 H RBC 3.03 L Hgb 9.2 L Hct 27.6 L MCV 91.1 MCH 30.4 MCHC 33.3 RDW 14.2 Plt Count 265 MPV 9.7 Gran % 70.7 Lymph % (Auto) 14.2 L [place] % (Auto) 10.3 Eos % (Auto) 4.2 Baso % (Auto) 0.6 Gran # 9.08 H Lymph # (Auto) 1.83 [place] # (Auto) 1.32 H Eos # (Auto) 0.54 Baso # (Auto) 0.08 Total Counted Seg Neutrophils % Band Neutrophils % Lymphocytes % Monocytes % (Manual) Basophils % (Manual) Platelet Estimate RBC Morphology PT INR APTT Sodium 134 Potassium 4.7 Chloride 89 L Carbon Dioxide 28 Anion Gap 17.0 H BUN 34 H Creatinine 7.9 H* GFR Calculation 7 Glucose 326 H Uric Acid Calcium 9.4 Phosphorus Magnesium Total Bilirubin 0.2 Direct Bilirubin GGT AST 29 ALT 19 Alkaline Phosphatase 81 Lactate Dehydrogenase Total Protein 7.2 Albumin 4.1 Globulin 3.1 Albumin/Globulin Ratio 1.3 Triglycerides Urine Color Straw Urine Appearance Clear Urine pH 9.0 Ur Specific [place] 1.007 Urine Protein 100 A Urine Glucose (UA) >=500 A Urine Ketones Neg Urine Occult Blood Neg Urine Nitrate Neg Urine Bilirubin Neg Urine Urobilinogen Neg Ur Leukocyte Esterase 25 A Urine RBC 10 H Urine WBC 25 H Ur Squamous Epith Cells 0 Urine Bacteria Few A Ur Culture Indicated? Yes A/P Assessment and plan (1) Closed hematoma of right kidney: Status: Acute Comment: -significant retroperitoneal bleed from right kidney with corresponding drop in Hg now s/p two units with Hg improved to > 9 -cont serial HG -etiology could be renal mass (RCC or AML) or renal artery aneurysm as mentioned in the radiology report -if his Hg stabilizes and no further acute bleeding: he needs eventual MRI abdomen to evaluate cause and ensure no mass -if his HG is NOT stabilizing: he needs urgent evaluation and intervention by interventional radiology for possible selective embolization -monitor closely as risk development retroperitoneal abscess exists, but suspect his elevated WBC may be a UTI (awaiting culture and repeat CBC in am) -does not need to be NPO at this time Qualifiers: Encounter type: initial encounter Qualified Code(s): S37.011A - Minor contusion of right kidney, initial encounter (2) UTI (urinary tract infection): Status: Acute Comment: -he has a recent pansensitive enterococcus UTI and was treated with cipro. He wa s improved -UA suggestive contamination or possible UTI -await culture and monitor WBC (elevated this am and repeat in the am) -RN will get a post void residual after next void and call me to ensure he is emptying well Qualifiers: Urinary tract infection type: acute pyelonephritis Qualified Code(s): N10 - Acute pyelonephritis Time Spent With Patient Time: Total time spent is greater than 50% in coordination of care (as do cumented) at patient's floor/unit and/or counseling patient: 30 minutes
[2019-11-21 19:36] LABS: Hematocrit 29.1 % (40.1-51.0); Hemoglobin 9.5 g/dL (13.7-17.5)
[2019-11-21] MEDS: INSULIN GLARGINE, HUMAN 1 UNIT/0.01 ML SQ SCH (21:15)
[2019-11-21] MEDS: hydrALAZINE 25 MG TABLET PO SCH (21:23)
[2019-11-21] MEDS: FUROSEMIDE 40 MG TABLET PO SCH (21:23)
[2019-11-21] MEDS: CAPTOPRIL 12.5 MG TABLET PO SCH (21:23)
[2019-11-21] MEDS: ATORVASTATIN 40 MG TABLET PO SCH (21:23)
[2019-11-21] MEDS: METOPROLOL TARTRATE 25 MG TABLET PO SCH (21:23)
[2019-11-21] MEDS: DOCUSATE SODIUM 100 MG CAPSULE PO SCH (21:23)
[2019-11-22 01:37] LABS: Hematocrit 25.7 % (40.1-51.0); Hemoglobin 8.6 g/dL (13.7-17.5)
[2019-11-22] MEDS: HYDROmorphone 2 MG TABLET PO PRN ×3 (05:50→18:50)
[2019-11-22] MEDS: 0.9 % SODIUM CHLORIDE 10 ML SYRINGE IV SCH ×3 (05:51→21:08)
[2019-11-22 06:05] LABS: Basophils # (Auto) 0.06 K/mcL (0.00-0.30); Basophils % (Auto) 0.4 % (0.0-2.0); Eosinophils % (Auto) 3.6 % (0.0-7.0); Granulocytes % (Auto) 71.9 % (38.0-78.0); Hematocrit 28.5 % (40.1-51.0); Hemoglobin 9.4 g/dL (13.7-17.5); Lymphocytes # (Auto) 1.74 K/mcL (1.50-4.80); Lymphocytes % (Auto) 12.6 % (15.5-49.0); Mean Cell Volume 90.5 fL (80.0-100.0); Mean Platelet Volume 9.8 fL (7.4-10.4); Monocytes # (Auto) 1.59 K/mcL (0.10-0.90); Monocytes % (Auto) 11.5 % (1.0-12.0); Platelet Count 212 K/mcL (140-440); RBC 3.15 M/mcL (4.63-6.08); Red Cell Distribution Width 15.6 % (11.5-14.5); WBC 13.8 K/mcL (4.50-11.00)
[2019-11-22 06:31] LABS: ALT/SGPT 14 U/l (0-40); AST/SGOT 21 U/l (0-37); Albumin 3.7 gm/dL (3.2-5.2); Albumin/Globulin Ratio 1.3 (1.0-2.3); Alkaline Phosphatase 58 U/L (39-117); Bilirubin,Direct < 0.2 mg/dL (0.0-0.3); Bilirubin,Total 0.5 mg/dL (0.0-1.0); Calcium 8.8 mg/dl (8.6-10.4); Carbon Dioxide 25 mmol/L (22-30); Globulin 2.9 gm/dL (2.2-3.7); Glucose 224 mg/dL (70-105); Lactate Dehydrogenase 174 U/L (94-250); Triglycerides 162 mg/dl (<150)
[2019-11-22 06:33] LABS: Blood Urea Nitrogen 18 mg/dl (6-20); Chloride 91 mmol/L (96-108); Glomerular Filtration Rate 12; Phosphorous 4.3 mg/dL (2.7-4.5); Uric Acid 2.3 mg/dL (2.5-8.0)
[2019-11-22] MEDS: INSULIN LISPRO 1 UNIT/0.01 ML UNIT SQ SCH ×4 (08:06→21:05)
[2019-11-22] MEDS ORDERED: amLODIPine 10 MG TABLET PO SCH (09:00)
[2019-11-22] MEDS: DOCUSATE SODIUM 100 MG CAPSULE PO SCH ×2 (09:10→21:05)
[2019-11-22] MEDS: CAPTOPRIL 12.5 MG TABLET PO SCH ×2 (09:10→21:05)
[2019-11-22] MEDS: hydrALAZINE 25 MG TABLET PO SCH ×2 (09:10→21:05)
[2019-11-22] MEDS: METOPROLOL TARTRATE 25 MG TABLET PO SCH ×2 (09:10→21:05)
[2019-11-22] MEDS: FUROSEMIDE 40 MG TABLET PO SCH ×2 (09:11→21:05)
[2019-11-22] MEDS ORDERED: NICOTINE 21 MG PATCH TOPICAL SCH (10:00)
--- NOTE | 2019-11-22 10:22 | Internal Med Progress Note ---
SUBJECTIVE Subjective Patient information: Note initiated : 11/22/19 at 10:17 am Service Date, if different from initiated Date: [] Patient: Daljit Ash 54 y/o M admitted on 11/21/19 for right flank pain for to have extensive retroperitoneal bleed from his kidney. He is a dialysis patient and was on ASA and plavix. He still has flank pain this am. not worse. no fevers, no chills, no nausea, no emesis. He now denies dysuria, urine is clear. PVR obtained by RN last night was < 100 cc HG has been stable with this AM lab and WBC came down a little. he denies dizziness or lightheadedness. He wants to go home. Chief Complaint: [] Constitutional Vitals: Vital Signs Temp Pulse Resp BP Pulse Ox 99.0 F 86 16 139/71 93 11/22/19 08:00 11/22/19 08:00 11/22/19 08:00 11/22/19 08:00 11/22/19 08:00 Period Temp Pulse Resp BP Sys/Cerda Pulse Ox Last 24 Hr 97.7 F-99.0 F 67-95 12-18 84-154/50-73 90-95 Intake and Output 11/21/19 11/22/19 11/22/19 21:59 05:59 13:59 Intake Total 650 100 Output Total 10 Balance 650 90 Weight 149 lb 4.8 oz Intake & Output: Intake & Output 11/21/19 11/22/19 11/22/19 21:59 05:59 13:59 Intake Total 650 100 Output Total 10 Balance 650 90 Weight 149 lb 4.8 oz Intake: Oral 100 Blood Product 650 Output: Void Amount 10 Other: Meal 1x chees stick & peaches cup Percent of Meal Consumed 100% Feeding Ability Independent Urine Appearance Clear Clear Urine Color Pale Pale General appearance: cooperative and no acute distress; no disheveled Head Head exam: Present atraumatic, normal inspection and normocephalic Eye Eye exam: Present normal appearance; Absent conjunctival injection and scleral icterus Respiratory Respiratory exam: Absent respiratory distress, stridor and wheezes GI/Abdominal GI/Abdominal exam: Present soft; Absent distended, guarding and rebound Additional comments: urine in urinal clear pale yellow and free of gross signs infection Psychiatric Psychiatric exam: Present normal affect and normal mood; Absent agitated OBJ DATA Labs CBC & Chem 7: 11/22/19 04:55 11/22/19 04:55 Labs: Abnormal Lab Results 11/22/19 11/22/19 11/22/19 04:55 04:55 00:24 WBC 13.8 H RBC 3.15 L Hgb 9.4 L 8.6 L Hct 28.5 L 25.7 L RDW 15.6 H Lymph % (Auto) 12.6 L Gran # 9.91 H [place] # (Auto) 1.59 H Seg Neutrophils % Lymphocytes % Sodium 129 L Potassium Chloride 91 L Anion Gap BUN Creatinine 4.9 H Glucose 224 H Uric Acid 2.3 L Phosphorus Triglycerides 162 H Urine Protein Urine Glucose (UA) Ur Leukocyte Esterase Urine RBC Urine WBC Urine Bacteria 11/21/19 11/21/19 11/21/19 18:23 08:01 05:19 WBC 14.6 H RBC 2.56 L Hgb 9.5 L 7.9 L Hct 29.1 L 23.8 L RDW Lymph % (Auto) Gran # [place] # (Auto) Seg Neutrophils % 82 H Lymphocytes % 8 L Sodium Potassium 5.4 H Chloride 90 L Anion Gap 19.0 H BUN 40 H Creatinine 7.7 H* Glucose 245 H Uric Acid Phosphorus 5.6 H Triglycerides Urine Protein Urine Glucose (UA) Ur Leukocyte Esterase Urine RBC Urine WBC Urine Bacteria 11/21/19 11/20/19 11/20/19 00:34 22:56 22:56 WBC 12.9 H RBC 3.03 L Hgb 9.2 L Hct 27.6 L RDW Lymph % (Auto) 14.2 L Gran # 9.08 H [place] # (Auto) 1.32 H Seg Neutrophils % Lymphocytes % Sodium Potassium Chloride 89 L Anion Gap 17.0 H BUN 34 H Creatinine 7.9 H* Glucose 326 H Uric Acid Phosphorus Triglycerides Urine Protein 100 A Urine Glucose (UA) >=500 A Ur Leukocyte Esterase 25 A Urine RBC 10 H Urine WBC 25 H Urine Bacteria Few A Meds: Medications Acetaminophen (Tylenol) 650 mg PO Q6HP PRN PRN Reason: PAIN/FEVER > 101 Albuterol/Ipratropium (Duoneb) 3 ml NEB Q4HP PRN PRN Reason: Shortness Of Breath Amlodipine Besylate (Norvasc) 10 mg PO QDAY [facility] Last Admin: 11/22/19 09:10 Dose: 10 mg Documented by: Atorvastatin Calcium (Lipitor) 40 mg PO [facility] Last Admin: 11/21/19 21:23 Dose: 40 mg Documented by: Captopril (Capoten) 25 mg PO BID [facility] Last Admin: 11/22/19 09:10 Dose: 25 mg Documented by: Dextrose (Dextrose 50%) 0 ml IV UD PRN PRN Reason: Hypoglycemia Diagnostic Test (Pha) (Accu-Chek) 1 each FS [facility] Last Admin: 11/22/19 07:24 Dose: 1 each Documented by: Docusate Sodium (Colace) 100 mg PO BID [facility] Last Admin: 11/22/19 09:10 Dose: 100 mg Documented by: Furosemide (Lasix) 40 mg PO BID [facility] Last Admin: 11/22/19 09:11 Dose: 40 mg Documented by: Glucose (Insta-Glucose) 15 gm PO PRN PRN PRN Reason: Hypoglycemia Hydralazine HCl (Apresoline) 25 mg PO BID [facility] Last Admin: 11/22/19 09:10 Dose: 25 mg Documented by: Hydromorphone HCl (Dilaudid) 4 mg PO Q6HP PRN PRN Reason: Pain Last Admin: 11/22/19 05:50 Dose: 4 mg Documented by: Potassium Chloride 40 meq/ (Dextrose) 520 mls @ 130 mls/hr IV UD PRN PRN Reason: Potassium < 3 Magnesium Sulfate (Magnesium Sulfate) 2 gm in 50 mls @ 50 mls/hr IV UD PRN PRN Reason: Magnesium </= 1.6 Acetaminophen (Ofirmev) 650 mg in 65 mls @ 130 mls/hr IV Q6HP PRN PRN Reason: PAIN/FEVER > 101 Insulin Glargine (Lantus) 24 unit SQ [facility] Last Admin: 11/21/19 21:15 Dose: Not Given Documented by: Insulin Human Lispro (Humalog) 0 unit SQ [facility]; Protocol Last Admin: 11/22/19 08:06 Dose: 6 units Documented by: Metoclopramide HCl (Reglan) 5 mg IV Q6HP PRN PRN Reason: Nausea And Vomiting Last Admin: 11/21/19 10:03 Dose: 5 mg Documented by: Metoprolol Tartrate (Lopressor) 25 mg PO BID [facility] Last Admin: 11/22/19 09:10 Dose: 25 mg Documented by: Midodrine (Midodrine Hcl) 5 mg PO ONCE PRN PRN Reason: hypotension Last Admin: 11/21/19 11:46 Dose: 5 mg Documented by: Nicotine (Nicoderm) 21 mg TOPICAL DAILY@1000 [facility] Ondansetron HCl (Zofran) 4 mg IV Q4HP PRN PRN Reason: Nausea And Vomiting Polyethylene Glycol (Miralax) 17 gm PO DAILYP PRN PRN Reason: Constipation Potassium Chloride (Kdur) 40 meq PO UD PRN PRN Reason: Potssium is 3-3.5 Potassium Chloride (Kdur) 40 meq PO UD PRN PRN Reason: Potassium < 3 Senna (Senokot) 2 tab PO DAILYP PRN PRN Reason: Constipation Sevelamer Carbonate (Renvela) 1,600 mg PO QD-BID [facility] Sodium Chloride (Saline Flush) 10 ml IV Q8 [facility] Last Admin: 11/22/19 05:51 Dose: 10 ml Documented by: A/P Assessment and plan (1) Closed hematoma of right kidney: Status: Acute Comment: -significant retroperitoneal bleed from right kidney with corresponding drop in Hg now s/p two units with Hg improved to > 9 and has remained > 9 this morning -cont serial HG and check this afternoon, if remains stable then urology will sign off. -if his Hg stabilizes and no further acute bleeding: he needs eventual MRI abdomen to evaluate cause and ensure no mass and will do this as outpatient -if his HG is not stable: he needs urgent evaluation and intervention by interventional radiology for possible selective embolization -monitor closely as risk development retroperitoneal abscess exists. his WBC decreased slightly today -does not need to be NPO at this time -will plan for outpatient follow up next week to arrange MRI abdomen Qualifiers: Encounter type: initial encounter Qualified Code(s): S37.011A - Minor contusion of right kidney, initial encounter (2) UTI (urinary tract infection): Status: Acute Comment: -he has a recent pansensitive enterococcus UTI and was treated with cipro. He was improved -UA suggestive contamination or possible UTI -Patient is asymptomatic this am and urine is very clear -do not suspect UTI and defer to Hospitalist for elevated WBC -he is emptying well Qualifiers: Urinary tract infection type: acute pyelonephritis Qualified Code(s): N10 - Acute pyelonephritis (3) Leucocytosis: Status: Acute Comment: -initial concern for UTI but suspect this is not the case -monitor closely as risk development retroperitoneal abscess exists. His WBC decreased slightly today -if any worsening of condition or increased WBC - repeat imaging to assess for abscess formation would be warranted -defer to hospitalist for further work up Time Spent With Patient Time: Total time spent is greater than 50% in coordination of care (as documented) at patient's floor/unit and/or counseling patient: 15 QUALITY VTE Deep Vein Thrombosis/Pulmonary Embolism Present on Admission: No
[2019-11-22] MEDS: ACETAMINOPHEN 650 MG/65 ML BOTTLE IV PRN (10:34)
--- NOTE | 2019-11-22 13:51 | Internal Med Progress Note ---
SUBJECTIVE Subjective Patient information: Note initiated : 11/22/19 at 1:47 pm Service Date, if different from initiated Date: [] Patient: Daljit Ash a 54 y/o M admitted on 11/21/19 for right flank pain. Chief Complaint: [] History of present illness: Mr. Ash is a 54 year old M Who presents to the ED with sudden sharp and severe right abdominal and flank pain. He is end-stage renal disease and last dialysis the previous day. He denies any trauma. He was sitting in his chair when it came on. He tried to go to bed but pain worsened. Denies any dizziness or lightheadedness. Denies chest pain. Has some nausea but no vomiting. Evaluation in the ED he had CT which showed a subcapsular hematoma of the right kidney 7 x 7 x 5 cm. Urology was contacted as well as animal attendant. Hemoglobin is 9.2 looking at old lab trends it runs 10 and 11's. pt is on aspirin and plavix for his fistula per Dr. Jasso 11/21-Per urology recommendation ongoing for hourly hemoglobin checks. Hemoglobi n stable. Status post units transfusion. Will possibly discharge if no further drop in hematocrit with outpatient follow-up with urology. Hold aspirin Plavix. No overnight fever chills. Denies chest pain Constitutional Vitals: Vital Signs Temp Pulse Resp BP Pulse Ox 99.1 F H 80 16 138/70 93 11/22/19 12:00 11/22/19 12:00 11/22/19 12:00 11/22/19 12:00 11/22/19 12:00 Period Temp Pulse Resp BP Sys/Cerda Pulse Ox Last 24 Hr 97.8 F-99.1 F 80-95 12-18 120-154/63-73 90-94 Intake and Output 11/21/19 11/22/19 11/22/19 21:59 05:59 13:59 Intake Total 650 100 425 Output Total 10 Balance 650 90 425 Weight 67.721 kg alert oriented No anxiety Nonlabored breathing Intake & Output: Intake & Output 11/21/19 11/22/19 11/22/19 21:59 05:59 13:59 Intake Total 650 100 425 Output Total 10 Balance 650 90 425 Weight 67.721 kg Intake: IV 65 Oral 100 360 Blood Product 650 Output: Void Amount 10 Other: Meal 1x chees stick & peaches cup Lunch Percent of Meal Consumed 100% 100% Feeding Ability Independent Independent Urine Appearance Clear Clear Urine Color Pale Pale OBJ DATA Labs CBC & Chem 7: 11/22/19 04:55 11/22/19 04:55 Labs: Abnormal Lab Results 11/22/19 11/22/19 11/22/19 04:55 04:55 00:24 WBC 13.8 H RBC 3.15 L Hgb 9.4 L 8.6 L Hct 28.5 L 25.7 L RDW 15.6 H Lymph % (Auto) 12.6 L Gran # 9.91 H [place] # (Auto) 1.59 H Seg Neutrophils % Lymphocytes % Sodium 129 L Potassium Chloride 91 L Anion Gap BUN Creatinine 4.9 H Glucose 224 H Uric Acid 2.3 L Phosphorus Triglycerides 162 H Urine Protein Urine Glucose (UA) Ur Leukocyte Esterase Urine RBC Urine WBC Urine Bacteria 11/21/19 11/21/19 11/21/19 18:23 08:01 05:19 WBC 14.6 H RBC 2.56 L Hgb 9.5 L 7.9 L Hct 29.1 L 23.8 L RDW Lymph % (Auto) Gran # [place] # (Auto) Seg Neutrophils % 82 H Lymphocytes % 8 L Sodium Potassium 5.4 H Chloride 90 L Anion Gap 19.0 H BUN 40 H Creatinine 7.7 H* Glucose 245 H Uric Acid Phosphorus 5.6 H Triglycerides Urine Protein Urine Glucose (UA) Ur Leukocyte Esterase Urine RBC Urine WBC Urine Bacteria 11/21/19 11/20/19 11/20/19 00:34 22:56 22:56 WBC 12.9 H RBC 3.03 L Hgb 9.2 L Hct 27.6 L RDW Lymph % (Auto) 14.2 L Gran # 9.08 H [place] # (Auto) 1.32 H Seg Neutrophils % Lymphocytes % Sodium Potassium Chloride 89 L Anion Gap 17.0 H BUN 34 H Creatinine 7.9 H* Glucose 326 H Uric Acid Phosphorus Triglycerides Urine Protein 100 A Urine Glucose (UA) >=500 A Ur Leukocyte Esterase 25 A Urine RBC 10 H Urine WBC 25 H Urine Bacteria Few A Meds: Medications Acetaminophen (Tylenol) 650 mg PO Q6HP PRN PRN Reason: PAIN/FEVER > 101 Albuterol/Ipratropium (Duoneb) 3 ml NEB Q4HP PRN PRN Reason: Shortness Of Breath Amlodipine Besylate (Norvasc) 10 mg PO QDAY [facility] Last Admin: 11/22/19 09:10 Dose: 10 mg Documented by: Atorvastatin Calcium (Lipitor) 40 mg PO HS [facility] Last Admin: 11/21/19 21:23 Dose: 40 mg Documented by: Captopril (Capoten) 25 mg PO BID [facility] Last Admin: 11/22/19 09:10 Dose: 25 mg Documented by: Dextrose (Dextrose 50%) 0 ml IV UD PRN PRN Reason: Hypoglycemia Diagnostic Test (Pha) (Accu-Chek) 1 each FS [facility] Last Admin: 11/22/19 11:17 Dose: 1 each Documented by: Docusate Sodium (Colace) 100 mg PO BID [facility] Last Admin: 11/22/19 09:10 Dose: 100 mg Documented by: Furosemide (Lasix) 40 mg PO BID [facility] Last Admin: 11/22/19 09:11 Dose: 40 mg Documented by: Glucose (Insta-Glucose) 15 gm PO PRN PRN PRN Reason: Hypoglycemia Hydralazine HCl (Apresoline) 25 mg PO BID [facility] Last Admin: 11/22/19 09:10 Dose: 25 mg Documented by: Hydromorphone HCl (Dilaudid) 4 mg PO Q6HP PRN PRN Reason: Pain Last Admin: 11/22/19 11:40 Dose: 4 mg Documented by: Potassium Chloride 40 meq/ (Dextrose) 520 mls @ 130 mls/hr IV UD PRN PRN Reason: Potassium < 3 Magnesium Sulfate (Magnesium Sulfate) 2 gm in 50 mls @ 50 mls/hr IV UD PRN PRN Reason: Magnesium </= 1.6 Acetaminophen (Ofirmev) 650 mg in 65 mls @ 130 mls/hr IV Q6HP PRN PRN Reason: PAIN/FEVER > 101 Last Infusion: 11/22/19 11:53 Dose: Infused Documented by: Insulin Glargine (Lantus) 24 unit SQ [facility] Last Admin: 11/21/19 21:15 Dose: Not Given Documented by: Insulin Human Lispro (Humalog) 0 unit SQ [facility]; Protocol Last Admin: 11/22/19 11:39 Dose: 6 units Documented by: Metoclopramide HCl (Reglan) 5 mg IV Q6HP PRN PRN Reason: Nausea And Vomiting Last Admin: 11/21/19 10:03 Dose: 5 mg Documented by: Metoprolol Tartrate (Lopressor) 25 mg PO BID [facility] Last Admin: 11/22/19 09:10 Dose: 25 mg Documented by: Midodrine (Midodrine Hcl) 5 mg PO ONCE PRN PRN Reason: hypotension Last Admin: 11/21/19 11:46 Dose: 5 mg Documented by: Nicotine (Nicoderm) 21 mg TOPICAL DAILY@1000 [facility] Last Admin: 11/22/19 10:32 Dose: 21 mg Documented by: Ondansetron HCl (Zofran) 4 mg IV Q4HP PRN PRN Reason: Nausea And Vomiting Polyethylene Glycol (Miralax) 17 gm PO DAILYP PRN PRN Reason: Constipation Potassium Chloride (Kdur) 40 meq PO UD PRN PRN Reason: Potssium is 3-3.5 Potassium Chloride (Kdur) 40 meq PO UD PRN PRN Reason: Potassium < 3 Senna (Senokot) 2 tab PO DAILYP PRN PRN Reason: Constipation Sevelamer Carbonate (Renvela) 1,600 mg PO QD-BID [facility] Sodium Chloride (Saline Flush) 10 ml IV Q8 [facility] Last Admin: 11/22/19 05:51 Dose: 10 ml Documented by: A/P Narrative A/P Narrative: *Right Renal hemorrhage with large subcapsular component: Spontaneous. Aspirin Plavix on hold. Urology on board. *Anemia, acute blood loss on chronic: Status post 2 units transfusion. Serial hemoglobin checks. *ESRD: on ASA/Plavix for fistula by Dr. Jasso. Currently on hold *DM: CC diet/basal prandial insulin *h/o dCHF: *HTN/HLD: On amlodipine/ZENAIDA inhibitor/metoprolol *Tobacco abuse: P: -serial H&H -Further management per urology -Nephrology following ESRD/dialysis -ASA/Plavix on hold - continue home medications -basal and SSI/CCD -Smoking cessation counseling -ppx: SCD (chemical held 2/2 above) full code Time Spent With Patient Time: Total time spent is greater than 50% in coordination of care (as pauline fofana) at patient's floor/unit and/or counseling patient: QUALITY VTE Deep Vein Thrombosis/Pulmonary Embolism Present on Admission: No
[2019-11-22 14:21] LABS: Hematocrit 29.6 % (40.1-51.0); Hemoglobin 9.8 g/dL (13.7-17.5)
--- NOTE | 2019-11-22 18:40 | Discharge Summary ---
Discharge Provider Provider Patient information: Note initiated : 11/22/19 at 6:39 pm Service Date, if different from initiated Date: [] Patient: Daljit Ash a 54 y/o M admitted on 11/21/19 for right flank pain. Chief Complaint: Discharge diagnosis * Right renal hemorrhage with subcapsular hematoma-evaluated by surgeon and closely monitored. Per surgery patient can follow-up as an outpatient as he is currently stable. Discharging with instructions as below. Recommend holding aspirin Plavix for additional 48 hours * Acute blood loss anemia clinically improved status post 2 units transfusion/holding aspirin Plavix. Hemoglobin 9.1 * ESRD on hemodialysis managed per nephrology * DM type II continue basal panel insulin/CC diet * History of hypertension/hyperlipidemia continue home medication daily CCB/ZENAIDA inhibitor/beta-kelly * Tobacco dependence counseled for cessation Brief hospital course Mr. Ash is a 54 year old M Who presents to the ED with sudden sharp and severe right abdominal and flank pain. He is end-stage renal disease and last dialysis the previous day. He denies any trauma. He was sitting in his chair when it came on. He tried to go to bed but pain worsened. Denies any dizziness or lightheadedness. Denies chest pain. Has some nausea but no vomiting. Evaluation in the ED he had CT which showed a subcapsular hematoma of the right kidney 7 x 7 x 5 cm. 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 Hemoglobin is 9.2 looking at old lab trends it runs 10 and 11's. pt is on aspirin and plavix for his fistula per Dr. Jasso 11/21-Per urology recommendation ongoing for hourly hemoglobin checks. Hemoglob in stable. Status post units transfusion. Will possibly discharge if no further drop in hematocrit with outpatient follow-up with urology. Hold aspirin Plavix. No overnight fever chills. Denies chest pain 11/22-patient discharging following stable hemodynamics/hemoglobin following 2 units transfusion. Patient will need outpatient MRI/follow-up with urology as recommended. Discharge instructions below. Hold aspirin/Plavix for additional 48 hours. Urology will arrange outpatient MRI/follow-up with clinic. Date of admission: 11/21/19 03:00 Primary care physician: Andrey Strickland DO Consults: 11/21/19 02:05 Consult to Physician [CONS] Stat Comment: Consulting Provider: Mariela Briscoe Reason For Exam: Physician to Consult 11/21/19 02:07 Consult to Physician [CONS] Stat Comment: Consulting Provider: Eric Javed Reason For Exam: Physician to Consult 11/21/19 02:09 Consult to Physician [CONS] Stat Comment: Consulting Provider: Vivek Houston Reason For Exam: Physician to Consult Discharge Meds Discharge Medications Home Medications ascorbic acid (vitamin C) 1,000 mg tablet 500 mg PO BID tab 08/23/14 [History Confirmed 11/21/19 Last Taken 11/20/19 18:00] pen needle, diabetic 32 gauge x 32" #200 each 07/14/17 [Rx Confirmed 11/21/19 Last Taken 07/29/19 10:00] amlodipine 10 mg tablet 10 mg PO QDAY #90 tab 02/05/19 [Rx Confirmed 11/21/19 Last Taken 11/15/19] blood-glucose meter #1 each 06/22/19 [Rx Confirmed 11/21/19 Last Taken 07/29/19 10:00] ondansetron 4 mg disintegrating tablet 4 mg TRANSLINGU Q4-6HP PRN #20 tab 07/24/19 [Rx Confirmed 11/21/19 Last Taken 07/08/19 14:00] albuterol sulfate 90 mcg/actuation aerosol inhaler 2 puff INHALATION Q8H PRN #8.5 g 08/29/19 [Rx Confirmed 11/21/19 Last Taken Unknown] B complex-vitamin C-folic acid 0.8 mg tablet 1 tab PO QDAY #90 tab 09/17/19 [Rx Confirmed 11/21/19 Last Taken 11/20/19 09:00] hydralazine 25 mg tablet 25 mg PO BID #60 tab 09/24/19 [Rx Confirmed 11/21/19 Last Taken 11/20/19 18:00] varenicline 0.5 mg (11)-1 mg (42) tablets in a dose pack See Rx Instructions PO PER PKG DIR #53 tab 10/04/19 [Rx Confirmed 11/21/19 Last Taken Unknown] clopidogrel 75 mg tablet 75 mg PO QDAY #90 tab 10/08/19 [Rx Confirmed 11/21/19 Last Taken 11/20/19 09:00] hydromorphone 4 mg tablet 4 mg PO Q6H PRN #112 tab 11/06/19 [Rx Confirmed 11/21/19 Last Taken Unknown] furosemide 40 mg tablet 40 mg PO BID #180 tab 11/16/19 [Rx Confirmed 11/21/19 Last Taken 11/20/19 18:00] metoprolol tartrate 50 mg tablet 25 mg PO BID #90 tab 11/16/19 [Rx Confirmed 11/21/19 Last Taken 11/20/19 18:00] aspirin [Adult Aspirin Regimen] 81 mg PO HS 11/21/19 [History Confirmed 11/21/19 Last Taken 11/20/19 18:00] atorvastatin 40 mg PO HS 11/21/19 [History Confirmed 11/21/19 Last Taken 11/20/19 18:00] captopril 25 mg PO BID 11/21/19 [History Confirmed 11/21/19 Last Taken 11/20/19 18:00] insulin aspart U-100 [Novolog Flexpen U-100 Insulin] 1 - 16 unit SUB-Q QD-BID 11/21/19 [History Confirmed 11/21/19 Last Taken 11/20/19 18:00] insulin glargine 24 unit SUBCUT HS 11/21/19 [History Confirmed 11/21/19 Last Taken 11/20/19 18:00] sevelamer carbonate [Renvela] 1,600 mg PO QD-BID 11/21/19 [History Confirmed 11/21/19 Last Taken 11/20/19 18:00] COURSE Time Spent with Patient Time attestation: Total time spent providing and/or coordinating discharge services: EXAM Constitutional Vitals: Temp Pulse Resp BP Pulse Ox 99.0 F 77 16 162/75 96 11/22/19 16:00 11/22/19 16:00 11/22/19 16:00 11/22/19 16:00 11/22/19 16:00 Discharge Data Data Completed and Pending Labs on day of discharge: Labs from last 24 hours 11/22/19 11/22/19 11/22/19 13:11 04:55 04:55 WBC 13.8 H RBC 3.15 L Hgb 9.8 L 9.4 L Hct 29.6 L 28.5 L MCV 90.5 MCH 29.8 MCHC 33.0 RDW 15.6 H Plt Count 212 MPV 9.8 Gran % 71.9 Lymph % (Auto) 12.[address] [facility] % (Auto) 11.5 Eos % (Auto) 3.6 Baso % (Auto) 0.4 Gran # 9.91 H Lymph # (Auto) 1.74 [facility] # (Auto) 1.59 H Eos # (Auto) 0.50 Baso # (Auto) 0.06 Sodium 129 L Potassium 4.6 Chloride 91 L Carbon Dioxide 25 Anion Gap 13.0 BUN 18 Creatinine 4.9 H GFR Calculation 12 Glucose 224 H Uric Acid 2.3 L Calcium 8.8 Phosphorus 4.3 Magnesium 2.0 Total Bilirubin 0.5 Direct Bilirubin < 0.2 GGT 13 AST 21 ALT 14 Alkaline Phosphatase 58 Lactate Dehydrogenase 174 Total Protein 6.6 Albumin 3.7 Globulin 2.9 Albumin/Globulin Ratio 1.3 Triglycerides 162 H 11/22/19 11/21/19 00:24 18:23 WBC RBC Hgb 8.6 L 9.5 L Hct 25.7 L 29.1 L MCV MCH MCHC RDW Plt Count MPV Gran % Lymph % (Auto) [facility] % (Auto) Eos % (Auto) Baso % (Auto) Gran # Lymph # (Auto) [facility] # (Auto) Eos # (Auto) Baso # (Auto) Sodium Potassium Chloride Carbon Dioxide Anion Gap BUN Creatinine GFR Calculation Glucose Uric Acid Calcium Phosphorus Magnesium Total Bilirubin Direct Bilirubin GGT AST ALT Alkaline Phosphatase Lactate Dehydrogenase Total Protein Albumin Globulin Albumin/Globulin Ratio Triglycerides Preliminary micro results at discharge 11/21/19 00:34 Urine Culture - Preliminary Urine - Catheterized Enterococcus species 11/21/19 02:08 Blood Culture - Preliminary Blood 11/21/19 02:14 Blood Culture - Preliminary Blood Discharge Plan Patient/Caregiver Discharge Instructions Activity: increase activity as tolerated Diet: Renal/Consistent Carbs and Renal Instructions: Urinary Tract Infection in Men (DC), Leukocytosis (DC) Activity Restrictions/Additional Instructions: Renal Diet Increase activity as tolerated Call on Tuesday to set up follow up appointments, Keep your scheduled Dialysis appointments. If symptoms return, call your doctor or return to the ED. Urology will schedule outpatient clinic follow-up/MRI This discharge packet is provided to you to help keep you informed about your care. We want to ensure you get everything you need when you go home. You will also be receiving a call from us in a few days to follow up with you and see how you are doing since your discharge. This gives us a chance to listen to any concerns you maybe experiencing since you were discharged or any additional needs you may have, as well as providing us feedback on your care experience. We strive to always provide excellent care and thank you for your feedback and for choosing [facility]. Prescriptions: Continued amlodipine 10 mg tablet 10 mg PO QDAY Qty: 90 RF: 3 (DME) blood-glucose meter Misc See Rx Instructions .ROUTE .MEDSUPPLY Qty: 1 RF: 0 ondansetron 4 mg tablet,disintegrating 4 mg TRANSLINGU Q4-6HP PRN (Reason: Nausea) Qty: 20 RF: 0 albuterol sulfate 90 mcg/actuation HFA aerosol inhaler 2 puff INHALATION Q8H PRN (Reason: shortness of breath or wheezing) Qty: 8.5 RF: 0 Nephro-Adeel 0.8 mg tablet 1 tab PO QDAY Qty: 90 RF: 3 hydralazine 25 mg tablet 25 mg PO BID Qty: 60 RF: 3 Chantix Starting Month Box 0.5 mg (11)- 1 mg (42) tablets,dose pack See Rx Instructions PO PER PKG DIR Qty: 53 RF: 0 clopidogrel 75 mg tablet 75 mg PO QDAY Qty: 90 RF: 1 hydromorphone 4 mg tablet 4 mg PO Q6H PRN (Reason: pain) Qty: 112 RF: 0 furosemide 40 mg tablet 40 mg PO BID Qty: 180 RF: 3 metoprolol tartrate 50 mg tablet 25 mg PO BID Qty: 90 RF: 1 (DME) pen needle, diabetic [BD Ultra-Fine Marcy Pen Needle] 32 gauge x 5/32" needle See Dose Instructions .ROUTE .MEDSUPPLY Qty: 200 RF: 4 ascorbic acid (vitamin C) 1,000 mg tablet 500 mg PO BID RF: 0 atorvastatin 40 mg tablet 40 mg PO HS RF: 0 aspirin [Adult Aspirin Regimen] 81 mg tablet,delayed release (DR/EC) 81 mg PO HS RF: 0 captopril 12.5 mg tablet 25 mg PO BID RF: 0 insulin aspart U-100 [Novolog Flexpen U-100 Insulin] 100 unit/mL (3 mL) insulin pen 1 - 16 unit SUB-Q QD-BID RF: 0 insulin glargine 100 unit/mL (3 mL) insulin pen 24 unit subcut HS RF: 0 sevelamer carbonate [Renvela] 800 mg tablet 1,600 mg PO QD-BID RF: 0 Follow Up Plan Follow up with: Eric Javed MD [Physician] - (Call on Tuesday for a follow up appointment.) Mariela Briscoe MD [Physician] - (Call on Tuesday to set up a follow up appointment.) Patient Disposition: Home, Self-Care Prognosis: Undetermined Rehab Potential: Fair I certify that the patient requires SNF services: No Overall status at discharge: patient is back to baseline Discharge Date/Time: 11/23/19 06:17 Discharge Orders: Discharge Order (Routine); Ordered 11/23/19 Ordered By: Massimo BRAUN VTE Deep Vein Thrombosis/Pulmonary Embolism Present on Admission: No
[2019-11-22] MEDS: ATORVASTATIN 40 MG TABLET PO SCH (21:05)
[2019-11-22] MEDS: INSULIN GLARGINE, HUMAN 1 UNIT/0.01 ML SQ SCH (21:07)
[2019-11-22 22:09] LABS: Hematocrit 27.5 % (40.1-51.0); Hemoglobin 9.1 g/dL (13.7-17.5)
[2019-11-23] MEDS: HYDROmorphone 2 MG TABLET PO PRN ×2 (00:50→05:54)
[2019-11-23] MEDS: ACETAMINOPHEN 650 MG/65 ML BOTTLE IV PRN (04:15)
[2019-11-23] MEDS: 0.9 % SODIUM CHLORIDE 10 ML SYRINGE IV SCH (04:19)
[2019-11-23 05:18] LABS: Hematocrit 25.7 % (40.1-51.0); Hemoglobin 8.6 g/dL (13.7-17.5)
== END 2019-11-23 06:17 | disposition home or self-care (01) | DRG 314 ==
LOC: ED 22:32 → SUATTDRO 11-21 03:00 → MEDSUR 11-21 03:00
PROVIDERS: ADMIT Internal Medicine; ATTEND Internal Medicine

== ENCOUNTER 2021-11-01 13:28 | Observation (INO) ==
--- NOTE | 2021-11-01 13:51 | Emergency Department Note ---
SOB HPI General Chief Complaint: Shortness of Breath/Dyspnea Stated Complaint: low oxygen Time Seen by Provider: 11/01/21 13:30 Source: patient Mode of arrival: ambulatory History of Present Illness HPI Narrative: Narrative: 56-year-old male with a history of stage V CKD with Tuesday dialysis overseen by Dr. Williamson, chronic pain, chronic anticoagulation therapy, DKA, diabetes, congestive heart failure, renal cell carcinoma, hypertension and anemia presents the ER for shortness of breath. Patient has a history of congestive heart failure when he gets fluid overloaded. He states he is usually emergently dialyzes and clears up. He takes Lasix 40 mg twice daily. He still produces urine but has been on dialysis for many years. He denies fever, chills, nausea, vomiting, chest pain, chest pressure, abdominal pain, dysuria, urgency or frequency. His only complaint is shortness of breath at this time. Related Data Home Medications Medication Instructions Recorded Confirmed ascorbic acid (vitamin C) 1,000 mg 500 mg PO DAILY 08/23/14 10/15/21 tablet aspirin 81 mg tablet,delayed 81 mg PO HS 11/21/19 10/15/21 release (Adult Aspirin Regimen) acetaminophen 325 mg capsule 650 mg PO Q6H PRN Pain 11/23/19 10/15/21 alteplase 2 mg intra-catheter 4 mg intra-catheter ONCE 11/23/19 10/15/21 solution (Cathflo Activase) etelcalcetide 5 mg/mL intravenous 2.5 mg IV 3XW 11/23/19 10/15/21 solution (Parsabiv) heparin (porcine) 1,000 unit/mL 1 unit IV 3XW 11/23/19 10/15/21 injection solution sodium ferric gluconate complex in 62.5 mg IV ONCE 11/23/19 10/15/21 sucrose 62.5 mg/5 mL intravenous (Ferrlecit) krill oil 500 mg capsule 1,000 mg PO DAILY 06/17/20 10/15/21 multivitamin 1 tab PO QDAY 06/17/20 10/15/21 Previous Rx's Medication Instructions Recorded pen needle, diabetic 32 gauge x #200 ea 07/14/17 5/32" (BD Ultra-Fine Marcy Pen Needle) blood-glucose meter #1 ea 06/22/19 sevelamer carbonate 800 mg tablet 1,600 mg PO TID #540 tabs 04/20/21 albuterol sulfate 90 mcg/actuation 2 puff inhalation Q8H PRN 06/15/21 aerosol inhaler shortness of breath or wheezing #8.5 grams metoprolol tartrate 25 mg tablet 25 mg PO BID #180 tabs 06/23/21 enalapril maleate 5 mg tablet 5 mg PO BID for blood pressure 08/03/21 #180 tabs hydromorphone 4 mg tablet See Rx Instructions PO Q6H PRN 08/11/21 pain #168 tabs amlodipine 5 mg tablet 5 mg PO QHS #90 tabs 09/07/21 atorvastatin 40 mg tablet 40 mg PO HS #90 tabs 09/07/21 clopidogrel 75 mg tablet 75 mg PO QDAY #90 tabs 09/07/21 furosemide 40 mg tablet 40 mg PO BID #180 tabs 09/07/21 insulin aspart U-100 100 unit/mL 50 unit (0.5 mL) subcut TID #30 mL 09/15/21 (3 mL) subcutaneous pen (Novolog Flexpen U-100 Insulin aspart) insulin degludec 100 unit/mL (3 25 unit (0.25 mL) subcut QPM #15 mL 09/15/21 mL) subcutaneous pen (Tresiba FlexTouch U-100 insulin) methocarbamol 750 mg tablet 750 mg PO Q8H #60 tabs 09/21/21 pantoprazole 20 mg tablet,delayed 20 mg PO QDAY #90 tabs 09/21/21 release vitamin B complex-vitamin C-folic 1 tab PO QDAY #90 tabs 10/19/21 acid 0.8 mg tablet (Marycruz-Adeel) varenicline 0.5 mg (11)-1 mg (42) See Rx Instructions PO PER PKG DIR 10/26/21 tablets in a dose pack (Chantix #53 tabs Starting Month Box) Allergies Allergy/AdvReac Type Severity Reaction Status Date / Time codeine AdvReac Mild Vomiting Verified 11/01/21 13:36 hydrocodone [HYDROCODONE] AdvReac Mild Vomiting Verified 11/01/21 13:36 Review of Systems ROS ROS Narrative: Narrative: All systems ED: reviewed and negative except as stated. PFSH Narrative Patient History Narrative: Narrative: Medical/Surgical/Family History All Active Problems (Updated 11/01/21 @ 16:42 by Grover Jaquez PA-C) Volume overload state of heart (Acute) Other low back pain (Chronic) Chronic pain (Chronic) Current use of anticoagulant therapy (Chronic) Injury of Foot (Chronic) Chronic kidney disease, stage V (Chronic) Cluster headache syndrome, intractable (Chronic) Shortness of breath (Chronic) Abscess (Chronic) Knee contusion (Chronic) Cellulitis of finger of left hand (Chronic) Cellulitis of great toe, left (Chronic) Confusion (Chronic) Medication side effect (Chronic) Word finding difficulty (Chronic) Muscle twitching (Chronic) Cough (Chronic) Discitis (Chronic) Arm pain, left (Chronic) Dressing change (Chronic) DKA (diabetic ketoacidosis) (Chronic) Hyperkalemia, diminished renal excretion (Chronic) 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) CRF (chronic renal failure) (Chronic) Nausea & vomiting (Chronic) Acute on chronic diastolic CHF (congestive heart failure), NYHA class 2 (Chronic) Anemia due to stage 5 chronic kidney disease treated with darbepoetin (Chronic) ESRD on hemodialysis (Chronic) Community acquired pneumonia (Chronic) Acute respiratory failure with hypoxia (Chronic) Pulmonary edema (Chronic) Hypoxia (Chronic) Flash pulmonary edema (Chronic) CHF (congestive heart failure) (Chronic) History of appendectomy (Chronic ~2005) Tobacco abuse (Chronic) UTI (urinary tract infection) (Chronic) Closed hematoma of right kidney (Chronic) Leucocytosis (Chronic) Interstitial edema (Chronic) Renal hematoma (Chronic) Prostate cancer screening (Chronic) Left shoulder pain (Chronic) Screening for colorectal cancer (Chronic) Left hip pain (Chronic) Trochanteric bursitis, left hip (Chronic) Fluid overload (Chronic) Trigger finger (acquired) (Chronic) Squamous cell carcinoma of right hand (Chronic) Strain of thoracic paraspinal muscles excluding T1 and T2 levels (Chronic) Foot sprain (Chronic) Ankle sprain (Chronic) Back spasm (Chronic) H/O carpal tunnel repair (Chronic) History of angioplasty (Chronic 11/03/16) Status post insertion of dialysis catheter (Chronic) Back pain at L4-L5 level (Chronic) Arteriovenous fistula for hemodialysis in place, primary (Chronic ~10/29/13) Secondary hyperparathyroidism of renal origin (Chronic) Proteinuria (Chronic 12/06/12) Pes planus (Chronic) 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 No valvulopathy pro BNP elevated Acute respiratory failure with hypoxia Anemia due to stage 5 chronic kidney disease treated with darbepoetin Give aranesp qMWF while on HD to counteract acute blood loss in hospital due to frequent blood loss to lab. Anemia in chronic kidney disease Ankle sprain Appendicitis Arm pain, left Back pain at L4-L5 level Back spasm Carpal tunnel syndrome of right wrist Cellulitis of finger of left hand Cellulitis of great toe, left CHF (congestive heart failure) Chronic kidney disease, stage V (04/29/13) Chronic kidney disease, stage V Chronic pain Closed hematoma of right kidney Cluster headache syndrome, intractable Community acquired pneumonia Confusion Cough CRF (chronic renal failure) Current use of anticoagulant therapy Diabetes mellitus type 1 with complications Diabetes mellitus type 1, uncontrolled unable to afford brand insulin Discitis DKA (diabetic ketoacidosis) Dressing change End stage renal disease ESRD on hemodialysis Essential hypertension (12/06/12) Flash pulmonary edema Fluid overload Foot pain (07/01/14) Foot sprain Gastroesophageal reflux (07/01/14) History of tobacco abuse Hyperkalemia, diminished renal excretion Hyperlipidemia Hypertensive renal disease Hypoxia Injury of Foot Interstitial edema Knee contusion Left hip pain Left shoulder pain Leucocytosis 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 Medication side effect Muscle twitching Nausea & vomiting Nosocomial pneumonia Other low back pain Pes planus Pneumonia Prostate cancer screening Proteinuria (12/06/12) Pulmonary edema Rash Renal hematoma Screening for colorectal cancer Secondary hyperparathyroidism of renal origin Shortness of breath Squamous cell carcinoma of right hand Strain of thoracic paraspinal muscles excluding T1 and T2 levels Tobacco abuse Trigger finger (acquired) Trochanteric bursitis, left hip UTI (urinary tract infection) Word finding difficulty Surgical History Arteriovenous fistula for hemodialysis in place, primary (~10/29/13) Creation of a right radiocephalic AV fistula H/O carpal tunnel repair History of angioplasty (11/03/16) 12/25/19 - Fistulogram 01/16/19 - and Fistulogram History of ankle surgery History of appendectomy (~2005) History of back surgery (~2014) History of bone marrow biopsy 03/30/2013 History of colonoscopy (06/18/15) History of laser photocoagulation of retina History of shoulder surgery 2013 bicep reattachment-right shoulder-Dr. Garcia History of surgery 12/27 Discogram, L5-S1 ABORTED w/sed 12/17/201506/27 LESI #2 L4-5 w/o sed 07/10/1505/27 LESI #1 L4-5 w/o sed 06/04/2015 Family History Father Coronary artery disease Diabetes mellitus NOS Essential hypertension Mother Diabetes mellitus NOS Social History Smoking Status: Former smoker Alcohol Intake Frequency: does not drink Substance Use: does not use Exam Narrative Narrative: Narrative: Gen: Patient has significantly increased respiratory effort Eyes: PERRL, no conjunctival injection , and symmetrical lids. Sclerae non icteric HENMT: Normocephalic Atraumatic head, external nose and ears. Moist MM. Neck: Symmetric, trachea midline, no JVD CVS: +S1/S2, No murmurs or gallops. Radial pulses 2+ and equal bilat. No swelling RESP: Increased respiratory effort with coarse Rales heard at the bases bilaterally, no wheezes or rhonchi GI: Nontender/Nondistended (NTND), No focal tenderness MSK: Fistula in left bicep with palpable thrill, dressings on this from recent revision. No cyanosis or clubbing. No lower extremity swelling Skin: Warm, Dry . No rashes or lesions . Cap refill less than 2. Psych: Awake, Alert, & Oriented (AAO) x3. Appropriate mood and affect . Course Vital Signs Vital signs: Vital Signs Temperature 97.1 F 11/01/21 13:33 Pulse Rate 86 11/01/21 13:33 Respiratory Rate 24 H 11/01/21 13:33 Blood Pressure 172/79 11/01/21 13:33 Pulse Oximetry (%) 75 L 11/01/21 13:33 Oxygen Delivery Method 11/01/21 13:33 Temperature 97.1 F 11/01/21 13:33 Pulse Rate 84 11/01/21 13:39 Respiratory Rate 24 H 11/01/21 13:33 Blood Pressure 172/79 11/01/21 13:38 Pulse Oximetry (%) 91 11/01/21 13:39 Oxygen Delivery Method 11/01/21 13:35 Oxygen Flow Rate (L/min) 4 11/01/21 13:35 MDM MDM Narrative Medical decision making narrative: Narrative: Patient has chronic kidney disease, type 1 diabetes and congestive heart failure. And when he gets fluid overloaded he becomes significantly short of breath and usually emergently dialyzes. We currently do not have any emergent dialysis capability at our facility. 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 Williamson will be consulted to see if we can diurese him more as he is already on Lasix 40 mg twice daily. Patient will be evaluated with CBC, CMP, CG 4, troponin, BNP, chest x-ray, EKG, magnesium and phosphorus Dr Williamson: He is scheduled for dialysis tomorrow, Diuresis will not likely help due to the longevity of dialysis. Patient will require transfer for emergent dialysis CBC: Slightly elevated white count with left shift, chronic anemia CMP: Potassium 6.4, sodium of 128, creatinine of 8.8, glucose of 129 CG 4: Unremarkable normal lactic acid Troponin: Elevated at 0.09 slightly above the assay baseline. Likely cardiorenal syndrome. Patient has previous history of chronic elevations BNP: 2339 high Magnesium: Elevated at 3.6 Phosphorus: 6.2 H Chest x-ray: Pulmonary cephalization consistent with congestive heart failure without pleural effusion EKG: Normal sinus rhythm rate of 83 bpm with old infarct in the inferior and anterior areas, left atrial enlargement, no evidence of acute ischemia. This EKG was reviewed by Dr. Drake Patient is concerned as he had recent revision to his fistula and does not want to go to another dialysis site. [place] He is completely stable at this time on supplemental oxygen and his saturation is 97%. Patient does have elevated potassium without significant EKG changes. I will consult Dr. Williamson regarding keeping the patient here and see if he is amenable with consulting on. Dr Williamson: Agreed that is probably in the patient's best interest to remain here for dialysis tomorrow morning at 7 AM that is already scheduled. He requested 30 g of Kayexalate p.o. for hyperkalemia, 120 mg of Lasix IV for fluid overload and hyperkalemia and calcium gluconate for stabilizing cardio myocytes. He will see the patient today. Patient will be admitted to hospitalist with nephrology consult. Dr Aguilera Hospitalist: Graciously agreed to admit the patient for overnight observation until he can receive dialysis in the morning Discharge Plan Patient/Caregiver Discharge Instructions Pt seen by ONLINE PROJECT MANAGER/PA only: Yes Clinical Impression: Volume overload state of heart Patient Disposition: Xfer As Outpt/Obs ([facility]) Follow up with: Andrey Strickland DO [Primary Care Provider] - Prescriptions: No Action (DME) blood-glucose meter Misc See Rx Instructions .ROUTE .MEDSUPPLY Qty: 1 0RF Rx Instructions: Use to test blood sugar three times daily acetaminophen 325 mg capsule 650 mg PO Q6H PRN (Reason: Pain) Rx Instructions: Dialysis Cathflo Activase 2 mg recon soln 4 mg intra-catheter ONCE Rx Instructions: Dialysis -into each catheter lumen sodium ferric gluconat-sucrose [Ferrlecit] 62.5 mg/5 mL solution 62.5 mg IV ONCE heparin (porcine) 1,000 unit/mL solution 1 unit IV 3XW Rx Instructions: Dialysis - intravenously (1000 units/mL solution) 3 times a week BOLUS Parsabiv 5 mg/mL solution 2.5 mg IV 3XW Rx Instructions: administer after dialysis on dialysis days sevelamer carbonate 800 mg tablet 1,600 mg PO TID Qty: 540 3RF albuterol sulfate 90 mcg/actuation HFA aerosol inhaler 2 puff INHALATION Q8H PRN (Reason: shortness of breath or wheezing) Qty: 8.5 0RF metoprolol tartrate 25 mg tablet 25 mg PO BID Qty: 180 1RF enalapril maleate 5 mg tablet 5 mg PO BID Qty: 180 3RF hydromorphone 4 mg tablet See Rx Instructions PO Q6H PRN (Reason: pain) Qty: 168 0RF Rx Instructions: 4-8mg PO every 6 hours PRN; clopidogrel 75 mg tablet 75 mg PO QDAY Qty: 90 1RF furosemide 40 mg tablet 40 mg PO BID Qty: 180 3RF amlodipine 5 mg tablet 5 mg PO QHS Qty: 90 3RF atorvastatin 40 mg tablet 40 mg PO HS Qty: 90 3RF Tresiba FlexTouch U-100 100 unit/mL (3 mL) insulin pen 25 unit subcut QPM Qty: 15 1RF insulin aspart U-100 [Novolog Flexpen U-100 Insulin] 100 unit/mL (3 mL) insulin pen 50 unit SUB-Q TID Qty: 30 6RF Rx Instructions: 1:10 units carb correctional SUB-Q QAM; administer within 5-10 min before meal/food and no later than at start of meal/snack pantoprazole 20 mg tablet,delayed release (DR/EC) 20 mg PO QDAY Qty: 90 0RF methocarbamol 750 mg tablet 750 mg PO Q8H Qty: 60 0RF Marycruz-Adeel 0.8 mg tablet 1 tab PO QDAY Qty: 90 3RF Chantix Starting Month Box 0.5 mg (11)- 1 mg (42) tablets,dose pack See Rx Instructions PO PER PKG DIR Qty: 53 0RF Rx Instructions: PO PER PKG DIR (DME) pen needle, diabetic [BD Ultra-Fine Marcy Pen Needle] 32 gauge x 5/32" needle See Dose Instructions .ROUTE .MEDSUPPLY Qty: 200 4RF Dose Instruction: As directed Rx Instructions: Use to inject Basaglar and Novolog daily ascorbic acid (vitamin C) 1,000 mg tablet 500 mg PO DAILY aspirin [Adult Aspirin Regimen] 81 mg tablet,delayed release (DR/EC) 81 mg PO HS multivitamin Tablet 1 tab PO QDAY krill oil 500 mg Capsule 1,000 mg PO DAILY
--- NOTE | 2021-11-01 14:02 | XRay Report ---
INDICATION: sob TECHNIQUE: AP portable semiupright chest x-ray COMPARISON: Previous chest x-rays dated to 04/24/2021, 02/02/2021, 07/08/2020 FINDINGS: Lungs:There are septal lines bilaterally. There is peribronchial thickening. Appearance is consistent with interstitial pulmonary edema. Findings may be due to congestive heart failure or volume overload. No focal parenchymal consolidation or mass Heart, vascular:Heart size is within normal limits. No interval change Mediastinum, gianna:No mediastinal widening. No hilar mass Pleura:No definite pleural effusion identified Skeletal:Negative. IMPRESSION: 1. Appearance consistent with interstitial pulmonary edema. 2. No focal pulmonary parenchymal consolidation Interpreted and Authenticated by: Andrey Griffin 11/01/21
[2021-11-01 14:21] LABS: Basophils # (Auto) 0.07 K/mcL (0.00-0.30); Basophils % (Auto) 0.6 % (0.0-2.0); Eosinophils # (Auto) 0.24 K/mcL (0.00-0.70); Eosinophils % (Auto) 1.9 % (0.0-7.0); Hemoglobin 11.3 g/dL (13.7-17.5); Lymphocytes # (Auto) 1.38 K/mcL (1.50-4.80); Lymphocytes % (Auto) 11.2 % (15.5-49.0); Mean Cell Volume 92.1 fL (80.0-100.0); Mean Corpuscular HGB Conc 32.3 g/dL (31.0-36.0); Monocytes # (Auto) 1.45 K/mcL (0.10-0.90); Monocytes % (Auto) 11.8 % (1.0-12.0); Platelet Count 286 K/mcL (140-440); Red Cell Distribution Width 13.8 % (11.5-14.5); WBC 12.3 K/mcL (4.5-11.0)
[2021-11-01 15:05] LABS: ALT/SGPT < 5 U/L (<40); AST/SGOT 17 U/L (<40); Albumin 3.9 gm/dL (3.2-5.2); Alkaline Phosphatase 76 U/L (39-117); Bilirubin,Total 0.4 mg/dL (0.1-1.0); Blood Urea Nitrogen 62 mg/dL (6-20); Calcium 9.2 mg/dL (8.6-10.4); Carbon Dioxide 23 mmol/L (22-30); Chloride 87 mmol/L (96-108); Globulin 3.8 gm/dL (2.2-3.7); Glomerular Filtration Rate 6; Glucose 129 mg/dL (70-105)
[2021-11-01 15:07] LABS: Phosphorous 6.2 mg/dL (2.5-4.5)
[2021-11-01] MEDS ORDERED: FUROSEMIDE 100 MG/10 ML VIAL IV ONE (15:15)
[2021-11-01] MEDS ORDERED: SODIUM POLYSTYRENE SULFONATE 15 GM/60 ML SUSPENSION PO ONE (15:15)
[2021-11-01] MEDS ORDERED: CALCIUM GLUCONATE 4.65 MEQ/10 ML VIAL IV ONE (15:17)
[2021-11-01] MEDS ORDERED: ONDANSETRON 4 MG/2 ML VIAL IV PRN (16:43)
[2021-11-01] MEDS ORDERED: LACTULOSE 20 GM/30 ML ORAL.SOL PO PRN (16:43)
[2021-11-01] MEDS ORDERED: SENNOSIDES 1 TABLET PO PRN (16:43)
[2021-11-01] MEDS ORDERED: ACETAMINOPHEN 325 MG TABLET PO PRN (16:43)
[2021-11-01] MEDS ORDERED: DEXTROSE 50% 50 ML VIAL IV PRN (16:48)
[2021-11-01] MEDS ORDERED: DEXTROSE 31 GM ORAL.SUSP PO PRN (16:48)
--- NOTE | 2021-11-01 17:37 | Internal Med History&Physical ---
HPI History of Present Illness Patient information: Note initiated : 11/01/21 at 5:37 pm Service Date, if different from initiated Date: [] Patient: Daljit Ash a 56 y/o M admitted on for low oxygen. Chief Complaint: [] Chief complaint: Dyspnea History of present illness: Mr. Ash is a 56 year old M with T1DM, CKD V on HD -, CHF, HTN, who presents with dyspena. Onset about 30-60 min prior to arrival in ED. Noted SaO2 at home to be in the low 70's at that time. [place] id difficult to get a full inspiration. No change in fluid intake (32 oz a day), no change in sodium in diet. Had normal HD session on Tue, down to dry weight. Has had this happen 2-3 times before in the last 3-4 years. In the ED, hypoxia resolved with supplemental O2. Labs notable for potassium 6.4, phos 6.2, Cr 8.8, pro-BNP 2339 and torponin mildly abnormal at 0.09. CXR with pulmonary edema. Dr. Williamson (nephrology) was contacted, who recommended transfer for emergent dialysis (HD only available here - daytime). The patient did not wish to be transferred. After re-evaluation and also being seen in person by Dr. Williamson, the patient accepts the risk of staying at [facility] until HD available Tue AM. He is being hospitalized on observation for monitoring, oxygen therapy and for attempted medical treatment of hyperkalemia and CHF prior to dialysis on Tuesday. Constitutional Constitutional: Absent fever(s) or weakness EENT Eyes: Absent change in vision Nose, mouth and throat: Absent nasal congestion, odynophagia or other (no change in sense of taste or smell) Cardiovascular Cardiovascular: Present dyspnea on exertion and orthopnea; Absent chest pain, chest pain at rest, diaphoresis, leg edema, palpatations, pedal edema or rapid heart rate Respiratory Respiratory: Present dyspnea and dyspnea on exertion; Absent cough or wheezing Gastrointestinal Gastrointestinal: Absent abdominal pain, nausea or vomiting Genitourinary Genitourinary: dysuria, urinary urgency and other (no change in usual urinary output) Musculoskeletal Musculoskeletal: Present back pain; Absent arthralgias or myalgias Integumentary Integumentary: Absent rash Neurological Neurological: Absent focal weakness or headache(s) Psychiatric Psychiatric: Absent anxiety or confusion Endocrine Endocrine: Absent polydipsia or polyuria Hematologic/Lymphatic Hematologic/Lymphatic: Absent easy bleeding PFSH PFSH All Active Problems (Updated 11/01/21 @ 16:42 by Grover Jaquez PA-C) Volume overload state of heart (Acute) Other low back pain (Chronic) Chronic pain (Chronic) Current use of anticoagulant therapy (Chronic) Injury of Foot (Chronic) Chronic kidney disease, stage V (Chronic) Cluster headache syndrome, intractable (Chronic) Shortness of breath (Chronic) Abscess (Chronic) Knee contusion (Chronic) Cellulitis of finger of left hand (Chronic) Cellulitis of great toe, left (Chronic) Confusion (Chronic) Medication side effect (Chronic) Word finding difficulty (Chronic) Muscle twitching (Chronic) Cough (Chronic) Discitis (Chronic) Arm pain, left (Chronic) Dressing change (Chronic) DKA (diabetic ketoacidosis) (Chronic) Hyperkalemia, diminished renal excretion (Chronic) 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) CRF (chronic renal failure) (Chronic) Nausea & vomiting (Chronic) Acute on chronic diastolic CHF (congestive heart failure), NYHA class 2 (Chronic) Anemia due to stage 5 chronic kidney disease treated with darbepoetin (Chronic) ESRD on hemodialysis (Chronic) Community acquired pneumonia (Chronic) Acute respiratory failure with hypoxia (Chronic) Pulmonary edema (Chronic) Hypoxia (Chronic) Flash pulmonary edema (Chronic) CHF (congestive heart failure) (Chronic) History of appendectomy (Chronic ~2005) Tobacco abuse (Chronic) UTI (urinary tract infection) (Chronic) Closed hematoma of right kidney (Chronic) Leucocytosis (Chronic) Interstitial edema (Chronic) Renal hematoma (Chronic) Prostate cancer screening (Chronic) Left shoulder pain (Chronic) Screening for colorectal cancer (Chronic) Left hip pain (Chronic) Trochanteric bursitis, left hip (Chronic) Fluid overload (Chronic) Trigger finger (acquired) (Chronic) Squamous cell carcinoma of right hand (Chronic) Strain of thoracic paraspinal muscles excluding T1 and T2 levels (Chronic) Foot sprain (Chronic) Ankle sprain (Chronic) Back spasm (Chronic) H/O carpal tunnel repair (Chronic) History of angioplasty (Chronic 11/03/16) Status post insertion of dialysis catheter (Chronic) Back pain at L4-L5 level (Chronic) Arteriovenous fistula for hemodialysis in place, primary (Chronic ~10/29/13) Secondary hyperparathyroidism of renal origin (Chronic) Proteinuria (Chronic 12/06/12) Pes planus (Chronic) retirement current use of insulin (Chronic) retirement 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 (Chronic) Hypertensive renal disease (Chronic) Hyperlipidemia (Chronic) Gastroesophageal reflux (Chronic 07/01/14) Essential hypertension (Chronic 12/06/12) End stage renal disease (Chronic) Diabetes mellitus type 1, uncontrolled (Chronic) Chronic kidney disease, stage V (Chronic 04/29/13) Anemia in chronic kidney disease (Chronic) Acidosis, metabolic (Chronic 12/06/12) Medical History Abscess Acidosis, metabolic (12/06/12) of CKD Acute appendicitis Acute on chronic diastolic CHF (congestive heart failure), NYHA class 2 Prior Echo c/w HTN and CHF with pLVEF. No valvulopathy pro BNP elevated Acute respiratory failure with hypoxia Anemia due to stage 5 chronic kidney disease treated with darbepoetin Give aranesp qMWF while on HD to counteract acute blood loss in hospital due to frequent blood loss to lab. Anemia in chronic kidney disease Ankle sprain Appendicitis Arm pain, left Back pain at L4-L5 level Back spasm Carpal tunnel syndrome of right wrist Cellulitis of finger of left hand Cellulitis of great toe, left CHF (congestive heart failure) Chronic kidney disease, stage V (04/29/13) Chronic kidney disease, stage V Chronic pain Closed hematoma of right kidney Cluster headache syndrome, intractable Community acquired pneumonia Confusion Cough CRF (chronic renal failure) Current use of anticoagulant therapy Diabetes mellitus type 1 with complications Diabetes mellitus type 1, uncontrolled unable to afford brand insulin Discitis DKA (diabetic ketoacidosis) Dressing change End stage renal disease ESRD on hemodialysis Essential hypertension (12/06/12) Flash pulmonary edema Fluid overload Foot pain (07/01/14) Foot sprain Gastroesophageal reflux (07/01/14) History of tobacco abuse Hyperkalemia, diminished renal excretion Hyperlipidemia Hypertensive renal disease Hypoxia Injury of Foot Interstitial edema Knee contusion Left hip pain Left shoulder pain 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 Medication side effect Muscle twitching Nausea & vomiting Nosocomial pneumonia Other low back pain Pes planus Pneumonia Prostate cancer screening Proteinuria (12/06/12) Pulmonary edema Rash Renal hematoma Screening for colorectal cancer Secondary hyperparathyroidism of renal origin Shortness of breath Squamous cell carcinoma of right hand Strain of thoracic paraspinal muscles excluding T1 and T2 levels Tobacco abuse Trigger finger (acquired) Trochanteric bursitis, left hip UTI (urinary tract infection) Word finding difficulty Surgical History Arteriovenous fistula for hemodialysis in place, primary (~10/29/13) Creation of a right radiocephalic AV fistula H/O carpal tunnel repair History of angioplasty (11/03/16) 12/25/19 - Fistulogram 01/16/19 - and Fistulogram History of ankle surgery History of appendectomy (~2005) History of back surgery (~2014) History of bone marrow biopsy 03/30/2013 History of colonoscopy (06/18/15) History of laser photocoagulation of retina History of shoulder surgery 2013 bicep reattachment-right shoulder-Dr. 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: smoked 32 years smoking status: Former smoker quit date: 03/14/20 pack-years: 33 smoking status stop date: 09/11/14 alcohol intake frequency: does not drink substance use type: does not use MEDS/ALLERGIES Home Medications and Allergies Home Medications Medication Instructions Recorded Confirmed Type ascorbic acid (vitamin C) 1,000 mg 500 mg PO DAILY 08/23/14 11/01/21 History tablet pen needle, diabetic 32 gauge x #200 ea 07/14/17 11/01/21 Rx 5/32" (BD Ultra-Fine Marcy Pen Needle) blood-glucose meter #1 ea 06/22/19 11/01/21 Rx aspirin 81 mg tablet,delayed 81 mg PO HS 11/21/19 11/01/21 History release (Adult Aspirin Regimen) acetaminophen 325 mg capsule 650 mg PO Q6H PRN Pain 11/23/19 11/01/21 History alteplase 2 mg intra-catheter 4 mg intra-catheter ONCE 11/23/19 11/01/21 History solution (Cathflo Activase) etelcalcetide 5 mg/mL intravenous 2.5 mg IV 3XW 11/23/19 11/01/21 History solution (Parsabiv) heparin (porcine) 1,000 unit/mL 1 unit IV 3XW 11/23/19 11/01/21 History injection solution krill oil 500 mg capsule 1,000 mg PO DAILY 06/17/20 11/01/21 History multivitamin 1 tab PO QDAY 06/17/20 11/01/21 History sevelamer carbonate 800 mg tablet 1,600 mg PO TID #540 tabs 04/20/21 11/01/21 Rx albuterol sulfate 90 mcg/actuation 2 puff inhalation Q8H PRN 06/15/21 11/01/21 Rx aerosol inhaler shortness of breath or wheezing #8.5 grams metoprolol tartrate 25 mg tablet 25 mg PO BID #180 tabs 06/23/21 11/01/21 Rx enalapril maleate 5 mg tablet 5 mg PO BID for blood pressure 08/03/21 11/01/21 Rx #180 tabs hydromorphone 4 mg tablet See Rx Instructions PO Q6H PRN 08/11/21 11/01/21 Rx pain #168 tabs amlodipine 5 mg tablet 5 mg PO QHS #90 tabs 09/07/21 11/01/21 Rx atorvastatin 40 mg tablet 40 mg PO HS #90 tabs 09/07/21 11/01/21 Rx furosemide 40 mg tablet 40 mg PO BID #180 tabs 09/07/21 11/01/21 Rx insulin aspart U-100 100 unit/mL 50 unit (0.5 mL) subcut TID #30 mL 09/15/21 11/01/21 Rx (3 mL) subcutaneous pen (Novolog Flexpen U-100 Insulin aspart) insulin degludec 100 unit/mL (3 25 unit (0.25 mL) subcut QPM #15 mL 09/15/21 11/01/21 Rx mL) subcutaneous pen (Tresiba FlexTouch U-100 insulin) methocarbamol 750 mg tablet 750 mg PO Q8H #60 tabs 09/21/21 11/01/21 Rx vitamin B complex-vitamin C-folic 1 tab PO QDAY #90 tabs 10/19/21 11/01/21 Rx acid 0.8 mg tablet (Marycruz-Adeel) varenicline 0.5 mg (11)-1 mg (42) See Rx Instructions PO PER PKG DIR 10/26/21 11/01/21 Rx tablets in a dose pack (Chantix #53 tabs Starting Month Box) coQ10 (ubiquinol) 100 mg capsule 100 mg PO QAM 11/01/21 11/01/21 History julio root extract 15 mg chewable 50 mg PO QAM 11/01/21 11/01/21 History tablet latanoprost 0.005 % eye drops 1 drp ophthalmic (eye) QDAY 11/01/21 11/01/21 History ondansetron 4 mg disintegrating 4 mg PO Q8 11/01/21 11/01/21 History tablet pantoprazole 20 mg tablet,delayed 20 mg PO BIDWMEAL 11/01/21 11/01/21 History release tumeric 100 mg-julio 150 mg-olive 500 cap PO QAM 11/01/21 11/01/21 History 50 mg-oreg 150 mg-caprylate capsule vitamin B complex-vitamin C-folic 1 tab PO QDAY 11/01/21 11/01/21 History acid 0.8 mg tablet Allergies Allergy/AdvReac Type Severity Reaction Status Date / Time codeine AdvReac Mild Vomiting Verified 11/01/21 13:36 hydrocodone [HYDROCODONE] AdvReac Mild Vomiting Verified 11/01/21 13:36 EXAM Constitutional Vitals: Temp Pulse Resp BP Pulse Ox O2 Del Method O2 Flow Rate 97.1 F 76 15 152/79 100 4 11/01/21 13:33 11/01/21 17:03 11/01/21 17:01 11/01/21 17:01 11/01/21 17:03 11/01/21 13:35 11/01/21 13:35 General appearance: average body habitus, cooperative and mild distress Head Head exam: Present atraumatic and normal inspection Eye Eye exam: Absent conjunctival injection or scleral icterus Pupils: Present PERRL ENT ENT exam: Present mucous membranes moist Neck Neck exam: Present full ROM and normal inspection; Absent tenderness Respiratory Respiratory exam: Present rales (bilateral lower lung [place]) Cardiovascular Cardiovascular exam: Present normal rate and rhythm and systolic murmur (2/6, holosystolic at apex) Expanded Cardiovascular Exam Peripheral pulses: 2+: carotid (L) and carotid (R) GI/Abdominal GI/Abdominal exam: Present normal bowel sounds and soft; Absent distended, guarding or tenderness Extremities Exam Extremities exam: Present full ROM; Absent pedal edema Neurological Exam Neurological exam: Present alert and oriented X3; Absent motor sensory deficit Psychiatric Psychiatric exam: Present normal affect and normal mood Skin Skin exam: Present dry and warm DATA Data Completed and Pending Labs: Labs from last 24 hours 11/01/21 11/01/21 11/01/21 14:06 14:04 13:49 WBC RBC Hgb Hct MCV MCH MCHC RDW Plt Count MPV Immature Gran % (Auto) Neut % (Auto) Lymph % (Auto) [place] % (Auto) Eos % (Auto) Baso % (Auto) Lymph # (Auto) [place] # (Auto) Eos # (Auto) Baso # (Auto) Immature Gran # Absolute Neutrophils POC VBG pH 7.40 POC VBG pCO2 at Temp 40.8 L POC VBG pO2 23 L POC VBG HCO3 25.0 POC VBG Total CO2 26.0 POC Venous O2 Sat 40.0 POC VBG Base Excess 0 VBG Lactic Acid 0.8 Sodium 128 L Potassium 6.4 H* Chloride 87 L Carbon Dioxide 23 Anion Gap 18.0 H BUN 62 H Creatinine 8.8 H* GFR Calculation 6 Glucose 129 H Calcium 9.2 Phosphorus 6.2 H* Magnesium 3.6 H Total Bilirubin 0.4 AST 17 ALT < 5 Alkaline Phosphatase 76 NT-Pro-B Natriuret Pep 2339.0 H Total Protein 7.7 Albumin 3.9 Globulin 3.8 H Albumin/Globulin Ratio 1.0 POC Troponin I 0.09 H 11/01/21 13:49 WBC 12.3 H RBC 3.80 L Hgb 11.3 L Hct 35.0 L MCV 92.1 MCH 29.7 MCHC 32.3 RDW 13.8 Plt Count 286 MPV 10.0 Immature Gran % (Auto) 0.5 Neut % (Auto) 74.0 Lymph % (Auto) 11.2 L [place] % (Auto) 11.8 Eos % (Auto) 1.9 Baso % (Auto) 0.6 Lymph # (Auto) 1.38 L [place] # (Auto) 1.45 H Eos # (Auto) 0.24 Baso # (Auto) 0.07 Immature Gran # 0.06 H Absolute Neutrophils 9.12 H POC VBG pH POC VBG pCO2 at Temp POC VBG pO2 POC VBG HCO3 POC VBG Total CO2 POC Venous O2 Sat POC VBG Base Excess VBG Lactic Acid Sodium Potassium Chloride Carbon Dioxide Anion Gap BUN Creatinine GFR Calculation Glucose Calcium Phosphorus Magnesium Total Bilirubin AST ALT Alkaline Phosphatase NT-Pro-B Natriuret Pep Total Protein Albumin Globulin Albumin/Globulin Ratio POC Troponin I Imaging and Cardiology Chest x-ray: Status: image reviewed by me Additional comments: IMPRESSION: 1. Appearance consistent with interstitial pulmonary edema. 2. No focal pulmonary parenchymal consolidation EKG: Additional comments: NSR without peaking of T-waves or injury changes A/P Sepsis Sepsis Identified: No Narrative A/P Narrative: 56 y/o male with type 1 DM, CKD V on HD, prsents with dyspnea, found to have volume overload, hyperkalemia. Pulmonary edema -From volume overload in setting of ESRD -Unclear etiology, no change in oral intake, no missed HD sessions -received 120 mg IV furosemide in the ED -hypoxia resolved with O2 via NC -accepts risks of staying at [facility], up to including intubation for progressive respiratory failure if that were to occur prior to HD on 11/02 Hyperkalmeia -potassium 6.4, secondary to ESRD -received kayexelate and calcium gluconate in the ED Elevated troponin -marginally abnormal -no chest symptoms or EKG changes -suspect seconary to ESRD, possible demand ischemia from pulmonary edema Type 1 DM -uses continuous glucose monitoring -takes 25 units Treseba at night -takes humalog 4-12 units with meald depending upon carb intake and pre-meal CBG Hyponatremia -in setting of ESRD and volume overload -will be managed on dialysis Chronic anemia -from ESRD Plan: -hospitalize on observation -supplemental O2 as needed, up to and including BiPAP or intubation/mechanical ventilation -cardiac monitoring -recheck labs in AM -HD in morning to correct volume and electrolyes -Lantus 25 units at HS -Novolog sliding scale -continue BP meds -continue sevelamer Code Status: Full Code DVT Prophy: SQ heparin
--- NOTE | 2021-11-01 17:56 | Nephrology Consult Note ---
HPI Data of Consult Patient: known to practice within the last 3 years Consult date: 11/01/21 Requesting physician: Ha Drake Primary Care Provider: Andrey Strickland DO Consult Narrative Patient Information: Note initiated : 11/01/21 at 5:55 pm Patient: Daljit Ash 56 y/o M admitted on 11/01/21 for low oxygen. Daljit Ash is a 56-year-old male with end stage renal disease on hemodialysis, chronic anemia due to ESRD, hypertension admitted on 11/01/21. He presented to ED for shortness of breath. His work up was significant for pulmonary edema, hyperkalemia and hyponatremia. Transfer to higher level of care was recommended since inpatient hemodialysis is not available until Juan am. The patient declined. He had adequate oxygen saturation by [place] O2. He was given Kayexalate 30 g PO x 1, Calcium gluconate 9.3 mEq IV x 1, Furosemide 120 mg IV x 1. Nephrology consultation was requested for end stage renal disease. Chief complaint: Shortness of breath Reason for consult: End stage renal disease cc:: CC: Mary Kate Rhodes Constitutional Constitutional: Present weakness; Absent fever(s) EENT Nose, mouth and throat: Absent nasal discharge or sore throat Cardiovascular Cardiovascular: Absent chest pain or edema Respiratory Respiratory: Present dyspnea; Absent wheezing Gastrointestinal Gastrointestinal: Absent nausea or vomiting Musculoskeletal Musculoskeletal: Absent joint swelling Integumentary Integumentary: Absent rash Neurological Neurological: Absent confusion Psychiatric Psychiatric: Absent confusion Hematologic/Lymphatic Hematologic/Lymphatic: Absent easy bleeding or easy bruising Allergic/Immunologic Allergic/Immunologic: Absent tongue swelling or uticaria PFSH PFSH All Active Problems (Updated 11/01/21 @ 16:42 by Grover Jaquez PA-C) Volume overload state of heart (Acute) Other low back pain (Chronic) Chronic pain (Chronic) Current use of anticoagulant therapy (Chronic) Injury of Foot (Chronic) Chronic kidney disease, stage V (Chronic) Cluster headache syndrome, intractable (Chronic) Shortness of breath (Chronic) Abscess (Chronic) Knee contusion (Chronic) Cellulitis of finger of left hand (Chronic) Cellulitis of great toe, left (Chronic) Confusion (Chronic) Medication side effect (Chronic) Word finding difficulty (Chronic) Muscle twitching (Chronic) Cough (Chronic) Discitis (Chronic) Arm pain, left (Chronic) Dressing change (Chronic) DKA (diabetic ketoacidosis) (Chronic) Hyperkalemia, diminished renal excretion (Chronic) 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) CRF (chronic renal failure) (Chronic) Nausea & vomiting (Chronic) Acute on chronic diastolic CHF (congestive heart failure), NYHA class 2 (Chronic) Anemia due to stage 5 chronic kidney disease treated with darbepoetin (Chronic) ESRD on hemodialysis (Chronic) Community acquired pneumonia (Chronic) Acute respiratory failure with hypoxia (Chronic) Pulmonary edema (Chronic) Hypoxia (Chronic) Flash pulmonary edema (Chronic) CHF (congestive heart failure) (Chronic) History of appendectomy (Chronic ~2005) Tobacco abuse (Chronic) UTI (urinary tract infection) (Chronic) Closed hematoma of right kidney (Chronic) Leucocytosis (Chronic) Interstitial edema (Chronic) Renal hematoma (Chronic) Prostate cancer screening (Chronic) Left shoulder pain (Chronic) Screening for colorectal cancer (Chronic) Left hip pain (Chronic) Trochanteric bursitis, left hip (Chronic) Fluid overload (Chronic) Trigger finger (acquired) (Chronic) Squamous cell carcinoma of right hand (Chronic) Strain of thoracic paraspinal muscles excluding T1 and T2 levels (Chronic) Foot sprain (Chronic) Ankle sprain (Chronic) Back spasm (Chronic) H/O carpal tunnel repair (Chronic) History of angioplasty (Chronic 11/03/16) Status post insertion of dialysis catheter (Chronic) Back pain at L4-L5 level (Chronic) Arteriovenous fistula for hemodialysis in place, primary (Chronic ~10/29/13) Secondary hyperparathyroidism of renal origin (Chronic) Proteinuria (Chronic 12/06/12) Pes planus (Chronic) 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 No valvulopathy pro BNP elevated Acute respiratory failure with hypoxia Anemia due to stage 5 chronic kidney disease treated with darbepoetin Give aranesp qMWF while on HD to counteract acute blood loss in hospital due to frequent blood loss to lab. Anemia in chronic kidney disease Ankle sprain Appendicitis Arm pain, left Back pain at L4-L5 level Back spasm Carpal tunnel syndrome of right wrist Cellulitis of finger of left hand Cellulitis of great toe, left CHF (congestive heart failure) Chronic kidney disease, stage V (04/29/13) Chronic kidney disease, stage V Chronic pain Closed hematoma of right kidney Cluster headache syndrome, intractable Community acquired pneumonia Confusion Cough CRF (chronic renal failure) Current use of anticoagulant therapy Diabetes mellitus type 1 with complications Diabetes mellitus type 1, uncontrolled unable to afford brand insulin Discitis DKA (diabetic ketoacidosis) Dressing change End stage renal disease ESRD on hemodialysis Essential hypertension (12/06/12) Flash pulmonary edema Fluid overload Foot pain (07/01/14) Foot sprain Gastroesophageal reflux (07/01/14) History of tobacco abuse Hyperkalemia, diminished renal excretion Hyperlipidemia Hypertensive renal disease Hypoxia Injury of Foot Interstitial edema Knee contusion Left hip pain Left shoulder pain Leucocytosis retirement 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 retirement current use of insulin Medication side effect Muscle twitching Nausea & vomiting Nosocomial pneumonia Other low back pain Pes planus Pneumonia Prostate cancer screening Proteinuria (12/06/12) Pulmonary edema Rash Renal hematoma Screening for colorectal cancer Secondary hyperparathyroidism of renal origin Shortness of breath Squamous cell carcinoma of right hand Strain of thoracic paraspinal muscles excluding T1 and T2 levels Tobacco abuse Trigger finger (acquired) Trochanteric bursitis, left hip UTI (urinary tract infection) Word finding difficulty Surgical History Arteriovenous fistula for hemodialysis in place, primary (~10/29/13) Creation of a right radiocephalic AV fistula H/O carpal tunnel repair History of angioplasty (11/03/16) 12/25/19 - Fistulogram 01/16/19 - and Fistulogram History of ankle surgery History of appendectomy (~2005) History of back surgery (~2014) History of bone marrow biopsy 03/30/2013 History of colonoscopy (06/18/15) History of laser photocoagulation of retina History of shoulder surgery 2013 bicep reattachment-right shoulder-Dr. 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[employer] other: smoked 32 years smoking status: Former smoker quit date: 03/14/20 pack-years: 33 smoking status stop date: 09/11/14 alcohol intake frequency: does not drink substance use type: does not use MEDS/ALLERGIES Home Medications and Allergies Home Medications Medication Instructions Recorded Confirmed Type ascorbic acid (vitamin C) 1,000 mg 500 mg PO DAILY 08/23/14 11/01/21 History tablet pen needle, diabetic 32 gauge x #200 ea 07/14/17 11/01/21 Rx 5/32" (BD Ultra-Fine Marcy Pen Needle) blood-glucose meter #1 ea 06/22/19 11/01/21 Rx aspirin 81 mg tablet,delayed 81 mg PO HS 11/21/19 11/01/21 History release (Adult Aspirin Regimen) acetaminophen 325 mg capsule 650 mg PO Q6H PRN Pain 11/23/19 11/01/21 History alteplase 2 mg intra-catheter 4 mg intra-catheter ONCE 11/23/19 11/01/21 History solution (Cathflo Activase) etelcalcetide 5 mg/mL intravenous 2.5 mg IV 3XW 11/23/19 10/15/21 History solution (Parsabiv) heparin (porcine) 1,000 unit/mL 1 unit IV 3XW 11/23/19 11/01/21 History injection solution sodium ferric gluconate complex in 62.5 mg IV ONCE 11/23/19 10/15/21 History sucrose 62.5 mg/5 mL intravenous (Ferrlecit) krill oil 500 mg capsule 1,000 mg PO DAILY 06/17/20 11/01/21 History multivitamin 1 tab PO QDAY 06/17/20 11/01/21 History sevelamer carbonate 800 mg tablet 1,600 mg PO TID #540 tabs 04/20/21 11/01/21 Rx albuterol sulfate 90 mcg/actuation 2 puff inhalation Q8H PRN 06/15/21 11/01/21 Rx aerosol inhaler shortness of breath or wheezing #8.5 grams metoprolol tartrate 25 mg tablet 25 mg PO BID #180 tabs 06/23/21 11/01/21 Rx enalapril maleate 5 mg tablet 5 mg PO BID for blood pressure 08/03/21 11/01/21 Rx #180 tabs hydromorphone 4 mg tablet See Rx Instructions PO Q6H PRN 08/11/21 11/01/21 Rx pain #168 tabs amlodipine 5 mg tablet 5 mg PO QHS #90 tabs 09/07/21 11/01/21 Rx atorvastatin 40 mg tablet 40 mg PO HS #90 tabs 09/07/21 11/01/21 Rx furosemide 40 mg tablet 40 mg PO BID #180 tabs 09/07/21 11/01/21 Rx insulin aspart U-100 100 unit/mL 50 unit (0.5 mL) subcut TID #30 mL 09/15/21 11/01/21 Rx (3 mL) subcutaneous pen (Novolog Flexpen U-100 Insulin aspart) insulin degludec 100 unit/mL (3 25 unit (0.25 mL) subcut QPM #15 mL 09/15/21 11/01/21 Rx mL) subcutaneous pen (Tresiba FlexTouch U-100 insulin) methocarbamol 750 mg tablet 750 mg PO Q8H #60 tabs 09/21/21 11/01/21 Rx vitamin B complex-vitamin C-folic 1 tab PO QDAY #90 tabs 10/19/21 11/01/21 Rx acid 0.8 mg tablet (Marycruz-Adeel) varenicline 0.5 mg (11)-1 mg (42) See Rx Instructions PO PER PKG DIR 10/26/21 11/01/21 Rx tablets in a dose pack (Chantix #53 tabs Starting Month Box) ondansetron 4 mg disintegrating 4 mg PO Q8 11/01/21 11/01/21 History tablet pantoprazole 20 mg tablet,delayed 1,600 mg PO BIDWMEAL 11/01/21 11/01/21 History release Allergies Allergy/AdvReac Type Severity Reaction Status Date / Time codeine AdvReac Mild Vomiting Verified 11/01/21 13:36 hydrocodone [HYDROCODONE] AdvReac Mild Vomiting Verified 11/01/21 13:36 Physical Examination Vital Signs Vital signs: Temp Pulse Resp BP Pulse Ox O2 Del Method O2 Flow Rate 97.1 F 76 33 H 149/76 99 4 11/01/21 13:33 11/01/21 17:46 11/01/21 17:47 11/01/21 17:46 11/01/21 17:46 11/01/21 13:35 11/01/21 13:35 General Appearance General appearance: appears started age and chronically ill EENT EENT: mucous membranes dry Respiratory Respiratory: course breath sounds Cardiovascular Cardiology: edema (trace) Gastrointestinal Gastrointestinal: no tenderness Integumentary Integumentary: no rash Neurologic Neurologic: no focal deficit and alert and oriented x3 Musculoskeletal Musculoskeletal: no cyanosis Psychiatric Psychiatric: mood/affect appropriate and cooperative Results Lab Results Result Diagrams: 11/01/21 13:49 11/01/21 13:49 Lab results: Most recent lab results Calcium 9.2 mg/dL (8.6-10.4) 11/01/21 13:49 Phosphorus 6.2 mg/dL (2.5-4.5) H* 11/01/21 13:49 Magnesium 3.6 mg/dL (1.6-2.5) H 11/01/21 13:49 A/P Assessment and plan (1) ESRD on hemodialysis: Assessment and plan: Daljit Ash is a 56-year-old male with end stage renal disease on hemodialysis, chronic anemia due to ESRD, hypertension admitted on 11/01/21. He presented to ED for shortness of breath. His work up was significant for pulmonary edema, hyperkalemia and hyponatremia. Transfer to higher level of care was recommended since inpatient hemodialysis is not available until Juan am. The patient declined. He had adequate oxygen saturation by [place] O2. He was given Kayexalate 30 g PO x 1, Calcium gluconate 9.3 mEq IV x 1, Furosemide 120 mg IV x 1. Nep hrology consultation was requested for end stage renal disease. End stage renal disease on hemodialysis. Pulmonary edema due to fluid overload. Hyperkalemia. Hyponatremia associated with ESRD and fluid overload, treated with HD. Chronic anemia due to ESRD. Recommendations/Plan: Hemodialysis tomorrow morning as inpatient or outpatient depending on his clinical condition. Status: Chronic Time Spent With Patient Time: Total time spent is greater than 50% in coordination of care (as documented) at patient's floor/unit and/or counseling patient:
[2021-11-01] MEDS: INSULIN LISPRO 1 UNIT/0.01 ML UNIT SQ SCH (20:28)
[2021-11-01] MEDS: METOPROLOL TARTRATE 25 MG TABLET PO SCH (20:28)
[2021-11-01] MEDS: 0.9 % SODIUM CHLORIDE 10 ML SYRINGE IV SCH (20:30)
[2021-11-01] MEDS ORDERED: LISINOPRIL 2.5 MG TABLET PO SCH (21:00)
[2021-11-01] MEDS ORDERED: amLODIPine 5 MG TABLET PO SCH (21:00)
[2021-11-01] MEDS ORDERED: DOCUSATE SODIUM 100 MG CAPSULE PO SCH (21:00)
[2021-11-01] MEDS ORDERED: INSULIN GLARGINE, HUMAN 1 UNIT/0.01 ML SQ SCH (21:00)
[2021-11-01] MEDS ORDERED: ASPIRIN 81 MG TAB.CHEW PO SCH (21:00)
[2021-11-01] MEDS ORDERED: HEPARIN 5,000 UNIT/ML VIAL SQ SCH (21:00)
[2021-11-01] MEDS ORDERED: ATORVASTATIN 40 MG TABLET PO SCH (21:00)
[2021-11-02] MEDS: 0.9 % SODIUM CHLORIDE 10 ML SYRINGE IV SCH (05:44)
[2021-11-02] MEDS: METOPROLOL TARTRATE 25 MG TABLET PO SCH (06:27)
[2021-11-02] MEDS: INSULIN LISPRO 1 UNIT/0.01 ML UNIT SQ SCH (06:27)
[2021-11-02 07:25] LABS: ALT/SGPT < 5 U/L (<40); AST/SGOT 19 U/L (<40); Albumin 3.2 gm/dL (3.2-5.2); Albumin/Globulin Ratio 0.8 (1.0-2.3); Alkaline Phosphatase 63 U/L (39-117); Bilirubin,Direct < 0.2 mg/dL (0-0.3); Bilirubin,Total 0.3 mg/dL (0.1-1.0); Blood Urea Nitrogen 70 mg/dL (6-20); Carbon Dioxide 19 mmol/L (22-30); Chloride 90 mmol/L (96-108); Glomerular Filtration Rate 5; Glucose 63 mg/dL (70-105); Lactate Dehydrogenase 250 U/L (135-225); Phosphorous 7.1 mg/dL (2.5-4.5); Triglycerides 159 mg/dL (<150); Uric Acid 6.6 mg/dL (2.5-8.0)
[2021-11-02] MEDS ORDERED: PANTOPRAZOLE 40 MG TABLET PO SCH (07:30)
[2021-11-02] MEDS ORDERED: SEVELAMER 800 MG TABLET PO SCH (08:00)
--- NOTE | 2021-11-02 08:01 | Nephrology Progress Note ---
SUBJECTIVE Subjective Patient information: Note initiated : 11/02/21 at 7:57 am Patient: Daljit Ash 56 y/o M admitted on 11/01/21 for low oxygen. Chief Complaint: Shortness of breath Pertinent ROS: Dyspnea No significant edema Constitutional Vitals: Vital Signs Temp Pulse Resp BP Pulse Ox O2 Del Method O2 Flow Rate 97.2 F 74 15 145/72 96 1 11/02/21 04:01 11/02/21 06:01 11/02/21 06:01 11/02/21 06:01 11/02/21 06:01 11/01/21 22:04 11/02/21 06:01 Period Temp Pulse Resp BP Sys/Cerda Pulse Ox O2 Del Method O2 Flow Rate Last 24 Hr 97.1 F-97.7 F 70-86 12-33 127-172/66-86 75-100 Nasal Cannula- Room Air 0-4 Intake and Output 11/01/21 11/02/21 11/02/21 21:59 05:59 13:59 Intake Total 0 480 Output Total 250 0 Balance -250 480 Weight 161 lb 3.2 oz Intake & Output: Intake & Output 11/01/21 11/02/21 11/02/21 21:59 05:59 13:59 Intake Total 0 480 Output Total 250 0 Balance -250 480 Weight 161 lb 3.2 oz Intake: Oral 0 480 Output: Void Amount 250 0 Other: Meal peaches,melly crackers,juice Percent of Meal Consumed 100% Urine Appearance Clear Urine Color Light Essence Urine Odor Normal General appearance: cooperative and no acute distress Head Head exam: Present atraumatic, normal inspection and normocephalic ENT ENT exam: Present mucous membranes dry Respiratory Respiratory exam: Present rales Cardiovascular Cardiovascular exam: Present normal rate and rhythm GI/Abdominal GI/Abdominal exam: Present soft Neurological Exam Neurological exam: Present alert and oriented X3 Psychiatric Psychiatric exam: Present normal affect and normal mood Skin Skin exam: Present normal color and warm A/P Assessment and plan (1) ESRD on hemodialysis: Assessment and plan: Daljit Ash is a 56-year-old male with end stage renal disease on hemodialysis, chronic anemia due to ESRD, hypertension admitted on 11/01/21. He presented to ED for shortness of breath. His work up was significant for pulmonary edema, hyperkalemia and hyponatremia. Transfer to higher level of care was recommended since inpatient hemodialysis is not available until Juan am. The patient declined. He had adequate oxygen saturation by [place] O2. He was given Kayexalate 30 g PO x 1, Calcium gluconate 9.3 mEq IV x 1, Furosemide 120 mg IV x 1. Nephrology consultation was requested for end stage renal disease. End stage renal disease on hemodialysis. Pulmonary edema due to fluid overload. Hyperkalemia. Hyponatremia associated with ESRD and fluid overload, treated with HD. Chronic anemia due to ESRD. Recommendations/Plan: Hemodialysis today as outpatient since his clinical condition is stable. Status: Chronic Time Spent With Patient Time: Total time spent is greater than 50% in coordination of care (as documented) at patient's floor/unit and/or counseling patient:
[2021-11-02] MEDS ORDERED: MULTIVIT,THER IRON,CA,FA & MIN 1 TABLET PO SCH (09:00)
[2021-11-02] MEDS ORDERED: VITAMIN B COMPLEX 1 CAPSULE PO SCH (09:00)
[2021-11-02] MEDS ORDERED: LATANOPROST OPHTH DROPS 2.5ML BOTTLE OU SCH (09:00)
--- NOTE | 2021-11-02 09:22 | Discharge Summary ---
Discharge Provider Provider IMPORTANT FOLLOW-UP INFORMATION FOR PCP: Discharged to HD for definitive therapy of pulmonary edema Patient information: Note initiated : 11/02/21 at 9:19 am Service Date, if different from initiated Date: [] Patient: Daljit Ash 56 y/o M admitted on 11/01/21 for low oxygen. Chief Complaint: Dyspnea Date of admission: 11/01/21 17:50 Discharge date: 11/02/21 Primary care physician: Andrey Strickland DO Admitting clinician: Mary Kate Rhodes Consults: 11/01/21 Consult to Physician [CONS] Stat Comment: Consulting Provider: Mary Kate Rhodes Reason For Exam: Physician to Consult Discharging clinician: Mary Kate Rhodes COURSE Hospital Course Hospital course: Mr. Ash is a 56 year old M with T1DM, CKD V on HD , CHF, HTN, who presents with dyspena. Onset about 30-60 min prior to arrival in ED. Noted SaO2 at home to be in the low 70's at that time. [place] id difficult to get a full inspiration. No change in fluid intake (32 oz a day), no change in sodium in diet. Had normal HD session on Tue, down to dry weight. Has had this happen 2-3 times before in the last 3-4 years. In the ED, hypoxia resolved with supplemental O2. Labs notable for potassium 6.4, phos 6.2, Cr 8.8, pro-BNP 2339 and torponin mildly abnormal at 0.09. CXR with pulmonary edema. Dr. Williamson (nephrology) was contacted, who recommended transfer for emergent dialysis (HD only available here - daytime). The patient did not wish to be transferred. After re-evaluation and also being seen in person by Dr. Williamson, the patient accepts the risk of staying at [facility] until HD available Mon AM. He was hospitalized on observation for monitoring, oxygen therapy and for attempted medical treatment of hyperkalemia and CHF prior to dialysis. Overnight the patient remained stable, he is able to be weaned from oxygen by the following morning. Dyspnea was improving. He did have some urine output from the dose of furosemide he received in the emergency department. Potassium improved to 5.7 the following morning prior to going to dialysis. Patient was discharged to hemodialysis for definitive therapy of his pulmonary edema and electrolyte abnormalities. Discharge diagnosis: Pulmonary edema secondary to volume overload in the setting of ESRD Secondary discharge diagnosis: Hyperkalemia Hyponatremia Type 1 diabetes mellitus Time Spent with Patient Time attestation: Total time spent providing and/or coordinating discharge services: Time spent: Greater than 30 minutes EXAM Constitutional Vitals: Temp Pulse Resp BP Pulse Ox O2 Del Method O2 Flow Rate 97.2 F 74 15 145/72 96 1 11/02/21 04:01 11/02/21 06:01 11/02/21 06:01 11/02/21 06:01 11/02/21 06:01 11/01/21 22:04 11/02/21 06:01 GENERAL: Alert, oriented, in no acute distress. RESPIRATORY: Few rales in the lower lung [place], improved from admission. Respiratory effort is unlabored. CARDIOVASCULAR: Regular rate and rhythm, murmur unchanged, no peripheral edema. GI: Abdomen soft, nontender SKIN: Warm, dry. NEUROLOGIC: Alert, oriented x3, moves all extremities equally. Discharge Data Data Completed and Pending Labs on day of discharge: Labs from last 24 hours 11/02/21 11/01/21 11/01/21 05:26 14:06 14:04 WBC RBC Hgb Hct MCV MCH MCHC RDW Plt Count MPV Immature Gran % (Auto) Neut % (Auto) Lymph % (Auto) [place] % (Auto) Eos % (Auto) Baso % (Auto) Lymph # (Auto) [place] # (Auto) Eos # (Auto) Baso # (Auto) Immature Gran # Absolute Neutrophils POC VBG pH 7.40 POC VBG pCO2 at Temp 40.8 L POC VBG pO2 23 L POC VBG HCO3 25.0 POC VBG Total CO2 26.0 POC Venous O2 Sat 40.0 POC VBG Base Excess 0 VBG Lactic Acid 0.8 Sodium 128 L Potassium 5.7 H Chloride 90 L Carbon Dioxide 19 L Anion Gap 19.0 H BUN 70 H Creatinine 10.0 H* GFR Calculation 5 Glucose 63 L Uric Acid 6.6 Calcium 9.0 Phosphorus 7.1 H* Magnesium 3.7 H Total Bilirubin 0.3 Direct Bilirubin < 0.2 GGT 17 AST 19 ALT < 5 Alkaline Phosphatase 63 Lactate Dehydrogenase 250 H NT-Pro-B Natriuret Pep Total Protein 7.2 Albumin 3.2 Globulin 4.0 H Albumin/Globulin Ratio 0.8 L Triglycerides 159 H POC Troponin I 0.09 H 11/01/21 11/01/21 13:49 13:49 WBC 12.3 H RBC 3.80 L Hgb 11.3 L Hct 35.0 L MCV 92.1 MCH 29.7 MCHC 32.3 RDW 13.8 Plt Count 286 MPV 10.0 Immature Gran % (Auto) 0.5 Neut % (Auto) 74.0 Lymph % (Auto) 11.2 L [place] % (Auto) 11.8 Eos % (Auto) 1.9 Baso % (Auto) 0.6 Lymph # (Auto) 1.38 L [place] # (Auto) 1.45 H Eos # (Auto) 0.24 Baso # (Auto) 0.07 Immature Gran # 0.06 H Absolute Neutrophils 9.12 H POC VBG pH POC VBG pCO2 at Temp POC VBG pO2 POC VBG HCO3 POC VBG Total CO2 POC Venous O2 Sat POC VBG Base Excess VBG Lactic Acid Sodium 128 L Potassium 6.4 H* Chloride 87 L Carbon Dioxide 23 Anion Gap 18.0 H BUN 62 H Creatinine 8.8 H* GFR Calculation 6 Glucose 129 H Uric Acid Calcium 9.2 Phosphorus 6.2 H* Magnesium 3.6 H Total Bilirubin 0.4 Direct Bilirubin GGT AST 17 ALT < 5 Alkaline Phosphatase 76 Lactate Dehydrogenase NT-Pro-B Natriuret Pep 2339.0 H Total Protein 7.7 Albumin 3.9 Globulin 3.8 H Albumin/Globulin Ratio 1.0 Triglycerides POC Troponin I Impressions Impressions: Chest x-ray: Status: image reviewed by me Additional comments: IMPRESSION: 1. Appearance consistent with interstitial pulmonary edema. 2. No focal pulmonary parenchymal consolidation EKG: Additional comments: NSR without peaking of T-waves or injury changes Discharge Plan Patient/Caregiver Discharge Instructions Activity: resume usual activities as tolerated Diet: Renal/Consistent Carbs Prescriptions: Continued (DME) blood-glucose meter Misc See Rx Instructions .ROUTE .MEDSUPPLY Qty: 1 0RF Rx Instructions: Use to test blood sugar three times daily acetaminophen 325 mg capsule 650 mg PO Q6H PRN (Reason: Pain) Rx Instructions: Dialysis Cathflo Activase 2 mg recon soln 4 mg intra-catheter ONCE Rx Instructions: Dialysis -into each catheter lumen heparin (porcine) 1,000 unit/mL solution 1 unit IV 3XW Rx Instructions: Dialysis - intravenously (1000 units/mL solution) 3 times a week BOLUS Parsabiv 5 mg/mL solution 2.5 mg IV 3XW Rx Instructions: administer after dialysis on dialysis days sevelamer carbonate 800 mg tablet 1,600 mg PO TID Qty: 540 3RF albuterol sulfate 90 mcg/actuation HFA aerosol inhaler 2 puff INHALATION Q8H PRN (Reason: shortness of breath or wheezing) Qty: 8.5 0RF metoprolol tartrate 25 mg tablet 25 mg PO BID Qty: 180 1RF enalapril maleate 5 mg tablet 5 mg PO BID Qty: 180 3RF hydromorphone 4 mg tablet See Rx Instructions PO Q6H PRN (Reason: pain) Qty: 168 0RF Rx Instructions: 4-8mg PO every 6 hours PRN; furosemide 40 mg tablet 40 mg PO BID Qty: 180 3RF amlodipine 5 mg tablet 5 mg PO QHS Qty: 90 3RF atorvastatin 40 mg tablet 40 mg PO HS Qty: 90 3RF Tresiba FlexTouch U-100 100 unit/mL (3 mL) insulin pen 25 unit subcut QPM Qty: 15 1RF insulin aspart U-100 [Novolog Flexpen U-100 Insulin] 100 unit/mL (3 mL) insulin pen 50 unit SUB-Q TID Qty: 30 6RF Rx Instructions: 1:10 units carb correctional SUB-Q QAM; administer within 5-10 min before meal/food and no later than at start of meal/snack methocarbamol 750 mg tablet 750 mg PO Q8H Qty: 60 0RF Marycruz-Adeel 0.8 mg tablet 1 tab PO QDAY Qty: 90 3RF Chantix Starting Month Box 0.5 mg (11)- 1 mg (42) tablets,dose pack See Rx Instructions PO PER PKG DIR Qty: 53 0RF Rx Instructions: PO PER PKG DIR (DME) pen needle, diabetic [BD Ultra-Fine Marcy Pen Needle] 32 gauge x 5/32" needle See Dose Instructions .ROUTE .MEDSUPPLY Qty: 200 4RF Dose Instruction: As directed Rx Instructions: Use to inject Basaglar and Novolog daily ascorbic acid (vitamin C) 1,000 mg tablet 500 mg PO DAILY aspirin [Adult Aspirin Regimen] 81 mg tablet,delayed release (DR/EC) 81 mg PO HS multivitamin Tablet 1 tab PO QDAY krill oil 500 mg Capsule 1,000 mg PO DAILY ondansetron 4 mg Tablet,Disintegrating 4 mg PO Q8 pantoprazole 20 mg tablet,delayed release (DR/EC) 20 mg PO BIDWMEAL B complex-vitamin C-folic acid 0.8 mg Tablet 1 tab PO QDAY coQ10 (ubiquinol) 100 mg Capsule 100 mg PO QAM qekmhxs-emgv-mdxox-oreg-capryl 100 mg-150 mg- 50 mg-150 mg Capsule 500 cap PO QAM julio root extract 15 mg Tablet,Chewable 50 mg PO QAM latanoprost 0.005 % Drops 1 drp OPHTHALMIC (EYE) QDAY Follow Up Plan Follow up with: Anrdey Strickland DO [Primary Care Provider] - Patient Disposition: Home, Self-Care Prognosis: Good Overall status at discharge: patient is progressing back to baseline Discharge Orders: Discharge Order (Routine); Ordered 11/02/21 Ordered By: Mary Kate BRAUN VTE Deep Vein Thrombosis/Pulmonary Embolism Present on Admission: No
--- NOTE | 2021-11-04 12:09 | EKG ---
[facility] Test Date: 2021-11-01 Pat Name: Daljit Ash Department: ICU Room: 118 Gender: Male Manager Express: RODRIGUE : 1965 Requested By: Mary Kate Rhodes Order Number: [id number] Reading MD: Robyn Walter D.O. Measurements Intervals [place] Rate: 83 P: 58 AK: 198 QRS: -90 QRSD: 99 T: 76 QT: 378 QTc: 445 Interpretive Statements Sinus rhythm CONSIDER LAFB OR INFERIOR INFARCT Electronically Signed On 11-04-2021 12:08:44 PDT by Robyn Walter D.O. /[id number]
== END 2021-11-02 06:50 | disposition home or self-care (01) ==
LOC: ED 13:28 → ICU 13:28
PROVIDERS: ADMIT Internal Medicine; ATTEND Internal Medicine